=== PATIENT | female | born 1940 | race Caucasian/White ===

== ENCOUNTER 2018-12-27 09:45 | Emergency (ER) | payer OTHER, SELFPAY ==
[2018-12-27] VITALS (8 sets, daily range): BP systolic 119–167; BP diastolic 81–95; PULSE 82–98; RESP 14–25; TEMP 37.2; O2SAT 97–100
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
[2018-12-27 10:36] LABS: Abs Immature Grans 0.04 k/cumm (0.0-0.09); Absolute Basophil Count 0.03 k/cumm (0.0-0.2); Absolute Eosinophil Count 0.23 k/cumm (0.0-0.7); Absolute Lymphocyte Count 2.71 k/cumm (1.2-3.4); Absolute Monocyte Count 1.09 k/cumm (0.11-0.7); Absolute Neutrophil Count 4.69 k/cumm (1.2-6.7); Basophils % 0.3; Eosinophils % 2.6; HGB 12.1 g/dL (12.0-15.5); Immature Grans % 0.5; Lymphocytes % 30.8; Mean Corpuscular Hemoglobin 23.4 pg (27.0-33.0); Mean Corpuscular Volume 75.3 fL (80-95); Mean Platelet Volume 10.2 fL (8.0-11.0); Monocytes % 12.4; Neutrophils % 53.4; Platelet Count 313 x1000/uL (130-400); RBC 5.18 m/cumm (4.00-5.20); RBC Distribution Width 16.7 % (11.7-14.6); White Blood Cell Count 8.79 k/cumm (4.4-10.8)
[2018-12-27] MEDS: Ketorolac 15 MG/ML VIAL IVP (10:38)
[2018-12-27 10:58] LABS: ALT 32 U/L (12-78); AST 32 U/L (15-37); Albumin 4.1 g/dL (3.4-5.0); Alkaline Phosphatase 109 U/L (46-116); Anion Gap 12.8 mmol/L (3-11); BUN 16 mg/dL (7-18); Bilirubin, Total 0.3 mg/dL (0.2-1.0); CO2 26.2 mmol/L (21.0-32.0); CREATININE 1.25 mg/dL (0.55-1.02); Calcium 9.7 mg/dL (8.5-10.1); Chloride 101 mmol/L (98-107); Estimated GFR 41.67 (mL/min/1.73m2); Glucose 132 mg/dL (70-100); Potassium 3.5 mmol/L (3.5-5.1); Sodium 140 mmol/L (136-145); Total Protein 7.9 g/dL (6.4-8.2)
[2018-12-27 11:05] LABS: Lipase 181 U/L (73-393); Magnesium 2.2 mg/dL (1.8-2.4); Troponin I < 0.02 ng/mL (0.00-0.06)
[2018-12-27] MEDS: Omnipaque 350 MG/ML 100 ML BTL IJ (11:54)
--- NOTE | 2018-12-27 13:16 | NUR.NOTE ---
MD into re-examine patient, patient given gingerale and saltines. Nursing Note:
[2018-12-27] MEDS: Lidocaine 5% Patch 1 PATCH (13:30)
[2018-12-27] MEDS: HYDROcodone 5/Acetaminophen 325 TAB PO ×2 (13:33→13:34)
== END 2018-12-27 13:49 | disposition home or self-care (01) ==
PROVIDERS: Emergency Provider Physician Assistant; PCP Family Medicine
DX: S29.011A Strain of muscle and tendon of front wall of thorax, initial encounter (principal); V43.52XA Car driver injured in collision with other type car in traffic accident, initial encounter; D43.2 Neoplasm of uncertain behavior of brain, unspecified; I10 Essential (primary) hypertension
CPT/HCPCS: 36415; 74177; 80053; 83690; 93005; 96374; 96375; 99285; 71260; 83735; 84484; 85025; 93010; J1885; J3490

== ENCOUNTER 2019-03-15 10:04 | Outpatient (REF) | payer OTHER, SELFPAY ==
[2019-03-15 19:17] LABS: Anion Gap 10.4 mmol/L (3-11); BUN 9 mg/dL (7-18); CO2 27.6 mmol/L (21.0-32.0); CREATININE 1.08 mg/dL (0.55-1.02); Calcium 8.8 mg/dL (8.5-10.1); Chloride 105 mmol/L (98-107); Estimated GFR 49.19 (mL/min/1.73m2); Glucose 158 mg/dL (70-100); Potassium 3.9 mmol/L (3.5-5.1); Sodium 143 mmol/L (136-145)
== END 2019-03-15 10:24 ==
LOC: NCHCN 10:04
PROVIDERS: PCP Family Medicine; Visit Provider Family Medicine
DX: I10 Essential (primary) hypertension (principal)
CPT/HCPCS: 80048

== ENCOUNTER 2019-05-08 12:56 | Outpatient (REF) | payer OTHER, SELFPAY | END 2019-05-08 13:16 | LOC: NCHCO 12:56 | PROVIDERS: PCP Family Medicine; Visit Provider Nurse Practitioner Family | DX: R30.0 Dysuria (principal); L29.8 Other pruritus | CPT/HCPCS: 87086; 87480; 87510; 87660 ==

== ENCOUNTER 2019-10-16 16:47 | Emergency (ER) | payer OTHER, SELFPAY ==
[2019-10-16 16:50] VITALS: BP 176/88; PULSE 97; RESP 18; TEMP 36.4; O2SAT 97
--- NOTE | 2019-10-16 17:20 | ED.GENADUL_ITS ---
Discharge Plan Disposition Patient Disposition: HOME Condition: Stable Discharge Details Chief Complaint: Orthopedic Clinical Impression: Fracture, humerus Primary Care Provider: Eveline Linton V ED Provider: Delisa Stewart Home Meds and New Rx's Prescriptions: New oxycodone 5 mg tablet 5 mg PO Q8H PRN (Reason: pain) Qty: 7 RF: 0 No Action naproxen sodium [Aleve] 220 MG capsule 220 mg PO BID PRNRF: 0 lisinopril 40 MG tablet 40 mg PO DAILY RF: 0 potassium chloride 20 MEQ tablet,ER particles/crystals 20 meq PO DAILY RF: 0 hydrochlorothiazide 25 MG tablet 25 mg PO DAILY RF: 0 Zyrtec 10 MG capsule 10 mg PO PRN PRNRF: 0 Osteo Bi-Flex Triple Strength 1 EACH tablet 1 ea PO DAILY RF: 0 ibuprofen 800 MG tablet 800 mg PO TID PRN PRNQty: 30 RF: 0 meclizine 25 mg Tablet PO PRN PRNRF: 0 Discharge Instructions Instructions: Arm Fracture in Adults (ED) Additional Instructions: Rest. Activities as tolerated. Wear sling Ice to the area of discomfort for 15 min. 3-5 times daily. Use oxycodone only if needed for severe pain. This will cause drowsiness, do not drive, drink alcohol while taking this medication. This may also cause constipation. Motrin or Naprosyn with food or Tylenol every 6 hours for soreness if needed over the counter for comfort. Followup with orthopedic doctor as discussed for reevaluation. Expect 3 weeks of discomfort before improvement. Return for any worsening or concerns sooner if needed. Return for any numbness, discoloration of the fingers or alarming symptoms sooner if needed Referrals: Brad Epperson MD [ [facility] STAFF PHYSICIAN] - Medical Decision Making Is a 79-year-old patient who slipped on ice prior to arrival landing on her left side. Patient reports significant left arm pain which is difficult to tolerate. Patient denies head strike, headache, dizziness, nausea, vomiting. Patient is not on a blood thinner. Patient denies neck or back pain. Has no concern of rib fractures. No abdominal complaints. Patient has no lower extremity complaints. Patient ambulated without difficulty after fall. On exam patient has diffuse left arm pain. Of try to identify a focal area of pain however given her diffuse complaints she does feel most comfortable with x-ray of the entire arm. Patient is distal neurovascularly intact. X-rays reveal a shoulder fracture. This was discussed with Dr. Epperson of orthopedics who recommends sling only. Patient has no other identifiable fractures on her imaging studies today. Patient's pain is better controlled with Dilaudid. Patient did require nausea medication for symptomatic relief Discussed pain management with patient. Patient's preference is to have some oral pain medication for home for severe pain at night if needed. We did discuss the use of pain medicine including risks and benefits. Sling provided. Rice encouraged. The patient was stable and requested discharge. Prior to discharge, my usual and customary return precautions were reviewed with the patient - this included follow-up instructions and reasons to return to the Emergency Department if conditions worsens, does not improve as expected, or other new concerns arise. HPI General Date/Time Provider Initiated Documentation: 10/16/19 16:51 . HPI Narrative: Is a 79-year-old patient presenting to the emergency room for complaints of slip and fall on ice at home. Patient reports she was taking her recycling out slipped on ice when returning back to her home fell onto her left side. Patient reports severe left shoulder pain. Patient denies striking her head. Patient denies loss of consciousness. Patient denies headache, dizziness, nausea, vomiting. Patient denies any complaints of neck pain. Patient holding her left arm by her side, unable to move due to pain. Patient denies numbness, tingling or weakness. Patient denies any back complaints. Denies any chest pain with difficulty breathing shortness of breath or wheezing. Patient denies abdominal pain. Patient denies any lower extremity injuries. Patient denies numbness, tingling or weakness in lower extremities. No other concerns or complaints at this time. Patient reports pain is intolerable. Related Data Home Medications Medication Instructions Recorded Confirmed Osteo Bi-Flex Triple Strength 1 ea PO DAILY 01/28/15 10/16/19 Zyrtec 10 mg PO PRN PRN 01/28/15 10/16/19 hydrochlorothiazide 25 mg PO DAILY 01/28/15 10/16/19 ibuprofen 800 mg PO TID PRN PRN #30 tablet 01/28/15 10/16/19 lisinopril 40 mg PO DAILY 01/28/15 10/16/19 potassium chloride 20 meq PO DAILY 01/28/15 10/16/19 naproxen sodium [Aleve] 220 mg PO BID PRN 07/06/17 10/16/19 meclizine mg PO PRN PRN 10/16/19 oxycodone 5 mg PO Q8H PRN #7 tab 10/16/19 Previous Rx's Medication Instructions Recorded ibuprofen 800 mg PO TID PRN PRN #30 tablet 01/28/15 oxycodone 5 mg PO Q8H PRN #7 tab 10/16/19 Allergies Allergy/AdvReac Type Severity Reaction Status Date / Time aspirin AdvReac NAUSEA Unverified 10/16/19 16:55 morphine AdvReac NAUSEA Unverified 10/16/19 16:55 Sulfa (Sulfonamide AdvReac NAUSEA Unverified 10/16/19 16:55 Antibiotics) General Stated Complaint: Orthopedic ALBINO: 3 Review of Systems All systems reviewed & are unremarkable except as noted in HPI and below Constitutional Constitutional: Denies fatigue, Denies headache(s), Denies malaise and Denies weakness ENT Ears, Nose, Mouth, and Throat: Denies dizziness, Denies headache(s) and Denies neck pain Cardiovascular Cardiovascular: Denies chest pain and Denies dyspnea Respiratory Respiratory: Denies cough, Denies pain on inspiration and Denies dyspnea Gastrointestinal Gastrointestinal: Denies abdominal pain, Denies nausea and Denies vomiting Genitourinary Genitourinary: Denies flank pain Musculoskeletal Musculoskeletal: Denies back pain, Reports limited range of motion (Limited range of motion left arm), Denies neck pain, Denies numbness and Denies tingling Integumentary/Breasts Skin/Breast: Denies wounds Neurologic Neurologic: Denies dizziness, Denies headache(s), Denies numbness, Denies tingling and Denies weakness Endocrine Endocrine: Denies fatigue PFSH Medical History Brain tumor (Acute) HTN (hypertension) (Chronic) Social History Smoking/Tobacco Use Status: Never Alcohol Intake: never Drug use: Never Substance use type: does not use Do you feel safe at home: Yes Do you feel safe in your relationship?: Yes Exam Narrative Exam Narrative: CONST: Healthy appearing patient, in no acute distress. Well hydrated. Alert and oriented. HENMT: Head nomocephalic, normal to inspection. Atraumatic. Hearing grossly normal. EYES: General normal appearance. Alignment normal. Eyelids normal. Conjunctiva normal. NECK: Normal visual inspection. FROM. Trachea midline. No Midline tenderness. CHEST: Normal insepection of the chest. No rib tenderness with palpation RESP: Normal respiratory effort. Speaking full sentences. No cough. No audible wheezing. No retractions. CARDIO: No JVD. No murmur, regular rate and rhythm MUSCULOSKELETAL: Normal Gait. Left arm: Patient has left clavicle tenderness, diffuse shoulder tenderness, diffuse humeral tenderness, elbow pain with palpa tion with arm pain with palpation wrist pain with palpation as well as hand pain with palpation. Patient's cap refill is normal, sensation intact throughout the hand. Pulses intact at the wrist. Patient has no ability to lift the left arm due to pain. Patient is unable to flex elbow due to pain. Lower extremity exam normal. Straight leg raise intact bilaterally. No palpable tenderness of the lower extremities. SKIN: Normal. Dry. No rashes. NEURO: Alert and awake. Speech clear. PSYCH: Normal affect. Cooperative. Course Vital Signs Vital signs: Vital Signs Temperature 36.4 C L 10/16/19 16:50 Pulse 97 H 10/16/19 16:50 Respiratory Rate 18 10/16/19 16:50 Blood Pressure 176/88 H 10/16/19 16:50 Pulse Oximetry 97 10/16/19 16:50 Temperature 36.4 C L 10/16/19 16:50 Temperature Source Skin 10/16/19 16:50 Pulse 97 H 10/16/19 16:50 Respiratory Rate 18 10/16/19 16:50 Respiratory Effort 10/16/19 16:56 Blood Pressure 176/88 H 10/16/19 16:50 Blood Pressure Position Sitting 10/16/19 16:50 Pulse Oximetry 97 10/16/19 16:50 Oxygen Delivery Method Room Air 10/16/19 16:50 Oxygen Flow Rate 0 10/16/19 16:50 Pain Level 10 10/16/19 16:50 Comment 10/16/19 16:50
[2019-10-16] MEDS: Ondansetron 4 MG/2 ML VIAL IVP ×2 (17:35→19:53)
[2019-10-16] MEDS: HYDROmorphone 2 MG/ML VIAL 0.5 MG IVP ×2 (17:41→18:30)
--- NOTE | 2019-10-16 18:10 | DI.RAD_ITS ---
EXAM: XR CLAVICLE LT CLINICAL HISTORY: pain, fall TECHNIQUE: 2D digital imaging was performed. COMPARISON: No exams were available for comparison FINDINGS: There is a comminuted fracture of the humeral head as seen on shoulder films. No clavicle fracture or AC joint widening is seen. IMPRESSION: Comminuted mildly impacted fracture of the humeral head.
--- NOTE | 2019-10-16 18:10 | DI.RAD_ITS ---
EXAM: XR HUMERUS LT CLINICAL HISTORY: pain, fall TECHNIQUE: 2D digital imaging was performed. COMPARISON: No exams were available for comparison FINDINGS: There is a fracture of the surgical neck of the humerus which shows some impaction. The greater tub erosity is fractured as a separate fragment. There is no significant angulation or displacement. Deg enerative changes are seen at the elbow. There is no gross evidence of glenohumeral joint dislocatio n although the views are suboptimal. IMPRESSION: Comminuted fracture of the humeral head.
--- NOTE | 2019-10-16 18:25 | DI.RAD_ITS ---
EXAM: XR ELBOW LT COMPLETE CLINICAL HISTORY: pain. TECHNIQUE: 2D digital imaging was performed. COMPARISON: No exams were available for comparison FINDINGS: There is widening of the radial capitellar joint space. There are bony densities interposed. No def inite acute fracture is seen. The findings could be secondary to an old fracture. Positioning is pandye boptimal due to patient's immobility to move the shoulder. IMPRESSION: Probable old fracture deformity of the proximal radius. If there is further concern for acute fractur e CT could be considered. DATA REPOSITORY: RADIATION DOSE DELIVERED:
--- NOTE | 2019-10-16 18:25 | DI.RAD_ITS ---
EXAM: XR SHOULDER LT COMPLETE 2+V CLINICAL HISTORY: pain, fall TECHNIQUE: 2D digital imaging was performed. COMPARISON: No exams were available for comparison FINDINGS: There is a comminuted fracture of the humeral head. Fracture extends transversely through the surgic al neck. There is some comminution and fracture extends through the greater tuberosity region. Ther e is some widening of the glenohumeral joint space but no evidence of dislocation. The AC joint is n ot widened. No clavicle or rib fractures are seen. IMPRESSION: Comminuted fracture of the humeral head and neck.
--- NOTE | 2019-10-16 18:35 | DI.RAD_ITS ---
EXAM: XR HAND LT COMPLETE CLINICAL HISTORY: pain, fall. TECHNIQUE: 2D digital imaging was performed. COMPARISON: No exams were available for comparison FINDINGS: BONES: No acute fracture is present. No bony destructive lesion is seen. JOINTS: No dislocation present. There are degenerative changes greatest of the interphalangeal joint s. SOFT TISSUE: Normal. IMPRESSION: Degenerative changes. No acute abnormality.. DATA REPOSITORY: RADIATION DOSE DELIVERED:
--- NOTE | 2019-10-16 18:40 | DI.RAD_ITS ---
EXAM: XR WRIST LT COMPLETE CLINICAL HISTORY: pain, fall. TECHNIQUE: 2D digital imaging was performed. COMPARISON: No exams were available for comparison FINDINGS: There is mild soft tissue swelling. No fracture or dislocation is seen. There are degenerative mendoza ges at the scaphoid multangular and with multangular 1st metacarpal joint. IMPRESSION: Degenerative changes. No acute abnormality. DATA REPOSITORY: RADIATION DOSE DELIVERED:
--- NOTE | 2019-10-16 18:50 | DI.VRAD_ITS ---
PROCEDURE INFORMATION: Exam: XR Left Clavicle, Complete Exam date and time: 10/16/2019 18:06 Age: 79 years old Clinical indication: Shoulder; Left; Patient HX: Pain S/P fall TECHNIQUE: Imaging protocol: XR Left clavicle complete. Any number of views. COMPARISON: No relevant prior studies available. FINDINGS: Bones/joints: The left clavicle is intact. Acromioclavicular degenerative changes. Please see shoulder films regarding the left humeral fracture. Soft tissues: Normal. IMPRESSION: The left clavicle is intact. Dictated and Authenticated by: Amelia Lorenzo MD. Ordering:JASPREET Hercules MD
--- NOTE | 2019-10-16 18:50 | DI.VRAD_ITS ---
PROCEDURE INFORMATION: Exam: XR Left Shoulder Exam date and time: 10/16/2019 18:08 Age: 79 years old Clinical indication: Patient HX: Left shoulder pain S/P fall on ice TECHNIQUE: Imaging protocol: XR Left shoulder. Views: 2 or more views. COMPARISON: No relevant prior studies available. FINDINGS: Bones/joints: Acute comminuted fracture of the left humeral head and neck with minimal impaction. Glenohumeral alignment appears grossly preserved. Underlying acromioclavicular and glenohumeral degenerative changes appear [id number]. Soft tissues: Normal. IMPRESSION: 1. Acute comminuted fracture of the left humeral head and neck with minimal impaction. 2. Glenohumeral alignment appears grossly preserved. Dictated and Authenticated by: Amelia Lorenzo MD. Ordering:JASPREET Hercules MD
--- NOTE | 2019-10-16 18:51 | DI.VRAD_ITS ---
PROCEDURE INFORMATION: Exam: XR Left Wrist Exam date and time: 10/16/2019 18:26 Age: 79 years old Clinical indication: Pain; Wrist; Left TECHNIQUE: Imaging protocol: XR Left wrist. Views: 3 or more views. COMPARISON: No relevant prior studies available. FINDINGS: Bones/joints: The bones are demineralized. No acute fracture or subluxation. Mild degenerative changes radial aspect of the wrist. The scaphoid is intact. Soft tissues: Generalized soft tissue swelling. IMPRESSION: No acute bony pathology. Dictated and Authenticated by: Amelia Lorenzo MD. Ordering:JASPREET Hercules MD
--- NOTE | 2019-10-16 18:52 | DI.VRAD_ITS ---
PROCEDURE INFORMATION: Exam: XR Left Hand Exam date and time: 10/16/2019 18:27 Age: 79 years old Clinical indication: Pain; Hand; Left TECHNIQUE: Imaging protocol: XR Left hand. Views: 3 or more views. COMPARISON: No relevant prior studies available. FINDINGS: Bones/joints: The bones are demineralized. No acute fracture or subluxation. Degenerative changes in the wrist and hand most pronounced in the interphalangeal joints. Soft tissues: The Benign calcifications in the soft tissues. Digital soft tissue swelling. IMPRESSION: No acute bony pathology. Dictated and Authenticated by: Amelia Lorenzo MD. Ordering:JASPREET Hercules MD
--- NOTE | 2019-10-16 18:52 | DI.VRAD_ITS ---
PROCEDURE INFORMATION: Exam: XR Left Humerus Exam date and time: 10/16/2019 18:25 Age: 79 years old Clinical indication: Shoulder; Left; Patient HX: Pain S/P fall TECHNIQUE: Imaging protocol: XR Left humerus Views: 2 or more views. COMPARISON: No relevant prior studies available. FINDINGS: Bones/joints: Comminuted proximal left humeral fracture involving the head and neck as described on shoulder films. The remainder of the humerus appears grossly intact, somewhat limited lateral view. IMPRESSION: Comminuted proximal left humeral fracture involving the head and neck as described on shoulder films. The remainder of the humerus appears grossly intact, somewhat limited lateral view. Dictated and Authenticated by: Amelia Lorenzo MD. Ordering:JASPREET Hercules MD
--- NOTE | 2019-10-16 18:53 | DI.VRAD_ITS ---
PROCEDURE INFORMATION: Exam: XR Left Elbow Exam date and time: 10/16/2019 18:22 Age: 79 years old Clinical indication: Pain; Elbow; Left TECHNIQUE: Imaging protocol: XR Left elbow. Views: 3 or more views. COMPARISON: No relevant prior studies available. FINDINGS: Bones/joints: Atypical projections of the left elbow with no convincing fracture or subluxation. Consider follow-up imaging with true frontal and lateral projections if clinically indicated. Mild degenerative changes in the elbow. Soft tissues: Benign calcifications in the soft tissues. Soft tissue swelling about the elbow. IMPRESSION: Atypical projections of the left elbow with no convincing fracture or subluxation. Consider follow-up imaging with true frontal and lateral projections if clinically indicated. Dictated and Authenticated by: Amelia Lorenzo MD. Ordering:JASPREET Hercules MD
== END 2019-10-16 19:45 | disposition home or self-care (01) ==
PROVIDERS: Emergency Provider Physician Assistant; PCP Family Medicine
DX: S42.232A 3-part fracture of surgical neck of left humerus, initial encounter for closed fracture (principal); W00.0XXA Fall on same level due to ice and snow, initial encounter; M25.522 Pain in left elbow; M25.532 Pain in left wrist; M25.542 Pain in joints of left hand; I10 Essential (primary) hypertension
CPT/HCPCS: 23600; 96374; 96375; 96376; 99284; 73000; 73030; 73060; 73080; 73110; 73130; J2405; L3650

== ENCOUNTER 2019-10-18 09:53 | Emergency (ER) | payer OTHER, SELFPAY ==
[2019-10-18 09:59] VITALS: BP 169/86; PULSE 83; RESP 18; TEMP 36.6; O2SAT 96
--- NOTE | 2019-10-18 10:09 | ED.GENADUL_ITS ---
Discharge Plan Disposition Patient Disposition: HOME Condition: Stable Discharge Details Chief Complaint: HeadInjury Clinical Impression: Fall at home, Laceration of head, Contusion of left shoulder, History of humerus fracture, Contusion of left leg Primary Care Provider: Eveline Linton V ED Provider: Stephania Gray Home Meds and New Rx's Prescriptions: Continued naproxen sodium [Aleve] 220 MG capsule 220 mg PO BID PRNRF: 0 lisinopril 40 MG tablet 40 mg PO DAILY RF: 0 potassium chloride 20 MEQ tablet,ER particles/crystals 20 meq PO DAILY RF: 0 hydrochlorothiazide 25 MG tablet 25 mg PO DAILY RF: 0 Zyrtec 10 MG capsule 10 mg PO PRN PRNRF: 0 Osteo Bi-Flex Triple Strength 1 EACH tablet 1 ea PO DAILY RF: 0 ibuprofen 800 MG tablet 800 mg PO TID PRN PRNQty: 30 RF: 0 meclizine 25 mg Tablet PO PRN PRNRF: 0 oxycodone 5 mg tablet 5 mg PO Q8H PRN (Reason: pain) Qty: 7 RF: 0 Discharge Instructions Instructions: Laceration (ED), Head Injury (ED), Contusion in Adults (ED) Additional Instructions: Avoid excessive screen time over the next few days including phone, TV or computer as this may strain your eyes and cause worsening headache. Apply ice to your left shoulder and left leg several times daily for 20 minutes at a time. Take your oxycodone that you have at home as you have been for your left shoulder fracture. Return to the emergency department in 10 days for staple removal. Return to the emergency department at any time if you develop any worsening or new concerning symptom such as persistent headaches, vomiting or dizziness. Discharge Data Discharge Date/Time-TO BE ENTERED AT DEPARTURE: 10/18/19 12:58 Discharge Physician: Stephania Gray Medical Decision Making 79-year-old female with a history of vertigo and falls due to imbalance presents for head injury, left shoulder pain and left thigh pain after she lost her tatyana nce while putting on her shoes this morning. No LOC or vomiting. She sustained a left proximal humerus fracture 2 days ago after a fall. She has a left shoulder sling. There is no new or other extremity deformity noted. She has tenderness palpation of her left thigh but no evidence of trauma. She is neurovascular intact. She has a 1.5 cm laceration to the left frontotemporal region of head. She has no spinal tenderness, lungs clear and abdomen nontender. Tetanus up-to-date. She was referred for CT head and cervical spine which were negative for acute injury but noted a pituitary lesion which recommends further outpatient follow-up. Left shoulder x-ray negative for new or worsening fracture. Left femur x-ray negative. She had 4 jabari placed in the left head. Advised to return here for evaluation as needed and in 10 days for staple removal. Medical Records Medical records reviewed: Yes I reviewed the patient's medical records. Imaging Data Radiologic Study: Radiologist's impression: CT HEAD CERVICAL SPINE WO CLINICAL HISTORY: hit L head on pellet stove, r/o fx/brain injury. TECHNIQUE: Imaging Protocol: Axial computed tomography images with coronal and sagittal reformatted images were created and reviewed COMPARISON: No exams were available for comparison FINDINGS: CT Head: Ventricles and Extra axial spaces: Normal in size and morphology for the pat ient's age. Hemorrhage: None. Cerebral parenchyma: Normal. Midline shift: None. Brainstem/Cerebellum: Normal. Calvarium: Normal. Visualized Paranasal sinuses/Mastoids: Clear. Soft Tissues: Unremarkable. Pituitary: The sella is enlarged. There does appear to be a heterogeneous mass in the sella. There does appear to be displacement of the infundibulum to the left. CT Cervical Spine: Bones: No acute fracture or subluxation. Moderate degenerative changes are present throughout the cervical spine. Soft Tissues: Unremarkable. Lung Apices: Clear. IMPRESSION: 1. No acute intracranial process. 2. No acute fracture or subluxation in the cervical spine. 3. Findings suggestive of a pituitary mass. Non emergent MRI of the pituitary gland is recommended without and with contrast material. 4. The findings were discussed with the emergency department on the date of the examination. XR SHOULDER LT COMPLETE 2+V CLINICAL HISTORY: hit L shoulder again, r/o worsening fx. TECHNIQUE: 2D digital imaging was performed. COMPARISON: XR SHOULDER LT COMPLETE 2+V from 10/16/2019 FINDINGS: BONES: There is a stable proximal left humeral fracture. No new fracture or dislocation is present. No bony destructive lesion is seen. Osteopenia. JOINTS: No dislocation present. SOFT TISSUE: Normal. IMPRESSION: Stable proximal left humeral fracture. XR FEMUR LT CLINICAL HISTORY: hit L leg on ground, r/o fracture. TECHNIQUE: 2D digital imaging was performed. COMPARISON: No exams were available for comparison FINDINGS: BONES: No acute fracture is present. No bony destructive lesion is seen. Visualized portion of knee and hip joints are unremarkable. SOFT TISSUE: Normal. Vascular calcifications are present. IMPRESSION: Unremarkable radiographs of the left femur. HPI General Mode of arrival: ambulatory . Date/Time Provider Initiated Documentation: 10/18/19 09:54 . Limitations to Documentation: no limitations . Information obtained by: patient . HPI Narrative: Patient is a 79-year-old female who is 2 days status post left proximal humerus fracture after mechanical fall who presents with headache, head laceration, repeat left shoulder injury, and left thigh pain after losing her balance while putting on her shoes this morning at home hitting the left side of her head on the pellet stove and hitting her left arm and left thigh. Denies LOC, vomiting. She is unsure of her tetanus status. She has been taking oxycodone for her left shoulder pain but has not taken a dose this morning. She denies neck pain, chest pain, abdominal pain, back pain or other extremity injury. Related Data Home Medications Medication Instructions Recorded Confirmed Osteo Bi-Flex Triple Strength 1 ea PO DAILY 01/28/15 10/16/19 Zyrtec 10 mg PO PRN PRN 01/28/15 10/16/19 hydrochlorothiazide 25 mg PO DAILY 01/28/15 10/16/19 ibuprofen 800 mg PO TID PRN PRN #30 tablet 01/28/15 10/16/19 lisinopril 40 mg PO DAILY 01/28/15 10/16/19 potassium chloride 20 meq PO DAILY 01/28/15 10/16/19 naproxen sodium [Aleve] 220 mg PO BID PRN 07/06/17 10/16/19 meclizine mg PO PRN PRN 10/16/19 oxycodone 5 mg PO Q8H PRN #7 tab 10/16/19 Previous Rx's Medication Instructions Recorded ibuprofen 800 mg PO TID PRN PRN #30 tablet 01/28/15 oxycodone 5 mg PO Q8H PRN #7 tab 10/16/19 Allergies Allergy/AdvReac Type Severity Reaction Status Date / Time aspirin AdvReac NAUSEA Unverified 10/16/19 16:55 morphine AdvReac NAUSEA Unverified 10/16/19 16:55 Sulfa (Sulfonamide AdvReac NAUSEA Unverified 10/16/19 16:55 Antibiotics) General Stated Complaint: HeadInjury ALBINO: 3 Review of Systems All systems reviewed & are unremarkable except as noted in HPI and below Constitutional Constitutional: Reports as per HPI, Denies chills and Denies fever(s) Eyes Eyes: Denies blurry vision ENT Ears, Nose, Mouth, and Throat: Denies dizziness, Denies sore throat and Denies throat swelling Cardiovascular Cardiovascular: Denies chest pain and Denies dyspnea Respiratory Respiratory: Denies cough and Denies dyspnea Gastrointestinal Gastrointestinal: Denies abdominal pain, Denies diarrhea and Denies vomiting Genitourinary Genitourinary: Denies hematuria and Denies dysuria Musculoskeletal Musculoskeletal: Denies back pain, Denies numbness and Reports other (L shoulder pain, L leg pain) Integumentary/Breasts Skin/Breast: Denies lesions and Denies rash Neurologic Neurologic: Denies dizziness, Denies localized weakness and Denies numbness Allergic/Immunologic Allergic/Immunologic: Denies throat swelling [facility] Social History Smoking/Tobacco Use Status: Never Alcohol Intake: never Drug use: Never Substance use type: does not use Do you feel safe at home: Yes Do you feel safe in your relationship?: Yes Exam Const General: cooperative and healthy appearing Orientation: alert, awake and oriented x3 HENMT Head: normal to inspection Head images: 1. 1.5cm straight laceration on L frontotemporal side of head. Ears: hearing grossly normal bilaterally, external ears normal and TM's normal bilaterally General nose exam: external nose normal Face and sinus: normal facial exam Mouth: oral mucosae normal Teeth and gingiva: dentition normal Throat: posterior oropharynx normal Eyes General: appearance normal, both eyes and all related structures Eyelids: eyelids normal Pupils: PERRL EOM: EOM intact bilaterally Neck Neck: normal visual inspection Lymphatic: no lymphadenopathy noted Chest Chest: normal inspection of the chest Resp Effort & Inspection: normal respiratory effort and able to speak in complete sentences Auscultation: clear to auscultation bilaterally Cardio Rate: regular rate Rhythm: regular rhythm GI Inspection: normal to inspection Palpation: soft, not firm, no guarding, no hepatosplenomegaly, no masses and nontender Auscultation: normal bowel sounds Back/Spine/Pelvis Cervical Spine: No cervical spinal tenderness Thoracic/Lumbar Spine: thoracic and lumbar spine normal to inspection, No thoracic spinal tenderness and No lumbar spinal tenderness Skin General skin exam: no rashes or lesions noted Neuro General: patient alert and patient awake Cognition: normal cognition Speech: speech normal Gait: normal gait Motor: muscle tone normal throughout Sensory Exam: no sensory deficits noted Extrem Other: Left upper extremity in sling. Tenderness to palpation of left anterior shoulder. No open wounds noted. No obvious deformities noted. No tenderness to palpation of left elbow, left wrist or left hand. No tenderness to palpation or pain with range of motion in right upper and lower extremities. Some tenderness to palpation of left thigh but without ecchymosis, edema, erythema, open wounds or deformity noted. No tenderness to palpation of bilateral lower legs, ankles or feet. Psych Appearance: grossly normal Mental Status: mental status grossly normal Speech and Movement: speech and movement normal Affect: normal affect Thought Process: normal Course Vital Signs Vital signs: Vital Signs Temperature 97.9 F 10/18/19 09:59 Pulse 83 10/18/19 09:59 Respiratory Rate 18 10/18/19 09:59 Blood Pressure 169/86 H 10/18/19 09:59 Pulse Oximetry 96 10/18/19 09:59 Temperature 97.9 F 10/18/19 09:59 Temperature Source Skin 10/18/19 09:59 Pulse 83 10/18/19 09:59 Respiratory Rate 18 10/18/19 09:59 Respiratory Effort 10/18/19 10:03 Blood Pressure 169/86 H 10/18/19 09:59 Blood Pressure Position Sitting 10/18/19 09:59 Pulse Oximetry 96 10/18/19 09:59 Oxygen Delivery Method Room Air 10/18/19 09:59 Oxygen Flow Rate 0 10/18/19 09:59 Pain Level 10 10/18/19 09:59 Comment 10/18/19 09:59 Procedures Laceration Laceration 1: Site: scalp Side (If applicable): left (x 2) Size (cm): 1.5 Description: linear Depth: simple, single layer Local Anesthetic: Lidocaine 1% Amount of anesthesia used (mL): 10 Pre-repair: wound explored, irrigated extensively and deep structures intact Skin layer closed with: other (jabari) Number of sutures: 7 Technique: simple, interrupted (1 laceration with 3 jabari, 1 laceration with 4 jabari)
--- NOTE | 2019-10-18 10:15 | DI.RAD_ITS ---
EXAM: XR FEMUR LT CLINICAL HISTORY: hit L leg on ground, r/o fracture. TECHNIQUE: 2D digital imaging was performed. COMPARISON: No exams were available for comparison FINDINGS: BONES: No acute fracture is present. No bony destructive lesion is seen. Visualized portion of knee a nd hip joints are unremarkable. SOFT TISSUE: Normal. Vascular calcifications are present. IMPRESSION: Unremarkable radiographs of the left femur. DATA REPOSITORY: RADIATION DOSE DELIVERED:
--- NOTE | 2019-10-18 10:15 | DI.RAD_ITS ---
EXAM: XR SHOULDER LT COMPLETE 2+V CLINICAL HISTORY: hit L shoulder again, r/o worsening fx. TECHNIQUE: 2D digital imaging was performed. COMPARISON: XR SHOULDER LT COMPLETE 2+V from 10/16/2019 FINDINGS: BONES: There is a stable proximal left humeral fracture. No new fracture or dislocation is present. No bony destructive lesion is seen. Osteopenia. JOINTS: No dislocation present. SOFT TISSUE: Normal. IMPRESSION: Stable proximal left humeral fracture. DATA REPOSITORY: RADIATION DOSE DELIVERED:
[2019-10-18] MEDS: oxyCODONE 5 MG TAB PO ×2 (10:43→12:59)
--- NOTE | 2019-10-18 11:28 | DI.CT_ITS ---
EXAM: CT HEAD CERVICAL SPINE WO CLINICAL HISTORY: hit L head on pellet stove, r/o fx/brain injury. TECHNIQUE: Imaging Protocol: Axial computed tomography images with coronal and sagittal reformatted images were created and reviewed COMPARISON: No exams were available for comparison FINDINGS: CT Head: Ventricles and Extra axial spaces: Normal in size and morphology for the patient's age. Hemorrhage: None. Cerebral parenchyma: Normal. Midline shift: None. Brainstem/Cerebellum: Normal. Calvarium: Normal. Visualized Paranasal sinuses/Mastoids: Clear. Soft Tissues: Unremarkable. Pituitary: The sella is enlarged. There does appear to be a heterogeneous mass in the sella. There does appear to be displacement of the infundibulum to the left. CT Cervical Spine: Bones: No acute fracture or subluxation. Moderate degenerative changes are present throughout the cer vical spine. Soft Tissues: Unremarkable. Lung Apices: Clear. IMPRESSION: 1. No acute intracranial process. 2. No acute fracture or subluxation in the cervical spine. 3. Findings suggestive of a pituitary mass. Non emergent MRI of the pituitary gland is recommended w ithout and with contrast material. 4. The findings were discussed with the emergency department on the date of the examination. RADIATION DOSE DELIVERED: DATA REPOSITORY: All CT scans at this facility are submitted to the National Radiology Data Registry (NRDR) Dose Index Registry (DIR) with the [employer] (A[employer]). RADIATION OPTIMIZATION: All CT scans at this facility use at least one of these dose optimization te chniques: automated exposure control; mA and/or kV adjustment per patient size (includes targeted exa ms where dose is matched to clinical indication); or iterative reconstruction.
[2019-10-18 12:07] VITALS: BP 170/78; PULSE 78; RESP 16; TEMP 36.4; O2SAT 92
[2019-10-18 13:00] VITALS: BP 168/84; PULSE 87; RESP 16; TEMP 36.6; O2SAT 93
== END 2019-10-18 12:58 | disposition home or self-care (01) ==
PROVIDERS: Emergency Provider Physician Assistant; PCP Family Medicine
DX: S01.01XA Laceration without foreign body of scalp, initial encounter (principal); S40.012A Contusion of left shoulder, initial encounter; S70.12XA Contusion of left thigh, initial encounter; W01.198A Fall on same level from slipping, tripping and stumbling with subsequent striking against other object, initial encounter; R29.6 Repeated falls; R42 Dizziness and giddiness; M25.512 Pain in left shoulder; R90.89 Other abnormal findings on diagnostic imaging of central nervous system
CPT/HCPCS: 12001; 73552; 99284; 70450; 72125; 73030

== ENCOUNTER 2019-10-28 09:23 | Emergency (ER) | payer OTHER, SELFPAY ==
[2019-10-28 09:27] VITALS: BP 175/80; PULSE 75; O2SAT 98
--- NOTE | 2019-10-28 09:39 | ED.GENADUL_ITS ---
Discharge Plan Disposition Patient Disposition: HOME Condition: Stable Discharge Details Chief Complaint: SutureRem Clinical Impression: Encounter for staple removal Primary Care Provider: Eveline Linton V ED Provider: Emre Jordan Home Meds and New Rx's Prescriptions: No Action naproxen sodium [Aleve] 220 MG capsule 220 mg PO BID PRNRF: 0 lisinopril 40 MG tablet 40 mg PO DAILY RF: 0 potassium chloride 20 MEQ tablet,ER particles/crystals 20 meq PO DAILY RF: 0 hydrochlorothiazide 25 MG tablet 25 mg PO DAILY RF: 0 Zyrtec 10 MG capsule 10 mg PO PRN PRNRF: 0 Osteo Bi-Flex Triple Strength 1 EACH tablet 1 ea PO DAILY RF: 0 ibuprofen 800 MG tablet 800 mg PO TID PRN PRNQty: 30 RF: 0 meclizine 25 mg Tablet PO PRN PRNRF: 0 oxycodone 5 mg tablet 5 mg PO Q8H PRN (Reason: pain) Qty: 7 RF: 0 Discharge Instructions Instructions: Staple Care (ED) Additional Instructions: Mari removed without difficulty. Keep the area clean and dry. Do not clean or aggressively brush your hair or scalp over the laceration. Please watch for new or worsening symptoms and return to the ER for any concerns Medical Decision Making 79-year-old female presents for staple removal. Laceration appears well appr oximated, no active signs of infection. No erythema, warmth, or drainage. Patient with no additional questions or concerns regarding her visit today. Removed 7 mari without difficulty by me. Patient tolerated well. Comfortable discharge now. Medical Records Medical records reviewed: Yes I reviewed the patient's medical records. HPI General Mode of arrival: ambulatory . Date/Time Provider Initiated Documentation: 10/28/19 09:39 . Limitations to Documentation: no limitations . Information obtained by: patient . HPI Narrative: 79-year-old female presents to the ER for staple removal. She reports falling 10 days ago, being seen here in our ER, having 7 mari placed to the left side of her scalp. Reports that the area is healing nicely, denies fever, discharge, redness. Denies global headache. She is not anticoagulated. Patient has no additional questions or concerns. Related Data Home Medications Medication Instructions Recorded Confirmed Osteo Bi-Flex Triple Strength 1 ea PO DAILY 01/28/15 10/16/19 Zyrtec 10 mg PO PRN PRN 01/28/15 10/16/19 hydrochlorothiazide 25 mg PO DAILY 01/28/15 10/16/19 ibuprofen 800 mg PO TID PRN PRN #30 tablet 01/28/15 10/16/19 lisinopril 40 mg PO DAILY 01/28/15 10/16/19 potassium chloride 20 meq PO DAILY 01/28/15 10/16/19 naproxen sodium [Aleve] 220 mg PO BID PRN 07/06/17 10/16/19 meclizine mg PO PRN PRN 10/16/19 oxycodone 5 mg PO Q8H PRN #7 tab 10/16/19 Previous Rx's Medication Instructions Recorded ibuprofen 800 mg PO TID PRN PRN #30 tablet 01/28/15 oxycodone 5 mg PO Q8H PRN #7 tab 10/16/19 Allergies Allergy/AdvReac Type Severity Reaction Status Date / Time aspirin AdvReac NAUSEA Unverified 10/16/19 16:55 morphine AdvReac NAUSEA Unverified 10/16/19 16:55 Sulfa (Sulfonamide AdvReac NAUSEA Unverified 10/16/19 16:55 Antibiotics) General Stated Complaint: SutureRem ALBINO: 5 Review of Systems Constitutional Constitutional: Denies headache(s) and Denies weakness Eyes Eyes: Denies change in vision ENT Ears, Nose, Mouth, and Throat: Denies headache(s) Cardiovascular Cardiovascular: Denies chest pain Respiratory Respiratory: Denies cough Gastrointestinal Gastrointestinal: Denies nausea and Denies vomiting Musculoskeletal Musculoskeletal: Denies numbness, Denies tingling and Reports other (Left humerus fracture, pain) Integumentary/Breasts Skin/Breast: Denies rash Neurologic Neurologic: Denies headache(s), Denies numbness, Denies tingling and Denies weakness [facility] Medical History Brain tumor (Acute) HTN (hypertension) (Chronic) Surgical History History of hysterectomy (Chronic) History of resection of rib (Acute) Social History Smoking/Tobacco Use Status: Never Alcohol Intake: never Drug use: Never Substance use type: does not use Do you feel safe at home: Yes Do you feel safe in your relationship?: Yes Exam Const General: cooperative, healthy appearing, comfortable and no acute distress Orientation: alert, awake and oriented x3 HENMT Head: normal to inspection, normocephalic, atraumatic and other (Left temporal region, well approximated laceration, 7 mari intact) Mouth: moist mucous membranes Eyes Conjunctivae: conjunctivae normal Neck Neck: normal visual inspection, full ROM, trachea midline and supple Resp Effort & Inspection: normal respiratory effort and able to speak in complete sentences Cardio Rate: regular rate Rhythm: regular rhythm Skin General skin exam: no rashes or lesions noted Neuro General: patient alert, patient awake, moves all extremities and no focal motor deficits Sensory Exam: no sensory deficits noted Extrem General: other (Left arm in a sling) Psych Appearance: grossly normal Mental Status: mental status grossly normal Course Vital Signs Vital signs: Vital Signs Pulse 75 10/28/19 09:27 Blood Pressure 175/80 H 10/28/19 09:27 Pulse Oximetry 98 10/28/19 09:27 Temperature Source Temporal Artery Scan 10/28/19 09:27 Pulse 75 10/28/19 09:27 Respiratory Effort Non-Labored 10/28/19 09:29 Blood Pressure 175/80 H 10/28/19 09:27 Blood Pressure Position Sitting 10/28/19 09:27 Pulse Oximetry 98 10/28/19 09:27 Oxygen Delivery Method Room Air 10/28/19 09:27 Oxygen Flow Rate 0 10/28/19 09:27
== END 2019-10-28 09:45 | disposition home or self-care (01) ==
PROVIDERS: Emergency Provider Physician Assistant; PCP Family Medicine
DX: S01.01XD Laceration without foreign body of scalp, subsequent encounter (principal); W01.198D Fall on same level from slipping, tripping and stumbling with subsequent striking against other object, subsequent encounter; Z48.02 Encounter for removal of sutures

== ENCOUNTER 2019-11-05 10:38 | Outpatient (CLI) | payer OTHER, SELFPAY ==
--- NOTE | 2019-11-05 09:55 | DI.RAD_ITS ---
EXAM: XR SHOULDER LT COMPLETE 2+V CLINICAL HISTORY: Follow up. TECHNIQUE: 2D digital imaging was performed. COMPARISON: XR SHOULDER LT COMPLETE 2+V from 10/18/2019 FINDINGS: BONES: There has been no change in the alignment of the previously noted humeral head fracture. Ther e is mild inferior subluxation of the humeral head with respect to the glenoid, unchanged. DATA REPOSITORY: RADIATION DOSE DELIVERED:
== END 2019-11-05 10:58 ==
PROVIDERS: PCP Family Medicine; Visit Provider Student in an Organized Health Care Education/Training Program
DX: S42.232D 3-part fracture of surgical neck of left humerus, subsequent encounter for fracture with routine healing (principal)
CPT/HCPCS: 73030

== ENCOUNTER 2019-12-03 10:39 | Outpatient (CLI) | payer OTHER, SELFPAY ==
--- NOTE | 2019-12-03 10:15 | DI.RAD_ITS ---
EXAM: XR SHOULDER LT COMPLETE 2+V CLINICAL HISTORY: fu fracture TECHNIQUE: COMPARISON: XR SHOULDER LT COMPLETE 2+V from 11/05/2019 FINDINGS: Two views were obtained. Previously described proximal humeral fracture is again noted with no gross interval change in alignment in comparison with examination of November 04 allowing for differences i n projection. IMPRESSION:
== END 2019-12-03 10:59 ==
PROVIDERS: PCP Family Medicine; Visit Provider Student in an Organized Health Care Education/Training Program
DX: S42.232D 3-part fracture of surgical neck of left humerus, subsequent encounter for fracture with routine healing (principal)
CPT/HCPCS: 73030

== ENCOUNTER 2020-01-28 10:27 | Outpatient (CLI) | payer OTHER, SELFPAY ==
--- NOTE | 2020-01-28 09:30 | DI.RAD_ITS ---
EXAM: XR SHOULDER LT COMPLETE 2+V CLINICAL HISTORY: fu fracture TECHNIQUE: COMPARISON: CR XR SHOULDER LT COMPLETE 2+V from 12/03/2019 FINDINGS: Two views were obtained and show previously described proximal humeral fracture, no gross interval ch liv in alignment of the fracture fragments comparison previous examination of November 24. IMPRESSION:
== END 2020-01-28 10:47 ==
PROVIDERS: PCP Family Medicine; Referring Provider Family Medicine; Visit Provider Student in an Organized Health Care Education/Training Program
DX: S42.232D 3-part fracture of surgical neck of left humerus, subsequent encounter for fracture with routine healing (principal)
CPT/HCPCS: 73030

== ENCOUNTER 2020-04-21 09:39 | Outpatient (CLI) | payer OTHER, SELFPAY ==
--- NOTE | 2020-04-21 09:00 | DI.RAD_ITS ---
EXAM: XR SHOULDER LT COMPLETE 2+V CLINICAL HISTORY: f/u fracture TECHNIQUE: COMPARISON: CR XR SHOULDER LT COMPLETE 2+V from 01/28/2020 FINDINGS: Two views were obtained and show previous described proximal humeral fracture which appears to be hea ling with no gross interval change in alignment allowing for differences in projection in comparison with previous examination January 27. IMPRESSION: RADIATION DOSE DELIVERED: Total DLP
== END 2020-04-21 09:59 ==
PROVIDERS: PCP Family Medicine; Referring Provider Family Medicine; Visit Provider Student in an Organized Health Care Education/Training Program
DX: S42.292A Other displaced fracture of upper end of left humerus, initial encounter for closed fracture (principal)
CPT/HCPCS: 73030

== ENCOUNTER 2020-04-22 02:59 | Emergency (ER) | payer OTHER, SELFPAY ==
--- NOTE | 2020-04-22 03:00 | DI.CT_ITS ---
EXAM: CT RENAL COLIC WO CLINICAL HISTORY: left flank pain TECHNIQUE: COMPARISON: CT CT CHEST/ABD/PEL W from 12/27/2018 FINDINGS: Noncontrast CT examination of the abdomen pelvis was performed. Images obtained through the lung bas es are unremarkable. There is moderate-sized hiatal hernia. There are small well-circumscribed low- attenuation lesions of the left hepatic lobe consistent with cysts unchanged in appearance from December 06 019, maximal diameter of the adjacent cysts 3.4 cm. Spleen is unremarkable in appearance as visualized. Gallbladder and bile ducts are CT. Pancreas corey ears normal. Abdominal aorta is of normal diameter. No significant abdominal or pelvic adenopathy. No significant abdominal hernia seen. Appendix is not specifically visualized but there is no evidence of appendicitis or diverticulitis. Adrenals appear normal bilaterally. The kidneys are normal in size and shape, with no evidence of a renal mass, hydronephrosis, or nephro lithiasis. No evidence of ureteral calcification. Urinary bladder grossly unremarkable by noncontra st criteria. Uterus is atrophic or absent. IMPRESSION: No evidence of acute intra-abdominal process. No urinary tract calcification or obstruction. RADIATION DOSE DELIVERED: 774.7mGy.cm Total DLP
[2020-04-22 03:03] VITALS: BP 189/102; PULSE 78; RESP 18; TEMP 36.5; O2SAT 96
--- NOTE | 2020-04-22 03:07 | W.ED.GENAD ---
Discharge Plan Disposition Patient Disposition: HOME Condition: Stable Discharge Details Clinical Impression: Back pain, Acute UTI Primary Care Provider: Eveline Linton V ED Provider: Hemal Gomez Home Meds and New Rx's Prescriptions: New levofloxacin 750 mg tablet 750 mg PO DAILY Qty: 5 RF: 0 Continued acetaminophen [Tylenol] 325 mg capsule 325 mg PO ONCE PRNRF: 0 lisinopril 40 MG tablet 40 mg PO DAILY RF: 0 potassium chloride 20 MEQ tablet,ER particles/crystals 20 meq PO DAILY RF: 0 Zyrtec 10 MG capsule 10 mg PO PRN PRNRF: 0 Osteo Bi-Flex Triple Strength 1 EACH tablet 1 ea PO DAILY RF: 0 meclizine 25 mg Tablet 25 mg PO PRN PRNRF: 0 hydrochlorothiazide 25 mg tablet 25 mg PO DAILY RF: 0 Discharge Instructions Instructions: Back Pain (ED) Additional Instructions: your cat scan did not show anything concerning, you are being treated for a urinary tract infection if you have severe worsening pain, fevers or feel more ill return to the emergency department follow up with your primary care provider within a week especially if symptoms continue Medical Decision Making 80 yo female with hx of htn comes in with complaints left lower lateral flank pain that started suddenly at home. She denies fevers, vomit, falls, chest pain/pressure, dyspnea. States she has been urinating more frequently than normal the past day, no dysuria and no changes on bowels, no weakness. She localizes the pain to the left lower lumbar region and oblique. She has mild left cva tenderness, clear lungs, no murmurs, no saddle anesthesia, normal reflexes, normal gait, and no pain with deep breaths. She has no abdominal tenderness. Her pain could be from a kidney stone vs pyelo, will obtain ua and ct. She has no findings to suggest cauda equina or sea or osteo of the spine. Given no chest pain or pressure and pain in lower back doubt acs and no hypoxia, tachycardia or pleuritic pain or evidence of dvt on exam so doubt PE. Normal vascular exam so doubt dissection. Given lack of abdominal tenderness doubt surgical pathology such as appendicitis, sbo or cholecystitis. blood work and cat scan do not show any concerning findings. Does have leukocytes on Ua and is clear started to have urinary frequency yesterday, given this will tx as possible uti/kidney stone. She has no back pain now and no other complaints ambulating on her own and tolerating PO. Will start on levofloxacin and return precautions given Differential Diagnosis Differential Diagnosis: pyelo, kidney stone, muscle spasm Imaging Data Radiologic Study: Attestation: I personally reviewed and interpreted this imaging study as follows: Imaging: CT Scan Radiologist's impression: IMPRESSION: Moderate hiatal hernia is partially visualized. No acute findings Lab Data Lab results reviewed: Yes I reviewed the patient's lab results. HPI General Mode of arrival: ambulatory. Date/Time Provider Initiated Documentation: 04/22/20 03:00. Limitations to Documentation: no limitations. Information obtained by: patient. History of Present Illness 80 year old F presents to the emergency department with the chief complaint of left sided back pain, described as moderate, Patient started experiencing this hour(s) (5) and it has been constant. No relieving factors improve symptom(s), No exacerbating factors reported . Patient did receive the following treatments prior to arrival, none Related Data Home Medications Medication Instructions Recorded Confirmed Osteo Bi-Flex Triple Strength 1 ea PO DAILY 01/28/15 04/22/20 Zyrtec 10 mg PO PRN PRN 01/28/15 04/22/20 lisinopril 40 mg PO DAILY 01/28/15 04/22/20 potassium chloride 20 meq PO DAILY 01/28/15 04/22/20 meclizine 25 mg PO PRN PRN 10/16/19 04/22/20 acetaminophen 325 mg capsule 325 mg PO ONCE PRN 01/28/20 04/22/20 hydrochlorothiazide 25 mg PO DAILY 04/22/20 04/22/20 levofloxacin 750 mg PO DAILY #5 tab 04/22/20 Previous Rx's Medication Instructions Recorded levofloxacin 750 mg PO DAILY #5 tab 04/22/20 Allergies Allergy/AdvReac Type Severity Reaction Status Date / Time aspirin AdvReac NAUSEA Verified 04/22/20 03:10 morphine AdvReac NAUSEA Verified 04/22/20 03:10 Sulfa (Sulfonamide AdvReac NAUSEA Verified 04/22/20 03:10 Antibiotics) General ALBINO: 5 Review of Systems All systems reviewed & are unremarkable except as noted in HPI and below Constitutional Constitutional: Denies chills, Denies fever(s) and Denies weakness Cardiovascular Cardiovascular: Denies chest pain and Denies dyspnea Respiratory Respiratory: Denies cough and Denies dyspnea Gastrointestinal Gastrointestinal: Denies abdominal pain, Denies nausea and Denies vomiting Musculoskeletal Musculoskeletal: Denies joint swelling Integumentary/Breasts Skin/Breast: Denies rash Neurologic Neurologic: Denies weakness COUNT INCLUDES THE [facility] Medical History (Updated 04/22/20 @ 04:36 by Hemal Gomez MD) Brain tumor HTN (hypertension) Surgical History History of hysterectomy History of resection of rib Social History Smoking/Tobacco Use Status: Never Alcohol Intake: never Drug use: Never Substance use type: does not use Do you feel safe at home: Yes Do you feel safe in your relationship?: Yes Exam Const General: no acute distress Orientation: alert HENMT Head: normal to inspection Ears: external ears normal General nose exam: external nose normal Mouth: moist mucous membranes Eyes General: appearance normal, both eyes and all related structures Neck Neck: normal visual inspection Resp Effort & Inspection: normal respiratory effort and able to speak in complete sentences Cardio Rate: regular rate GI Palpation: soft and nontender Back/Spine/Pelvis Back: no CVA tenderness Skin General skin exam: no rashes or lesions noted Neuro General: patient alert and patient oriented x3 Extrem General: normal to inspection Psych Mental Status: mental status grossly normal
[2020-04-22] MEDS: Ketorolac 15 MG/ML VIAL IVP (03:18)
[2020-04-22 03:19] LABS: Abs Immature Grans 0.06 10^3/uL (0.0-0.06); Absolute Basophil Count 0.06 10^3/uL (0.0-0.2); Absolute Eosinophil Count 0.43 10^3/uL (0.0-0.7); Absolute Lymphocyte Count 3.36 10^3/uL (1.2-3.4); Absolute Monocyte Count 0.99 10^3/uL (0.1-0.8); Absolute Neutrophil Count 5.01 10^3/uL (1.2-6.7); Basophils % 0.6; Eosinophils % 4.3; HCT 39.4 % (36.0-46.0); HGB 12.2 g/dL (11.2-15.7); Immature Grans % 0.6; Lymphocytes % 33.9; MCH 25.1 pg (27.0-33.0); MCV 81.1 fL (80-95); MPV 10.4 fL (8.0-11.0); Neutrophils % 50.6; Nucleated RBC 0 %; Platelet Count 285 10^3/uL (130-400); RBC 4.86 10^6/uL (3.93-5.22); RDW 15.4 % (11.7-14.6); WBC 9.91 10^3/uL (4.4-10.8)
[2020-04-22] MEDS: Normal Saline 1,000 ML 1000 ML IV (03:19)
[2020-04-22 03:37] VITALS: BP 174/57; PULSE 66; O2SAT 97
[2020-04-22 03:38] VITALS: O2SAT 96
[2020-04-22 03:40] VITALS: O2SAT 96
[2020-04-22 03:42] LABS: Prothrombin Time 9.8 sec (9.3-11.0)
--- NOTE | 2020-04-22 03:44 | DI.VRAD_ITS ---
PROCEDURE INFORMATION: Exam: CT Abdomen And Pelvis Without Contrast Exam date and time: 04/22/2020 3:26 AM Age: 80 years old Clinical indication: Other: Left flank pain; Prior surgery; Surgery date: 6+ months; Surgery type: Hysterectomy TECHNIQUE: Imaging protocol: Computed tomography of the abdomen and pelvis without contrast. COMPARISON: CT CHEST/ABD/PEL W 12/27/2018 11:35 AM FINDINGS: Mediastinal space: Moderate hiatal hernia is partially visualized. Liver: Simple hepatic cysts in the left lobe measure up to 2.6 cm Gallbladder and bile ducts: Normal. No calcified stones. No ductal dilation. Pancreas: Normal. No ductal dilation. Spleen: Normal. No splenomegaly. Adrenals: Normal. No mass. Kidneys and ureters: Normal. No hydronephrosis. Stomach and bowel: Unremarkable. No obstruction. No mucosal thickening. Appendix: No evidence of appendicitis. Intraperitoneal space: Unremarkable. No free air. No significant fluid collection. Vasculature: Unremarkable. No abdominal aortic aneurysm. Lymph nodes: Unremarkable. No enlarged lymph nodes. Bladder: Unremarkable as visualized. Reproductive: The patient is status post hysterectomy. Bones/joints: Unremarkable. No acute fracture. Soft tissues: Unremarkable. IMPRESSION: Moderate hiatal hernia is partially visualized. No acute findings Dictated and Authenticated by: Adam Funk MD. Ordering:MICHELINE Recio MD
[2020-04-22 03:50] VITALS: O2SAT 96
[2020-04-22 04:10] LABS: ALT 34 U/L (14-59); AST 33 U/L (15-37); Alkaline Phosphatase 137 U/L (46-116); Anion Gap 8.8 mmol/L (3-11); BUN 19 mg/dL (7-18); Bilirubin, Total 0.5 mg/dL (0.2-1.0); CO2 28.2 mmol/L (21.0-32.0); CREATININE 1.24 mg/dL (0.55-1.02); Calcium 9.5 mg/dL (8.5-10.1); Chloride 99 mmol/L (98-107); Estimated GFR 41.83 (mL/min/1.73m2); Glucose 186 mg/dL (74-106); Lipase 132 U/L (73-393); Magnesium 2.2 mg/dL (1.8-2.4); Potassium 3.6 mmol/L (3.5-5.1); Sodium 136 mmol/L (136-145); Total Protein 7.4 g/dL (6.4-8.2)
[2020-04-22 04:11] LABS: Bilirubin Negative (Negative); Blood Negative (Negative); Clarity Clear (Clear); Glucose Negative (Negative); Ketones Negative (Negative); Leukocyte Esterase Trace (Negative); Nitrite Negative (Negative); Urobilinogen 0.2 EU/dL (Up TO 0.2); pH 7.5 (5-8)
[2020-04-22 04:22] LABS: Bacteria Negative HPF (Negative); C & S Indicated? C&S Done As Ordered; Casts Negative LPF (Negative); Crystals Negative HPF (Negative); Epithelial Cells Rare HPF (Negative); Mucus Negative (Negative); Other Cells Negative (Negative); RBC 0-2 HPF (0-2); WBC 0-2 HPF (0-5)
[2020-04-22] MEDS: levoFLOXacin 500 MG, levoFLOXacin 250 MG 750 MG PO (04:40)
[2020-04-22 04:43] VITALS: BP 184/92; PULSE 67; RESP 16; O2SAT 99
== END 2020-04-22 04:45 | disposition home or self-care (01) ==
PROVIDERS: Emergency Provider Emergency Medicine; PCP Family Medicine
DX: N39.0 Urinary tract infection, site not specified (principal); M54.5 Low back pain; R10.32 Left lower quadrant pain; I10 Essential (primary) hypertension
CPT/HCPCS: 36415; 80053; 83690; 96361; 96374; 99284; 74176; 81003; 81015; 83735; 85025; 85610; 85730; 87086; 99285; J1885

== ENCOUNTER 2020-05-11 13:25 | Outpatient (REF) | payer OTHER, SELFPAY ==
--- NOTE | 2020-05-11 11:30 | SKI_PTH ---
PATIENT: Nahomy Quispe LOC: [facility] U#:[id number] AGE/SX: 80/F ROOM: RE05/11/[address]: Daniel Davidson DO : 1940 BED: DIS: 05/11/2020 SPEC #: [id number] RECD: 05/12/20 09:21 STATUS: KALI REQ #: [id number] HONEY: 05/11/20 11:[address]: Daniel Davidson DEPT: Surgical Specimen RECD BY: Josefa Castro ENTERED: 05/12/20 09:22 SP TYPE: SKI OTHR DR: Eveline Linton V Tissues: 1 - SKIN BIOPSY(SHAVE/PUNCH) Procedures: SKIN LEVEL 4 Comments: [id number]
== END 2020-05-11 13:45 ==
LOC: LBN 13:25
PROVIDERS: PCP Family Medicine; Visit Provider Otolaryngology Otolaryngology/Facial Plastic Surgery
DX: D23.39 Other benign neoplasm of skin of other parts of face (principal); L57.0 Actinic keratosis
CPT/HCPCS: 88305

== ENCOUNTER 2020-09-30 16:40 | Inpatient (IN) | payer OTHER, SELFPAY ==
[2020-09-30] VITALS (31 sets, daily range): BP systolic 143–182; BP diastolic 75–104; PULSE 66–106; RESP 13–25; TEMP 36.4–37.1; O2SAT 95–99
--- NOTE | 2020-09-30 16:40 | W.ED.GENAD ---
Discharge Plan Disposition Patient Disposition: [facility] INPATIENT Condition: Fair Discharge Details Chief Complaint: CVA/TIA Clinical Impression: Acute CVA (cerebrovascular accident) Primary Care Provider: Eveline Linton V ED Provider: Mimi Kumari Home Meds and New Rx's Prescriptions: No Action acetaminophen [Tylenol] 325 mg capsule 325 mg PO ONCE PRNRF: 0 lisinopril 40 MG tablet 40 mg PO DAILY RF: 0 potassium chloride 20 MEQ tablet,ER particles/crystals 20 meq PO DAILY RF: 0 Zyrtec 10 MG capsule 10 mg PO PRN PRNRF: 0 Osteo Bi-Flex Triple Strength 1 EACH tablet 1 ea PO DAILY RF: 0 meclizine 25 mg Tablet 25 mg PO PRN PRNRF: 0 hydrochlorothiazide 25 mg tablet 25 mg PO DAILY RF: 0 Medical Decision Making Patient is a pleasant 80 year old female with PMH significant for brain tumor, HTN. Presenting today with c/c of slurred speech and facial droop that began at 1430. She did she first noticed this since being on the phone with her sister. States that her sister did note a change in his speech but that she was still able to understand her well. Later, she looked in the mirror noticed the left-sided facial droop. She denies any headache. No visual change. No difficulty walking, no imbalance. Patient reports that this week is very stressful for her. One of her other sisters suddenly from ruptured aneurysm. She denies any chest pain, shortness of breath, fever/chills. No GI upset. On exam, patient appears anxious but nontoxic. Neurologic exam is significant for a mild left-sided facial droop. Her speech sounds thick but easily intelligible. No other focal deficit is noted. NIH score is 2 based on these 2 fairly mild deficits. No evidence of posterior stroke, good balance. Patient is ambulating easily. Normal Romberg testing. Plan for CT head and labs. Primarily concern for CVA at this time. Also considered mimics. Aqtpz-mo-ykah glucose 230. FINDINGS: Lungs: The lungs are normally expanded and clear. Pleural spaces: No pleural effusion or pneumothorax. Heart/Mediastinum: Chronic hiatal hernia. Vasculature: Tortuous aorta. Normal caliber aorta. Bones/joints: Intact and normally aligned. IMPRESSION: No change or acute disease. FINDINGS: Limitations: None. Brain: No intracranial hemorrhage or brain edema. No transcortical defect. Normal cerebellum and brainstem. Chronic mild diffuse brain volume loss without focal encephalomalacia and prominent symmetric subcortical and periventricular white matter hypoattenuation. Chronic unchanged enlargement of the sella turcica and soft tissue density mass. Chronic unchanged mild leftward infundibular displacement. Cerebral ventricles: Normal. Bones/joints: Normal. Paranasal sinuses: Normal. Mastoid air cells: Normal. Vasculature: Carotid atherosclerosis. Soft tissues: Unremarkable. IMPRESSION: 1. No interval change. 2. 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 Spoke with Deonte, patient's who can be reached at [phone]. Discussed concerns of CVA at length. Had the same discussion with the patient. The 3 of us discussed TPA versus more conservative management. At this time, the patient deficit is fairly minimal and is not limiting her abilities to carry on her daily functions by any means. Communication remains clear. Actually, after patient drank some water, her speech did improve some. They would prefer to hold off on TPA at this point. They prefer more conservative management at baseline per their healthcare concerns. Labs reviewed. No leukocytosis. Stable H&H. Coags within normal limits. Potassium slightly low at 3.4. Creatinine is elevated at 1.4, this is up from the patient's baseline of 1.2. GFR 36. Glucose 213. [place] [facility] [place]. Patient with patient's NIH score and fairly minimal deficit at this time, she feels that treatment with aspirin and Plavix appropriate at this point. Did advise admission for continued evaluation of the source of the patient presume ischemic stroke. She did recommend vascular imaging of the head, neck as well as further evaluation for potential atrial fibrillation or other underlying source. She recommended holding off on the patient's blood pressure medications for the next 24 to 48 hours with a goal systolic less than 180s. Discussed inpatient admission with the patient as well as her . They are in agreement with this plan. Spoke with Dr. Guardado regarding the patient's creatinine. Her creatinine is slightly elevated, this is likely associated with her catastrophic week with the loss of her sister. She is not been hydrating when she typically does. We will give her 500 cc bolus and obtain a CTA of head and neck prior to admission. ANTERIOR CIRCULATION: Right internal carotid artery: Unremarkable. Intracranial segment is patent with no significant stenosis. No aneurysm. Right middle cerebral artery: Unremarkable. No occlusion or significant stenosis. No aneurysm. Right anterior cerebral artery: Unremarkable. No occlusion or significant stenosis. No aneurysm. Left internal carotid artery: Unremarkable. Intracranial segment is patent with no significant stenosis. No aneurysm. Left middle cerebral artery: Unremarkable. No occlusion or significant stenosis. No aneurysm POSTERIOR CIRCULATION: Right vertebral artery: Unremarkable. No occlusion or significant stenosis. No aneurysm. Left vertebral artery: Unremarkable. No occlusion or significant stenosis. No aneurysm. Basilar artery: Unremarkable. No occlusion or significant stenosis. No aneurysm. Right posterior cerebral artery: Unremarkable. No occlusion or significant stenosis. No aneurysm. Left posterior cerebral artery: Unremarkable. No occlusion or significant stenosis. No aneurysm. Brain: No definite mass, mass effect, or midline shift. Cerebral ventricles: No ventriculomegaly. Bones/joints: Unremarkable. No acute fracture. Soft tissues: Unremarkable. IMPRESSION: No large vessel stenosis or occlusion. FINDINGS: Right common carotid artery: Moderate proximal tortuosity. No stenosis. No dissection or occlusion. Right internal carotid artery: Mild calcific plaque in the right carotid bulb and mid cervical segment. Moderate tortuosity in the mid cervical segment with mild kinking producing mild stenosis of less than 50%. No dissection or occlusion. Right external carotid artery: Normal. No stenosis. No dissection or occlusion. Right vertebral artery: Small/hypoplastic right vertebral artery, normal variant. No stenosis. No dissection or occlusion. Left common carotid artery: Moderate proximal tortuosity. No stenosis. No dissection or occlusion. Left internal carotid artery: Moderate tortuosity in the mid cervical segment. No stenosis. No dissection or occlusion. Left external carotid artery: Normal. No stenosis. No dissection or occlusion. Left vertebral artery: Dominant left vertebral artery. No stenosis. No dissection or occlusion. Subclavian arteries: The right subclavian artery demonstrates mild tortuosity without stenosis. The left subclavian artery demonstrates proximal tortuosity without stenosis. Brachiocephalic artery: The brachiocephalic artery demonstrates mild tortuosity without stenosis. Aorta: The visualized aortic arch demonstrates mild ectasia and calcific plaque without evidence of dissection or gross aneurysm. Thyroid: The thyroid gland is unremarkable. Bones/joints: No acute osseous abnormalities are identified. Soft tissues: No significant soft tissue swelling or hematoma. Lungs: The visualized pulmonary apices are clear. IMPRESSION: 1. No evidence of high-grade stenosis, occlusion, dissection, or aneurysm/pseudoaneurysm. 2. There is mild stenosis of less than 50% in the right ICA mid cervical segment due to tortuosity and kinking. Discussed these findings with Dr. Guardado. He agrees to admission. Patient received aspirin and Plavix. She was endorsing a small headache and Tylenol was given. Patient remained hemodynamically stable with blood pressure within acceptable range. HPI General Mode of arrival: wheelchair. Date/Time Provider Initiated Documentation: 09/30/20 16:40. Limitations to Documentation: no limitations. Information obtained by: patient, family (, Deonte) and RN notes reviewed. History of Present Illness 80 year old F presents to the emergency department with the chief complaint of slurred speech, left facial droop, described as mild, and is localized to the face. Patient started experiencing this hour(s) (2.5) and it has been constant. No relieving factors improve symptom(s), No exacerbating factors reported . Patient notes no other symptoms.; denies confusion, chest pain, cough, fever/chills, headaches, nausea/vomiting, rash, shortness of breath and weakness. Patient did receive the following treatments prior to arrival, none Related Data Home Medications Medication Instructions Recorded Confirmed Osteo Bi-Flex Triple Strength 1 ea PO DAILY 01/28/15 09/30/20 Zyrtec 10 mg PO PRN PRN 01/28/15 09/30/20 lisinopril 40 mg PO DAILY 01/28/15 09/30/20 potassium chloride 20 meq PO DAILY 01/28/15 09/30/20 meclizine 25 mg PO PRN PRN 10/16/19 09/30/20 acetaminophen 325 mg capsule 325 mg PO ONCE PRN 01/28/20 09/30/20 hydrochlorothiazide 25 mg PO DAILY 04/22/20 09/30/20 Allergies Allergy/AdvReac Type Severity Reaction Status Date / Time aspirin AdvReac NAUSEA Verified 09/30/20 16:51 morphine AdvReac NAUSEA Verified 09/30/20 16:51 Sulfa (Sulfonamide AdvReac NAUSEA Verified 09/30/20 16:51 Antibiotics) General ALBINO: 5 Review of Systems Constitutional Constitutional: Reports as per HPI, Denies chills, Denies fatigue, Denies fever(s), Denies frequent falls, Denies headache(s), Denies snoring and Denies weakness Eyes Eyes: Reports as per HPI, Denies blurry vision, Denies change in vision and Reports photophobia ENT Ears, Nose, Mouth, and Throat: Reports as per HPI, Denies vertigo, Denies headache(s), Denies hoarseness and Denies neck pain Cardiovascular Cardiovascular: Reports as per HPI, Denies chest pain, Denies lightheadedness, Denies radiating jaw, neck or arm pain, Denies dyspnea and Denies dyspnea on exertion Respiratory Respiratory: Reports as per HPI, Denies chest congestion, Denies cough, Denies dyspnea, Denies dyspnea on exertion, Denies snoring, Denies stridor and Denies wheezing Gastrointestinal Gastrointestinal: Reports as per HPI, Denies abdominal pain, Denies change in bowel habits, Denies nausea and Denies vomiting Musculoskeletal Musculoskeletal: Reports as per HPI, Denies back pain, Denies myalgias, Denies muscle cramps, Denies neck pain and Denies numbness Integumentary/Breasts Skin/Breast: Reports as per HPI and Denies rash Neurologic Neurologic: Reports as per HPI, Denies abnormal movements, Reports abnormal speech, Denies behavioral changes, Denies confusion, Denies vertigo, Denies frequent falls, Denies headache(s), Reports localized weakness (left sided facial droop), Denies numbness, Denies sensory deficit and Denies weakness Psychiatric Psychiatric: Denies behavioral changes and Denies confusion Endocrine Endocrine: Denies fatigue Allergic/Immunologic Allergic/Immunologic: Denies wheezing [facility] Medical History (Updated 09/30/20 @ 21:23 by NADEEM Reich) Brain tumor HTN (hypertension) Surgical History History of hysterectomy History of resection of rib Social History Smoking/Tobacco Use Status: Never Smoking risk assessment performed?: Yes Alcohol Intake: never Drug use: Never Substance use type: does not use Do you feel safe at home: Yes Do you feel safe in your relationship?: Yes Exam Const General: cooperative, healthy appearing, comfortable, no acute distress, well developed and well groomed Nutritional Appearance: average body habitus and well nourished Orientation: alert, awake and oriented x3 [facility] Head: normal to inspection, no palpable skull fracture, normocephalic and atraumatic Ears: hearing grossly normal bilaterally, external ears normal and TM's normal bilaterally General nose exam: external nose normal Face and sinus: abnormal facial exam (mild left sided facial droop) Mouth: oral mucosae normal and moist mucous membranes Teeth and gingiva: dentition normal Throat: posterior oropharynx normal Eyes General: appearance normal, both eyes and all related structures Visual Stout: normal visual stout by confrontation Alignment and Position: alignment normal Periorbital: periorbital findings normal Eyelids: eyelids normal Sclera: sclerae normal Cornea: corneas normal Pupils: PERRL EOM: EOM intact bilaterally and No nystagmus Neck Neck: normal visual inspection, full ROM, no lymphadenopathy and no meningeal signs Resp Effort & Inspection: normal respiratory effort, able to speak in complete sentences and no respiratory distress Auscultation: clear to auscultation bilaterally, no rales, no rhonchi and no wheezes Cardio Rate: regular rate Rhythm: regular rhythm Heart Sounds: S1 normal and S2 normal Back/Spine/Pelvis Cervical Spine: normal cervical lordosis and cervical ROM normal Skin General skin exam: no rashes or lesions noted Neuro General: patient alert, patient awake, patient oriented x3, gait normal, tone normal, moves all extremities, normal light touch, pain and propioception and no meningeal signs Cranial Nerves: PERRL, accommodation normal, EOM intact bilaterally, no nystagmus, facial strength abnormal (left sided droop noted), tongue midline, gag reflex normal, hearing normal, able to rotate head bilaterally, able to elevate shoulders bilaterally (pain on the left associated with previous fx) and no nystagmus Cognition: normal cognition Speech: speech normal Gait: normal gait Motor: muscle tone normal throughout, strength 5/5 throughout, no pronator drift, no movement abnormalities noted and no fasciculations Sensory Exam: no sensory deficits noted Coordination: [id number] test normal, [id number] test normal, Romberg test normal, Does not sway with eyes open and rapid alternating movement UE normal Extrem General: normal to inspection, capillary refill normal, no pedal edema and no calf tenderness Psych Appearance: grossly normal and well kempt Mental Status: mental status grossly normal Speech and Movement: speech and movement normal
--- NOTE | 2020-09-30 16:45 | DI.CT_ITS ---
EXAM: CT HEAD - STROKE PROTOCOL CLINICAL HISTORY: slurred speech, left sided facial droop. TECHNIQUE: Imaging Protocol: Axial computed tomography images with coronal and sagittal reformatted images were created and reviewed COMPARISON: CT CT HEAD CERVICAL SPINE WO from 10/18/2019 FINDINGS: There are no skull fractures nor fluid in the visualized paranasal sinuses. There is no evidence of intracranial hemorrhage, nor shift of midline structures. There are no extra -axial fluid collections. The ventricles are not enlarged or shifted and there is no blood within th e ventricular system nor within the basal cisterns. Again noted is abundant bilateral periventricular hypodensity consistent with chronic small vessel di sease. 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 Exhibits minimal change from October 2019 IMPRESSION: No new acute intracranial findings on this noninfused CT scan of the brain. 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 Recommend follow-up contrast infused dedicated pituitary fossa MRI for added specificity wi th respect to the etiology of this large mass. There is abundant bilateral periventricular hypodensity consistent with chronic small vessel disease. This appears unchanged from the prior CT scan of October 2019. RADIATION DOSE DELIVERED: 690.1mGy.cm Total DLP DATA REPOSITORY: All CT scans at this facility are submitted to the National Radiology Data Registry (NRDR) Dose Index Registry (DIR) with the [employer] (ACR). RADIATION OPTIMIZATION: All CT scans at this facility use at least one of these dose optimization te chniques: automated exposure control; mA and/or kV adjustment per patient size (includes targeted exa ms where dose is matched to clinical indication); or iterative reconstruction.
--- NOTE | 2020-09-30 16:45 | RT.EKG_ITS ---
APPROVED REPORT Exam: Resting ECG Patient Location: E HR:83 bpm ECG Measurements Heart Rate [address] 193 P 48 QRSd 82 QRS -58 QT 394 T 34 QTc 464 Conclusion Sinus rhythm...normal P axis, V-rate 60- 99 Left anterior fascicular block...axis(240,-40), init forces inf I have reviewed and interpreted ECG and agree with software generated interpretation.
--- NOTE | 2020-09-30 17:14 | DI.RAD_ITS ---
EXAM: XR CHEST 2V PA LATERAL CLINICAL HISTORY: slurred speech. TECHNIQUE: 2D digital imaging was performed. COMPARISON: Chest x-ray 12/01/2015 FINDINGS: Heart size is unchanged, with mild cardiomegaly. Mediastinum again exhibits a moderate-sized hiatal hernia. There is no widening of the upper mediastinum. Lungs are clear. No infiltrates nor pleural effusions. IMPRESSION: No acute pulmonary findings. DATA REPOSITORY: RADIATION DOSE DELIVERED:
[2020-09-30] MEDS: Normal Saline Flush 10 ML SYR IVP ×2 (17:25→19:51)
[2020-09-30 17:41] LABS: Abs Immature Grans 0.04 10^3/uL (0.0-0.06); Absolute Basophil Count 0.06 10^3/uL (0.0-0.2); Absolute Eosinophil Count 0.26 10^3/uL (0.0-0.7); Absolute Lymphocyte Count 2.86 10^3/uL (1.2-3.4); Absolute Monocyte Count 0.84 10^3/uL (0.1-0.8); Absolute Neutrophil Count 3.83 10^3/uL (1.2-6.7); Basophils % 0.8; Eosinophils % 3.3; HCT 37.4 % (36.0-46.0); HGB 11.5 g/dL (11.2-15.7); Immature Grans % 0.5; Lymphocytes % 36.2; MCH 23.8 pg (27.0-33.0); MCHC 30.7 % (32.0-36.0); MCV 77.3 fL (80-95); Monocytes % 10.6; Neutrophils % 48.6; Nucleated RBC 0 %; Platelet Count 296 10^3/uL (130-400); RBC 4.84 10^6/uL (3.93-5.22); RDW 15.7 % (11.7-14.6); RDW-SD 43.5 fL; WBC 7.89 10^3/uL (4.4-10.8)
--- NOTE | 2020-09-30 17:44 | DI.VRAD_ITS ---
PROCEDURE INFORMATION: Exam: CT Head Without Contrast Exam date and time: 09/30/2020 4:57 PM Age: 80 years old Clinical indication: Other: Slurred speech, left sided facial droop TECHNIQUE: Imaging protocol: Computed tomography of the head without contrast. COMPARISON: CT HEAD CERVICAL SPINE WO 10/18/2019 11:28 AM FINDINGS: Limitations: None. Brain: No intracranial hemorrhage or brain edema. No transcortical defect. Normal cerebellum and brainstem. Chronic mild diffuse brain volume loss without focal encephalomalacia and prominent symmetric subcortical and periventricular white matter hypoattenuation. Chronic unchanged enlargement of the sella turcica and soft tissue density mass. Chronic unchanged mild leftward infundibular displacement. Cerebral ventricles: Normal. Bones/joints: Normal. Paranasal sinuses: Normal. Mastoid air cells: Normal. Vasculature: Carotid atherosclerosis. Soft tissues: Unremarkable. IMPRESSION: 1. No interval change. 2. 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 Dictated and Authenticated by: Antonio Finch MD. Ordering:DANIELA Le MD
--- NOTE | 2020-09-30 17:45 | DI.VRAD_ITS ---
PROCEDURE INFORMATION: Exam: XR Chest, 2 Views Exam date and time: 09/30/2020 5:14 PM Age: 80 years old Clinical indication: Other: Slurred speech TECHNIQUE: Imaging protocol: XR of the chest Views: 2 views. COMPARISON: CT CHEST/ABD/PEL W 12/27/2018 11:35 AM FINDINGS: Lungs: The lungs are normally expanded and clear. Pleural spaces: No pleural effusion or pneumothorax. Heart/Mediastinum: Chronic hiatal hernia. Vasculature: Tortuous aorta. Normal caliber aorta. Bones/joints: Intact and normally aligned. IMPRESSION: No change or acute disease. Dictated and Authenticated by: Antonio Finch MD. Ordering:DANIELA Le MD
[2020-09-30 17:51] LABS: Prothrombin Time 10.2 sec (9.3-11.0)
[2020-09-30 17:53] LABS: Bilirubin Negative (Negative); Blood Negative (Negative); Clarity Clear (Clear); Glucose Negative (Negative); Ketones Negative (Negative); Leukocyte Esterase Trace (Negative); Nitrite Negative (Negative); pH 6.5 (5-8)
[2020-09-30 17:58] LABS: ALT 34 U/L (14-59); AST 32 U/L (15-37); Albumin 3.7 g/dL (3.4-5.0); Alkaline Phosphatase 122 U/L (46-116); Anion Gap 10.2 mmol/L (3-11); BUN 25 mg/dL (7-18); Bilirubin, Total 0.4 mg/dL (0.2-1.0); CO2 25.8 mmol/L (21.0-32.0); CREATININE 1.4 mg/dL (0.55-1.02); Calcium 9.1 mg/dL (8.5-10.1); Chloride 102 mmol/L (98-107); Estimated GFR 36.37 (mL/min/1.73m2); Glucose 212 mg/dL (74-106); Magnesium 2.2 mg/dL (1.8-2.4); Potassium 3.4 mmol/L (3.5-5.1); Sodium 138 mmol/L (136-145); Total Protein 7.2 g/dL (6.4-8.2); Troponin I < 0.05 ng/mL (<0.06)
[2020-09-30 17:59] LABS: Bacteria Negative HPF (Negative); C & S Indicated? Yes; Casts Negative LPF (Negative); Crystals Negative HPF (Negative); Epithelial Cells Negative HPF (Negative); Mucus Negative (Negative); Other Cells Few Renal (Negative); RBC Negative HPF (0-2); WBC 0-2 HPF (0-5)
[2020-09-30] MEDS: Aspirin 81 MG CHEW 324 MG CH (18:43)
[2020-09-30] MEDS: Clopidogrel 75 MG TAB PO (18:44)
[2020-09-30] MEDS: Lactated Ringers 500 ML IV (18:50)
[2020-09-30 18:57] LABS: Source Nasal/Nares
[2020-09-30 19:41] LABS: Influenza A PCR Negative (Negative); Influenza B PCR Negative (Negative); RSV PCR Negative (Negative)
[2020-09-30 19:45] LABS: COVID-19 PCR Negative (Negative)
[2020-09-30] MEDS: Omnipaque 350 MG/ML 100 ML BTL IJ (19:52)
[2020-09-30] MEDS: Normal Saline - Diluent 50 ML VIAL IV (19:52)
--- NOTE | 2020-09-30 20:04 | DI.CT_ITS ---
EXAM: CT BRAIN NECK CTA CLINICAL HISTORY: left sided facial droop, speech change. TECHNIQUE: Imaging Protocol: Axial CT angiography was performed with multi-slice acquisition and mu lti-planar and/or 3D reconstructions. CONTRAST MATERIAL: Intravenous: Omnipaque 350 Contrast volume:structured data in ml COMPARISON: CT CT RENAL COLIC WO from 04/22/2020 FINDINGS: CTA Neck W: Aortic arch anatomy: Conventional. Anterior circulation: There is some tortuosity of the common carotid arteries bilaterally but without significant stenosis. Also no evidence of significant stenosis of the carotid bifurcations and proximal internal carotid arteries. Tortuosity and kinking is noted in the cervical internal carotid arteries but without sign ificant atherosclerotic stenosis and the internal carotid arteries are also demonstrated to be patent in the skull base-carotid canals. Posterior circulation: Both vertebral arteries originated conventional fashion off of the subclavian arteries. There is no significant stenosis in the subclavian arteries proximal to the vertebral artery takeoff points. No obvious stenosis at the origin of the vertebral arteries. The proximal left vertebral artery is tort uous but without significant stenosis. The left vertebral artery is dominant and ascends with a lissa nal diameter of 3.5 millimeters in the foramen transversarium and is the main contributor to the form ation of the basilar artery at the skull base. The right vertebral artery is a thinner vessel with a diameter 2.3 millimeters. At the skull base is contribution to the basilar arteries appears negligible. There is no evidence of intraluminal thrombus within the vertebral arteries nor dissection. CTA Brain W: Anterior circulation: Both internal carotid arteries are patent in the skull base-carotid canals as well as within the cave rnous sinuses and supraclinoid aspects. The left middle cerebral artery is patent. There is a focal narrowing in the peripheral right middle cerebral artery located 2.3 cm lateral to its origin.. Both A1 segments are patent. Anterior cereb ral arteries are patent. There is no evidence of aneurysm at the level of the anterior communicating artery nor elsewhere in the [id number]. Posterior circulation: The basilar artery is formed predominately by the dominant vertebral artery. The posterior inferior cerebellar arteries originate off of the vertebral arteries at the skull base. The basilar artery di maritoy terminates as right posterior cerebral artery which appears patent. The left posterior cerebr al artery is fed by a posterior communicating artery on the left side of the [id number] which e xhibits a luminal diameter of 2 millimeters. There is thin superior cerebellar arteries coming off o f the basilar artery below its termination. There is there is no evidence of aneurysm the tip of the basilar artery. CT BRAIN: Large pituitary mass is again noted as described on yesterday's study. IMPRESSION: 1. No significant stenosis in the carotid arteries in the neck. 2. The left vertebral artery is dominant. 3. There is focal narrowing in the lateral aspect of the right middle cerebral artery. No evidence of intraluminal thrombus. Large pituitary fossa mass noted, as described on yesterday's study. Please see yesterday's report RADIATION DOSE DELIVERED: 1,051mGy.cm Total DLP DATA REPOSITORY: All CT scans at this facility are submitted to the National Radiology Data Registry (NRDR) Dose Index Registry (DIR) with the [employer] (ACR). RADIATION OPTIMIZATION: All CT scans at this facility use at least one of these dose optimization te chniques: automated exposure control; mA and/or kV adjustment per patient size (includes targeted exa ms where dose is matched to clinical indication); or iterative reconstruction.
--- NOTE | 2020-09-30 20:34 | DI.VRAD_ITS ---
Addendum created by Daniel Vines MD on 09/30/2020 8:43:35 PM EST: Addendum: The initial report was inadvertently approved with the normal CT angiography head template. Although there is no evidence of large vessel occlusion or significant stenosis, there are additional minor findings as follows: Mild calcific plaque in the ICA cavernous segments without stenosis. Normal variant persistent origin of the left TICKETER with hypoplastic left P1 segment. Masslike expansion of the sella with asymmetric under enhancement of the right cavernous sinus suggesting cavernous sinus extension, and extension of soft tissue density into the sphenoid sinus distribution, grossly unchanged from 10/18/2019. This likely represents chronic changes of pituitary adenoma although not entirely specific. Initial report created on 09/30/2020 8:34:09 PM EST: PROCEDURE INFORMATION: Exam: CT Angiography Head With Contrast Exam date and time: 09/30/2020 7:43 PM Age: 80 years old Clinical indication: Slurred speech; Prior surgery; Surgery date: 6+ months; Surgery type: 2003 pituitary tumor removal; Patient HX: Left sided facial droop and speech disturbance xseveral hours, HX pituitary tumor in 2003, non contrast head CT done earlier today TECHNIQUE: Imaging protocol: Computed tomography angiography of the head with intravenous contrast. 3D rendering (Not supervised by radiologist): MIP and/or 3D reconstructed images were created by the technologist. Total images: 1630 Radiation optimization: All CT scans at this facility use at least one of these dose optimization techniques: automated exposure control; mA and/or kV adjustment per patient size (includes targeted exams where dose is matched to clinical indication); or iterative reconstruction. Contrast material: [id number]; Contrast volume: 85 ml; Contrast route: INTRAVENOUS (IV); COMPARISON: CT HEAD - STROKE PROTOCOL 09/30/2020 5:07 PM FINDINGS: ANTERIOR CIRCULATION: Right internal carotid artery: Unremarkable. Intracranial segment is patent with no significant stenosis. No aneurysm. Right middle cerebral artery: Unremarkable. No occlusion or significant stenosis. No aneurysm. Right anterior cerebral artery: Unremarkable. No occlusion or significant stenosis. No aneurysm. Left internal carotid artery: Unremarkable. Intracranial segment is patent with no significant stenosis. No aneurysm. Left middle cerebral artery: Unremarkable. No occlusion or significant stenosis. No aneurysm. Left anterior cerebral artery: Unremarkable. No occlusion or significant stenosis. No aneurysm. POSTERIOR CIRCULATION: Right vertebral artery: Unremarkable. No occlusion or significant stenosis. No aneurysm. Left vertebral artery: Unremarkable. No occlusion or significant stenosis. No aneurysm. Basilar artery: Unremarkable. No occlusion or significant stenosis. No aneurysm. Right posterior cerebral artery: Unremarkable. No occlusion or significant stenosis. No aneurysm. Left posterior cerebral artery: Unremarkable. No occlusion or significant stenosis. No aneurysm. Brain: No definite mass, mass effect, or midline shift. Cerebral ventricles: No ventriculomegaly. Bones/joints: Unremarkable. No acute fracture. Soft tissues: Unremarkable. IMPRESSION: No large vessel stenosis or occlusion. PROCEDURE INFORMATION: Exam: CT Angiography Neck With Contrast Exam date and time: 09/30/2020 7:43 PM Age: 80 years old Clinical indication: Slurred speech; Prior surgery; Surgery date: 6+ months; Surgery type: 2003 pituitary tumor removal; Patient HX: Left sided facial droop and speech disturbance xseveral hours, HX pituitary tumor in 2003, non contrast head CT done earlier today TECHNIQUE: Imaging protocol: Computed tomography angiography of the neck with intravenous contrast. 3D rendering (Not supervised by radiologist): MIP and/or 3D reconstructed images were created by the technologist. Radiation optimization: All CT scans at this facility use at least one of these dose optimization techniques: automated exposure control; mA and/or kV adjustment per patient size (includes targeted exams where dose is matched to clinical indication); or iterative reconstruction. Contrast material: [id number]; Contrast volume: 85 ml; Contrast route: INTRAVENOUS (IV); COMPARISON: CT HEAD - STROKE PROTOCOL 09/30/2020 5:07 PM FINDINGS: Right common carotid artery: Moderate proximal tortuosity. No stenosis. No dissection or occlusion. Right internal carotid artery: Mild calcific plaque in the right carotid bulb and mid cervical segment. Moderate tortuosity in the mid cervical segment with mild kinking producing mild stenosis of less than 50%. No dissection or occlusion. Right external carotid artery: Normal. No stenosis. No dissection or occlusion. Right vertebral artery: Small/hypoplastic right vertebral artery, normal variant. No stenosis. No dissection or occlusion. Left common carotid artery: Moderate proximal tortuosity. No stenosis. No dissection or occlusion. Left internal carotid artery: Moderate tortuosity in the mid cervical segment. No stenosis. No dissection or occlusion. Left external carotid artery: Normal. No stenosis. No dissection or occlusion. Left vertebral artery: Dominant left vertebral artery. No stenosis. No dissection or occlusion. Subclavian arteries: The right subclavian artery demonstrates mild tortuosity without stenosis. The left subclavian artery demonstrates proximal tortuosity without stenosis. Brachiocephalic artery: The brachiocephalic artery demonstrates mild tortuosity without stenosis. Aorta: The visualized aortic arch demonstrates mild ectasia and calcific plaque without evidence of dissection or gross aneurysm. Thyroid: The thyroid gland is unremarkable. Bones/joints: No acute osseous abnormalities are identified. Soft tissues: No significant soft tissue swelling or hematoma. Lungs: The visualized pulmonary apices are clear. IMPRESSION: 1. No evidence of high-grade stenosis, occlusion, dissection, or aneurysm/pseudoaneurysm. 2. There is mild stenosis of less than 50% in the right ICA mid cervical segment due to tortuosity and kinking. REFERENCES: NASCET CRITERIA. The degree of internal carotid artery stenosis is based on NASCET criteria. Normal is no stenosis. Mild is less than 50% stenosis. Moderate is 50-69% stenosis. Severe is 70% to 99% stenosis. Total occlusion is no detectable patent lumen. Dictated and Authenticated by: Daniel Vines MD. Ordering:DANIELA Le MD
[2020-09-30] MEDS: Acetaminophen 325 MG TAB 650 MG PO (20:50)
[2020-09-30 21:37] LABS: Troponin I < 0.05 ng/mL (<0.06)
[2020-09-30] MEDS: Potassium Chloride Liquid 20 MEQ PKT 40 MEQ PO (22:19)
[2020-09-30] MEDS: Famotidine 20 MG TAB PO (22:19)
[2020-09-30] MEDS: Atorvastatin 40 MG TAB 80 MG PO (22:19)
[2020-09-30] MEDS: Enoxaparin 30 MG/0.3 ML SYR SC (22:21)
[2020-09-30] MEDS: Insulin Aspart 300 UNITS/3 ML PEN SC (22:21)
[2020-09-30] MEDS: POTASSIUM CHLORIDE/0.45% NACL 1,000 ML 85 MEQ IV (22:44)
--- NOTE | 2020-09-30 22:57 | HPE_ITS ---
Date of service: 09/30/20 Time of Service: 22:57 Assessment and Plan Assessment and plan (1) Acute CVA (cerebrovascular accident): Status: Acute Assessment and plan: Patient presented with symptoms of CVA with limited involvement of the left face and speech. CTA of the head and neck showed no hemodynamically significant stenoses. MRI of the brain will be performed in the morning to determine the extent of her CVA. Patient will be kept on aspirin and Plavix and atorvastatin was added to her regimen. It appears by her elevated blood sugars that she probably has latent diabetes mellitus. Formal hemoglobin A1c will be obtained in the morning. Will monitor blood sugars before meals and at bedtime and cover with insulin sensitive sliding scale. Physical therapy and speech therapy and neurology consultations to be obtained the morning. Echocardiography is not available at present time but will be obtained as an outpatient. If she has no further neurologic deficits overnight she probably can be discharged tomorrow afternoon after the above work-up has been obtained. She should have a 30-day cardiac event recorder to look for signs of paroxysmal atrial fibrillation as she most likely sustained an embolic CVA. (2) HTN (hypertension): Status: Chronic Assessment and plan: Hydrochlorothiazide lisinopril be withheld at the present time to allow for passive hypertension for the next 48 hours. Qualifiers: Hypertension type: essential hypertension Qualified Code(s): I10 - Essential (primary) hypertension (3) Pituitary mass: Status: Suspected Assessment and plan: Patient reports that she had a transsphenoidal resection of a pituitary mass number of years ago. I believe she stated it was performed in 2003. However CT scan performed tonight and compared to a previous CT scan it was performed a year ago suggest that there is still a large mass in the pituitary fossa/sella turcica with erosion of the sphenoid sinus and cavernous sinus. MRI scan of the brain in the morning will help clarify this. (4) Prerenal azotemia: Status: Acute Assessment and plan: It appears that her baseline creatinine is around 1.2 and her baseline BUN is around 15-20. She is mildly azotemic with a BUN of 25 creatinine 1.4. Patient was given IV bolus of saline prior to her CT scan and she will continue to receive IV fluids overnight. Repeat BMP in the morning. History of Present Illness History of Present Illness Chief Complaint: Slurred speech Narrative: 80-year-old female non-smoker with a history of essential hypertension status post transsphenoidal resection of pituitary tumor in 2003, presents emergency department with new onset of slurred speech and left facial droop along with a feeling like her tongue was thick. Onset of symptoms around 1430 this afternoon. Patient was on the phone with her daughter who noticed a change in her speech and told her she needed to go to the hospital right away. brought her to the emergency department. Patient denies any other focal neurologic deficits such as acute visual scotomata, paraparesis or paresthesias or headaches. Patient's been under increased stress recently due to the loss of his sister from a brain aneurysm this past week. Patient denies any history of diabetes mellitus, TIA, stroke, [place]. In the emergency department [id number] glucose was elevated at 230. Her NIH score was 2. Stat noncontrast CT scan of the head was obtained and was compared with a prior CT scan of the head from October 18, 2019 and showed no new acute intracranial findings. A large mass was again noted in the pituitary fossa eroding into the sphenoid sinus and involving the cavernous sinuses extending upward into the suprasellar cistern. CTA of the head and neck showed no evidence of high-grade stenosis or occlusion or dissection nor any aneurysm. T here was some mild stenosis of less than 50% involving the right internal carotid artery at the mid cervical segment due to tortuosity and kinking. Patient was treated with aspirin 324 mg along with Plavix 75 mg. The physician learning and development assistant in the emergency department spoke with the neurologist ignition specialist from [facility] who advised against TPA at this point but recommend combination of Plavix and aspirin. Patient's blood pressure medication will be withheld for the next 48 hours with close monitoring of her blood pressure. Further vascular imaging of the head neck was also recommended as well as continued cardiac monitoring for potential atrial fibrillation. As mentioned above CTA of the head neck was performed after being given IV fluid bolus. Patient did have some prerenal azotemia on admission but her creatinine clearance was deemed to be adequate for contrast imaging of her head neck. Patient is now admitted overnight for further telemetry monitoring and to obtain further work-up and more including MRI of the brain as well as neurology consult as well as physical therapy and speech therapy consultations. Review of Systems Eyes Eyes: Denies loss of vision ENT Ears, Nose, Mouth, and Throat: Reports abnormal hearing (Chronic hearing loss, wears hearing aids), Denies vertigo and Denies dizziness Cardiovascular Cardiovascular: Denies chest pain, Denies irregular heart rhythm, Denies palpitations and Denies dyspnea Respiratory Respiratory: Reports system reviewed and no additional complaints, except as documented and Denies dyspnea Gastrointestinal Gastrointestinal: Reports system reviewed and no additional complaints, except as documented Genitourinary Genitourinary: Reports system reviewed and no additional complaints, except as documented Musculoskeletal Musculoskeletal: Denies abnormal gait Neurologic Neurologic: Reports abnormal hearing (Chronic hearing loss, wears hearing aids), Reports abnormal speech, Denies abnormal gait, Denies confusion, Denies vertigo, Denies dizziness, Denies lack of coordination, Denies loss of vision, Denies sensory deficit and Denies paresthesias Psychiatric Psychiatric: Denies confusion Endocrine Endocrine: Denies palpitations [facility] Medical History (Updated 10/01/20 @ 00:40 by Emre Parrish) Brain tumor HTN (hypertension) Proximal humerus fracture (10/16/19) Surgical History History of hysterectomy History of resection of rib Family History (Updated 10/01/20 @ 00:07 by Emre Parrish) Other Cerebral aneurysm Diabetes Hypertension Social History Smoking/Tobacco Use Status: Never Smoking risk assessment performed?: Yes Alcohol Intake: never Drug use: Never Substance use type: does not use Do you feel safe at home: Yes Do you feel safe in your relationship?: Yes Meds Home Medications and Allergies Home Medications Medication Instructions Recorded Confirmed Type Osteo Bi-Flex Triple Strength 1 ea PO DAILY 01/28/15 09/30/20 History Zyrtec 10 mg PO PRN PRN 01/28/15 09/30/20 History lisinopril 40 mg PO DAILY 01/28/15 09/30/20 History potassium chloride 20 meq PO DAILY 01/28/15 09/30/20 History meclizine 25 mg PO PRN PRN 10/16/19 09/30/20 History acetaminophen 325 mg capsule 325 mg PO ONCE PRN 01/28/20 09/30/20 History hydrochlorothiazide 25 mg PO DAILY 04/22/20 09/30/20 History Allergies Allergy/AdvReac Type Severity Reaction Status Date / Time aspirin AdvReac NAUSEA Verified 09/30/20 16:51 morphine AdvReac NAUSEA Verified 09/30/20 16:51 Sulfa (Sulfonamide AdvReac NAUSEA Verified 09/30/20 16:51 Antibiotics) Exam Narrative Exam Narrative: Elderly female lying in bed in no acute distress. She is alert and oriented person place time circumstance. Pupils equally round reactive to direct and consensual light full extraocular motions intact. Gross visual spann intact to confrontation. Noticeable left central cranial nerve VII paresis that is apparent with smiling. Normal movement of her tongue and palate. Gag reflex intact. Normal muscle movement of muscles of mastication. Neck supple no JVD normal carotid pulses no bruits Lungs are clear to auscultation Heart regular rate and rhythm without appreciable murmur rub or gallop. Abdomen soft nontender nondistended no organomegaly Extremities without peripheral cyanosis or edema. Neurologic exam as listed above with no gross visual field deficits full extraocular motion is intact. Left-sided facial paresis as noted above. Sensory exam over the face is grossly intact to light touch with a cotton swab as well as to noxious stimuli such as the broken end of the cotton swab tip. Sensory exam over both upper and lower extremities intact. Motor exam in both upper and lower extremities intact to fine muscle as well as large muscle groups in the proximal and distal arms and proximal distal legs. Babinski reflex was attempted but because the patient is very ticklish there was too much withdrawal to determine whether or not a Babinski reflex was present. Results Labs Result diagrams: 09/30/20 17:25 09/30/20 17:25 Labs: Laboratory Results - last 24 hr 09/30/20 09/30/20 09/30/20 17:25 17:25 17:25 WBC 7.89 RBC 4.84 Hgb 11.5 Hct 37.4 MCV 77.3 L MCH 23.8 L MCHC 30.7 L RDW 15.7 H Plt Count 296 MPV 10.0 Immature Gran % 0.5 Neutrophils % 48.6 Lymphocytes % 36.2 Monocytes % 10.6 Eosinophils % 3.3 Basophils % 0.8 Nucleated RBC % 0 Absolute Neutrophils 3.83 Absolute Lymphocytes 2.86 Absolute Monocytes 0.84 H Absolute Eosinophils 0.26 Absolute Basophils 0.06 PT 10.2 INR 1.0 Sodium 138 Potassium 3.4 L Chloride 102 Carbon Dioxide 25.8 Anion Gap 10.2 BUN 25 H Creatinine 1.4 H Estimated GFR/1.73 m2 36.37 Glucose 212 H Calcium 9.1 Magnesium 2.2 Total Bilirubin 0.4 AST 32 ALT 34 Alkaline Phosphatase 122 H Troponin I < 0.05 Total Protein 7.2 Albumin 3.7 Urine Color Urine Clarity Urine pH Ur Specific [place] Urine Protein Urine Ketones Urine Blood Urine Nitrite Urine Bilirubin Urine Urobilinogen Ur Leukocyte Esterase Urine RBC Urine WBC Ur Epithelial Cells Urine Crystals Urine Bacteria Urine Casts Urine Mucus Urine Other Ur Culture Indicated? Urine Glucose COVID-19 Source SARS-CoV-2 (PCR) Influenza Type A (PCR) Influenza Type B (PCR) RSV (PCR) 09/30/20 09/30/20 09/30/20 17:45 18:55 20:55 WBC RBC Hgb Hct MCV MCH MCHC RDW Plt Count MPV Immature Gran % Neutrophils % Lymphocytes % Monocytes % Eosinophils % Basophils % Nucleated RBC % Absolute Neutrophils Absolute Lymphocytes Absolute Monocytes Absolute Eosinophils Absolute Basophils PT INR Sodium Potassium Chloride Carbon Dioxide Anion Gap BUN Creatinine Estimated GFR/1.73 m2 Glucose Calcium Magnesium Total Bilirubin AST ALT Alkaline Phosphatase Troponin I < 0.05 Total Protein Albumin Urine Color Yellow Urine Clarity Clear Urine pH 6.5 Ur Specific [place] 1.020 Urine Protein Negative Urine Ketones Negative Urine Blood Negative Urine Nitrite Negative Urine Bilirubin Negative Urine Urobilinogen 1.0 H Ur Leukocyte Esterase Trace H Urine RBC Negative Urine WBC 0-2 Ur Epithelial Cells Negative Urine Crystals Negative Urine Bacteria Negative Urine Casts Negative Urine Mucus Negative Urine Other Few renal Ur Culture Indicated? Yes Urine Glucose Negative COVID-19 Source Nasal/nares SARS-CoV-2 (PCR) Negative Influenza Type A (PCR) Negative Influenza Type B (PCR) Negative RSV (PCR) Negative Last Vital Signs Temp 36.6 C 09/30/20 21:32 Pulse 69 09/30/20 21:35 Resp 18 09/30/20 21:32 BP 164/104 H 09/30/20 21:32 Pulse Ox 98 09/30/20 21:32 COVID-19 Screening Have you, or household traveled for leisure in last 14 days?: No Had IN PERSON contact w/suspected or confirmed C-19 person: No
[2020-09-30] MEDS: Acetaminophen 325 MG TAB PO (23:13)
[2020-10-01] VITALS (11 sets, daily range): BP systolic 138–182; BP diastolic 76–100; PULSE 62–86; RESP 16–18; TEMP 35–36.6; O2SAT 95–99
[2020-10-01] MEDS: Clopidogrel 75 MG TAB 225 MG PO (01:27)
[2020-10-01 07:01] LABS: Abs Immature Grans 0.02 10^3/uL (0.0-0.06); Absolute Basophil Count 0.05 10^3/uL (0.0-0.2); Absolute Eosinophil Count 0.27 10^3/uL (0.0-0.7); Absolute Lymphocyte Count 2.88 10^3/uL (1.2-3.4); Absolute Neutrophil Count 2.95 10^3/uL (1.2-6.7); Basophils % 0.7; Eosinophils % 3.9; HCT 35.9 % (36.0-46.0); HGB 11.1 g/dL (11.2-15.7); Immature Grans % 0.3; Lymphocytes % 41.9; MCH 23.4 pg (27.0-33.0); MCHC 30.9 % (32.0-36.0); MCV 75.7 fL (80-95); MPV 10.5 fL (8.0-11.0); Monocytes % 10.2; Nucleated RBC 0 %; Platelet Count 268 10^3/uL (130-400); RBC 4.74 10^6/uL (3.93-5.22); RDW 15.8 % (11.7-14.6); RDW-SD 42.9 fL; WBC 6.87 10^3/uL (4.4-10.8)
[2020-10-01 07:45] LABS: Anion Gap 12.4 mmol/L (3-11); BUN 18 mg/dL (7-18); CO2 25.6 mmol/L (21.0-32.0); CREATININE 1.2 mg/dL (0.55-1.02); Chloride 104 mmol/L (98-107); Cholesterol 147 mg/dL (<200); Estimated GFR 43.45 (mL/min/1.73m2); Ferritin 30 ng/mL (8-252); Glucose 148 mg/dL (74-106); HDL Cholesterol 25 mg/dL (40-60); Potassium 3.4 mmol/L (3.5-5.1); Sodium 142 mmol/L (136-145); TSH (W/Ref FT4) 0.54 uIU/mL (0.36-3.74); Triglyceride 446 mg/dL (<150)
[2020-10-01 07:47] LABS: Iron 25 ug/dL (50-170); Total Iron Binding Capacity 328 ug/dL (250-450); Transferrin Sat 8 % (15-50)
--- NOTE | 2020-10-01 07:49 | INITIAL_ITS ---
- If Service Date Differs Date of service: 10/01/20 Time of Service: 07:49 Care Management Initial Assess REASON FOR HOSPITALIZATION:: CVA/TIA PAST MEDICAL HISTORY/PAST SURGICAL HISTORY:: Brain tumor. HTN (hypertension). Proximal humerus fracture (10/16/19). History of hysterectomy. History of resection of rib PREVIOUS FUNCTIONAL STATUS/SOCIAL/FAMILY SUPPORTS:: Nahomy resides with her of 46 years Lorenzo in [place], [place]. The couple has two adult daughters, Jennifer resides in [place], and Fallon resides nearby in [place], [place]. Nahomy reports she also has a son, Don who is at her home now getting it ready for her return. Nahomy is independent at baseline in the community. CURRENT FUNCTIONAL STATUS:: Nahomy was lying in bed when CM met with her, she was very forthcoming with information; talking in length about her large family. She is one of seven children and lost one of her sisters on Monday. She reports that only leaves herself and one other sibling. She reports having 11 grandchildren and 10 great grandchildren and shows this real estate underwriter pictures of her grandbabies. She speaks highly of her , and shares he works registered phlebotomist part time in [place], and treats her very well. ADVANCE DIRECTIVES:: None on file at [facility]. Has patient been provided with info about the portal/API?: Yes Did the patient sign up for the portal?: No CODE STATUS:: Full Code INSURANCE COVERAGE / FINANCIAL ISSUES:: [employer] CURRENT HOME/COMMUNITY SERVICES/EQUIPMENT:: No current services or equipment. PRIMARY CARE PHYSICIAN:: Eveline Linton POTENTIAL DISCHARGE NEEDS:: PT eval, speech eval, neurology consult, work up for CVA/TIA, outpatient follow up appointments. PATIENT/FAMILY EDUCATION NEEDS:: Review discharge instructions, discuss Ask Me Three. ANTICIPATED BARRIERS TO DISCHARGE:: None identified. TRANSPORTATION:: Via private vehicle with family. PLAN:: Anticipate Nahomy will return home when ready per MD. She will follow up with her PCP and plan of care as prescribed. Anticipate she will have new orders for [facility] upon discharge; CM notified Onofre at [facility]. She will transport via private vehicle with family.
[2020-10-01 07:58] LABS: Hemoglobin A1C 8.2 % (<5.7)
[2020-10-01 08:01] LABS: LDL CHOLESTEROL 65 mg/dL (<100)
[2020-10-01] MEDS: Aspirin E.C. 81 MG TABEC PO (09:08)
[2020-10-01] MEDS: Clopidogrel 75 MG TAB PO (09:08)
[2020-10-01] MEDS: Potassium Chloride 20 MEQ TABCR 40 MEQ PO (09:08)
[2020-10-01] MEDS: Potassium Chloride 20 MEQ TABCR PO (09:08)
[2020-10-01] MEDS: Insulin Aspart 300 UNITS/3 ML PEN SC ×2 (09:09→11:46)
--- NOTE | 2020-10-01 09:15 | IN_ITS ---
Date of service: 10/01/20 Time of Service: 09:15 PT Notes Visit Reasons: Cerebrovascular accident Physical Therapy Inpatient Initial Evaluation Date: 10/01/2020 Referring Doctor: Emre Parrish MD PT Orders: PT CONSULT: Fall safety assessment. Evaluate and treat nonhemorrhagic CVA. Precautions: Fall. Standard. Activity as tolerated. Patient Profile/Admitting Diagnosis: Nahomy is a 80-year-old female who presented to the ED on 09/30/2020 with chief presentation of slurred speech and facial drooping. 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 PMHX: Medical History (Updated 10/01/20 @ 00:40 by Emre Parrish) Brain tumor HTN (hypertension) Proximal humerus fracture (10/16/19) Surgical History History of hysterectomy History of resection of rib Social History/Home Situation: Lives with in a private home with a ramp to enter. Independent with all aspects of ADLs prior to admission. No previous assistive device used. Still drives. Daughter plans on staying with patient and her as patient recovers for a few days. Equipment Owned/DME: Single-point cane, front wheeled walker Subjective: Agreeable to PT consult. States that the left side of her face feels funny although denies numbness. Indicates that she has had vertigo last episode was last year and takes Meclizine for it. Reports that for the past year she has fallen twice 1 of which resulted to her breaking her arm bone which she is seeing Dr. Epperson for. Denies headache, chest pain, and vertigo throughout session. Complains of pain in L shoulder due to fall last year and right hip due to arthritis. Objective: General Observation: Seated on chair. IV in the left UE. Left lower half of face paretic resulting to facial asymmetry and decreased speech clarity. Chair and bed alarms on. Mental Status: Alert and oriented x4 Pain: None reported ROM: Right Upper Extremity: Shoulder Flexion WFL. Shoulder abduction WFL. Elbow flexion WFL. Wrist flexion WFL. Opening and closing of hand WFL. Left Upper Extremity: Shoulder Flexion lacks the last 10 degrees of range. Shoulder abduction lacks the last 10 degrees of range. Elbow flexion WFL. Wrist flexion WFL. Opening and closing of hand WFL. Right Lower Extremity: Hip flexion WFL but end of range causes discomfort due to arthritis. Hip abduction WFL. Knee flexion WFL. Ankle dorsiflexion WFL. Ankle plantarflexion WFL. Left Lower Extremity: Hip flexion WFL. Hip abduction WFL. Knee flexion WFL. Ankle dorsiflexion WFL. Ankle plantarflexion WFL. Strength: Right Upper Extremity: Shoulder flexors 4/5. Shoulder abductors 4/5. Elbow flexors 4/5. Elbow extensors 4/5. [employer] strong. Left Upper Extremity: Shoulder flexors 4/5. Shoulder abductors 4/5. Elbow f lexors 4/5. Elbow extensors 4/5. [employer] weaker but remains functional. Right Lower Extremity: Hip flexors 4-/5. Hip abductors 4-/5. Knee flexors 4-/5. Knee extensors 4-/5. Ankle dorsiflexors 4-/5. Ankle plantarflexors 4-/5. Left Lower Extremity: Hip flexors 4-/5. Hip abductors 4-/5. Knee flexors 4-/5. Knee extensors 4-/5. Ankle dorsiflexors 4-/5. Ankle plantarflexors 4-/5. Sensation: Intact as to pain and pressure on bilateral upper and lower extremities. Bed Mobility/Transfers: Rolling supervision Supine to sit supervision Sit to supine supervision Sit to stand contact-guard assist Stand to sit contact-guard assist Bed to chair contact-guard assist Chair to bed contact-guard assist Gait: Guided patient through level surface ambulation of 230 feet using front wheeled walker with full weight bearing requiring only contact-guard assist with decreased step length, decreased step height, but without complaints of pain, dizziness nor headache. Balance: Static Sitting: Normal Dynamic Sitting: Normal Static Standing: Fair Dynamic Standing: Fair Special Tests: Mobility Limitations Standardized Measure [facility] AM-PAC 6 clicks Basic Mobility Inpatient Short Form: Raw Score: 22 CMS Score: 21% deficit 4-stage Balance test: Able to tolerate feet together for 10 seconds but is unable to do so with semi-tandem, full tandem and one-legged stance. Informed Consent/Education: Patient instructed in purpose of PT consult and plan of care. Assessment: B UE/LE normotonic. Nahomy demonstrates functional mobility decline requiring the use of an assistive device for all mobility ADL performance, impairment in balance, and increased risk for falls due to admitting diagnoses. Left lower half of face paretic resulting to facial asymmetry and decreased spe ech clarity. Will assess safety of upgrading to use of single point cane for mobility performance this afternoon. She will have good family support at home once she is cleared for medical discharge. Patient presents with clinical signs and symptoms consistent with current/admitting diagnoses that have resulted to mobility limitations, gait instability, generalized weakness, and impairment of motor control as demonstrated by the following impairment level findings: 1. Decreased strength to B UE/LE major muscle groups 2. Impaired standing balance 3. Impaired activity tolerance 4. Pain in L shoulder and R hip due to arthritis Impairments are contributing to the following functional limitations: 1. Dependent bed mobility skills 2. Increased dependence with transfers 3. Inability to safely ambulate without assistive device and physical assistance 4. Increase completion time for mobility ADL performance 5. Increased fall risk Patient is assessed as a 72454 moderate complexity based on the following: History: 80-year-old female with impairment level findings, functional limitations, and past medical history as indicated above Examination: Demonstrable impairment in strength, balance, and mobility level with underlying impairments and functional limitations as documented above Presentation: Evolving Decision Making: [] complexity Goals: Goals X1 week 1. Supine-Sit independent 2. Sit-Supine independent 3. Sit-Stand independent 4. Stand-Sit independent 5. Bed-Chair independent 6. Chair-Bed independent 7. Independent gait on level surface with use of single-point cane for at least 300 feet without report of pain nor dyspnea 8. Independent with home exercise program 9. Good static and dynamic standing balance/tolerance Plan of Care/Treatment Plan: 1-2x/day, 7 days/week x 1 week. Plan of care has been reviewed with the [employer] providing the service under Physical Therapy direction. Initiate Physical Therapy intervention for strengthening, bed mobility, transfers, gait, stairs, balance training, use of assistive device. DISCHARGE RECOMMENDATIONS: Patient will benefit from home health PT services in order to progress mobility level using least restrictive assistive ambulatory device, assess home safety, identify additional equipment needs, and establish a functional maintenance program that will increase ability of patient to remain at home. Has ambulatory equipment at home. PT INTERVENTION RECEIVED TODAY: Assessment for and fitting of appropriate assistive device. Guided patient through bed mobility, transfers, and mobility ADL performance on level surfaces to reduce fall risk. TREATMENT CODE/TIME: 9716 2 x 20 minutes, 9753 0 x 23 minutes beginning at 9:15 AM. Thank you for the opportunity to participate in the care of this patient. Pallavi Miller PT, DPT, CLT [facility] [place], [place]
--- NOTE | 2020-10-01 11:29 | CHAPLAIN ---
Nahomy was up in a chair, waiting to go for her MRI when I visited. She said they are trying to see if I had a stroke and if the left side of my face will stay like this. Nahomy said that she has been under a lot of stress lately, helping to care for other people, and she believes this is what's causing her facial droop. A sister earlier the is week, and Nahomy has been helping out other extended family members. Nahomy is the eldest sibling. She said her is very supportive of her, and encouraging her to take better care of herself. She also has a daughter, who is nurse, living in [place], and has been listening to her advice as well. Nahomy has had MRIs in the past and is not fearful. She is in touch with family members by phone.
[2020-10-01] MEDS: Normal Saline Flush 10 ML SYR IVP ×2 (11:45→12:09)
[2020-10-01] MEDS: Gadoterate meglumine 20 ML VIAL 12 ML IVP (12:10)
[2020-10-01] MEDS: diazePAM 10 MG/2 ML SYR 5 MG IM (13:07)
--- NOTE | 2020-10-01 13:20 | DI.MRI_ITS ---
EXAM: MR BRAIN WO CLINICAL HISTORY: CVA, pituitary mass TECHNIQUE: Multiplanar multisequence MRI of the brain was performed. COMPARISON: Recent CT scans were reviewed FINDINGS: Please note that this patient was apparently not able to tolerate further imaging and therefore the p ituitary fossa protocol (which requires IV injection) was not performed today. This can be performed at a different time when the patient is sedated. 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 This is masses noted to extend posteriorly to contact th e basilar artery and is extension into the cavernous sinuses, more so on the right side. With respect to the remainder of the brain, there is no significant focal abnormality in the cerebell ar hemispheres nor within the keron and midbrain and thalami. There is abundant bilateral periventric ular signal abnormality consistent with chronic small vessel disease. One of these foci exhibits hig h signal on diffusion imaging, this in the right paraventricular white matter and therefore consisten t with an acute nonhemorrhagic lacunar infarct at this level. This measures 5 x 5 millimeters. Ther e is no surrounding edema. FLOW VOIDS: The expected flow void are noted. No evidence of obvious aneurysm nor obvious vascular ma lformation. The internal carotid artery signal voids are patent in the cavernous sinuses PARANASAL SINUSES: Sphenoid sinus is filled with the abnormal signal which show M is related to the m ass in the pituitary fossa. ORBITS: No obvious abnormal findings. IMPRESSION: 1. In addition to abundant bilateral periventricular white matter disease, there is also a 5 x 5 mill imeter acute nonhemorrhagic right periventricular white matter lacunar infarct. This exhibits increa sed signal on diffusion imaging. 2. 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 This will be furthe r discussed when the dedicated pituitary fossa MRI is performed. DATA REPOSITORY:
[2020-10-01] MEDS: Acetaminophen 325 MG TAB PO (13:44)
--- NOTE | 2020-10-01 14:06 | W.PM.DS.N ---
Date of service: 10/01/20 Time of Service: 14:06 DS: Diagnosis Discharge Diagnosis (1) Acute CVA (cerebrovascular accident): Start date: 10/01/20 Start time: 14:06 Status: Suspected Asessment and Plan: Suspected CVA however her only symptoms are eye drooping and lip drooping no aphasia or ataxia, equal strength bilaterally. CT revealing IMPRESSION: 1. No significant stenosis in the carotid arteries in the neck. 2. The left vertebral artery is dominant. 3. There is focal narrowing in the lateral aspect of the right middle cerebral artery. No evidence of intraluminal thrombus. Large pituitary fossa mass noted, as described on yesterday's study. Please see yesterday's report Patient endorses mass that has been there for years and [place] [facility] [place] [facility] [place]. This mass is unchanged from October 2019 MRI was obtained She states she has been under a dramatic amount of stress lately given her history and results and symptoms this is more likely bells palsey then a CVA. The only symptoms are lip and eye droop. However we will refer her to neuro, cardiac event recorder for 30 days and continue plavix, asa, statin, I am however adding on a tick panel in the event this is bells palsey as tick borne illness can cause this per Up to date and is recommended to check for if in areas where there is a possibility of exposure in lyme-endemic areas. She is being discharged home. (2) HTN (hypertension): Start date: 10/01/20 Start time: 14:33 Status: Chronic Asessment and Plan: passive HTN at this time will resume medication at discharge. (3) Pituitary mass: Start date: 10/01/20 Start time: 14:34 Status: Suspected Asessment and Plan: Patient reports that she had a transsphenoidal resection of a pituitary mass number of years ago. I believe she stated it was performed in 2003. However CT scan performed and compared to a previous CT scan it was performed a year ago suggest that there is still a large mass in the pituitary fossa/sella turcica with erosion of the sphenoid sinus and cavernous sinus. Will refer to ENT for further management of this matter (4) Prerenal azotemia: Start date: 10/01/20 Start time: 14:34 Status: Resolved Asessment and Plan: She appears to be at baseline with fluid bolus above case discussed with Dr. Ogden who is in agreement. Discharge Plan Disposition Patient Disposition: HOME Condition: Improving Discharge Details Reason For Visit: CVA Admit Date/Time: 09/30/20 20:47 Admit Provider: Emre Parrish Attending Provider: Emre Parrish Primary Care Provider: Eveline Linton V Hospital Course Hospital Course: 80 y.o female with PMH HTN, DM diet controlled, (2012), Pituitary mass presented to [facility] ED for new onset slurred speech, left sided facial droop along with a feeling her tongue was thick. She has been under increased stress lately due to the loss of her sister from a brain aneurysm this past week. NIH 2. Labs in the ED remarkable for potassium 3.4, glucose 212, A1C 8.2, creatinine 1.[address] scan of the head was obtained and was compared with a prior CT scan of the head from October 18, 2019 and showed no new acute intracranial findings. A large mass was again noted in the pituitary fossa eroding into the sphenoid sinus and involving the cavernous sinuses extending upward into the suprasellar cistern. CTA of the head and neck showed no evidence of high-grade stenosis or occlusion or dissection nor any aneurysm. She was asked to be admitted for further management. Over night she did well. Only complaint was back pain. MRI was ordered for today, no evidence of infarct or hemorrhage. Teley with SR. RRR without ectopic beats. She continues to have eye droop and lip droop. She will be discharged home on metformin 500 mg bid, asa, plavix and statin. She will need follow up with neurology, ENT and PCP in 1 week. She denies CP, SOB, NVD. Equal strength throughtout all extremities. Home Meds and New Rx's Prescriptions: New aspirin 81 mg Tablet,Delayed Release (Dr/Ec) 81 mg PO DAILY Qty: 30 RF: 0 atorvastatin [Lipitor] 40 mg tablet 40 mg PO DAILY Qty: 30 RF: 0 clopidogrel [Plavix] 75 mg Tablet 75 mg PO DAILY Qty: 30 RF: 0 famotidine 20 mg Tablet 20 mg PO HS Qty: 30 RF: 0 omega 5-jwj-hyx-fish oil 1,000 mg (120 mg-180 mg) Capsule 4,000 mg PO DAILY Qty: 30 RF: 0 metformin 500 mg tablet 500 mg PO BID Qty: 60 RF: 0 Continued acetaminophen [Tylenol] 325 mg capsule 325 mg PO ONCE PRNRF: 0 lisinopril 40 MG tablet 40 mg PO DAILY RF: 0 potassium chloride 20 MEQ tablet,ER particles/crystals 20 meq PO DAILY RF: 0 Zyrtec 10 MG capsule 10 mg PO PRN PRNRF: 0 Osteo Bi-Flex Triple Strength 1 EACH tablet 1 ea PO DAILY RF: 0 meclizine 25 mg Tablet 25 mg PO PRN PRNRF: 0 hydrochlorothiazide 25 mg tablet 25 mg PO DAILY RF: 0 Discharge Instructions Instructions: Basic Carbohydrate Counting (DC), Meal Planning with Diabetes Exchanges (DC), Pituitary Adenoma (DC), Diabetic Hyperglycemia (DC), Hypertension and Diabetes (DC) Additional Instructions: CT revealed, A large mass in the pituitary eroding into the sphenoid sinus. She needs to see ENT sooner than later based on CT results Follow up with Neurology Follow up with PCP in 1-2 weeks You have been found to have Diabetes, you will be started on metformin take twice a day. You will also need to check your blood sugar twice a day and record it then follow up with your PCP the numbers recorded. Will defer to PCP for further treatment of diabetes. Follow the [place] Diabetic diet, low carb to help lower your glucose level and improve your diabetes. You have been started on plavix and asa, along with a statin will defer to neurology for further management. You have also been started on omega fatty acids for high triglycerides. Referrals: Eveline Linton MD [Primary Care Provider] - 10/07/20 2:15 pm (you will be seeing Adela Manjarrez) Starla Reyes MD [ [facility] STAFF PHYSICIAN] - (they will call you friday 10/06 with an appt ) Activity:: Activity as Tolerated Equipment/Supplies:: No Equipment Needed Diet:: Carb Counting Discharge Orders Discharge Orders: Discharge Order (Routine); Ordered 10/01/20 Ordered By: Scarlet Hyatt DS: Summary Time Spent with Patient providing and/or coordinating discharge services: Greater than 30 minutes (approx time for discharge 120 mins) Status at Discharge Functional status at discharge: independent ambulation Overall status at discharge: patient is not back to baseline Mental Status: mental status grossly normal Speech and Movement: speech and movement normal Mood: congruent mood Affect: normal affect Exam Narrative Exam Narrative: Elderly female lying in bed in no acute distress. She is alert and oriented person place time circumstance. Pupils equally round reactive to direct and consensual light full extraocular motions intact. Gross visual psann intact to confrontation. Noticeable left central cranial nerve VII paresis that is apparent with smiling. Left eye droop appearant. Normal movement of her tongue and palate. Gag reflex intact. Normal muscle movement of muscles of mastication. Neck supple no JVD normal carotid pulses no bruits Lungs are clear to auscultation Heart regular rate and rhythm without appreciable murmur rub or gallop. Abdomen soft nontender nondistended no organomegaly Extremities without peripheral cyanosis or edema. Neurologic exam as listed above with no gross visual field deficits full extraocular motion is intact. Left-sided facial paresis as noted above. Sensory exam over the face is grossly intact to light touch with a cotton swab as well as to noxious stimuli such as the broken end of the cotton swab tip. Sensory exam over both upper and lower extremities intact. Motor exam in both upper and lower extremities intact to fine muscle as well as large muscle groups in the proximal and distal arms and proximal distal legs. Babinski reflex was attempted but because the patient is very ticklish there was too much withdrawal to determine whether or not a Babinski reflex was present. Psych Mental Status: mental status grossly normal Speech and Movement: speech and movement normal Mood: congruent mood Affect: normal affect DS: Data Vitals/I&O Vitals and I&O: Vital Signs Temperature 36.6 C 10/01/20 13:30 Temperature Source Skin 10/01/20 13:30 Pulse 76 10/01/20 13:30 Pulse Rhythm Regular 10/01/20 07:25 Pulse 73 09/30/20 20:20 Respiratory Rate 16 10/01/20 13:30 Respiratory Effort Non-Labored 10/01/20 07:25 Respiratory Depth Normal 10/01/20 07:25 Respiratory Pattern Normal 10/01/20 07:25 Blood Pressure 182/82 H 10/01/20 13:30 Blood Pressure Mean 107 09/30/20 20:16 Blood Pressure Position Supine 09/30/20 16:45 Pulse Oximetry 99 10/01/20 13:30 Oxygen Delivery Method Room Air 10/01/20 13:30 Oxygen Flow Rate 0 10/01/20 13:30 Pain Level 9 10/01/20 13:44 Comment 10/01/20 13:30 Intake & Output 09/30/20 10/01/20 10/01/20 23:59 11:59 23:59 Intake Total 500 / 500 1730 / 1970 240 / 1970 Output Total 300 / 300 550 / 550 Balance 200 / 200 1180 / 1420 240 / 1420 Weight 62 kg 61.3 kg Intake: IV 500 / 500 1010 / 1010 Oral 720 / 960 240 / 960 Output: Urine 300 / 300 550 / 550 Other: Urine Color Yellow Yellow Yellow Urine Appearance Clear Clear Clear Urine Odor None Normal Normal Comment Void x1 in the toilet. Void x1 in the toilet. RN unable to determine urine amount; pt. missed the hat. Stool Size Moderate Stool Characteristics Soft Voiding Methods Bedside Commode Toilet Toilet Data Completed and Pending Completed studies during hospitalization [Text1]: Exam(s) a CT:CT head - stroke protocol EXAM: CT HEAD - STROKE PROTOCOL CLINICAL HISTORY: slurred speech, left sided facial droop. TECHNIQUE: Imaging Protocol: Axial computed tomography images with coronal and sagittal reformatted images were created and reviewed COMPARISON: CT CT HEAD CERVICAL SPINE WO from 10/18/2019 FINDINGS: There are no skull fractures nor fluid in the visualized paranasal sinuses. There is no evidence of intracranial hemorrhage, nor shift of midline structures. There are no extra-axial fluid collections. The ventricles are not enlarged or shifted and there is no blood within the ventricular system nor within the basal cisterns. Again noted is abundant bilateral periventricular hypodensity consistent with chronic small vessel disease. Also again noted is a large mass in the pituitary fossa-sella turcica which has eroded into the sphenoid sinus and right cavernous sinus and extends upward towards the optic chiasm in the suprasellar cistern. Exhibits minimal change from October 2019 IMPRESSION: No new acute intracranial findings on this noninfused CT scan of the brain. Large mass again noted in the pituitary fossa eroding into the sphenoid sinus and also involving the cavernous sinuses and extending upward into the suprasellar cistern and also associated with bone dehiscence. Recommend follow-up contrast infused dedicated pituitary fossa MRI for added specificity with respect to the etiology of this large mass. There is abundant bilateral periventricular hypodensity consistent with chronic small vessel disease. This appears unchanged from the prior CT scan of October 2019. RADIATION DOSE DELIVERED: 690.1mGy.cm Total DLP DATA REPOSITORY: All CT scans at this facility are submitted to the National Radiology Data Registry (NRDR) Dose Index Registry (DIR) with the [employer] (A[employer]). RADIATION OPTIMIZATION: All CT scans at this facility use at least one of these dose optimization techniques: automated exposure control; mA and/or kV adjustment per patient size (includes targeted exams where dose is matched to clinical indication); or iterative reconstruction. Exam(s) a RAD:XR chest 2V PA & lateral EXAM: XR CHEST 2V PA LATERAL CLINICAL HISTORY: slurred speech. TECHNIQUE: 2D digital imaging was performed. COMPARISON: Chest x-ray 12/01/2015 FINDINGS: Heart size is unchanged, with mild cardiomegaly. Mediastinum again exhibits a moderate-sized hiatal hernia. There is no widening of the upper mediastinum. Lungs are clear. No infiltrates nor pleural effusions. IMPRESSION: No acute pulmonary findings. DATA REPOSITORY: RADIATION DOSE DELIVERED: Exam(s) PROCEDURE INFORMATION: Exam: CT Head Without Contrast Exam date and time: 09/30/2020 4:57 PM Age: 80 years old Clinical indication: Other: Slurred speech, left sided facial droop TECHNIQUE: Imaging protocol: Computed tomography of the head without contrast. COMPARISON: CT HEAD CERVICAL SPINE WO 10/18/2019 11:28 AM FINDINGS: Limitations: None. Brain: No intracranial hemorrhage or brain edema. No transcortical defect. Normal cerebellum and brainstem. Chronic mild diffuse brain volume loss without focal encephalomalacia and prominent symmetric subcortical and periventricular white matter hypoattenuation. Chronic unchanged enlargement of the sella turcica and soft tissue density mass. Chronic unchanged mild leftward infundibular displacement. Cerebral ventricles: Normal. Bones/joints: Normal. Paranasal sinuses: Normal. Mastoid air cells: Normal. Vasculature: Carotid atherosclerosis. Soft tissues: Unremarkable. IMPRESSION: 1. No interval change. 2. 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 Exam(s) PROCEDURE INFORMATION: Exam: XR Chest, 2 Views Exam date and time: 09/30/2020 5:14 PM Age: 80 years old Clinical indication: Other: Slurred speech TECHNIQUE: Imaging protocol: XR of the chest Views: 2 views. COMPARISON: CT CHEST/ABD/PEL W 12/27/2018 11:35 AM FINDINGS: Lungs: The lungs are normally expanded and clear. Pleural spaces: No pleural effusion or pneumothorax. Heart/Mediastinum: Chronic hiatal hernia. Vasculature: Tortuous aorta. Normal caliber aorta. Bones/joints: Intact and normally aligned. IMPRESSION: No change or acute disease. Exam(s) Addendum created by Daniel Vines MD on 09/30/2020 8:43:35 PM EST: Addendum: The initial report was inadvertently approved with the normal CT angiography head template. Although there is no evidence of large vessel occlusion or significant stenosis, there are additional minor findings as follows: Mild calcific plaque in the ICA cavernous segments without stenosis. Normal variant persistent origin of the left [employer] with hypoplastic left P1 segment. Masslike expansion of the sella with asymmetric under enhancement of the right cavernous sinus suggesting cavernous sinus extension, and extension of soft tissue density into the sphenoid sinus distribution, grossly unchanged from 10/18/2019. This likely represents chronic changes of pituitary adenoma although not entirely specific. Initial report created on 09/30/2020 8:34:09 PM EST: PROCEDURE INFORMATION: Exam: CT Angiography Head With Contrast Exam date and time: 09/30/2020 7:43 PM Age: 80 years old Clinical indication: Slurred speech; Prior surgery; Surgery date: 6+ months; Surgery type: 2003 pituitary tumor removal; Patient HX: Left sided facial droop and speech disturbance xseveral hours, HX pituitary tumor in 2004, non contrast head CT done earlier today TECHNIQUE: Imaging protocol: Computed tomography angiography of the head with intravenous contrast. 3D rendering (Not supervised by radiologist): MIP and/or 3D reconstructed images were created by the technologist. Total images: 1630 Radiation optimization: All CT scans at this facility use at least one of these dose optimization techniques: automated exposure control; mA and/or kV adjustment per patient size (includes targeted exams where dose is matched to clinical indication); or iterative reconstruction. Contrast material: [id number]; Contrast volume: 85 ml; Contrast route: INTRAVENOUS (IV); Labs on day of discharge: Labs from last 24 hours 10/01/20 10/01/20 10/01/20 06:41 06:41 06:41 WBC 6.87 RBC 4.74 Hgb 11.1 L Hct 35.9 L MCV 75.7 L MCH 23.4 L MCHC 30.9 L RDW 15.8 H Plt Count 268 MPV 10.5 Immature Gran % 0.3 Neutrophils % 43.0 Lymphocytes % 41.9 Monocytes % 10.2 Eosinophils % 3.9 Basophils % 0.7 Nucleated RBC % 0 Absolute Neutrophils 2.95 Absolute Lymphocytes 2.88 Absolute Monocytes 0.70 Absolute Eosinophils 0.27 Absolute Basophils 0.05 PT INR Sodium Potassium Chloride Carbon Dioxide Anion Gap BUN Creatinine Estimated GFR/1.73 m2 Glucose Hemoglobin A1c 8.2 H Calcium Magnesium Iron 25 L TIBC 328 Transferrin % Sat 8 L Ferritin Total Bilirubin AST ALT Alkaline Phosphatase Troponin I Total Protein Albumin Triglycerides Total Cholesterol LDL Cholesterol Direct LDL Cholesterol, Calc HDL Cholesterol TSH Urine Color Urine Clarity Urine pH Ur Specific [place] Urine Protein Urine Ketones Urine Blood Urine Nitrite Urine Bilirubin Urine Urobilinogen Ur Leukocyte Esterase Urine RBC Urine WBC Ur Epithelial Cells Urine Crystals Urine Bacteria Urine Casts Urine Mucus Urine Other Ur Culture Indicated? Urine Glucose COVID-19 Source SARS-CoV-2 (PCR) Influenza Type A (PCR) Influenza Type B (PCR) RSV (PCR) 10/01/20 09/30/20 09/30/20 06:41 20:55 18:55 WBC RBC Hgb Hct MCV MCH MCHC RDW Plt Count MPV Immature Gran % Neutrophils % Lymphocytes % Monocytes % Eosinophils % Basophils % Nucleated RBC % Absolute Neutrophils Absolute Lymphocytes Absolute Monocytes Absolute Eosinophils Absolute Basophils PT INR Sodium 142 Potassium 3.4 L Chloride 104 Carbon Dioxide 25.6 Anion Gap 12.4 H BUN 18 D Creatinine 1.2 H Estimated GFR/1.73 m2 43.45 Glucose 148 H Hemoglobin A1c Calcium 9.0 Magnesium 2.0 Iron TIBC Transferrin % Sat Ferritin 30 Total Bilirubin AST ALT Alkaline Phosphatase Troponin I < 0.05 Total Protein Albumin Triglycerides 446 H Total Cholesterol 147 LDL Cholesterol Direct 65 LDL Cholesterol, Calc Tnp HDL Cholesterol 25 L TSH 0.54 Urine Color Urine Clarity Urine pH Ur Specific [place] Urine Protein Urine Ketones Urine Blood Urine Nitrite Urine Bilirubin Urine Urobilinogen Ur Leukocyte Esterase Urine RBC Urine WBC Ur Epithelial Cells Urine Crystals Urine Bacteria Urine Casts Urine Mucus Urine Other Ur Culture Indicated? Urine Glucose COVID-19 Source Nasal/nares SARS-CoV-2 (PCR) Negative Influenza Type A (PCR) Negative Influenza Type B (PCR) Negative RSV (PCR) Negative 09/30/20 09/30/20 09/30/20 17:45 17:25 17:25 WBC 7.89 RBC 4.84 Hgb 11.5 Hct 37.4 MCV 77.3 L MCH 23.8 L MCHC 30.7 L RDW 15.7 H Plt Count 296 MPV 10.0 Immature Gran % 0.5 Neutrophils % 48.6 Lymphocytes % 36.2 Monocytes % 10.6 Eosinophils % 3.3 Basophils % 0.8 Nucleated RBC % 0 Absolute Neutrophils 3.83 Absolute Lymphocytes 2.86 Absolute Monocytes 0.84 H Absolute Eosinophils 0.26 Absolute Basophils 0.06 PT 10.2 INR 1.0 Sodium Potassium Chloride Carbon Dioxide Anion Gap BUN Creatinine Estimated GFR/1.73 m2 Glucose Hemoglobin A1c Calcium Magnesium Iron TIBC Transferrin % Sat Ferritin Total Bilirubin AST ALT Alkaline Phosphatase Troponin I Total Protein Albumin Triglycerides Total Cholesterol LDL Cholesterol Direct LDL Cholesterol, Calc HDL Cholesterol TSH Urine Color Yellow Urine Clarity Clear Urine pH 6.5 Ur Specific [place] 1.020 Urine Protein Negative Urine Ketones Negative Urine Blood Negative Urine Nitrite Negative Urine Bilirubin Negative Urine Urobilinogen 1.0 H Ur Leukocyte Esterase Trace H Urine RBC Negative Urine WBC 0-2 Ur Epithelial Cells Negative Urine Crystals Negative Urine Bacteria Negative Urine Casts Negative Urine Mucus Negative Urine Other Few renal Ur Culture Indicated? Yes Urine Glucose Negative COVID-19 Source SARS-CoV-2 (PCR) Influenza Type A (PCR) Influenza Type B (PCR) RSV (PCR) 09/30/20 17:25 WBC RBC Hgb Hct MCV MCH MCHC RDW Plt Count MPV Immature Gran % Neutrophils % Lymphocytes % Monocytes % Eosinophils % Basophils % Nucleated RBC % Absolute Neutrophils Absolute Lymphocytes Absolute Monocytes Absolute Eosinophils Absolute Basophils PT INR Sodium 138 Potassium 3.4 L Chloride 102 Carbon Dioxide 25.8 Anion Gap 10.2 BUN 25 H Creatinine 1.4 H Estimated GFR/1.73 m2 36.37 Glucose 212 H Hemoglobin A1c Calcium 9.1 Magnesium 2.2 Iron TIBC Transferrin % Sat Ferritin Total Bilirubin 0.4 AST 32 ALT 34 Alkaline Phosphatase 122 H Troponin I < 0.05 Total Protein 7.2 Albumin 3.7 Triglycerides Total Cholesterol LDL Cholesterol Direct LDL Cholesterol, Calc HDL Cholesterol TSH Urine Color Urine Clarity Urine pH Ur Specific [place] Urine Protein Urine Ketones Urine Blood Urine Nitrite Urine Bilirubin Urine Urobilinogen Ur Leukocyte Esterase Urine RBC Urine WBC Ur Epithelial Cells Urine Crystals Urine Bacteria Urine Casts Urine Mucus Urine Other Ur Culture Indicated? Urine Glucose COVID-19 Source SARS-CoV-2 (PCR) Influenza Type A (PCR) Influenza Type B (PCR) RSV (PCR) Preliminary micro results at discharge 09/30/20 17:45 Urine Culture - Preliminary Urine - Reflex from Ua Gram Positive Evelin,Mixed PFSH Medical History Brain tumor HTN (hypertension) Proximal humerus fracture (10/16/19) Surgical History History of hysterectomy History of resection of rib Family History Other Cerebral aneurysm Diabetes Hypertension Social History Smoking/Tobacco Use Status: Never Smoking risk assessment performed?: Yes Alcohol Intake: never Drug use: Never Substance use type: does not use Do you feel safe at home: Yes Do you feel safe in your relationship?: Yes
[2020-10-01] MEDS: Omega-3 Fatty Acids 1000 MG CAP 4000 MG PO (15:03)
--- NOTE | 2020-10-01 15:33 | W.SPSTE ---
Date of service: 10/01/20 Time of Service: 15:33 Objective Objective Clinical (Bedside) Swallow Evaluation / Speech-Language Evaluation Speech Language Pathology Patient received awake with RN present, somewhat lethargic and reporting headache, however agreeable to evaluation, able to communicate wants/needs effectively; able to demonstrate comprehension of recommendations for effective dysarthria management upon discharge. Patient states she feels like her speech has improved significantly since initial ED visit, however does notice that ?everything is not quite clear still? and that she ?just wants to go to sleep in her own bed at home?. ASSESSMENT Referring Doctor: Emre Parrish MD CHIEF COMMERCIAL OFFICER Orders: Evaluate and treat nonhemorrhagic CVA Precautions: Fall. Standard. Activity as tolerated. Patient Profile/Admitting Diagnosis: Nahomy is a 80-year-old female who presented to the ED on 09/30/2020 with chief presentation of slurred speech and facial drooping. 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 PMHX: Medical History (Updated 10/01/20 @ 00:40 by Emre Parrish) Brain tumor HTN (hypertension) Proximal humerus fracture (10/16/19) Surgical History History of hysterectomy History of resection of rib Social History/Home Situation: Lives with in a private home with a ramp to enter. Independent with all aspects of ADLs prior to admission. No previous assistive device used. Still drives. Daughter plans on staying with patient and her as patient recovers for a few days. Equipment Owned/DME: Single-point cane, front wheeled walker Patient is currently on Diabetes Consistent/CHO Heart Healthy / Regular/Thins diet; denies difficulties with mastication and/or swallowing at bedside. OBJECTIVE: Predisposing dysphagia risk factors: acute CVA Clinical signs of possible chronic dysphagia: None Temp: 97.9 F Sp02: 99% RR: 16 / Room Air Cranial nerve exam / Oral Motor: CN V: facial sensation intact to light touch labial protrusion mild L sided weakness, able to demonstrate adequate labial seal labial coordination/ROM mildly impaired Jaw excursion/lateralization intact mastication intact lingual/labial sensation intact CN VII: lateral sulcus residue absent anterior spillage not observed salivation reduced - reports new onset xerostomia as of 09/30 CN IX/X: palatal elevation - unable to view Vocal Quality - WFL taste - WFL onset of swallow - suspect WFL pharyngeal residue - WFL per report nasopharyngeal regurgitation - denied by patient CN XII: bolus preparation/manipulation/control - WFL AP transit - likely WFL lingual protrusion - grossly symmetrical lingual coordination/ROM- mildly impaired lingual residue absent Dentition/Oral Structures/Hygiene: Dentition WFL; oral hygiene appears adequate-reports consistent and appropriate oral care regimen Language: verbal expression/fluency, naming, repetition, and auditory comprehension WFL Conversation limited once HAs removed (required charging mid way through evaluation) Hearing: Impaired; b/l HAs Mental Status: AAOx3, recall of current events intact Speech: dysarthric, ~80% intelligible at baseline today; improves to 90-100% with cues for reviewed speech strategies or request for repetition Laryngeal function exam: Secretions: WFL; reports new onset xerostomia as of 09/30 Vocal quality: WFL MPT: 14 secs reduced for sex/age (quite lethargic) S/Z ratio: DNT Pitch range: WFL Cough: (volitional) perceptually WFL PO intake IDDSI 0: 3mL thin liquid via cup, sequential swallows via cup sip and via straw - WFL IDDSI 7: Regular solids - WFL [place] Swallow Protocol: Pass Standardized: QAB / Quick Aphasia Battery: Negative for aphasia, does demonstrate residual dysarthria IMPRESSIONS: Patient demonstrates mild dysarthria as characterized by reduced labial/lingual coordination, mild L sided facial weakness, reduced articulatory precision at baseline today; intelligibility at approx 80%, however well managed with reviewed strategies (ie ?loud, exaggerate, slow, [id number]?) and request for repetition to enhance communicative effectiveness. Patient is at low risk for aspiration-related pulmonary complication, given negative overt s/sx dysphagia, adequate oral hygiene & presumed immunocompetence; improvements in physical mobility and overall pulmonary function likely to further reduce this risk. Further CHIEF COMMERCIAL OFFICER services not warranted at this time; patient/caregivers may request referral for or outpatient CHIEF COMMERCIAL OFFICER services as needed if dysarthria does persist (patient states she is not interested in further CHIEF COMMERCIAL OFFICER services at this time). Provided education to patient re: overt s/sx to monitor for re: potential aspiration of food/liquids, benefits of continued adequate oral care, dysarthria management strategies, and availability of CHIEF COMMERCIAL OFFICER services through either or in outpatient setting as desired. Instrumentation: N/A Diet Texture Modification(s): IDDSI Level(s) 7-Regular Solid, 0-Thin Liquids Medication Intake: Whole with 0-Thin Liquids as tolerated Alter medications only as advised by MD or Pharmacist RISK MANAGEMENT: Oral hygiene BID/2x per day using friction with toothbrush on all oral structures as tolerated HOB upright as tolerated; upright for all PO intake. Encourage physical mobility as tolerated. Level of Assistance/Supervision: Independent Strategies/Adaptations/Assistive Equipment: Slow rate of intake, Alternate intake of liquids and solids as needed given xerostomia Posture/Positioning Needs: Maintain upright position at least 30 minutes after meals, Avoid meals/snacks 2-3 hours prior to reclining/sleeping Specialist referrals: N/A Ancillary tests: N/A Therapy: N/A Goal: N/A PLAN: CHIEF COMMERCIAL OFFICER to follow while on unit as needed. Please re-consult PRN. Xochitl Haque MA CCC-CHIEF COMMERCIAL OFFICER [phone] CHIEF COMMERCIAL OFFICER CPT Codes: 21358 Clinical Swallowing Evaluation; 25537 Speech/Language Evaluation
--- NOTE | 2020-10-01 15:41 | DM INPTCON_ITS ---
Date of service: 10/01/20 Time of Service: 15:41 Diabetes Inpatient Consult DESCRIPTION/ASSESSMENT: 80 year old female admitted with CVA with random blood glucose in ER of 230 mg/dl. A1C: 8.2% indicating average blood sugar of 180-212 mg/dl in last 90 days. New dx of DM2, to be discharged today with metformin 500 mg bid. INTERVENTION: Provided education on DM including Hyper/hypoglycemia s/s with action plan for each scenario. Definition and types of CHO with examples, CHO counting, DASH diet materials, DM meal planning and label reading literature. Provided a blood sugar and food record chart and materials to reiterate CHO cou nting techniques. Reviewed desirable BG levels with patient with food choices and portions for optimal outcomes. Provided contact information for this RD and encouraged to call with any f/u questions r/t to DM self management. CDM from kitchen has been helping to count CHO's and achieve intake of ~65g/CHO per meal period. Provided contact information for follow up in outpatient setting. Educated Nahomy on how to use blood sugar monitor and encouraged her to start checking BS as fasting in AM, and post prandially daily. PLAN: Nahomy to monitor blood sugars a minimum of BID and to follow up with PCP within 1 week of discharge continue diabetic diet and start food log. Make appt with OP dietitian within 30 days of discharge. Time Spent in Nutritional Counseling and Treatment: 20
--- NOTE | 2020-10-01 16:11 | PDOC.HHF2F ---
Home Health Certification Home Health Certification: 1. Encounter Date and Reason I certify that JAYLA TAPIA was seen by Scarlet Hyatt on 10/01/20 and that I had a [id number] encounter with this patient that meets the physician face to face encounter requirements. 2. Clinical Findings Supporting Skilled Need and Homebound Status I certify that home health services are medically necessary, include either intermittent chcf and/or physical/speech therapy, and that this patient is homebound in that absences from the home require considerable and taxing effort and are infrequent or of short duration, or are attributable to the need to receive medical care. [X] (a) Attached documentation from encounter provides clinical findings supporting skilled need and homebound status (including what assistance patient requires to leave the home). The encounter with the patient was in whole, or in part, for the following medical condition, which is the primary reason for home health care: CVA Physical Therapy: Patient would benefit from PT for stability and gait balance. Homebound: Unable to leave home without assistance 3. Certification and Authentication I certify that I composed the above information based on my clinical judgement relating to this patient's medical condition and, if applicable, clinical findings communicated to me by the NPP or inpatient physician who performed the Home Health Referral. All further orders will be obtained through ____Shaila (Community Based Physician - PCP)
--- NOTE | 2020-10-01 16:34 | CMDISCH_ITS ---
LACE Index Scoring Tool - Questions: Length of Stay (in days): 1 Acuity (Admit via E.D.?): Yes Comorbidities: Any Tumor E.D. Visits: 5 - Answers: Total Score: 10 Risk of Readmission: High Risk Care Management Discharge Reason for Hospitalization: CVA/TIA Discharge Plan: Nahomy will return home when ready per MD. She will follow up with her PCP and plan of care as prescribed. She will have new orders for [facility] PT upon discharge; CM notified Onofre at [facility]. She will transport via private vehicle with family. Patient/Family Education Needs: Review discharge instructions, discuss Ask Me Three. Services Needed at Discharge: Home Health Care Services ([facility])
[2020-10-05 11:58] LABS: Anaplasma phagocytophilum Negative (Negative); B. miyamotoi PCR Negative (Negative); Babesia divergens/MO-1 Negative (Negative); Babesia duncani Negative (Negative); Babesia microti Negative (Negative); Ehrlichia chaffeensis Negative (Negative); Ehrlichia ewingii/canis Negative (Negative); Ehrlichia muris eauclairensis Negative (Negative)
== END 2020-10-01 16:18 | disposition home or self-care (01) | DRG 66 ==
LOC: ER 21:23 → MS 21:24
PROVIDERS: Admitting Provider Internal Medicine; Emergency Provider Physician Assistant; PCP Family Medicine; Visit Provider Internal Medicine
DX: I63.9 Cerebral infarction, unspecified (principal); I10 Essential (primary) hypertension; H02.402 Unspecified ptosis of left eyelid; E11.9 Type 2 diabetes mellitus without complications; R47.81 Slurred speech; D49.7 Neoplasm of unspecified behavior of endocrine glands and other parts of nervous system
CPT/HCPCS: 36415; 36416; 70496; 70498; 80048; 80053; 80061; 82962; 83721; 87798; 92610; 93005; 93270; 96360; 97162; 97530; 99223; 99239; 99285; 70450; 70551; 71046; 81003; 81015; 82728; 83036; 83540; 83550; 83735; 84443; 84484; 85025; 85610; 87086; 93010; J1650; J3360; J3490

== ENCOUNTER 2020-10-20 09:56 | Outpatient (CLI) | payer OTHER, SELFPAY ==
--- NOTE | 2020-10-20 09:15 | DI.RAD_ITS ---
EXAM: XR SHOULDER LT COMPLETE 2+V CLINICAL HISTORY: f/u TECHNIQUE: COMPARISON: CR XR SHOULDER LT COMPLETE 2+V from 04/21/2020 FINDINGS: Two views were obtained. There appears to be narrowing of the cartilaginous joint space of the gleno humeral joint seen on the axillary view. There are post-traumatic deformities of the humeral head, n o change in appearance comparison with examination of April 2020. The previously described humer al head fracture appears fully healed. Mild marginal osteophyte formation noted at the glenohumeral joint and AC joint. IMPRESSION: RADIATION DOSE DELIVERED: Total DLP
== END 2020-10-20 09:57 | disposition home or self-care (01) ==
LOC: DIORS 09:57
PROVIDERS: PCP Family Medicine; Referring Provider Family Medicine; Visit Provider Student in an Organized Health Care Education/Training Program
DX: M25.512 Pain in left shoulder (principal); Z87.81 Personal history of (healed) traumatic fracture
CPT/HCPCS: 73030

== ENCOUNTER 2020-10-29 00:54 | Outpatient (REF) | payer OTHER, SELFPAY ==
[2020-10-29 18:25] LABS: HCT 37.2 % (36.0-46.0); HGB 11.5 g/dL (11.2-15.7)
[2020-10-29 18:40] LABS: ALT 23 U/L (14-59); AST 23 U/L (15-37); Albumin 3.8 g/dL (3.4-5.0); Alkaline Phosphatase 95 U/L (46-116); BUN 17 mg/dL (7-18); Bilirubin, Total 0.5 mg/dL (0.2-1.0); CREATININE 1.1 mg/dL (0.55-1.02); Calcium 9.5 mg/dL (8.5-10.1); Chloride 103 mmol/L (98-107); Creatine Kinase 48 U/L (26-192); Estimated GFR 48.04 (mL/min/1.73m2); Glucose 95 mg/dL (74-106); Potassium 3.6 mmol/L (3.5-5.1); Sodium 142 mmol/L (136-145); Total Protein 6.9 g/dL (6.4-8.2)
[2020-10-29 18:52] LABS: C-Reactive Protein < 0.05 mg/dL (0.0-0.3)
[2020-10-30 11:46] LABS: ESR 15 mm/hr (<or=30)
== END 2020-10-29 00:55 | disposition home or self-care (01) ==
LOC: NCHCN 00:54
PROVIDERS: PCP Family Medicine; Visit Provider Family Medicine
DX: Z00.00 Encounter for general adult medical examination without abnormal findings (principal); E11.9 Type 2 diabetes mellitus without complications; R06.02 Shortness of breath; D35.2 Benign neoplasm of pituitary gland; R27.0 Ataxia, unspecified; M79.18 Myalgia, other site
CPT/HCPCS: 80053; 82550; 85652; 85014; 85018; 86140

== ENCOUNTER 2020-11-17 01:50 | Outpatient (CLI) | payer OTHER, SELFPAY ==
--- NOTE | 2020-11-12 12:10 | W.CARDEVENT ---
Date of service: 11/12/20 Time of Service: 12:10 Cardiac Event Recorder Referring Provider:: Rea Indications:: TIA Cardiac Event Note: This is a 30-day event monitor order for indication of TIA. Patient was in normal sinus rhythm for the majority of the recording with an average heart rate of 67 bpm. There were no significant arrhythmias. There were no episodes of atrial fibrillation, no pauses greater than 3 seconds and no evidence of high degree heart block. There were 2 patient triggered events both associated with sinus rhythm.
--- NOTE | 2020-11-17 07:00 | DI.US_ITS ---
APPROVED REPORT EXAM: Comprehensive 2D, Doppler, and color-flow Echocardiogram Patient Location: Out-Patient Journeyman Pipe Fitter: Janessa Rod RDCS (AE) Indications: Stroke, CVA Other Information Study Quality: Adequate Conclusion Normal left ventricular wall thickness and chamber size. Estimated ejection fraction is 60%. There are no segmental wall motion abnormalities Normal right ventricular size and systolic function Both atria are normal in size Trileaflet aortic valve without stenosis or regurgitation Structurally normal mitral valve with trace regurgitation Structurally normal tricuspid valve, trace regurgitation. Estimated right ventricular systolic press ure is normal Normal pulmonic valve Mildly dilated ascending aorta measuring 3.44 cm Wall motion Left Ventricle The left ventricle is normal size. The left ventricular systolic function is normal. The left ventric ular ejection fraction is within the normal range. There is normal left ventricular wall thickness. T here is normal LV segmental wall motion. There is no ventricular septal defect visualized. LVEF is 59 %. Right Ventricle The right ventricle is normal size. The right ventricular systolic function is normal. The RVSP is 23 .1mmHg. Atria The left atrium size is normal. The right atrium size is normal. The interatrial septum is intact wit h no evidence for an atrial septal defect. Aortic Valve The aortic valve is normal in structure. Aortic valve is trileaflet. There is no aortic valvular sten osis. No aortic regurgitation is present. Mitral Valve The mitral valve is normal in structure. No evidence of mitral valve stenosis. Trace mitral regurgita tion. Tricuspid Valve The tricuspid valve is normal in structure. There is no tricuspid valve stenosis. Trace tricuspid reg urgitation. Pulmonic Valve The pulmonary valve is normal in structure. There is no pulmonic valvular stenosis. There is no pulmo adelfo valvular regurgitation. Great Vessels The aortic root is normal in size. The ascending aorta is mildly dilated.3.44 cm Aortic arch is not w ell visualized. IVC is normal in size and collapses >50% with inspiration. Pericardium There is no pericardial effusion. 2D Dimensions IVSD d PLAX 0.99 cm F: 0.6-1.0 LV Vol A2C d MOD 68.7 mL LVPW d PLAX 1.00 cm F: 0.6 - 1.0 LV Vol A4C d MOD 73.9 mL LVID d PLAX 3.53 cm F: 3.8 - 5.2 LA vol/ BSA A2C s A-L 26.0 mL/m2 LVDs 2.45 cm F: 2.2 - 3.5 LA vol/ BSA A4C s A-L 19.7 mL/m2 Ao Root d 2.94 cm F: 2.7 - 3.3 LA Vol/ BSA Biplane s A-L 22.9 mL/m2 RA Area A4C 13.28 cm2 LA Area A4C s MOD 12.06 cm2 RA Vol/ BSA A4C s A-L 23.4 mL/m2 LA Area A2C s MOD 13.69 cm2 Ao Asc Diam d 3.44 cm F: 2.3 - 3.1 LV EF A4C MOD 59.1 % LV EF Teichholz 58.4 % LV EF A2C MOD 58.9 % LVEF (Cruz's) 58.88 % F: 54 - 74 LV EF Biplane MOD 58.9 % LV Volume 59.41 mL F: 46 - 106 SV 41.95 mL LV Volume Index 39.87 mL/m2 F: 29 - 61 SV Index 28.01 mL/m2 LV Vol Biplane MOD 71.2 mL FS 30.05 % M-Mode TAPSE 2.11 cm (M/F) >1.7 LV Diastology MV E' medial 0.049 (>0.07 m/s) E/A Ratio 0.9 LV E/e MED 16.50 (<14) MV E Vmax 0.81 (0.4-1.3 m/s) MV E' lateral 0.070 (>0.1 m/s) MV A Vmax 0.90 (0.4-1.3 m/s) LV E/e LAT 11.45 (<14) MV E/A Ratio 0.88 MV E/E' medial 16.50 MV E/E' lateral 11.46 Aortic Valve LVOT Area 3.23 cm2 AoV Area Vmax 2.09 cm2 LVOT Vmax 0.87 m/s AoV Area/ BSA (Vmax) 1.39 cm2/m2 LVOT Mean Joseph. 0.52 m/s LEONOR Mean Joseph. 1.83 cm2 LVOT Peak Grad 3.0 mmHg LEONOR Mean Joseph. Index 1.22 cm2/m2 LVOT Mean Grad 1.3 mmHg LVOT VTI 0.193 m LVOT Diam s 2.00 cm AoV Vmax 1.35 m/s Velocity Ratio 0.64 AoV Mean Joseph. 0.93 m/s AoV Peak Grad 7.2 mmHg LVOT SV 62.48 mL AoV Mean Grad 3.9 mmHg AoV VTI 0.276 m AoV Area VTI 2.26 cm2 AoV Area/ BSA (VTI) 1.51 cm/m2 Mitral Valve MV DT 323 (160-240 msec) MV PHT 94 msec MV Area PHT 2.35 cm2 MV VTI 0.343 m MV VTI Annulus 0.344 m MV Area VTI 1.83 (4.0-6.0 cm2) Pulmonary Valve PV Vmax 0.87 (0.5-1.5 m/s) RVOT Peak Gr. 1.12 mmHg PV Peak Grad 3.0 mmHg RVOT Mean Gr. 0.65 mmHg PV Mean Grad 1.6 mmHg RVOT VTI 0.131 m PV VTI 0.186 m RVOT Vmax 0.53 m/s Tricuspid Valve TR Peak Grad 20.0 mmHg TR Vmax 2.24 m/s RA Pressure 3.00 mmHg RVSP (TR) 23.1 mmHg
== END 2020-11-17 02:10 ==
PROVIDERS: PCP Family Medicine; Visit Provider Psychiatry & Neurology Neurology
DX: Z86.73 Personal history of transient ischemic attack (TIA), and cerebral infarction without residual deficits (principal); I77.810 Thoracic aortic ectasia
CPT/HCPCS: 93306

== ENCOUNTER 2021-05-07 11:59 | Outpatient (REF) | payer OTHER, SELFPAY ==
[2021-05-07 20:25] LABS: HGB 14.4 g/dL (11.2-15.7)
[2021-05-07 20:44] LABS: ALT 28 U/L (14-59); AST 25 U/L (15-37); Albumin 3.8 g/dL (3.4-5.0); Alkaline Phosphatase 84 U/L (46-116); BUN 14 mg/dL (7-18); Bilirubin, Total 0.4 mg/dL (0.2-1.0); CREATININE 1.1 mg/dL (0.55-1.02); Calcium 9.3 mg/dL (8.5-10.1); Calculated LDL 5 mg/dL (<100); Chloride 105 mmol/L (98-107); Cholesterol 101 mg/dL (<200); Estimated GFR 47.91 (mL/min/1.73m2); Glucose 152 mg/dL (74-106); HDL Cholesterol 37 mg/dL (40-60); Potassium 3.3 mmol/L (3.5-5.1); Sodium 143 mmol/L (136-145); Total Protein 6.7 g/dL (6.4-8.2); Triglyceride 299 mg/dL (<150)
[2021-05-07 21:05] LABS: Hemoglobin A1C 6.3 % (<5.7)
== END 2021-05-07 12:00 | disposition home or self-care (01) ==
LOC: NCHCN 11:59
PROVIDERS: PCP Family Medicine; Visit Provider Family Medicine
DX: E11.9 Type 2 diabetes mellitus without complications (principal); I10 Essential (primary) hypertension; M79.10 Myalgia, unspecified site; D64.9 Anemia, unspecified
CPT/HCPCS: 80053; 80061; 83036; 85014; 85018

== ENCOUNTER 2022-05-13 15:59 | Outpatient (REF) | payer OTHER, SELFPAY ==
[2022-05-13 17:07] LABS: ALT 56 U/L (14-59); AST 50 U/L (15-37); Creatine Kinase 44 U/L (26-192); HDL Cholesterol 36 mg/dL (40-60); LDL CHOLESTEROL 36 mg/dL (<100)
== END 2022-05-13 16:00 | disposition home or self-care (01) ==
LOC: NCHCN 15:59
PROVIDERS: PCP Family Medicine; Visit Provider Family Medicine
DX: I10 Essential (primary) hypertension (principal); I63.9 Cerebral infarction, unspecified
CPT/HCPCS: 82550; 83721; 83718; 84450; 84460

== ENCOUNTER 2022-07-06 15:45 | Outpatient (REF) | payer OTHER, SELFPAY ==
[2022-07-06 15:18] LABS: Anion Gap 9.5 mmol/L (3-11); BUN 14 mg/dL (7-18); CO2 27.5 mmol/L (21.0-32.0); Calcium 9.1 mg/dL (8.5-10.1); Chloride 101 mmol/L (98-107); Estimated GFR 56.95 (mL/min/1.73m2); Glucose 140 mg/dL (74-106); Potassium 3.1 mmol/L (3.5-5.1); Sodium 138 mmol/L (136-145)
== END 2022-07-06 15:46 | disposition home or self-care (01) ==
LOC: NCHCN 15:45
PROVIDERS: PCP Family Medicine; Visit Provider Nurse Practitioner Family
DX: I10 Essential (primary) hypertension (principal); U07.1 COVID-19
CPT/HCPCS: 80048

== ENCOUNTER 2022-07-07 13:55 | Emergency (ER) | payer OTHER, SELFPAY ==
[2022-07-07 14:04] VITALS: BP 162/90; PULSE 83; RESP 18; TEMP 36.9; O2SAT 95
--- NOTE | 2022-07-07 14:22 | ED.GENADUL_ITS ---
Discharge Plan Disposition Patient Disposition: Home Condition: Stable Discharge Details Clinical Impression: COVID-19, Nausea & vomiting Primary Care Provider: Eveline Linton V ED Provider: Cony Sheikh Home Meds and New Rx's Prescriptions: Continued acetaminophen [Tylenol] 325 mg capsule 325 mg PO ONCE PRN diazepam [Valium] 5 mg tablet 5 mg PO ONCE PRN (Reason: claustrophobia) Qty: 2 0RF Rx Instructions: Take 1 tab ~30min prior to MRI. Ok to take 2nd if still claustrophobic. potassium chloride 20 MEQ tablet,ER particles/crystals 20 meq PO DAILY Zyrtec 10 MG capsule 10 mg PO PRN PRN Osteo Bi-Flex Triple Strength 1 EACH tablet 1 ea PO DAILY meclizine 25 mg Tablet 25 mg PO PRN PRN Rx Instructions: unsure of dose hydrochlorothiazide 25 mg tablet 25 mg PO DAILY Label Comments: TK 1 T PO D aspirin 81 mg Tablet,Delayed Release (Dr/Ec) 81 mg PO DAILY Qty: 30 0RF atorvastatin [Lipitor] 40 mg tablet 40 mg PO DAILY Qty: 30 0RF clopidogrel [Plavix] 75 mg Tablet 75 mg PO DAILY Qty: 30 0RF famotidine 20 mg Tablet 20 mg PO HS Qty: 30 0RF omega 4-pfa-xqy-fish oil 1,000 mg (120 mg-180 mg) Capsule 4,000 mg PO DAILY Qty: 30 0RF ondansetron HCl 4 mg tablet 1 tab PO DAILY PRN Label Comments: Take 1 tablet by mouth every eight hours as needed for nausea rosuvastatin 5 mg tablet 1 tab PO DAILY Label Comments: TAKE ONE TABLET BY MOUTH AT BEDTIME ferrous gluconate 324 mg (37.5 mg iron) tablet 1 tab PO BID Label Comments: TAKE ONE TABLET BY MOUTH EVERY DAY Paxlovid (EUA) 150-100 mg tablets,dose pack PO Label Comments: 2 tablet by mouth twice a day Discharge Instructions Instructions: Acute Nausea and Vomiting (ED), COVID-19 (Coronavirus Disease 2019) (ED) Additional Instructions: Please continue taking the Paxil. If able. If you continue to have nausea and vomiting you may try to stop taking the Paxlovid as this may be causing the nausea and vomiting. Take Zofran up to 3 times daily as needed 20 minutes before eating or drinking anything. Follow up with primary care provider in 3-5 days. Return to ED sooner if any worsening or concerns. Increase oral fluids. Take [id number]-uah-[id number] multivitamin. With zinc and vitamin D. Return to the ER for any worsening shortness of breath Referrals: Eveline Linton MD [Primary Care Provider] - 5 days Discharge Data Discharge Date/Time-TO BE ENTERED AT DEPARTURE: 07/07/22 17:56 Medical Decision Making <Sage Cuellar NP - Last Filed: 07/08/22 09:45> Patient presenting to the emergency department at recommendation of her primary care provider for consideration of fluid resuscitation. Patient was diagnosed with COVID 2 days ago and has had nausea vomiting which is now only dry heaving, low oral intake, headaches, and body aches. Patient also states dry cough that is nonproductive. Physical exam shows an acutely ill appearing 82-year-old female with normal vital signs, no hypoxia, clear lung sounds, no tachycardia, unremarkable HEENT exam. Given that patient states she has not been eating over the past 3 days will check patient's labs for any electrolyte abnormalities and will give IV fluids pending results. Labs reviewed and show nondiagnostic CBC, low potassium at 3.3, glucose 147, slight elevation of AST at 68 and ALT at 70 otherwise normal alk phos normal bilirubin normal lipase. Replacement potassium and reassess. Patient refused oral potassium 25 and further dry heaving. Will give Compazine and further fluids. <Cony Sheikh NP - Last Filed: 07/07/22 21:45> Medical Records Medical records narrative: 1615: Care assumed from provider (Aleksey Cuellar NP) Please see their initial HPI, PE, and documentation. Discussed patient details and case and pending workup and disposition. Patient is hemodynamically stable, and alert and oriented. In short patient is a 82-year-old female who is positive for COVID 3 days ago who presents with nausea and vomiting. Patient has received 4 mg Zofran approximately an hour ago has been ordered for potassium 40 mEq p.o. and Compazine. Her potassium slightly low 3.0 she was given Paxlovid. If no Positive response to the antiemetics will consider discussing monoclonal antibodies with patient.. 1740: Patient reevaluation, she was able to tolerate p.o. potassium without any vomiting. She reports feeling better. I did discuss her home care and continue taking Paxil bid. Discussed increasing fluids we will send patient home with [place]. She verbalized understanding. Patient hemodynamically stable sat 94% prior to discharge. Sign Out Yes HPI <Sage Cuellar NP - Last Filed: 07/08/22 09:45> General Mode of arrival: ambulatory . Date/Time Provider Initiated Documentation: 07/07/22 13:59 . Limitations to Documentation: no limitations . Information obtained by: patient and RN notes reviewed . History of Present Illness 82 year old F presents to the emergency department with the chief comp laint of Cough, headache, cold symptoms, described as moderate, with intensity rated at 8. Quality is described as aching, and is localized to the head. Patient started experiencing this day(s) (2) and it has been constant. No relieving factors improve symptom(s), No exacerbating factors reported . Patient notes cough, fever/chills, headaches, loss of appetite, malaise and nausea/vomiting; denies shortness of breath. Related Data Home Medications Medication Instructions Recorded Confirmed cetirizine 10 mg capsule (Zyrtec) 10 mg PO PRN PRN 01/28/15 07/07/22 glucosamine 750 [id number] 1 ea PO DAILY 01/28/15 10/06/20 no1 644 mg-C 30 mg-cody 1 mg tablet (Osteo Bi-Flex Triple Strength) potassium chloride 20 mEq 20 meq PO DAILY 01/28/15 07/07/22 tablet,extended release(part/cryst) meclizine 25 mg tablet 25 mg PO PRN PRN 10/16/19 07/07/22 acetaminophen 325 mg capsule 325 mg PO ONCE PRN 01/28/20 10/06/20 (Tylenol) hydrochlorothiazide 25 mg tablet 25 mg PO DAILY 04/22/20 07/07/22 aspirin 81 mg tablet,delayed 81 mg PO DAILY #30 tabs 10/01/20 07/07/22 release atorvastatin 40 mg tablet (Lipitor) 40 mg PO DAILY #30 tabs 10/01/20 10/06/20 clopidogrel 75 mg tablet (Plavix) 75 mg PO DAILY #30 tabs 10/01/20 07/07/22 famotidine 20 mg tablet 20 mg PO HS #30 tabs 02/25/21 12/01/22 omega 9-ghw-qny-fish oil 1,000 mg 4,000 mg PO DAILY #30 caps 10/01/20 07/07/22 (120 mg-180 mg) capsule diazepam 5 mg tablet (Valium) 5 mg PO ONCE PRN claustrophobia #2 10/06/20 tabs ferrous gluconate 324 mg (37.5 mg 1 tab PO BID 07/07/22 07/07/22 iron) tablet nirmatrelvir 150 mg-ritonavir 100 dose pk PO 07/07/22 mg tablets in a dose pack (EUA) (Paxlovid) ondansetron HCl 4 mg tablet 1 tab PO DAILY PRN 07/07/22 07/07/22 rosuvastatin 5 mg tablet 1 tab PO DAILY 07/07/22 07/07/22 Previous Rx's Medication Instructions Recorded aspirin 81 mg tablet,delayed 81 mg PO DAILY #30 tabs 10/01/20 release atorvastatin 40 mg tablet (Lipitor) 40 mg PO DAILY #30 tabs 10/01/20 clopidogrel 75 mg tablet (Plavix) 75 mg PO DAILY #30 tabs 10/01/20 famotidine 20 mg tablet 20 mg PO HS #30 tabs 10/01/20 omega 3-tjk-nuk-fish oil 1,000 mg 4,000 mg PO DAILY #30 caps 10/01/20 (120 mg-180 mg) capsule diazepam 5 mg tablet (Valium) 5 mg PO ONCE PRN claustrophobia #2 10/06/20 tabs Allergies Allergy/AdvReac Type Severity Reaction Status Date / Time aspirin AdvReac NAUSEA Verified 07/07/22 14:21 codeine AdvReac vomiting Verified 07/07/22 14:21 morphine AdvReac NAUSEA Verified 07/07/22 14:21 Sulfa (Sulfonamide AdvReac NAUSEA Verified 07/07/22 14:21 Antibiotics) General Stated Complaint: Nausea/Vomit/Diar ALBINO: 3 Review of Systems <Sage Cuellar NP - Last Filed: 07/08/22 09:45> Constitutional Constitutional: Reports fever(s), Reports headache(s), Reports lethargy, Reports malaise, Reports poor appetite and Reports weakness (Generalized nonfocal) Eyes Eyes: Reports system reviewed and no additional complaints, except as documented ENT Ears, Nose, Mouth, and Throat: Reports headache(s), Denies nasal congestion, Denies nasal discharge, Denies neck pain, Denies sinus pressure and Denies sore throat Cardiovascular Cardiovascular: Denies chest pain, Denies syncope, Denies lightheadedness and Denies dyspnea Respiratory Respiratory: Reports cough and Denies dyspnea Gastrointestinal Gastrointestinal: Denies abdominal pain, Denies diarrhea, Reports nausea and Reports vomiting Genitourinary Genitourinary: Denies difficulty voiding Musculoskeletal Musculoskeletal: Denies joint swelling and Denies neck pain Integumentary/Breasts Skin/Breast: Denies rash Neurologic Neurologic: Denies syncope, Reports headache(s) and Reports weakness (Generalized nonfocal) PFSH <Sage Cuellar NP - Last Filed: 07/08/22 09:45> All Active Problems (Updated 07/07/22 @ 17:41 by Cony Sheikh NP) COVID-19 (Acute) Nausea & vomiting (Acute) Pituitary macroadenoma (Acute) Frequent falls (Acute) HTN (hypertension) (Chronic) Neoplasm of unspecified behavior of bone, soft tissue, and skin (Acute) Medical History Diabetes Proximal humerus fracture (10/16/19) Surgical History History of hysterectomy History of resection of rib S/P selective transsphenoidal pituitary adenomectomy Family History Sister Cerebral aneurysm Dementia Mother Diabetes Hypertension Heart disease Social History Smoking/Tobacco Use Status: Never Smoking risk assessment performed?: Yes Alcohol Intake: never Drug use: Never Substance use type: does not use Household members: spouse Number of Children: 3 current occupation: Retired Current gender identity: female What is your relationship status?: Panel score (0-1 are the most socially isolated patients): 1 Do you feel safe at home: Yes Do you feel safe in your relationship?: Yes Exam <aSge Cuellar NP - Last Filed: 07/08/22 09:45> Const General: cooperative and ill appearing acutely Nutritional Appearance: average body habitus Orientation: alert, awake and oriented x3 [facility] Head: normal to inspection, normocephalic and atraumatic Ears: hearing grossly normal bilaterally and TM's normal bilaterally General nose exam: external nose normal Face and sinus: normal facial exam and no erythema Mouth: oral mucosae normal, no drooling, no muffled voice and no trismus Teeth and gingiva: edentulous Throat: posterior oropharynx normal Eyes General: appearance normal, both eyes and all related structures Neck Neck: normal visual inspection, full ROM, no lymphadenopathy, no meningeal signs, trachea midline and supple Resp Effort & Inspection: normal respiratory effort, able to speak in complete sentences and cough Quality of cough: dry Auscultation: clear to auscultation bilaterally Cardio Rate: regular rate Rhythm: regular rhythm Heart Sounds: S1 normal, S2 normal, normal S1 and S2, no click, no gallops, no murmurs and no rubs GI Inspection: normal to inspection Palpation: soft, not firm, no guarding, not rigid and nontender Skin General skin exam: no rashes or lesions noted and dry skin (warm) Neuro General: patient alert, patient awake, patient oriented x3, gait normal and moves all extremities Cognition: normal cognition Speech: speech normal Course <Sage Cuellar NP - Last Filed: 07/08/22 09:45> Vital Signs Vital signs: Vital Signs Temperature 36.9 C 07/07/22 14:04 Pulse 83 07/07/22 14:04 Respiratory Rate 18 07/07/22 14:04 Blood Pressure 162/90 H 07/07/22 14:04 Pulse Oximetry 95 07/07/22 14:04 Temperature 36.9 C 07/07/22 14:04 Temperature Source Temporal Artery Scan 07/07/22 14:04 Pulse 83 07/07/22 14:04 Respiratory Rate 18 07/07/22 14:04 Respiratory Effort Non-Labored 07/07/22 14:07 Blood Pressure 162/90 H 07/07/22 14:04 Blood Pressure Position Sitting 07/07/22 14:04 Pulse Oximetry 95 07/07/22 14:04 Oxygen Delivery Method Room Air 07/07/22 14:04 Oxygen Flow Rate 0 07/07/22 14:04 Sign Out <Sage Cuellar NP - Last Filed: 07/08/22 09:45> Sign Out Data: Sign Out Comment: Patient pending further medication due to dry heaving secondary to COVID positive illness. Patient also completing fluids and will need reassessment for further fluids and p.o. tolerance challenge. Last updated by Sage Cuellar NP at 07/07/22 16:00
[2022-07-07] MEDS: Normal Saline 1,000 ML 1000 ML IV (15:05)
[2022-07-07 15:11] LABS: Abs Immature Grans 0.02 10^3/uL (0.0-0.06); Absolute Basophil Count 0.02 10^3/uL (0.0-0.2); Absolute Lymphocyte Count 0.99 10^3/uL (1.2-3.4); Absolute Monocyte Count 0.79 10^3/uL (0.1-0.8); Absolute Neutrophil Count 6.17 10^3/uL (1.2-6.7); Basophils % 0.3; Immature Grans % 0.3; Lymphocytes % 12.4; MCH 29.7 pg (27.0-33.0); MCHC 34.8 % (32.0-36.0); MCV 86 fL (80-95); MPV 9.6 fL (8.0-11.0); Monocytes % 9.9; Neutrophils % 77.1; Platelet Count 170 10^3/uL (130-400); RBC 5.38 10^6/uL (3.93-5.22); RDW 12.5 % (11.7-14.6); RDW-SD 39.1 fL; WBC 7.99 10^3/uL (4.4-10.8)
[2022-07-07] MEDS: ACETAMINOPHEN 1,000 MG/100 ML BTL 400 MG IVPB (15:16)
[2022-07-07] MEDS: Ondansetron 4 MG/2 ML VIAL IVP (15:16)
[2022-07-07 15:26] LABS: ALT 70 U/L (14-59); AST 68 U/L (15-37); Albumin 3.8 g/dL (3.4-5.0); Alkaline Phosphatase 73 U/L (46-116); Anion Gap 10.5 mmol/L (3-11); BUN 17 mg/dL (7-18); Bilirubin, Total 0.7 mg/dL (0.2-1.0); CO2 27.5 mmol/L (21.0-32.0); CREATININE 0.9 mg/dL (0.55-1.02); Calcium 8.9 mg/dL (8.5-10.1); Chloride 98 mmol/L (98-107); Estimated GFR 64.63 (mL/min/1.73m2); Glucose 147 mg/dL (74-106); Lipase 115 U/L (73-393); Sodium 136 mmol/L (136-145); Total Protein 7.5 g/dL (6.4-8.2)
[2022-07-07] MEDS: Prochlorperazine 10 MG/2 ML VIAL IVP (16:40)
[2022-07-07] MEDS: Potassium Chloride 20 MEQ TABCR 40 MEQ PO (17:19)
[2022-07-07 17:48] VITALS: BP 153/69; PULSE 77; RESP 19; TEMP 36.8; O2SAT 94
[2022-07-07] MEDS: Ondansetron O.D.T. 4 MG TABEF, 3 TABS/BTL PO (17:54)
== END 2022-07-07 17:56 | disposition home or self-care (01) ==
PROVIDERS: Nurse Practitioner Family; Emergency Provider Registered Nurse Emergency; PCP Family Medicine
DX: U07.1 COVID-19 (principal); R11.2 Nausea with vomiting, unspecified; E87.6 Hypokalemia; R74.01 Elevation of levels of liver transaminase levels; E11.9 Type 2 diabetes mellitus without complications; Z79.82 Long term (current) use of aspirin
CPT/HCPCS: 36415; 80053; 83690; 96361; 96365; 96375; 99284; 83735; 85025; J0131; J0780; J2405

== ENCOUNTER 2022-08-26 00:36 | Outpatient (CLI) | payer OTHER, SELFPAY ==
--- NOTE | 2022-08-26 | DI.RAD_ITS ---
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 TECHNIQUE: 2D digital imaging was performed of the lumbar spine. Five images were obtained. AP, la teral, right oblique, left oblique and L5-S1 spot views were obtained. COMPARISON: No exams were available for comparison FINDINGS: BONES: No fracture or destructive lesion. Endplate osteophytes are seen at multiple levels of the lum bar spine particularly at L1-L2 and L2-L3. There are degenerative changes of the facets seen in the l ower lumbar spine. DISKS: There is disc space narrowing at L2-L3. ALIGNMENT: There is a left convex curvature of the spine. No spondylolysis or spondylolisthesis. SOFT TISSUE: Atherosclerosis is present. IMPRESSION: Degenerative changes of the lumbar spine. DATA REPOSITORY: RADIATION DOSE DELIVERED:
== END 2022-08-26 00:56 ==
LOC: DI 00:36
PROVIDERS: PCP Family Medicine; Visit Provider Family Medicine
DX: M47.816 Spondylosis without myelopathy or radiculopathy, lumbar region (principal); M54.16 Radiculopathy, lumbar region; R63.4 Abnormal weight loss
CPT/HCPCS: 72110

== ENCOUNTER 2022-08-26 01:49 | Outpatient (CLI) | payer OTHER, SELFPAY ==
[2022-08-26 13:41] LABS: HCT 42.8 % (36.0-46.0); HGB 14.7 g/dL (11.2-15.7); MCH 29.9 pg (27.0-33.0); MCHC 34.3 % (32.0-36.0); MCV 87 fL (80-95); MPV 10.5 fL (8.0-11.0); Platelet Count 237 10^3/uL (130-400); RBC 4.92 10^6/uL (3.93-5.22); RDW 13.4 % (11.7-14.6); RDW-SD 42.2 fL; WBC 8.92 10^3/uL (4.4-10.8)
[2022-08-26 13:43] LABS: ESR 3 mm/hr (0-30)
[2022-08-26 14:45] LABS: ALT 39 U/L (14-59); AST 29 U/L (15-37); Albumin 3.6 g/dL (3.4-5.0); Alkaline Phosphatase 97 U/L (46-116); Anion Gap 7.2 mmol/L (3-11); BUN 10 mg/dL (7-18); Bilirubin, Total 0.5 mg/dL (0.2-1.0); CO2 29.8 mmol/L (21.0-32.0); CREATININE 0.9 mg/dL (0.55-1.02); Calcium 9.4 mg/dL (8.5-10.1); Chloride 105 mmol/L (98-107); Estimated GFR 64.63 (mL/min/1.73m2); Glucose 105 mg/dL (74-106); Sodium 142 mmol/L (136-145); Total Protein 6.7 g/dL (6.4-8.2)
[2022-08-26 14:48] LABS: Hemoglobin A1C 6.2 % (<5.7)
[2022-08-26 15:11] LABS: C-Reactive Protein < 0.05 mg/dL (0.0-0.3)
== END 2022-08-26 01:50 | disposition home or self-care (01) ==
LOC: LBO 01:49
PROVIDERS: PCP Family Medicine; Visit Provider Family Medicine
DX: M54.16 Radiculopathy, lumbar region (principal); R63.4 Abnormal weight loss; R79.89 Other specified abnormal findings of blood chemistry; E87.6 Hypokalemia; E11.9 Type 2 diabetes mellitus without complications
CPT/HCPCS: 36415; 80053; 85027; 85652; 83036; 86140

== ENCOUNTER 2022-09-09 13:32 | Outpatient (REF) | payer OTHER, SELFPAY ==
[2022-09-09 15:30] LABS: Anion Gap 7.6 mmol/L (3-11); BUN 12 mg/dL (7-18); CO2 28.4 mmol/L (21.0-32.0); Calcium 9.2 mg/dL (8.5-10.1); Chloride 106 mmol/L (98-107); Estimated GFR 56.95 (mL/min/1.73m2); Glucose 161 mg/dL (74-106); Potassium 4.3 mmol/L (3.5-5.1); Sodium 142 mmol/L (136-145)
== END 2022-09-09 13:33 | disposition home or self-care (01) ==
LOC: NCHCN 13:32
PROVIDERS: PCP Family Medicine; Visit Provider Family Medicine
DX: E87.6 Hypokalemia (principal); R10.32 Left lower quadrant pain; M25.552 Pain in left hip
CPT/HCPCS: 80048

== ENCOUNTER 2022-10-07 00:30 | Outpatient (CLI) | payer OTHER, SELFPAY ==
--- NOTE | 2022-10-07 10:03 | DI.RAD_ITS ---
Exam(s) XR HIP LT COMPLETE AP PELVIS EXAM: XR HIP LT COMPLETE AP PELVIS CLINICAL HISTORY: LT HIP PAIN, M25.559; LLQ ABD PAIN, R10.32. TECHNIQUE: 2D digital imaging was performed. COMPARISON: No exams were available for comparison FINDINGS: 3 views No evidence of pelvic nor hip fracture. No significant hip joint space narrowing. SI joints unremar kable. No osseous lesions. IMPRESSION: No significant osseous findings. DATA REPOSITORY: RADIATION DOSE DELIVERED:
== END 2022-10-07 00:50 ==
LOC: DI 00:30
PROVIDERS: PCP Family Medicine; Visit Provider Family Medicine
DX: M25.552 Pain in left hip (principal); R10.32 Left lower quadrant pain
CPT/HCPCS: 73502

== ENCOUNTER 2022-11-04 01:10 | Outpatient (CLI) | payer OTHER, SELFPAY ==
--- NOTE | 2022-11-04 13:30 | DI.RAD_ITS ---
Exam(s) XR SHOULDER LT COMPLETE 2+V EXAM: XR SHOULDER LT COMPLETE 2+V CLINICAL HISTORY: LT SHOULDER PAIN, M25.512. TECHNIQUE: 2D digital imaging was performed. Five views. COMPARISON: CR XR SHOULDER LT COMPLETE 2+V from 10/20/2020 FINDINGS: BONES: Old proximal humeral fracture deformity. Inferior spurring at humeral head. No acute fractur e is present. No bony destructive lesion is seen. JOINTS: No dislocation present. Glenohumeral joint space is maintained. Minimal spurring. See join t unremarkable. SOFT TISSUE: Normal. IMPRESSION: Old proximal humeral fracture. Mild degenerative changes. DATA REPOSITORY: RADIATION DOSE DELIVERED:
== END 2022-11-04 01:30 ==
LOC: DI 01:11
PROVIDERS: PCP Family Medicine; Visit Provider Family Medicine
DX: M25.512 Pain in left shoulder (principal); M25.812 Other specified joint disorders, left shoulder
CPT/HCPCS: 73030

== ENCOUNTER 2022-11-18 00:23 | Outpatient (CLI) | payer OTHER, SELFPAY ==
--- NOTE | 2022-11-18 | DI.MRI_ITS ---
Exam(s) MR BRAIN PITUITARY WO/W EXAM: MR BRAIN PITUITARY WO/W IV Contrast: 11 mL of Dotarem contrast administered. 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 CONTRAST MATERIAL: IV Contrast: mL of Magnevist contrast administered. COMPARISON: MR MR BRAIN WO from 10/01/2020. This exam was limited by motion and lack of contrast enh anced sequences. Findings: VENTRICLES AND EXTRA AXIAL SPACES: Normal in size and morphology for the patient's age. HEMORRHAGE: No acute hemorrhage. Scattered foci of susceptibility artifact consistent with old petech ial microhemorrhages. CEREBRAL PARENCHYMA: No focus of restricted diffusion to suggest acute infarct. No space-occupying le agustin identified. Atrophy and white matter changes of small vessel disease again noted.. MIDLINE SHIFT: None. BRAINSTEM/CEREBELLUM: Normal. CALVARIUM: Normal. ENHANCEMENT: No suspicious enhancement identified. VISUALIZED PARANASAL SINUSES/MASTOIDS: Complete opacification of the sphenoid sinuses with expansion, similar to prior.. PITUITARY: Stable size and appearance of previously noted pituitary mask, mostly solid with a few cys tic areas. It measures 2.3 cm transverse by 1.5 cm AP x 2.3 cm cephalo caudad. There is impression up on the optic chiasm. There is lateral extension into the cavernous sinuses eccentric toward the right . The internal carotid arteries remain intact. Impression: Stable size and appearance of large pituitary fossa mass. Stable appearance of opacification of the s phenoid sinuses with ex with bony expansion. No new findings. DATA REPOSITORY:
[2022-11-18] MEDS: Normal Saline Flush 10 ML SYR IVP (10:52)
[2022-11-18] MEDS: Gadoterate meglumine 20 ML SYRINGE 11 ML IVP (10:52)
== END 2022-11-18 00:43 ==
LOC: DI 00:23
PROVIDERS: PCP Family Medicine; Visit Provider Family Medicine
DX: D35.2 Benign neoplasm of pituitary gland (principal); H53.40 Unspecified visual field defects
CPT/HCPCS: 70553

== ENCOUNTER 2023-02-03 13:48 | Outpatient (REF) | payer OTHER, SELFPAY ==
[2023-02-03 15:48] LABS: HCT 46.2 % (36.0-46.0); HGB 15.6 g/dL (11.2-15.7); MCHC 33.8 % (32.0-36.0); MCV 89 fL (80-95); MPV 10.8 fL (8.0-11.0); Platelet Count 195 10^3/uL (130-400); RDW 12.7 % (11.7-14.6); RDW-SD 41.3 fL; WBC 7.16 10^3/uL (4.4-10.8)
[2023-02-03 16:06] LABS: ALT 31 U/L (14-59); AST 42 U/L (15-37); Albumin 3.9 g/dL (3.4-5.0); Alkaline Phosphatase 82 U/L (46-116); Anion Gap 8.8 mmol/L (3-11); BUN 14 mg/dL (7-18); Bilirubin, Total 0.5 mg/dL (0.2-1.0); CO2 28.2 mmol/L (21.0-32.0); Calcium 9.6 mg/dL (8.5-10.1); Chloride 104 mmol/L (98-107); Estimated GFR 56.95 (mL/min/1.73m2); Glucose 99 mg/dL (74-106); Potassium 3.7 mmol/L (3.5-5.1); Sodium 141 mmol/L (136-145)
[2023-02-03 16:12] LABS: Hemoglobin A1C 6.4 % (<5.7)
== END 2023-02-03 13:49 | disposition home or self-care (01) ==
LOC: NCHCN 13:48
PROVIDERS: PCP Family Medicine; Visit Provider Family Medicine
DX: Z01.818 Encounter for other preprocedural examination (principal); H53.40 Unspecified visual field defects; I10 Essential (primary) hypertension; D35.2 Benign neoplasm of pituitary gland; E11.9 Type 2 diabetes mellitus without complications
CPT/HCPCS: 80053; 85027; 83036

== ENCOUNTER 2023-03-10 15:30 | Outpatient (REF) | payer OTHER, SELFPAY ==
[2023-03-10 16:56] LABS: Potassium 3.2 mmol/L (3.5-5.1)
== END 2023-03-10 15:31 | disposition home or self-care (01) ==
LOC: NCHCN 15:30
PROVIDERS: PCP Family Medicine; Visit Provider Family Medicine
DX: E87.6 Hypokalemia (principal)
CPT/HCPCS: 84132

== ENCOUNTER 2023-03-24 02:45 | Outpatient (CLI) | payer OTHER, SELFPAY ==
[2023-03-24 10:12] LABS: Albumin 3.5 g/dL (3.4-5.0); Anion Gap 11.2 mmol/L (3-11); BUN 14 mg/dL (7-18); CO2 26.8 mmol/L (21.0-32.0); Calcium 9.7 mg/dL (8.5-10.1); Chloride 108 mmol/L (98-107); FREE T4 0.76 ng/dL (0.76-1.46); Glucose 126 mg/dL (74-106); Potassium 3.5 mmol/L (3.5-5.1); Sodium 146 mmol/L (136-145); TSH 2.12 uIU/mL (0.36-3.74)
[2023-03-24 10:20] LABS: Vitamin D 25 Total 50.5 ng/mL (30-100)
[2023-03-24 19:08] LABS: FSH 2.7 mIU/mL (See Note)
[2023-03-24 19:13] LABS: LH 0.4 mIU/mL (See Note)
[2023-03-27 08:45] LABS: DHEA Sulfate 14 ug/dL (See Note)
[2023-03-27 13:09] LABS: Adrenocorticotropic Hormone, P 16 pg/mL
[2023-03-28 13:59] LABS: Renin Activity, Plasma 1.3 ng/mL/h
== END 2023-03-24 02:46 | disposition home or self-care (01) ==
LOC: LBO 02:45
PROVIDERS: PCP Family Medicine
DX: I10 Essential (primary) hypertension (principal); M81.0 Age-related osteoporosis without current pathological fracture; D35.2 Benign neoplasm of pituitary gland
CPT/HCPCS: 36415; 80048; 82088; 82306; 82533; 82627; 82024; 82040; 83001; 83002; 84244; 84439; 84443

== ENCOUNTER 2023-04-07 11:18 | Outpatient (REF) | payer OTHER, SELFPAY ==
[2023-04-07 14:13] LABS: Anion Gap 8.7 mmol/L (3-11); BUN 16 mg/dL (7-18); CO2 27.3 mmol/L (21.0-32.0); CREATININE 1.1 mg/dL (0.55-1.02); Calcium 9.6 mg/dL (8.5-10.1); Chloride 105 mmol/L (98-107); Estimated GFR 50.48 (mL/min/1.73m2); Glucose 142 mg/dL (74-106); Potassium 3.5 mmol/L (3.5-5.1); Sodium 141 mmol/L (136-145)
== END 2023-04-07 11:19 | disposition home or self-care (01) ==
LOC: NCHCN 11:18
PROVIDERS: PCP Family Medicine; Visit Provider Family Medicine
DX: E87.6 Hypokalemia (principal)
CPT/HCPCS: 80048

== ENCOUNTER 2023-04-11 20:05 | Emergency (ER) | payer OTHER, SELFPAY ==
[2023-04-11] VITALS (30 sets, daily range): BP systolic 117–210; BP diastolic 67–111; PULSE 70–139; RESP 8–26; TEMP 37.1; O2SAT 94–100
--- NOTE | 2023-04-11 20:43 | ED.GENADUL_ITS ---
Discharge Plan Disposition Patient Disposition: Home Condition: Improving Discharge Details Clinical Impression: HTN (hypertension), Acute anterior epistaxis Primary Care Provider: Eveline Linton V ED Provider: Gordy Marx Meds and New Rx's Prescriptions: New amoxicillin-pot clavulanate [Augmentin] 500-125 mg tablet 1 tab PO BID Qty: 14 0RF Continued acetaminophen [Tylenol] 325 mg capsule 325 mg PO ONCE PRN meclizine 25 mg tablet 12.5 mg PO DAILY Rx Instructions: unsure of dose methocarbamol 750 mg tablet 750 mg PO TID losartan 50 mg tablet 50 mg PO DAILY alendronate 70 mg tablet 70 mg PO QWEEK potassium chloride 20 MEQ tablet,ER particles/crystals 20 meq PO DAILY Zyrtec 10 MG capsule 10 mg PO PRN PRN hydrochlorothiazide 25 mg tablet 25 mg PO DAILY Patient Comments: TK 1 T PO D aspirin 81 mg Tablet,Delayed Release (Dr/Ec) 81 mg PO DAILY Qty: 30 0RF clopidogrel [Plavix] 75 mg Tablet 75 mg PO DAILY Qty: 30 0RF omega 8-jwd-szk-fish oil 1,000 mg (120 mg-180 mg) Capsule 4,000 mg PO DAILY Qty: 30 0RF rosuvastatin 5 mg tablet 1 tab PO DAILY Patient Comments: TAKE ONE TABLET BY MOUTH AT BEDTIME ferrous gluconate 324 mg (37.5 mg iron) tablet 1 tab PO BID Patient Comments: TAKE ONE TABLET BY MOUTH EVERY DAY Discharge Instructions Instructions: Nosebleed (ED), Hypertension (ED) Referrals: Eveline Linton MD [Primary Care Provider] - 2 days (for removal of nose tampon or return to the ER) Discharge Data Discharge Physician: Gordy Marx Medical Decision Making MDM: Summary: Patient presented to the emergency department with epistaxis on her left nostril that was significant. She was noted to be very hypertensive and was given labetalol 10 mg IV with decrease in her blood pressure. Epistaxis management was ensured by making blow the clots applying Vikram-Synephrine and eventually TXA was applied paralyzed with significant reduction of the bleeding but still a Rhino Rocket was placed with the balloon achieving adequate hemostasis. Patient's labs are unremarkable with normal coagulation studies. She was given Augmentin for the procedure manipulation and will be discharged on Augmentin with a Rhino Rocket and she was to [facility] or with her primary care physician for removal. I also advised her to continue take her blood pressure medications as scheduled. Data Review Analysis All the data on this patient was reviewed by me including laboratory and imaging studies as well as bedside studies performed by me Independent review of Studies Imaging Lab: Labs are unremarkable Risk Stratification: Patient who came with epistaxis that has been resolved after epistaxis managed with measures as above. And will be safely discharged home with close follow-up Differential Diagnosis: 1. Acute epistaxis 2. Epistaxis due to thrombocytopenia 3. Epistaxis due to trauma 4. 5. Consultants: Shared disposition: Patient has been understands disposition and will follow accordingly Impression: Medical Records Medical records reviewed: Yes I reviewed the patient's medical records. Lab Data Lab results reviewed: Yes I reviewed the patient's lab results. HPI General Date/Time Provider Initiated Documentation: 04/11/23 20:43 . HPI Narrative: Patient presents to the emergency department complaining of a significant nosebleed that started about 1 hour ago. Reports that she was asleep. Called patient and her nose was bleeding feels that she is swallowing blood. Denies any headache denies any trauma. Related Data Home Medications Medication Instructions Recorded Confirmed cetirizine 10 mg capsule (Zyrtec) 10 mg PO PRN PRN 01/28/15 04/11/23 potassium chloride 20 mEq 20 meq PO DAILY 01/28/15 04/11/23 tablet,extended release(part/cryst) acetaminophen 325 mg capsule 325 mg PO ONCE PRN 01/28/20 04/11/23 (Tylenol) hydrochlorothiazide 25 mg tablet 25 mg PO DAILY 04/22/20 04/11/23 aspirin 81 mg tablet,delayed 81 mg PO DAILY #30 tabs 10/01/20 04/11/23 release clopidogrel 75 mg tablet (Plavix) 75 mg PO DAILY #30 tabs 10/01/20 04/11/23 omega 9-vdb-ycq-fish oil 1,000 mg 4,000 mg PO DAILY #30 caps 10/01/20 11/16/22 (120 mg-180 mg) capsule ferrous gluconate 324 mg (37.5 mg 1 tab PO BID 07/07/22 11/16/22 iron) tablet rosuvastatin 5 mg tablet 1 tab PO DAILY 07/07/22 04/11/23 alendronate 70 mg tablet 70 mg PO QWEEK 11/01/22 11/16/22 losartan 50 mg tablet 50 mg PO DAILY 11/01/22 04/11/23 meclizine 25 mg tablet 12.5 mg PO DAILY 11/01/22 11/16/22 methocarbamol 750 mg tablet 750 mg PO TID 11/01/22 04/11/23 amoxicillin 500 mg-potassium 1 tab PO BID #14 tabs 04/11/23 clavulanate 125 mg tablet (Augmentin) Previous Rx's Medication Instructions Recorded aspirin 81 mg tablet,delayed 81 mg PO DAILY #30 tabs 10/01/20 release clopidogrel 75 mg tablet (Plavix) 75 mg PO DAILY #30 tabs 10/01/20 omega 3-gyz-tau-fish oil 1,000 mg 4,000 mg PO DAILY #30 caps 10/01/20 (120 mg-180 mg) capsule amoxicillin 500 mg-potassium 1 tab PO BID #14 tabs 04/11/23 clavulanate 125 mg tablet (Augmentin) Allergies Allergy/AdvReac Type Severity Reaction Status Date / Time aspirin AdvReac NAUSEA Verified 04/11/23 20:25 codeine AdvReac vomiting Verified 04/11/23 20:25 morphine AdvReac NAUSEA Verified 04/11/23 20:25 Sulfa (Sulfonamide AdvReac NAUSEA Verified 04/11/23 20:25 Antibiotics) General Stated Complaint: GenMedical ALBINO: 2 Review of Systems Narrative: Review of Systems: Constitutional: No fevers, chills, sweats Eye: No recent visual problems ENT: No ear pain, nasal congestion, sore throat Respiratory: No shortness of breath, cough Cardiovascular: No Chest pain, palpitations, syncope Gastrointestinal: No nausea, vomiting, diarrhea Genitourinary: No hematuria Barron/Lymph: Negative for bruising tendency, swollen lymph glands Endocrine: Negative for excessive thirst, excessive hunger Musculoskeletal: No back pain, neck pain, joint pain, muscle pain, decreased range of motion Integumentary: No rash, pruritus, abrasions Neurologic: Alert & oriented X 4 Psychiatric: No anxiety, depression PFSH All Active Problems (Updated 04/11/23 @ 22:37 by Gordy Marx MD) Acute anterior epistaxis (Acute) 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) Hiatal hernia (Chronic) Acute chest wall pain (Acute) Systolic murmur (Acute) Ataxia (Acute) Cervical cancer (Acute) COVID-19 (Acute) Pituitary macroadenoma (Acute) Frequent falls (Acute) HTN (hypertension) (Chronic) Neoplasm of unspecified behavior of bone, soft tissue, and skin (Acute) Medical History Diabetes Lumbar radiculopathy Proximal humerus fracture (10/16/19) Surgical History History of hysterectomy History of resection of rib S/P selective transsphenoidal pituitary adenomectomy Family History Sister Cerebral aneurysm Dementia Mother Diabetes Hypertension Heart disease Social History Smoking/Tobacco Use Status: Never Smoking risk assessment performed?: Yes Alcohol Intake: never Drug use: Never Substance use type: does not use Household members: spouse Number of Children: 3 current occupation: Retired Current gender identity: female What is your relationship status?: Panel score (0-1 are the most socially isolated patients): 1 Do you feel safe at home: Yes Do you feel safe in your relationship?: Yes Exam Narrative Exam Narrative: Exam; vitals signs as reported above hypertensive Constitutional; In no acute distress, afebrile General: cooperative, healthy appearing, comfortable and no acute distress HEENT: Head: normal to inspection, no palpable skull fracture and normocephalic atraumatic Eyes: : appearance normal, both eyes and all related structures EOM intact bilaterally Pupils: PERRL : conjunctiva normal Direct ophthalmoscopy: normal light reflex, normal conjunctiva, normal visual acuity Ears: Normal TM, normal external canal Nose: normal no rhinorreha Neck no JVD, supple non tender Neck: normal visual inspection, full ROM and no lymphadenopathy Chest: normal inspection of the chest Respiratory : normal respiratory effort and able to speak in complete sentences no wheezing no rales Cardio Rate: regular rate, rhythm: regular rhythm normal heart sounds S1 and S2 no murmurs, gallops, or rubs GI : normal to inspection, normal bowel sounds, soft, non tender, non distended, no organomegaly Back/Spine/ no CVA tenderness Thoracic/Lumbar Spine: no tenderness or deformities Skin no rashes or lesions Neuro: patient alert oriented x 4 and no meningeal signs, Cranial Nerves: CN's II-XI intact bilaterally, Cognition: normal cognition, Speech: speech normal, Gait: normal gait, Depp tendon reflexes normal 2+ muscle strength 5/5 bilaterally Extremities, no edema, full range of motion, normal strength : normal Rectal: defered Course Vital Signs Vital signs: Vital Signs Temperature 37.1 C 04/11/23 20:15 Pulse 107 H 04/11/23 20:15 Respiratory Rate 20 04/11/23 20:15 Blood Pressure 210/111 H 04/11/23 20:15 Pulse Oximetry 96 04/11/23 20:15 Temperature 37.1 C 04/11/23 20:15 Pulse 107 H 04/11/23 20:15 Respiratory Rate 20 04/11/23 20:15 Respiratory Effort Normal 04/11/23 20:20 Respiratory Depth Normal 04/11/23 20:20 Blood Pressure 210/111 H 04/11/23 20:15 Pulse Oximetry 96 04/11/23 20:15 Oxygen Delivery Method Room Air 04/11/23 20:15 Oxygen Flow Rate 0 04/11/23 20:15 Pain Level 0 04/11/23 20:15 Procedures Epistaxis Control Time Out Performed: Yes Nostril: left Nose Prepped With: lidocaine and phenylephrine Direct Inspection: yes and anterior source identified Clots Removed by: blowing nose and manually Cautery Used: none (TXA was applied with atomizer) Device Inserted: hemostatic balloon Device Size: 5 Patient Tolerated Procedure: well Vital Signs & Lab Results Vital Signs Most Recent Vital Signs: Most Recent Vital Signs Temp Pulse Resp BP Pulse Ox 37.1 C 86 25 H 144/87 H 97 04/11/23 20:15 04/11/23 22:01 04/11/23 22:01 04/11/23 22:01 04/11/23 22:01 Vital Signs Comment Vital Signs Comment:: Patient initially hypertensive now blood pressure is about 130/87 after labetalol Point of Care Results Nursing Point of Care Results: No Data to Display Lab Results 04/11/23 20:24 04/11/23 20:24 Blood Type / Crossmatch: No Data to Display Complete Blood Count: White Blood Count 9.41 10^3/uL (4.4-10.8) 04/11/23 20:24 Red Blood Count 5.01 10^6/uL (3.93-5.22) 04/11/23 20:24 Hemoglobin 15.3 g/dL (11.2-15.7) 04/11/23 20:24 Hematocrit 44.9 % (36.0-46.0) 04/11/23 20:24 Platelet Count 240 10^3/uL (130-400) 04/11/23 20:24 Complete Metabolic Panel: Sodium 143 mmol/L (136-145) 04/11/23 20:24 Potassium 3.6 mmol/L (3.5-5.1) 04/11/23 20:24 Chloride 109 mmol/L (98-107) H 04/11/23 20:24 Carbon Dioxide 26.1 mmol/L (21.0-32.0) 04/11/23 20:24 BUN 16 mg/dL (7-18) 04/11/23 20:24 Creatinine 1.1 mg/dL (0.55-1.02) H 04/11/23 20:24 Est GFR (CKD-EPI 2020) 50.48 (mL/min/1.73m2) 04/11/23 20:24 Calcium 9.4 mg/dL (8.5-10.1) 04/11/23 20:24 Albumin 4.0 g/dL (3.4-5.0) 04/11/23 20:24 Glucose 224 mg/dL (74-106) H 04/11/23 20:24 Liver Function Panel: Alanine Aminotransferase (ALT/SGPT) 34 U/L (14-59) 04/11/23 20: 24 Aspartate Amino Transf (AST/SGOT) 17 U/L (15-37) 04/11/23 20:24 Coagulation Panel: INR International Normalized Ratio 0.9 (0.9-1.1) 04/11/23 20:2 4 Prothrombin Time 9.4 sec (9.3-11.0) 04/11/23 20:24 Activated Partial Thromboplast Time 24.3 sec (21.5-31.9) 20:24 Cardiac Panel: No Data to Display Arterial Blood Gas: No Data to Display Venous Blood Gas: No Data to Display Pancreas Panel: No Data to Display Thyroid Panel: Thyroid Stimulating Hormone (TSH) 2.12 uIU/mL (0.36-3.74) 03/24 09:00 Infectious Disease: No Data to Display Blood Cultures: No Data to Display Toxicology Panel: No Data to Display
[2023-04-11] MEDS: Phenylephrine SPRAY 1% 15 ML BTL (20:57)
[2023-04-11] MEDS: Labetalol 100 MG/20 ML VIAL 20 MG IVP (21:00)
[2023-04-11] MEDS: Tranexamic Acid 1,000 MG/10 ML VIAL 1000 MG IVP (21:09)
--- NOTE | 2023-04-11 21:09 | NUR.NOTE ---
Nursing Note:MD in room helping to control the bleed of the nose. MD gave order for labatalol 20mg for patients high BP. RN slowly administered the first 10mg and reassessed BP. Pts bp came down appropriately and the other 10mg was held. at the bedsid assisting the patinet in clearing clots from her nose as well as controlling the bleeding. MD gave orders for meds and labs.
[2023-04-11 21:13] LABS: HCT 44.9 % (36.0-46.0); HGB 15.3 g/dL (11.2-15.7); MCH 30.5 pg (27.0-33.0); MCHC 34.1 % (32.0-36.0); MCV 90 fL (80-95); MPV 10.2 fL (8.0-11.0); Platelet Count 240 10^3/uL (130-400); RBC 5.01 10^6/uL (3.93-5.22); RDW 13.2 % (11.7-14.6); RDW-SD 43.2 fL; WBC 9.41 10^3/uL (4.4-10.8)
[2023-04-11 21:22] LABS: INR 0.9 (0.9-1.1); PTT Activated 24.3 sec (21.5-31.9); Prothrombin Time 9.4 sec (9.3-11.0)
[2023-04-11 21:27] LABS: ALT 34 U/L (14-59); Alkaline Phosphatase 144 U/L (46-116); Anion Gap 7.9 mmol/L (3-11); BUN 16 mg/dL (7-18); Bilirubin, Total 0.4 mg/dL (0.2-1.0); CO2 26.1 mmol/L (21.0-32.0); CREATININE 1.1 mg/dL (0.55-1.02); Calcium 9.4 mg/dL (8.5-10.1); Chloride 109 mmol/L (98-107); Estimated GFR 50.48 (mL/min/1.73m2); Glucose 224 mg/dL (74-106); Potassium 3.6 mmol/L (3.5-5.1); Sodium 143 mmol/L (136-145); Total Protein 7.5 g/dL (6.4-8.2)
--- NOTE | 2023-04-11 21:54 | NUR.NOTE ---
Nursing Note: placed Rhinorocked 4.5 in pts right nare, glyco gel was applied before insertion of rocket
[2023-04-11] MEDS: Lidocaine 2% Jelly 11 ML SYR (21:55)
[2023-04-11 22:00] LABS: AST 17 U/L (15-37)
[2023-04-11] MEDS: Amoxicillin 875/Clav. 125 TAB PO (22:35)
== END 2023-04-11 22:50 | disposition home or self-care (01) ==
PROVIDERS: Emergency Provider Emergency Medicine Emergency Medical Services; PCP Family Medicine
DX: R04.0 Epistaxis (principal); I10 Essential (primary) hypertension
CPT/HCPCS: 80053; 85027; 96374; 96375; 99284; 85610; 85730

== ENCOUNTER 2023-04-13 12:29 | Emergency (ER) | payer OTHER, SELFPAY ==
[2023-04-13] VITALS (22 sets, daily range): BP systolic 94–122; BP diastolic 50–84; PULSE 81–105; RESP 16–26; TEMP 36.1; O2SAT 92–99
--- NOTE | 2023-04-13 12:45 | RT.EKG_ITS ---
APPROVED REPORT Exam: Resting ECG Reason for Exam: fatigue Patient Location: E HR:95 bpm ECG Measurements Heart Rate 95 AXIS CA 179 P -5 QRSd 83 QRS 236 QT 376 T 1 QTc 474 Conclusion Sinus rhythm...normal P axis, V-rate 60- 99 Markedly posterior QRS axis...late V-lead transition Low voltage, extremity leads...all extremity leads <0.5mV
[2023-04-13 13:38] LABS: Abs Immature Grans 0.05 10^3/uL (0.0-0.06); Absolute Basophil Count 0.07 10^3/uL (0.0-0.2); Absolute Eosinophil Count 0.03 10^3/uL (0.0-0.7); Absolute Lymphocyte Count 2.04 10^3/uL (1.2-3.4); Absolute Monocyte Count 1.37 10^3/uL (0.1-0.8); Basophils % 0.5; Eosinophils % 0.2; HCT 39.2 % (36.0-46.0); HGB 13.2 g/dL (11.2-15.7); Immature Grans % 0.4; Lymphocytes % 15.5; MCH 30.1 pg (27.0-33.0); MCHC 33.7 % (32.0-36.0); MCV 89 fL (80-95); MPV 9.9 fL (8.0-11.0); Monocytes % 10.4; Platelet Count 231 10^3/uL (130-400); RBC 4.39 10^6/uL (3.93-5.22); RDW 13.2 % (11.7-14.6); RDW-SD 43.4 fL; WBC 13.15 10^3/uL (4.4-10.8)
[2023-04-13 13:52] LABS: ALT 22 U/L (14-59); AST 19 U/L (15-37); Albumin 3.6 g/dL (3.4-5.0); Alkaline Phosphatase 83 U/L (46-116); Anion Gap 11.3 mmol/L (3-11); BUN 19 mg/dL (7-18); Bilirubin, Total 0.9 mg/dL (0.2-1.0); CO2 27.7 mmol/L (21.0-32.0); CREATININE 1.2 mg/dL (0.55-1.02); Calcium 9.5 mg/dL (8.5-10.1); Chloride 102 mmol/L (98-107); Estimated GFR 45.48 (mL/min/1.73m2); Glucose 166 mg/dL (74-106); Magnesium 2.2 mg/dL (1.8-2.4); Potassium 3.8 mmol/L (3.5-5.1); Sodium 141 mmol/L (136-145); Total Protein 6.9 g/dL (6.4-8.2); Troponin I < 50 ng/L (<or=60)
[2023-04-13 15:33] LABS: TSH (W/Ref FT4) 1.79 uIU/mL (0.36-3.74)
--- NOTE | 2023-04-13 16:20 | ED.GENADUL_ITS ---
Discharge Plan Discharge Details Chief Complaint: Nausea/Vomit/Diar Clinical Impression: Encounter for removal of nasal packing, Fatigue Primary Care Provider: Eveline Linton V ED Provider: Grant Thayer Home Meds and New Rx's Prescriptions: No Action acetaminophen [Tylenol] 325 mg capsule 325 mg PO ONCE PRN meclizine 25 mg tablet 12.5 mg PO DAILY Rx Instructions: unsure of dose methocarbamol 750 mg tablet 750 mg PO TID losartan 50 mg tablet 50 mg PO DAILY alendronate 70 mg tablet 70 mg PO QWEEK potassium chloride 20 MEQ tablet,ER particles/crystals 40 meq PO DAILY Zyrtec 10 MG capsule 10 mg PO PRN PRN hydrochlorothiazide 25 mg tablet 25 mg PO DAILY Patient Comments: TK 1 T PO D aspirin 81 mg Tablet,Delayed Release (Dr/Ec) 81 mg PO DAILY Qty: 30 0RF clopidogrel [Plavix] 75 mg Tablet 75 mg PO DAILY Qty: 30 0RF omega 0-xsj-sit-fish oil 1,000 mg (120 mg-180 mg) Capsule 4,000 mg PO DAILY Qty: 30 0RF amoxicillin-pot clavulanate [Augmentin] 500-125 mg tablet 1 tab PO BID Qty: 14 0RF rosuvastatin 5 mg tablet 5 mg PO HS Patient Comments: TAKE ONE TABLET BY MOUTH AT BEDTIME ferrous gluconate 324 mg (37.5 mg iron) tablet 1 tab PO DAILY Patient Comments: TAKE ONE TABLET BY MOUTH EVERY DAY famotidine 20 mg tablet 20 mg PO DIRECTED Patient Comments: twice a week ondansetron HCl 4 mg tablet 4 mg PO Q8H PRN Patient Comments: TAKE 1 TABLET BY MOUTH EVERY 8 HOURS NEEDED FOR NAUSEA benzonatate 100 mg capsule 100 mg PO TID PRN Patient Comments: TAKE ONE CAPSULE BY MOUTH THREE TIMES A DAY NEEDED FOR COUGH Discharge Instructions Instructions: Nosebleed (ED) Additional Instructions: Please contact your primary care physician to arrange follow-up. Call tomorrrow. Please follow-up with endocrinology at [facility]. Please follow-up with neurosurgery. Return to the ER immediately for any worsening or new concerning symptoms. Referrals: Eveline Linton MD [Primary Care Provider] - Medical Decision Making 83-year-old female presents 2 days status post nasal packing for epistaxis, here for packing removal. Patient does note she has had significant fatigue that is been ongoing also has had some nausea and dry heaving since packing was placed. Packing was removed without complication. Patient did have low normal blood pressure. She is afebrile and not tachycardic. Considered acute blood loss from epistaxis. Labs were checked and normal hemoglobin. White blood cell count is slightly elevated at 13. Plan to check urinalysis. I called and spoke with neurosurgical team at [facility], discussed ED presentation course, they do not recommend any further work-up for bleeding. There was concern for potential CSF leak postoperatively and they recommended providing sterile cup the patient should she have any nasal discharge. Of note, patient has no nasal discharge at this time. HPI General Mode of arrival: ambulatory . Date/Time Provider Initiated Documentation: 04/13/23 12:44 . Limitations to Documentation: no limitations . Information obtained by: patient . HPI Narrative: 83-year-old female presents 2 days status post nasal packing for epistaxis here requesting packing removal. Patient did have transsphenoidal pituitary tumor resection in February. She started to have bleeding from her left nare 2 days ago. She does not typically get nosebleeds. She came to the emergency department and had anterior nasal packing placed. Bleeding stopped. Patient denies associated fever. Related Data Home Medications Medication Instructions Recorded Confirmed cetirizine 10 mg capsule (Zyrtec) 10 mg PO PRN PRN 01/28/15 04/13/23 potassium chloride 20 mEq 40 meq PO DAILY 01/28/15 04/13/23 tablet,extended release(part/cryst) acetaminophen 325 mg capsule 325 mg PO PRN PRN 01/28/20 04/13/23 (Tylenol) hydrochlorothiazide 25 mg tablet 25 mg PO DAILY 04/22/20 04/13/23 aspirin 81 mg tablet,delayed 81 mg PO DAILY #30 tabs 10/01/20 04/13/23 release clopidogrel 75 mg tablet (Plavix) 75 mg PO DAILY #30 tabs 10/01/20 04/13/23 omega 8-nyh-dzj-fish oil 1,000 mg 4,000 mg PO DAILY #30 caps 10/01/20 04/13/23 (120 mg-180 mg) capsule ferrous gluconate 324 mg (37.5 mg 1 tab PO DAILY 07/07/22 04/13/23 iron) tablet rosuvastatin 5 mg tablet 5 mg PO HS 07/07/22 04/13/23 alendronate 70 mg tablet 70 mg PO QWEEK 11/01/22 04/13/23 losartan 50 mg tablet 50 mg PO DAILY 11/01/22 04/13/23 meclizine 25 mg tablet 12.5 mg PO DAILY 11/01/22 04/13/23 methocarbamol 750 mg tablet 750 mg PO TID 11/01/22 04/13/23 amoxicillin 500 mg-potassium 1 tab PO BID #14 tabs 04/11/23 04/13/23 clavulanate 125 mg tablet (Augmentin) benzonatate 100 mg capsule 100 mg PO TID PRN 04/13/23 04/13/23 famotidine 20 mg tablet 20 mg PO DIRECTED 04/13/23 04/13/23 ondansetron HCl 4 mg tablet 4 mg PO Q8H PRN 04/13/23 04/13/23 Previous Rx's Medication Instructions Recorded aspirin 81 mg tablet,delayed 81 mg PO DAILY #30 tabs 10/01/20 release clopidogrel 75 mg tablet (Plavix) 75 mg PO DAILY #30 tabs 10/01/20 omega 1-xdx-yhd-fish oil 1,000 mg 4,000 mg PO DAILY #30 caps 10/01/20 (120 mg-180 mg) capsule amoxicillin 500 mg-potassium 1 tab PO BID #14 tabs 04/11/23 clavulanate 125 mg tablet (Augmentin) Allergies Allergy/AdvReac Type Severity Reaction Status Date / Time lisinopril AdvReac Intermediate Unverified 04/13/23 16:14 metoprolol [From Toprol XL] AdvReac Unknown Unverified 04/13/23 16:13 aspirin AdvReac NAUSEA Verified 04/11/23 20:25 codeine AdvReac vomiting Verified 04/11/23 20:25 morphine AdvReac NAUSEA Verified 04/11/23 20:25 Sulfa (Sulfonamide AdvReac NAUSEA Verified 04/11/23 20:25 Antibiotics) General Stated Complaint: Nausea/Vomit/Diar ALBINO: 3 Review of Systems All systems reviewed & are unremarkable except as noted in HPI and below Constitutional Constitutional: Reports fatigue and Denies fever(s) Neurologic Comments: Chronic headaches Endocrine Endocrine: Reports fatigue PFSH All Active Problems Acute anterior epistaxis (Acute) Encounter for removal of nasal packing (Acute) Fatigue (Acute) 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) Hiatal hernia (Chronic) Acute chest wall pain (Acute) Systolic murmur (Acute) Ataxia (Acute) Cervical cancer (Acute) COVID-19 (Acute) Pituitary macroadenoma (Acute) Frequent falls (Acute) HTN (hypertension) (Chronic) Neoplasm of unspecified behavior of bone, soft tissue, and skin (Acute) Medical History Diabetes Lumbar radiculopathy Proximal humerus fracture (10/16/19) Surgical History History of hysterectomy History of resection of rib S/P selective transsphenoidal pituitary adenomectomy Family History Sister Cerebral aneurysm Dementia Mother Diabetes Hypertension Heart disease Social History Smoking/Tobacco Use Status: Never Smoking risk assessment performed?: Yes Alcohol Intake: former Drug use: Never Substance use type: does not use Household members: spouse Number of Children: 3 current occupation: Retired Current gender identity: female What is your relationship status?: Panel score (0-1 are the most socially isolated patients): 1 Do you feel safe at home: Yes Do you feel safe in your relationship?: Yes Exam Const General: cooperative and no acute distress HENMT Head: normocephalic and atraumatic Mouth: moist mucous membranes Eyes Conjunctivae: normal conjunctivae Sclera: normal sclerae Resp Auscultation: clear to auscultation bilaterally Cardio Rate: regular rate and not tachycardic Rhythm: regular rhythm GI Palpation: soft, no guarding, not rigid and nontender Skin General skin exam: no rashes or lesions noted Neuro General: patient alert, patient awake and tone normal Cognition: normal cognition Extrem General: no edema Psych Appearance: grossly normal Course Vital Signs Vital signs: Vital Signs Temperature 36.1 C L 04/13/23 12:38 Pulse 105 H 04/13/23 12:38 Respiratory Rate 20 04/13/23 12:38 Blood Pressure 108/76 04/13/23 12:38 Pulse Oximetry 99 04/13/23 12:38 Temperature 36.1 C L 04/13/23 12:38 Temperature Source Temporal Artery Scan 04/13/23 12:38 Pulse 94 H 04/13/23 13:17 Pulse 92 H 04/13/23 15:10 Respiratory Rate 18 04/13/23 15:10 Respiratory Effort Normal 04/13/23 13:24 Blood Pressure 120/84 04/13/23 13:17 Pulse Oximetry 99 04/13/23 15:10 Oxygen Delivery Method Room Air 04/13/23 13:17 Oxygen Flow Rate 0 04/13/23 13:17 Pain Level 0 04/13/23 12:38 Lab/Test Results Lab/Test Results: Laboratory Tests Range/Units 04/13/23 04/13/23 04/13/23 13:20 13:20 13:20 WBC (4.4-10.8) 10^3/uL 13.15 H RBC (3.93-5.22) 10^6/uL 4.39 Hgb (11.2-15.7) g/dL 13.2 D Hct (36.0-46.0) % 39.2 MCV (80-95) fL 89 MCH (27.0-33.0) pg 30.1 MCHC (32.0-36.0) % 33.7 RDW (11.7-14.6) % 13.2 Plt Count (130-400) 10^3/uL 231 MPV (8.0-11.0) fL 9.9 Immature Gran % 0.4 Neutrophils % 73.0 Lymphocytes % 15.5 Monocytes % 10.4 Eosinophils % 0.2 Basophils % 0.5 Nucleated RBC % (0.0-0.3) % 0.0 Absolute Neutrophils (1.2-6.7) 10^3/uL 9.60 H Absolute Lymphocytes (1.2-3.4) 10^3/uL 2.04 Absolute Monocytes (0.1-0.8) 10^3/uL 1.37 H Absolute Eosinophils (0.0-0.7) 10^3/uL 0.03 Absolute Basophils (0.0-0.2) 10^3/uL 0.07 Sodium (136-145) mmol/L 141 Potassium (3.5-5.1) mmol/L 3.8 Chloride (98-107) mmol/L 102 Carbon Dioxide (21.0-32.0) mmol/L 27.7 Anion Gap (3-11) mmol/L 11.3 H BUN (7-18) mg/dL 19 H Creatinine (0.55-1.02) mg/dL 1.2 H Est GFR (CKD-EPI 2020) (mL/min/1.73m2) 45.48 Glucose (74-106) mg/dL 166 H Calcium (8.5-10.1) mg/dL 9.5 Magnesium (1.8-2.4) mg/dL 2.2 Total Bilirubin (0.2-1.0) mg/dL 0.9 AST (15-37) U/L 19 ALT (14-59) U/L 22 Alkaline Phosphatase (46-116) U/L 83 Troponin I (<or=60) ng/L < 50 Total Protein (6.4-8.2) g/dL 6.9 Albumin (3.4-5.0) g/dL 3.6 TSH (0.36-3.74) uIU/mL 1.79 Cancelled Range/Units 04/13/23 15:55 WBC (4.4-10.8) 10^3/uL RBC (3.93-5.22) 10^6/uL Hgb (11.2-15.7) g/dL Hct (36.0-46.0) % MCV (80-95) fL MCH (27.0-33.0) pg MCHC (32.0-36.0) % RDW (11.7-14.6) % Plt Count (130-400) 10^3/uL MPV (8.0-11.0) fL Immature Gran % Neutrophils % Lymphocytes % Monocytes % Eosinophils % Basophils % Nucleated RBC % (0.0-0.3) % Absolute Neutrophils (1.2-6.7) 10^3/uL Absolute Lymphocytes (1.2-3.4) 10^3/uL Absolute Monocytes (0.1-0.8) 10^3/uL Absolute Eosinophils (0.0-0.7) 10^3/uL Absolute Basophils (0.0-0.2) 10^3/uL Sodium (136-145) mmol/L Potassium (3.5-5.1) mmol/L Chloride (98-107) mmol/L Carbon Dioxide (21.0-32.0) mmol/L Anion Gap (3-11) mmol/L BUN (7-18) mg/dL Creatinine (0.55-1.02) mg/dL Est GFR (CKD-EPI 2020) (mL/min/1.73m2) Glucose (74-106) mg/dL Calcium (8.5-10.1) mg/dL Magnesium (1.8-2.4) mg/dL Total Bilirubin (0.2-1.0) mg/dL AST (15-37) U/L ALT (14-59) U/L Alkaline Phosphatase (46-116) U/L Troponin I (<or=60) ng/L Cancelled Total Protein (6.4-8.2) g/dL Albumin (3.4-5.0) g/dL TSH (0.36-3.74) uIU/mL
--- NOTE | 2023-04-13 16:45 | DI.RAD_ITS ---
Exam(s) XR CHEST 2V PA LATERAL EXAM: XR CHEST 2V PA LATERAL CLINICAL HISTORY: weakness. TECHNIQUE: 2D digital imaging was performed. COMPARISON: CR,XR XR CHEST 2V PA LATERAL from 09/30/2020 FINDINGS: 2 views: Heart size is upper normal. The upper mediastinum is not widened. Hiatal hernia noted. There is platelike atelectasis in the lung bases. No large areas of infiltrate nor pleural effusions . No pulmonary edema. Degenerative changes in the shoulders again noted. IMPRESSION: Platelike atelectasis in the lung bases. DATA REPOSITORY: RADIATION DOSE DELIVERED:
[2023-04-13 16:51] LABS: Lactate 1.9 mmol/L (0.6-1.4)
[2023-04-13 16:59] LABS: Bilirubin Small (Negative); Blood Trace-intact (Negative); Clarity Clear (Clear); Glucose Negative (Negative); Ketones Trace mg/dL (Negative); Leukocyte Esterase Small (Negative); Nitrite Negative (Negative); Specific Gravity 1.015 (1.005-1.025); Urobilinogen 0.2 mg/dL (Up to 0.2)
[2023-04-13] MEDS: Lactated Ringers 500 ML IV ×2 (17:00→18:30)
[2023-04-13 17:08] LABS: Bacteria Rare HPF (Negative); C & S Indicated? Yes; Casts 3-5 Hyaline LPF (Negative); Crystals Negative HPF (Negative); Epithelial Cells Rare HPF (Negative); Mucus Moderate (Negative); RBC 0-2 HPF (0-2)
[2023-04-13 17:42] LABS: Procalcitonin < 0.1 ng/mL
[2023-04-13] MEDS: Cellulose,Oxidized 2X3 PKT 1 EACH MC (17:50)
--- NOTE | 2023-04-13 18:59 | NUR.NOTE ---
Report received from nataly HARMON, restroom needs addressed, no other needs verbalized
== END 2023-04-13 19:38 | disposition home or self-care (01) ==
PROVIDERS: Student in an Organized Health Care Education/Training Program; Emergency Provider Physician Assistant; PCP Family Medicine
DX: R11.2 Nausea with vomiting, unspecified (principal); R53.83 Other fatigue; R53.1 Weakness; R04.0 Epistaxis; Z98.890 Other specified postprocedural states
CPT/HCPCS: 30901; 36415; 80053; 84145; 86850; 86900; 86901; 93005; 96360; 96361; 99285; 71046; 81003; 81015; 83605; 83735; 84443; 84484; 85025; 86870; 86902; 87086; 93010; 99283

== ENCOUNTER 2023-04-18 16:54 | Emergency (ER) | payer OTHER, SELFPAY ==
[2023-04-18 16:57] VITALS: BP 165/81; PULSE 78; RESP 15; TEMP 36.5; O2SAT 100
--- NOTE | 2023-04-18 17:06 | ED.GENADUL_ITS ---
Discharge Plan Disposition Patient Disposition: Home Condition: Improving Discharge Details Clinical Impression: Acute anterior epistaxis Primary Care Provider: Eveline Linton V ED Provider: Sarah Boone Home Meds and New Rx's Prescriptions: No Action acetaminophen [Tylenol] 325 mg capsule 325 mg PO PRN PRN meclizine 25 mg tablet 12.5 mg PO DAILY Rx Instructions: unsure of dose methocarbamol 750 mg tablet 750 mg PO TID losartan 50 mg tablet 50 mg PO DAILY alendronate 70 mg tablet 70 mg PO QWEEK potassium chloride 20 MEQ tablet,ER particles/crystals 40 meq PO DAILY Zyrtec 10 MG capsule 10 mg PO PRN PRN hydrochlorothiazide 25 mg tablet 25 mg PO DAILY Patient Comments: TK 1 T PO D aspirin 81 mg Tablet,Delayed Release (Dr/Ec) 81 mg PO DAILY Qty: 30 0RF clopidogrel [Plavix] 75 mg Tablet 75 mg PO DAILY Qty: 30 0RF omega 5-hch-cyl-fish oil 1,000 mg (120 mg-180 mg) Capsule 4,000 mg PO DAILY Qty: 30 0RF amoxicillin-pot clavulanate [Augmentin] 500-125 mg tablet 1 tab PO BID Qty: 14 0RF rosuvastatin 5 mg tablet 5 mg PO HS Patient Comments: TAKE ONE TABLET BY MOUTH AT BEDTIME ferrous gluconate 324 mg (37.5 mg iron) tablet 1 tab PO DAILY Patient Comments: TAKE ONE TABLET BY MOUTH EVERY DAY famotidine 20 mg tablet 20 mg PO DIRECTED Patient Comments: twice a week ondansetron HCl 4 mg tablet 4 mg PO Q8H PRN Patient Comments: TAKE 1 TABLET BY MOUTH EVERY 8 HOURS NEEDED FOR NAUSEA benzonatate 100 mg capsule 100 mg PO TID PRN Patient Comments: TAKE ONE CAPSULE BY MOUTH THREE TIMES A DAY NEEDED FOR COUGH amoxicillin-pot clavulanate 875-125 mg tablet 1 tab PO BID Qty: 14 0RF Discharge Instructions Instructions: Nosebleed (ED) Additional Instructions: 1. Use the Afrin spray 2 sprays in the left nostril every 4 hours while awake for a maximum of 48 hours. 2. You should be contacted by the ear nose and throat doctor for follow-up appointment and recheck. 3. Stop the Plavix for 2 days and then restarted. 4. Return to the emergency department if you have increased bleeding or you develop any symptoms such as dizziness, chest pain, shortness of breath, confusion or any concerns. Discharge Data Discharge Physician: Sarah Boone Medical Decision Making This is a 83-year-old female on Plavix because of a history of CVA who presents for removal of nasal tampon after 5 days. She has not had any further bleeding. My plan is to order Vikram-Synephrine to use for 2 days. If she has significant bleeding we will repack her nose. She is hemodynamically stable. Differential Diagnosis Differential Diagnosis: Anterior epistaxis. The patient is on Plavix. Medical Records Medical records reviewed: Yes I reviewed the patient's medical records. HPI General Date/Time Provider Initiated Documentation: 04/18/23 17:06 . Information obtained by: patient, family, RN notes reviewed and old records reviewed . HPI Narrative: Time seen was 1706 in bed 1. The patient is a 83-year-old female on Plavix for a CVA who was seen in the emergency department for epistaxis and had a nasal tampon placed in the left nose. She comes in today for removal of the nasal tampon and reevaluation. She states she occasionally feels some blood dripping down the back of her throat but has not had a significant amount of bleeding around or through the nasal tampon. She denies any facial pain, dizziness, fever, chills, chest pain or shortness of breath. She denies any aggravating or alleviating factors. She denies any other significant bleeding. Related Data Home Medications Medication Instructions Recorded Confirmed cetirizine 10 mg capsule (Zyrtec) 10 mg PO PRN PRN 01/28/15 04/18/23 potassium chloride 20 mEq 40 meq PO DAILY 01/28/15 04/18/23 tablet,extended release(part/cryst) acetaminophen 325 mg capsule 325 mg PO PRN PRN 01/28/20 04/18/23 (Tylenol) hydrochlorothiazide 25 mg tablet 25 mg PO DAILY 04/22/20 04/18/23 aspirin 81 mg tablet,delayed 81 mg PO DAILY #30 tabs 10/01/20 04/18/23 release clopidogrel 75 mg tablet (Plavix) 75 mg PO DAILY #30 tabs 10/01/20 04/18/23 omega 2-ggq-qaf-fish oil 1,000 mg 4,000 mg PO DAILY #30 caps 10/01/20 04/18/23 (120 mg-180 mg) capsule ferrous gluconate 324 mg (37.5 mg 1 tab PO DAILY 07/07/22 04/18/23 iron) tablet rosuvastatin 5 mg tablet 5 mg PO HS 07/07/22 04/18/23 alendronate 70 mg tablet 70 mg PO QWEEK 11/01/22 04/18/23 losartan 50 mg tablet 50 mg PO DAILY 11/01/22 04/18/23 meclizine 25 mg tablet 12.5 mg PO DAILY 11/01/22 04/18/23 methocarbamol 750 mg tablet 750 mg PO TID 11/01/22 04/18/23 amoxicillin 500 mg-potassium 1 tab PO BID #14 tabs 04/11/23 04/18/23 clavulanate 125 mg tablet (Augmentin) amoxicillin 875 mg-potassium 1 tab PO BID #14 tabs 04/13/23 04/18/23 clavulanate 125 mg tablet benzonatate 100 mg capsule 100 mg PO TID PRN 04/13/23 04/18/23 famotidine 20 mg tablet 20 mg PO DIRECTED 04/13/23 04/18/23 ondansetron HCl 4 mg tablet 4 mg PO Q8H PRN 04/13/23 04/18/23 Previous Rx's Medication Instructions Recorded aspirin 81 mg tablet,delayed 81 mg PO DAILY #30 tabs 10/01/20 release clopidogrel 75 mg tablet (Plavix) 75 mg PO DAILY #30 tabs 10/01/20 omega 4-jda-cbg-fish oil 1,000 mg 4,000 mg PO DAILY #30 caps 10/01/20 (120 mg-180 mg) capsule amoxicillin 500 mg-potassium 1 tab PO BID #14 tabs 04/11/23 clavulanate 125 mg tablet (Augmentin) amoxicillin 875 mg-potassium 1 tab PO BID #14 tabs 04/13/23 clavulanate 125 mg tablet Allergies Allergy/AdvReac Type Severity Reaction Status Date / Time lisinopril AdvReac Intermediate Unverified 04/18/23 16:59 metoprolol [From Toprol XL] AdvReac Unknown Unverified 04/18/23 16:59 aspirin AdvReac NAUSEA Verified 04/18/23 16:59 codeine AdvReac vomiting Verified 04/18/23 16:59 morphine AdvReac NAUSEA Verified 04/18/23 16:59 Sulfa (Sulfonamide AdvReac NAUSEA Verified 04/18/23 16:59 Antibiotics) General Stated Complaint: Recheck ALBINO: 4 Review of Systems Cardiovascular Cardiovascular: Reports as per HPI, Denies chest pain and Denies dyspnea Respiratory Respiratory: Denies dyspnea PFSH All Active Problems (Updated 04/18/23 @ 18:41 by Sarah Boone MD) Acute anterior epistaxis (Acute) Acute anterior epistaxis (Acute) Orthostatic hypotension (Acute) Dehydration (Acute) 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) Hiatal hernia (Chronic) Acute chest wall pain (Acute) Systolic murmur (Acute) Ataxia (Acute) Cervical cancer (Acute) COVID-19 (Acute) Pituitary macroadenoma (Acute) Frequent falls (Acute) HTN (hypertension) (Chronic) Neoplasm of unspecified behavior of bone, soft tissue, and skin (Acute) Medical History Diabetes Lumbar radiculopathy Proximal humerus fracture (10/16/19) Surgical History History of hysterectomy History of resection of rib S/P selective transsphenoidal pituitary adenomectomy Family History Sister Cerebral aneurysm Dementia Mother Diabetes Hypertension Heart disease Social History Smoking/Tobacco Use Status: Never Smoking risk assessment performed?: Yes Alcohol Intake: former Drug use: Never Substance use type: does not use Household members: spouse Number of Children: 3 current occupation: Retired Current gender identity: female What is your relationship status?: Panel score (0-1 are the most socially isolated patients): 1 Do you feel safe at home: Yes Do you feel safe in your relationship?: Yes Exam Narrative Exam Narrative: Patient is a well-developed well-nourished female sitting on the stretcher with a nasal tampon in her left nares. There does not appear to be any fresh blood around it. She is mildly hypertensive. She is not tachycardic tachypneic or febrile. Const General: cooperative, healthy appearing, comfortable, no acute distress, well developed, well groomed and well hydrated Nutritional Appearance: average body habitus and well nourished Orientation: alert, awake and oriented x3 HENMT Head: normal to inspection, normocephalic and atraumatic Ears: hearing grossly normal bilaterally and external ears normal General nose exam: external nose normal, no nasal discharge, foreign body in naris (Packed with a nasal tampon in the left naris) on the left and other Face and sinus: normal facial exam, sinuses nontender and face symmetric Mouth: oral mucosae normal, lip normal, tongue normal, oropharynx normal, moist mucous membranes and other (Normal phonation. The patient is handling secretions.) Teeth and gingiva: other (No blood in the posterior pharynx. Normal phonation) Throat: posterior oropharynx normal and uvula midline Eyes General: appearance normal, both eyes and all related structures Eyelids: eyelids normal Conjunctivae: conjunctivae normal Sclera: sclerae normal Cornea: corneas normal Pupils: PERRL EOM: EOM intact bilaterally and No nystagmus Other: Conjunctiva are not pale Neck Neck: normal visual inspection, full ROM, no lymphadenopathy, no meningeal signs, trachea midline and supple Lymphatic: no lymphadenopathy noted Chest Chest: normal inspection of the chest Resp Effort & Inspection: normal respiratory effort, able to speak in complete sentences, no audible wheezes, no nasal flaring, no respiratory distress, no retractions, no stridor, not tachypneic, no tracheal deviation, no use of access ory muscles, No prolonged expiratory phase and other (Normal inspiratory to expiratory ratio.) Auscultation: clear to auscultation bilaterally, no rales, no rhonchi, no wheezes and no rubs Tactile Fremitus: tactile fremitus absent Cardio Jugular venous pressure: no JVD Palpation: normal PMI Rate: regular rate Rhythm: regular rhythm Heart Sounds: S1 normal, S2 normal, no gallops, no murmurs and no rubs GI Palpation: soft, no guarding and nontender Auscultation: normal bowel sounds Back/Spine/Pelvis Back: back tenderness Cervical Spine: cervical muscular tenderness Thoracic/Lumbar Spine: No thoracic spinal tenderness and No lumbar spinal tenderness Skin General skin exam: no rashes or lesions noted, turgor normal, no petechiae, no purpura and other (Skin is normal for ethnicity.) Lesions: no lesions Rashes: no rashes Trauma: no lacerations or abrasions Neuro General: patient alert, patient awake, patient oriented x3, moves all extremities, no meningeal signs, no focal motor deficits and CN's II-XI intact bilaterally Cranial Nerves: CN's II-XI intact bilaterally, PERRL, accommodation normal, EOM intact bilaterally, no nystagmus, facial strength normal, tongue midline, hearing normal and no nystagmus Cognition: normal cognition Speech: speech normal Gait: normal gait Motor: muscle tone normal throughout and strength 5/5 throughout Sensory Exam: no sensory deficits noted Extrem General: normal to inspection, full ROM, capillary refill normal and no clubbi ng, cyanosis or edema Psych Appearance: grossly normal Affect: normal affect Attitude: cooperative Thought Process: normal Thought Content: normal Insight: insight good Judgment: judgment good Other: The patient appears to have capacity make medical decisions. Course Vital Signs Vital signs: Vital Signs Temperature 36.5 C 04/18/23 16:57 Pulse 78 04/18/23 16:57 Respiratory Rate 15 04/18/23 16:57 Blood Pressure 165/81 H 04/18/23 16:57 Pulse Oximetry 100 04/18/23 16:57 Temperature 36.5 C 04/18/23 16:57 Pulse 78 04/18/23 16:57 Respiratory Rate 15 04/18/23 16:57 Respiratory Effort Normal 04/18/23 16:58 Blood Pressure 165/81 H 04/18/23 16:57 Blood Pressure Position Sitting 04/18/23 16:57 Pulse Oximetry 100 04/18/23 16:57 Oxygen Delivery Method Room Air 04/18/23 16:57 Oxygen Flow Rate 0 04/18/23 16:57 Pain Level 0 04/18/23 16:57 Procedures Other Description: The nasal tampon was removed from the left naris. Afterwards there is a small amount of oozing from the left lateral wall. Her airway remained patent. The nursing staff sprayed 2 sprays of Afrin in the naris and there is only a slight amount of pink-tinged nasal discharge. We discussed the risk and benefit of repeat nasal packing and the patient elected to using the Afrin spray for maximum of 2 days. She will hold her Plavix for 2 days and then restart the small risk of recurrent CVA. She tells me she has stopped in the past without any untoward complications. I have advised her to use it for only 2 days because of the risk of rebound congestion. The patient and her voiced understanding and agreement with the discharge plan. They will follow-up with ENT and return here for any new or worrisome symptoms
[2023-04-18] MEDS: Phenylephrine SPRAY 1% 15 ML BTL NS (18:03)
--- NOTE | 2023-04-18 18:42 | NUR.NOTE ---
Referral faxed to [facility] for nosebleed on Plavix, within 1 week.Nursing Note:
== END 2023-04-18 19:05 | disposition home or self-care (01) ==
PROVIDERS: Emergency Provider Emergency Medicine Emergency Medical Services; PCP Family Medicine
DX: R04.0 Epistaxis (principal); Z86.73 Personal history of transient ischemic attack (TIA), and cerebral infarction without residual deficits; Z79.02 Long term (current) use of antithrombotics/antiplatelets
CPT/HCPCS: 99282

== ENCOUNTER 2023-04-21 03:52 | Outpatient (CLI) | payer OTHER, SELFPAY ==
[2023-04-21 10:15] LABS: FREE T4 0.83 ng/dL (0.76-1.46); TSH 1.69 uIU/mL (0.36-3.74)
[2023-04-28 18:14] LABS: IGF-1, LC/MS, S 40 ng/mL (34-177); Z-score -1.65 SD
== END 2023-04-21 03:53 | disposition home or self-care (01) ==
PROVIDERS: PCP Family Medicine; Visit Provider Student in an Organized Health Care Education/Training Program
DX: D35.2 Benign neoplasm of pituitary gland (principal)
CPT/HCPCS: 36415; 84305; 84439; 84443

== ENCOUNTER 2023-05-02 04:00 | Emergency (ER) | payer OTHER, SELFPAY ==
[2023-05-02 04:04] VITALS: BP 223/100; PULSE 66; RESP 16; TEMP 36.3; O2SAT 198
[2023-05-02] MEDS: Lidocaine/Epinephri/Tetracaine Topical Gel 3 ML (04:27)
--- NOTE | 2023-05-02 04:29 | ED.GENADUL_ITS ---
Discharge Plan Disposition Patient Disposition: Home Condition: Good Discharge Details Clinical Impression: Left-sided epistaxis Primary Care Provider: Eveline Linton V ED Provider: Chris Moore Home Meds and New Rx's Prescriptions: No Action acetaminophen [Tylenol] 325 mg capsule 325 mg PO PRN PRN meclizine 25 mg tablet 12.5 mg PO DAILY Rx Instructions: unsure of dose methocarbamol 750 mg tablet 750 mg PO TID losartan 50 mg tablet 50 mg PO DAILY alendronate 70 mg tablet 70 mg PO QWEEK potassium chloride 20 MEQ tablet,ER particles/crystals 40 meq PO DAILY Zyrtec 10 MG capsule 10 mg PO PRN PRN hydrochlorothiazide 25 mg tablet 25 mg PO DAILY Patient Comments: TK 1 T PO D aspirin 81 mg Tablet,Delayed Release (Dr/Ec) 81 mg PO DAILY Qty: 30 0RF clopidogrel [Plavix] 75 mg Tablet 75 mg PO DAILY Qty: 30 0RF omega 9-ghc-lnw-fish oil 1,000 mg (120 mg-180 mg) Capsule 4,000 mg PO DAILY Qty: 30 0RF amoxicillin-pot clavulanate [Augmentin] 500-125 mg tablet 1 tab PO BID Qty: 14 0RF rosuvastatin 5 mg tablet 5 mg PO HS Patient Comments: TAKE ONE TABLET BY MOUTH AT BEDTIME ferrous gluconate 324 mg (37.5 mg iron) tablet 1 tab PO DAILY Patient Comments: TAKE ONE TABLET BY MOUTH EVERY DAY famotidine 20 mg tablet 20 mg PO DIRECTED Patient Comments: twice a week ondansetron HCl 4 mg tablet 4 mg PO Q8H PRN Patient Comments: TAKE 1 TABLET BY MOUTH EVERY 8 HOURS NEEDED FOR NAUSEA benzonatate 100 mg capsule 100 mg PO TID PRN Patient Comments: TAKE ONE CAPSULE BY MOUTH THREE TIMES A DAY NEEDED FOR COUGH amoxicillin-pot clavulanate 875-125 mg tablet 1 tab PO BID Qty: 14 0RF Discharge Instructions Instructions: Nosebleed (ED) Additional Instructions: At this time the bleeding in your nose to stop. Please follow-up with your primary care provider in 4 to 5 days to have the nasal tampon removed. If you notice any worsening of your symptoms, or any new symptoms such as vomiting, diarrhea, fever, chills, shortness of breath, chest pain, numbness, weakness, or fainting , please return immediately to the emergency department for reevaluation. Please follow up with your primary care provider as soon as possible for reassessment and reevaluation. As always, it was a pleasure participating in your medical care today. Referrals: Eveline Linton MD [Primary Care Provider] - Discharge Data Discharge Date/Time-TO BE ENTERED AT DEPARTURE: 05/02/23 04:36 Medical Decision Making 83-year-old female with a past medical history of brain tumor requiring intranasal surgery, as well as regular aspirin and Plavix use presents today for epistaxis. Bleeding began at around 2 AM and has been present for the last 2 hours. She tried to squeeze nose but this did not make it stop. It has slowed down. It began when she tried to blow her nose this morning. She denies any fever or chills. No trauma. No other complaints. No syncope. Patient has required Rhino Rocket and tampon on previous visits. And demonstrates mild oozing from the left lateral anterior nare. Discussed risks and benefits of nasal tampon. Family agreed to progress with this as compression did not resolve the issue. A small expanding nasal tampon was applied. Patient tolerated this well. Bleeding stopped completely. No complications. Patient will be discharged home. Discussed red flags for which to return. I have extensively reviewed the treatment plan and discharge instructions with the patient and their family. I have addressed all patient concerns at this time. The patient and family was made aware of what symptoms to monitor for that would warrant a return to the emergency department. Discussed the plan with the patient and family, they demonstrate verbal understanding and agreement with our assessment and plan at this time. The documentation in this chart was dictated using [employer] dictation software. Please excuse any dictation errors. HPI General Date/Time Provider Initiated Documentation: 05/02/23 04:04 . HPI Narrative: 83-year-old female with a past medical history of brain tumor requiring intranasal surgery, as well as regular aspirin and Plavix use presents today for epistaxis. Bleeding began at around 2 AM and has been present for the last 2 hours. She tried to squeeze nose but this did not make it stop. It has slowed down. It began when she tried to blow her nose this morning. She denies any fever or chills. No trauma. No other complaints. No syncope. Patient has required Rhino Rocket and tampon on previous visits. Related Data Home Medications Medication Instructions Recorded Confirmed cetirizine 10 mg capsule (Zyrtec) 10 mg PO PRN PRN 01/28/15 05/02/23 potassium chloride 20 mEq 40 meq PO DAILY 01/28/15 05/02/23 tablet,extended release(part/cryst) acetaminophen 325 mg capsule 325 mg PO PRN PRN 01/28/20 05/02/23 (Tylenol) hydrochlorothiazide 25 mg tablet 25 mg PO DAILY 04/22/20 05/02/23 aspirin 81 mg tablet,delayed 81 mg PO DAILY #30 tabs 10/01/20 05/02/23 release clopidogrel 75 mg tablet (Plavix) 75 mg PO DAILY #30 tabs 10/01/20 05/02/23 omega 5-ufp-ifl-fish oil 1,000 mg 4,000 mg PO DAILY #30 caps 10/01/20 05/02/23 (120 mg-180 mg) capsule ferrous gluconate 324 mg (37.5 mg 1 tab PO DAILY 07/07/22 05/02/23 iron) tablet rosuvastatin 5 mg tablet 5 mg PO HS 07/07/22 05/02/23 alendronate 70 mg tablet 70 mg PO QWEEK 11/01/22 05/02/23 losartan 50 mg tablet 50 mg PO DAILY 11/01/22 05/02/23 meclizine 25 mg tablet 12.5 mg PO DAILY 11/01/22 05/02/23 methocarbamol 750 mg tablet 750 mg PO TID 11/01/22 05/02/23 amoxicillin 500 mg-potassium 1 tab PO BID #14 tabs 04/11/23 05/02/23 clavulanate 125 mg tablet (Augmentin) amoxicillin 875 mg-potassium 1 tab PO BID #14 tabs 04/13/23 05/02/23 clavulanate 125 mg tablet benzonatate 100 mg capsule 100 mg PO TID PRN 04/13/23 05/02/23 famotidine 20 mg tablet 20 mg PO DIRECTED 04/13/23 05/02/23 ondansetron HCl 4 mg tablet 4 mg PO Q8H PRN 04/13/23 05/02/23 Previous Rx's Medication Instructions Recorded aspirin 81 mg tablet,delayed 81 mg PO DAILY #30 tabs 10/01/20 release clopidogrel 75 mg tablet (Plavix) 75 mg PO DAILY #30 tabs 10/01/20 omega 8-qms-sok-fish oil 1,000 mg 4,000 mg PO DAILY #30 caps 10/01/20 (120 mg-180 mg) capsule amoxicillin 500 mg-potassium 1 tab PO BID #14 tabs 04/11/23 clavulanate 125 mg tablet (Augmentin) amoxicillin 875 mg-potassium 1 tab PO BID #14 tabs 04/13/23 clavulanate 125 mg tablet Allergies Allergy/AdvReac Type Severity Reaction Status Date / Time lisinopril AdvReac Intermediate Unverified 05/02/23 04:13 metoprolol [From Toprol XL] AdvReac Unknown Unverified 05/02/23 04:13 aspirin AdvReac NAUSEA Verified 05/02/23 04:13 codeine AdvReac vomiting Verified 05/02/23 04:13 morphine AdvReac NAUSEA Verified 05/02/23 04:13 Sulfa (Sulfonamide AdvReac NAUSEA Verified 05/02/23 04:13 Antibiotics) General Stated Complaint: Epistaxis ALBINO: 3 Review of Systems All systems reviewed & are unremarkable except as noted in HPI and below PFSH All Active Problems Acute anterior epistaxis (Acute) Acute anterior epistaxis (Acute) Orthostatic hypotension (Acute) Dehydration (Acute) Left-sided epistaxis (Acute) 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) Hiatal hernia (Chronic) Acute chest wall pain (Acute) Systolic murmur (Acute) Ataxia (Acute) Cervical cancer (Acute) COVID-19 (Acute) Pituitary macroadenoma (Acute) Frequent falls (Acute) HTN (hypertension) (Chronic) Neoplasm of unspecified behavior of bone, soft tissue, and skin (Acute) Medical History Diabetes Lumbar radiculopathy Proximal humerus fracture (10/16/19) Surgical History History of hysterectomy History of resection of rib S/P selective transsphenoidal pituitary adenomectomy Family History Sister Cerebral aneurysm Dementia Mother Diabetes Hypertension Heart disease Social History Smoking/Tobacco Use Status: Never Smoking risk assessment performed?: Yes Alcohol Intake: former Drug use: Never Substance use type: does not use Household members: spouse Number of Children: 3 current occupation: Retired Current gender identity: female What is your relationship status?: Panel score (0-1 are the most socially isolated patients): 1 Do you feel safe at home: Yes Do you feel safe in your relationship?: Yes Exam Narrative Exam Narrative: 1.Const: Well-nourished, Well-developed, appearing stated age 2.Eyes: PERRL, no conjunctival injection, and symmetrical lids. 3.ENT: Atraumatic external nose and ears. Moist MM. Neck: Symmetric, trachea mid line, No thyromegaly. Mild bleeding coming from the left anterior lateral nare. No active hemorrhage. No posterior oropharyngeal bleeding. 4.CVS: +S1/S2, No murmurs or gallops. Peripheral pulses 2+ and equal in all extremities. Brisk capillary refill in all extremities. 5.RESP: Unlabored respiratory effort. Clear to auscultation bilaterally. No wheezes rales or rhonchi 6.GI: Soft, Nontender/Nondistended, No hepatosplenomegaly. No guarding or rebound. 7.MSK: Normocephalic/Atraumatic, Extremities w/o deformity or ttp No cyanosis or clubbing, Normal movement of all extremities 8.Skin: Warm, Dry. No rashes or lesions. 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 Sensation grossly intact, no focal neurologic deficits. 10.Psych: (AAO) x3. Appropriate mood and affect Course Vital Signs Vital signs: Vital Signs Temperature 36.3 C L 05/02/23 04:04 Pulse 66 05/02/23 04:04 Respiratory Rate 16 05/02/23 04:04 Blood Pressure 223/100 H 05/02/23 04:04 Pulse Oximetry 198 H 05/02/23 04:04 Temperature 36.3 C L 05/02/23 04:04 Temperature Source Temporal Artery Scan 05/02/23 04:04 Pulse 66 05/02/23 04:04 Respiratory Rate 16 05/02/23 04:04 Respiratory Effort Normal, Non-Labored 05/02/23 04:08 Blood Pressure 223/100 H 05/02/23 04:04 Blood Pressure Position Sitting 05/02/23 04:04 Pulse Oximetry 198 H 05/02/23 04:04 Oxygen Delivery Method Room Air 05/02/23 04:04 Oxygen Flow Rate 0 05/02/23 04:04 Pain Level 0 05/02/23 04:04
== END 2023-05-02 04:36 | disposition home or self-care (01) ==
PROVIDERS: Emergency Provider Student in an Organized Health Care Education/Training Program; PCP Family Medicine
DX: R04.0 Epistaxis (principal); I10 Essential (primary) hypertension; Z79.82 Long term (current) use of aspirin; Z79.01 Long term (current) use of anticoagulants
CPT/HCPCS: 30903; 99282

== ENCOUNTER 2023-05-03 06:01 | Emergency (ER) | payer OTHER, SELFPAY ==
[2023-05-03 06:04] VITALS: BP 225/112; PULSE 66; RESP 16; O2SAT 98
--- NOTE | 2023-05-03 06:09 | W.ED.GENAD ---
Discharge Plan Disposition Patient Disposition: Home Discharge Details Clinical Impression: Encounter for wound re-check Primary Care Provider: Eveline Linton V ED Provider: Chris Moore Home Meds and New Rx's Prescriptions: No Action acetaminophen [Tylenol] 325 mg capsule 325 mg PO PRN PRN meclizine 25 mg tablet 12.5 mg PO DAILY Rx Instructions: unsure of dose methocarbamol 750 mg tablet 750 mg PO TID losartan 50 mg tablet 50 mg PO DAILY alendronate 70 mg tablet 70 mg PO QWEEK potassium chloride 20 MEQ tablet,ER particles/crystals 40 meq PO DAILY Zyrtec 10 MG capsule 10 mg PO PRN PRN hydrochlorothiazide 25 mg tablet 25 mg PO DAILY Patient Comments: TK 1 T PO D aspirin 81 mg Tablet,Delayed Release (Dr/Ec) 81 mg PO DAILY Qty: 30 0RF clopidogrel [Plavix] 75 mg Tablet 75 mg PO DAILY Qty: 30 0RF omega 1-vxv-egz-fish oil 1,000 mg (120 mg-180 mg) Capsule 4,000 mg PO DAILY Qty: 30 0RF amoxicillin-pot clavulanate [Augmentin] 500-125 mg tablet 1 tab PO BID Qty: 14 0RF rosuvastatin 5 mg tablet 5 mg PO HS Patient Comments: TAKE ONE TABLET BY MOUTH AT BEDTIME ferrous gluconate 324 mg (37.5 mg iron) tablet 1 tab PO DAILY Patient Comments: TAKE ONE TABLET BY MOUTH EVERY DAY famotidine 20 mg tablet 20 mg PO DIRECTED Patient Comments: twice a week ondansetron HCl 4 mg tablet 4 mg PO Q8H PRN Patient Comments: TAKE 1 TABLET BY MOUTH EVERY 8 HOURS NEEDED FOR NAUSEA benzonatate 100 mg capsule 100 mg PO TID PRN Patient Comments: TAKE ONE CAPSULE BY MOUTH THREE TIMES A DAY NEEDED FOR COUGH amoxicillin-pot clavulanate 875-125 mg tablet 1 tab PO BID Qty: 14 0RF Discharge Instructions Additional Instructions: Thankfully there is no evidence of a return of your bleeding. The nasal tampon is slightly wet secondary to rhinorrhea/runny nose. Please continue to monitor your symptoms closely. Return if you have worsening of your symptoms. If you notice any worsening of your symptoms, or any new symptoms such as vomiting, diarrhea, fever, chills, shortness of breath, chest pain, numbness, weakness, or fainting , please return immediately to the emergency department for reevaluation. Please follow up with your primary care provider as soon as possible for reassessment and reevaluation. As always, it was a pleasure participating in your medical care today. Referrals: Eveline Linton MD [Primary Care Provider] - Medical Decision Making This is a very pleasant 83-year-old female who is on aspirin and Plavix who presented yesterday for evaluation of left-sided epistaxis who presents again today for recheck. Patient had a nasal absorbent tampon placed last night, she tolerated this well. All bleeding stopped. He was anterior and lateral in the left nare. This morning when she woke up she felt that the tampon felt wet, and as she was alone at home, her had gone to work, she was very worried that this could mean a rebleed and so she came in for reassessment. She denies any falls or trauma. No other complaints at this time. No other modifying factors. Exam demonstrates an intact and in place nasal tampon, which is somewhat sloppy from rhinorrhea. There is no evidence of active bleeding in the posterior oropharynx or from the nare. Patient is quite nervous, and I completely understand this. We will observe the patient for the next hour to make sure that there is no bleeding. Will monitor closely and reassess. 7:15 AM Patient continues to show no evidence of bleeding. She is much more reassured at this time. Recommend continued plan of close outpatient follow-up in 4 days back here to have it removed. Patient stable for discharge. No hypotension or tachycardia. I have extensively reviewed the treatment plan and discharge instructions with the patient. I have addressed all patient concerns at this time. The patient was made aware of what symptoms to monitor for that would warrant a return to the emergency department. Discussed the plan with the patient, they demonstrate verbal understanding and agreement with our assessment and plan at this time. The documentation in this chart was dictated using [employer] dictation software. Please excuse any dictation errors. HPI General Date/Time Provider Initiated Documentation: 05/03/23 06:02. HPI Narrative: This is a very pleasant 83-year-old female who is on aspirin and Plavix who presented yesterday for evaluation of left-sided epistaxis who presents again today for recheck. Patient had a nasal absorbent tampon placed last night, she tolerated this well. All bleeding stopped. He was anterior and lateral in the left nare. This morning when she woke up she felt that the tampon felt wet, and as she was alone at home, her had gone to work, she was very worried that this could mean a rebleed and so she came in for reassessment. She denies any falls or trauma. No other complaints at this time. No other modifying factors. Related Data Home Medications Medication Instructions Recorded Confirmed cetirizine 10 mg capsule (Zyrtec) 10 mg PO PRN PRN 01/28/15 05/03/23 potassium chloride 20 mEq 40 meq PO DAILY 01/28/15 05/03/23 tablet,extended release(part/cryst) acetaminophen 325 mg capsule 325 mg PO PRN PRN 01/28/20 05/02/23 (Tylenol) hydrochlorothiazide 25 mg tablet 25 mg PO DAILY 04/22/20 05/03/23 aspirin 81 mg tablet,delayed 81 mg PO DAILY #30 tabs 10/01/20 05/03/23 release clopidogrel 75 mg tablet (Plavix) 75 mg PO DAILY #30 tabs 10/01/20 05/03/23 omega 0-ymo-ohc-fish oil 1,000 mg 4,000 mg PO DAILY #30 caps 10/01/20 05/03/23 (120 mg-180 mg) capsule ferrous gluconate 324 mg (37.5 mg 1 tab PO DAILY 07/07/22 05/03/23 iron) tablet rosuvastatin 5 mg tablet 5 mg PO HS 07/07/22 05/03/23 alendronate 70 mg tablet 70 mg PO QWEEK 11/01/22 05/03/23 losartan 50 mg tablet 50 mg PO DAILY 11/01/22 05/03/23 meclizine 25 mg tablet 12.5 mg PO DAILY 11/01/22 05/02/23 methocarbamol 750 mg tablet 750 mg PO TID 11/01/22 05/02/23 amoxicillin 500 mg-potassium 1 tab PO BID #14 tabs 04/11/23 05/02/23 clavulanate 125 mg tablet (Augmentin) amoxicillin 875 mg-potassium 1 tab PO BID #14 tabs 04/13/23 05/02/23 clavulanate 125 mg tablet benzonatate 100 mg capsule 100 mg PO TID PRN 04/13/23 05/02/23 famotidine 20 mg tablet 20 mg PO DIRECTED 04/13/23 05/03/23 ondansetron HCl 4 mg tablet 4 mg PO Q8H PRN 04/13/23 05/02/23 Previous Rx's Medication Instructions Recorded aspirin 81 mg tablet,delayed 81 mg PO DAILY #30 tabs 10/01/20 release clopidogrel 75 mg tablet (Plavix) 75 mg PO DAILY #30 tabs 10/01/20 omega 7-ces-vvt-fish oil 1,000 mg 4,000 mg PO DAILY #30 caps 10/01/20 (120 mg-180 mg) capsule amoxicillin 500 mg-potassium 1 tab PO BID #14 tabs 04/11/23 clavulanate 125 mg tablet (Augmentin) amoxicillin 875 mg-potassium 1 tab PO BID #14 tabs 04/13/23 clavulanate 125 mg tablet Allergies Allergy/AdvReac Type Severity Reaction Status Date / Time lisinopril AdvReac Intermediate Unverified 05/03/23 06:12 metoprolol [From Toprol XL] AdvReac Unknown Unverified 05/03/23 06:12 aspirin AdvReac NAUSEA Verified 05/03/23 06:12 codeine AdvReac vomiting Verified 05/03/23 06:12 morphine AdvReac NAUSEA Verified 05/03/23 06:12 Sulfa (Sulfonamide AdvReac NAUSEA Verified 05/03/23 06:12 Antibiotics) General ALBINO: 3 Review of Systems All systems reviewed & are unremarkable except as noted in HPI and below PFSH All Active Problems (Updated 05/03/23 @ 06:13 by Chris Moore DO) Acute anterior epistaxis (Acute) Acute anterior epistaxis (Acute) Orthostatic hypotension (Acute) Dehydration (Acute) Left-sided epistaxis (Acute) Encounter for wound re-check (Acute) 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) Hiatal hernia (Chronic) Acute chest wall pain (Acute) Systolic murmur (Acute) Ataxia (Acute) Cervical cancer (Acute) COVID-19 (Acute) Pituitary macroadenoma (Acute) Frequent falls (Acute) HTN (hypertension) (Chronic) Neoplasm of unspecified behavior of bone, soft tissue, and skin (Acute) Medical History Diabetes Lumbar radiculopathy Proximal humerus fracture (10/16/19) Surgical History History of hysterectomy History of resection of rib S/P selective transsphenoidal pituitary adenomectomy Family History Sister Cerebral aneurysm Dementia Mother Diabetes Hypertension Heart disease Social History Smoking/Tobacco Use Status: Never Smoking risk assessment performed?: Yes Alcohol Intake: former Drug use: Never Substance use type: does not use Household members: spouse Housing: other Number of Children: 3 current occupation: Retired Current gender identity: female What is your relationship status?: Panel score (0-1 are the most socially isolated patients): 1 Do you feel safe at home: Yes Do you feel safe in your relationship?: Yes Exam Narrative Exam Narrative: 1.Const: Well-nourished, Well-developed, appearing stated age 2.Eyes: PERRL, no conjunctival injection, and symmetrical lids. 3.ENT: Atraumatic external nose and ears. Moist MM. Neck: Symmetric, trachea midline, No thyromegaly. Nasal tampon is present in the left nose. Nasal tampon is somewhat sloppy from rhinorrhea, but there is no evidence of bleeding. No evidence of bleeding in the posterior oropharynx or from the left nare. 4.CVS: +S1/S2, No murmurs or gallops. Peripheral pulses 2+ and equal in all extremities. Brisk capillary refill in all extremities. 5.RESP: Unlabored respiratory effort. Clear to auscultation bilaterally. No wheezes rales or rhonchi 6.GI: Soft, Nontender/Nondistended, No hepatosplenomegaly. No guarding or rebound. 7.MSK: Normocephalic/Atraumatic, Extremities w/o deformity or ttp No cyanosis or clubbing, Normal movement of all extremities 8.Skin: Warm, Dry. No rashes or lesions. 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 Sensation grossly intact, no focal neurologic deficits. 10.Psych: (AAO) x3. Appropriate mood and affect
== END 2023-05-03 07:18 | disposition home or self-care (01) ==
PROVIDERS: Emergency Provider Student in an Organized Health Care Education/Training Program; PCP Family Medicine
DX: R04.0 Epistaxis (principal); I10 Essential (primary) hypertension; Z79.02 Long term (current) use of antithrombotics/antiplatelets; Z79.82 Long term (current) use of aspirin
CPT/HCPCS: 99282

== ENCOUNTER 2023-05-07 08:10 | Emergency (ER) | payer OTHER, SELFPAY ==
[2023-05-07 08:14] VITALS: BP 141/73; PULSE 70; RESP 18; TEMP 36.8; O2SAT 96
--- NOTE | 2023-05-07 08:23 | ED.GENADUL_ITS ---
Discharge Plan Disposition Patient Disposition: Home Discharge Details Clinical Impression: Encounter for removal of nasal packing, Acute anterior epistaxis Primary Care Provider: Eveline Linton V ED Provider: Daniel Peck Home Meds and New Rx's Prescriptions: Continued acetaminophen [Tylenol] 325 mg capsule 325 mg PO PRN PRN meclizine 25 mg tablet 12.5 mg PO DAILY Patient Comments: not taking Rx Instructions: unsure of dose methocarbamol 750 mg tablet 750 mg PO TID Patient Comments: not taking losartan 50 mg tablet 50 mg PO DAILY alendronate 70 mg tablet 70 mg PO QWEEK potassium chloride 20 MEQ tablet,ER particles/crystals 20 meq PO DAILY Zyrtec 10 MG capsule 10 mg PO PRN PRN hydrochlorothiazide 25 mg tablet 25 mg PO DAILY Patient Comments: TK 1 T PO D aspirin 81 mg Tablet,Delayed Release (Dr/Ec) 81 mg PO DAILY Qty: 30 0RF clopidogrel [Plavix] 75 mg Tablet 75 mg PO DAILY Qty: 30 0RF omega 1-sjb-ylx-fish oil 1,000 mg (120 mg-180 mg) Capsule 4,000 mg PO DAILY Qty: 30 0RF amoxicillin-pot clavulanate [Augmentin] 500-125 mg tablet 1 tab PO BID Qty: 14 0RF Patient Comments: not taking rosuvastatin 5 mg tablet 5 mg PO HS Patient Comments: TAKE ONE TABLET BY MOUTH AT BEDTIME ferrous gluconate 324 mg (37.5 mg iron) tablet 1 tab PO DAILY Patient Comments: TAKE ONE TABLET BY MOUTH EVERY DAY famotidine 20 mg tablet 20 mg PO DIRECTED Patient Comments: twice a week ondansetron HCl 4 mg tablet 4 mg PO Q8H PRN Patient Comments: not taking benzonatate 100 mg capsule 100 mg PO TID PRN Patient Comments: not taking amoxicillin-pot clavulanate 875-125 mg tablet 1 tab PO BID Qty: 14 0RF Patient Comments: not taking Discharge Instructions Instructions: Nosebleed (ED) Additional Instructions: You were seen in the emergency department for your nasal packing which was removed. You had subsequent bleeding. Please follow-up with ENT. Please return to the emergency department if you begin having any bleeding again. Please continue taking all of your home medications as previously directed. Please return to the emergency department if you have any recurrent bleeding from your nose or develop any fevers. Referrals: Franklin Louis MD [ [facility]] - [facility] General Date/Time Provider Initiated Documentation: 05/07/23 08:23 . HPI Narrative: HPI 83-year-old female holding outpatient clopidogrel and aspirin in the emergency department of her left nasal tampon removed. She reports that it was placed 5 days ago. She has had no recurrent bleeding. She denies syncope chest pain shortness of breath. No fevers chills nausea vomiting. Exam General: Well-appearing in no acute distress speaking in complete sentences. Head: Normocephalic, atraumatic. Eye: Extraocular eye movements intact. No conjunctival injection. No scleral icterus. Ear, nose, mouth, throat: Grossly normal inspection. Normal voice, handling secretions normally.What appears to be a left naris Rhino Rocket in place with no active bleeding. Neck: Trachea midline. Cardiovascular: Well-perfused distal extremities. Respiratory: Nonlabored respiration. Gastrointestinal: Nondistended abdomen. Musculoskeletal: No edema. Moving all 4 extremities spontaneously. Skin: Normal for age and race, grossly normal temperature and turgor. No acute rash. Neurologic: Alert and appropriate, no apparent acute deficits. Psychiatric: Mood and manner are appropriate. Grooming and personal hygiene are appropriate. MDM This is an 83-year-old normothermic and tachycardic female with left anterior epistaxis treatment 5 days ago now status post packing removal. Patient had no recurrent bleeding in the ED. She had no fevers and suspicion was low for toxic shock syndrome. No pain out of proportion to suggest necrotizing soft tissue infection. No bleeding in posterior oropharynx. 8:42 AM Patient had been discharged and was going out in the waiting room. She noticed some minor bleeding. She returned. On repeat inspection she did have mild bleeding at the exit of her left nares. No posterior oropharynx bleeding. Patient received nasal clamp will observe for 10 minutes. 9:26 AM Left anterior epistaxis treated with occipitalis own after expressing clots by blowing nose. Left anterior nasal packing placed. Will defer antibiotics given anterior packing. Discussed return indications including recurrent bleeding and any fevers. 9:35 AM No recurrent bleeding following packing. I have asked health business unit leader Ayse to have the patient seen in the next 5 days by ENT for packing removal. Chronic conditions affecting the care of the patient: Hypertension CVA History obtained from an outside historian: N/A External record review: [facility] EMR showing hypertension pituitary microadenoma Medications: N/A Social determinants of health affecting disposition: N/A Management discussed with: N/A Treatment/interventions considered: N/A Response to therapies provided: No recurrent bleeding status post epistaxis removal Related Data Home Medications Medication Instructions Recorded Confirmed cetirizine 10 mg capsule (Zyrtec) 10 mg PO PRN PRN 01/28/15 05/07/23 potassium chloride 20 mEq 20 meq PO DAILY 01/28/15 05/07/23 tablet,extended release(part/cryst) acetaminophen 325 mg capsule 325 mg PO PRN PRN 01/28/20 05/07/23 (Tylenol) hydrochlorothiazide 25 mg tablet 25 mg PO DAILY 04/22/20 05/07/23 aspirin 81 mg tablet,delayed 81 mg PO DAILY #30 tabs 10/01/20 05/07/23 release clopidogrel 75 mg tablet (Plavix) 75 mg PO DAILY #30 tabs 10/01/20 05/07/23 omega 3-olt-bid-fish oil 1,000 mg 4,000 mg PO DAILY #30 caps 10/01/20 05/07/23 (120 mg-180 mg) capsule ferrous gluconate 324 mg (37.5 mg 1 tab PO DAILY 07/07/22 05/07/23 iron) tablet rosuvastatin 5 mg tablet 5 mg PO HS 07/07/22 05/07/23 alendronate 70 mg tablet 70 mg PO QWEEK 11/01/22 05/07/23 losartan 50 mg tablet 50 mg PO DAILY 11/01/22 05/07/23 meclizine 25 mg tablet 12.5 mg PO DAILY 11/01/22 05/02/23 methocarbamol 750 mg tablet 750 mg PO TID 11/01/22 05/02/23 amoxicillin 500 mg-potassium 1 tab PO BID #14 tabs 04/11/23 05/07/23 clavulanate 125 mg tablet (Augmentin) amoxicillin 875 mg-potassium 1 tab PO BID #14 tabs 04/13/23 05/02/23 clavulanate 125 mg tablet benzonatate 100 mg capsule 100 mg PO TID PRN 04/13/23 05/02/23 famotidine 20 mg tablet 20 mg PO DIRECTED 04/13/23 05/07/23 ondansetron HCl 4 mg tablet 4 mg PO Q8H PRN 04/13/23 05/02/23 Previous Rx's Medication Instructions Recorded aspirin 81 mg tablet,delayed 81 mg PO DAILY #30 tabs 10/01/20 release clopidogrel 75 mg tablet (Plavix) 75 mg PO DAILY #30 tabs 10/01/20 omega 1-fxn-evk-fish oil 1,000 mg 4,000 mg PO DAILY #30 caps 10/01/20 (120 mg-180 mg) capsule amoxicillin 500 mg-potassium 1 tab PO BID #14 tabs 04/11/23 clavulanate 125 mg tablet (Augmentin) amoxicillin 875 mg-potassium 1 tab PO BID #14 tabs 04/13/23 clavulanate 125 mg tablet Allergies Allergy/AdvReac Type Severity Reaction Status Date / Time lisinopril AdvReac Intermediate Unverified 05/07/23 09:10 metoprolol [From Toprol XL] AdvReac Unknown Unverified 05/07/23 09:10 aspirin AdvReac NAUSEA Verified 05/07/23 09:10 codeine AdvReac vomiting Verified 05/07/23 09:10 morphine AdvReac NAUSEA Verified 05/07/23 09:10 Sulfa (Sulfonamide AdvReac NAUSEA Verified 05/07/23 09:10 Antibiotics) General Stated Complaint: Epistaxis ALBINO: 4 PFSH All Active Problems (Updated 05/07/23 @ 09:26 by Daniel Peck MD) Acute anterior epistaxis (Acute) Acute anterior epistaxis (Acute) Orthostatic hypotension (Acute) Dehydration (Acute) Left-sided epistaxis (Acute) Encounter for wound re-check (Acute) Encounter for removal of nasal packing (Acute) Acute anterior epistaxis (Acute) 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) Hiatal hernia (Chronic) Acute chest wall pain (Acute) Systolic murmur (Acute) Ataxia (Acute) Cervical cancer (Acute) COVID-19 (Acute) Pituitary macroadenoma (Acute) Frequent falls (Acute) HTN (hypertension) (Chronic) Neoplasm of unspecified behavior of bone, soft tissue, and skin (Acute) Medical History Diabetes Lumbar radiculopathy Proximal humerus fracture (10/16/19) Surgical History History of hysterectomy History of resection of rib S/P selective transsphenoidal pituitary adenomectomy Family History Sister Cerebral aneurysm Dementia Mother Diabetes Hypertension Heart disease Social History Smoking/Tobacco Use Status: Never Smoking risk assessment performed?: Yes Alcohol Intake: former Drug use: Never Substance use type: does not use Household members: spouse Housing: other Number of Children: 3 current occupation: Retired Current gender identity: female What is your relationship status?: Panel score (0-1 are the most socially isolated patients): 1 Do you feel safe at home: Yes Do you feel safe in your relationship?: Yes Course Vital Signs Vital signs: Vital Signs Temperature 36.8 C 05/07/23 08:14 Pulse 70 05/07/23 08:14 Respiratory Rate 18 05/07/23 08:14 Blood Pressure 141/73 H 05/07/23 08:14 Pulse Oximetry 96 05/07/23 08:14 Temperature 36.8 C 05/07/23 08:14 Temperature Source Temporal Artery Scan 05/07/23 08:14 Pulse 70 05/07/23 08:14 Respiratory Rate 18 05/07/23 08:14 Respiratory Effort Normal, Non-Labored 05/07/23 08:17 Blood Pressure 141/73 H 05/07/23 08:14 Blood Pressure Position Sitting 05/07/23 08:14 Pulse Oximetry 96 05/07/23 08:14 Oxygen Delivery Method Room Air 05/07/23 08:14 Oxygen Flow Rate 0 05/07/23 08:14 Procedures Epistaxis Control Time Out Performed: Yes Nostril: left Nose Prepped With: oxymetazoline Direct Inspection: yes and anterior source identified Clots Removed by: blowing nose Cautery Used: none Device Inserted: nasal tampon (Slam Rhino Rocket without a balloon) Patient Tolerated Procedure: no complications
[2023-05-07] MEDS: Oxymetazolone 0.05% SPRAY 15 ML BTL NS (09:15)
[2023-05-07] MEDS: Gelatin SPONGE 12-7 MM PKT TP (09:15)
--- NOTE | 2023-05-07 09:46 | NUR.NOTE ---
Referral scanned to [email or web address] email for [facility] ENT for packing removal in 5 days. Nursing Note:
== END 2023-05-07 09:48 | disposition home or self-care (01) ==
PROVIDERS: Emergency Provider Emergency Medicine; PCP Family Medicine
DX: Z48.00 Encounter for change or removal of nonsurgical wound dressing (principal); R04.0 Epistaxis
CPT/HCPCS: 30901; 99281

== ENCOUNTER 2023-05-07 18:21 | Emergency (ER) | payer OTHER, SELFPAY ==
[2023-05-07 18:25] VITALS: BP 234/86; PULSE 99; RESP 20; TEMP 36.3; O2SAT 98
[2023-05-07 18:57] VITALS: O2SAT 98
--- NOTE | 2023-05-07 18:59 | ED.GENADUL_ITS ---
Discharge Plan Disposition Patient Disposition: Home Discharge Details Clinical Impression: Acute anterior epistaxis Primary Care Provider: Eveline Linton V ED Provider: Chris Moore Home Meds and New Rx's Prescriptions: No Action acetaminophen [Tylenol] 325 mg capsule 325 mg PO PRN PRN meclizine 25 mg tablet 12.5 mg PO DAILY Patient Comments: not taking Rx Instructions: unsure of dose methocarbamol 750 mg tablet 750 mg PO TID Patient Comments: not taking losartan 50 mg tablet 50 mg PO DAILY alendronate 70 mg tablet 70 mg PO QWEEK Patient Comments: Pt states not taking 05/07/23 potassium chloride 20 MEQ tablet,ER particles/crystals 20 meq PO DAILY Zyrtec 10 MG capsule 10 mg PO PRN PRN Patient Comments: Pt states not taking 05/07/23 hydrochlorothiazide 25 mg tablet 25 mg PO DAILY Patient Comments: TK 1 T PO D aspirin 81 mg Tablet,Delayed Release (Dr/Ec) 81 mg PO DAILY Qty: 30 0RF Patient Comments: pt states not taking while dealing with ongoing nose bleeds. clopidogrel [Plavix] 75 mg Tablet 75 mg PO DAILY Qty: 30 0RF Patient Comments: pt states not taking while dealing with ongoing nose bleeds. omega 6-zjh-tbf-fish oil 1,000 mg (120 mg-180 mg) Capsule 4,000 mg PO DAILY Qty: 30 0RF amoxicillin-pot clavulanate [Augmentin] 500-125 mg tablet 1 tab PO BID Qty: 14 0RF Patient Comments: Pt states not taking 05/07/23 rosuvastatin 5 mg tablet 5 mg PO HS Patient Comments: TAKE ONE TABLET BY MOUTH AT BEDTIME ferrous gluconate 324 mg (37.5 mg iron) tablet 1 tab PO DAILY Patient Comments: TAKE ONE TABLET BY MOUTH EVERY DAY famotidine 20 mg tablet 20 mg PO DIRECTED Patient Comments: twice a week ondansetron HCl 4 mg tablet 4 mg PO Q8H PRN Patient Comments: not taking benzonatate 100 mg capsule 100 mg PO TID PRN Patient Comments: not taking amoxicillin-pot clavulanate 875-125 mg tablet 1 tab PO BID Qty: 14 0RF Patient Comments: Pt states not taking 05/07/23 Discharge Instructions Instructions: Nosebleed (ED) Additional Instructions: At this time the evaluation of your nose thankfully shows no evidence of new bleeding. You do have a bit of rhinorrhea, which means runny nose. This causes the nasal tampon to feel wet, but this is not from new active bleeding. We have placed a referral with Dr. Louis. Please follow-up closely with him. You can call his office in the morning. Please abide by the discharge instructions provided by Dr. Peck on your previous visit today. If you notice any worsening of your symptoms, or any new symptoms such as vomiting, diarrhea, fever, chills, shortness of breath, chest pain, numbness, weakness, or fainting , please return immediately to the emergency department for reevaluation. Please follow up with your primary care provider as soon as possible for reassessment and reevaluation. As always, it was a pleasure participating in your medical care today. Referrals: Eveline Linton MD [Primary Care Provider] - Franklin Louis MD [ [facility] STAFF PHYSICIAN] - Medical Decision Making 83-year-old female with a past medical history of brain tumor requiring intranasal surgery, as well as regular aspirin and Plavix use presents today for evaluation of potential nosebleeding. I initially saw the patient on 05/02, she was packed with nasal tampon, she presented for recheck the next day but it appeared that it was actually just rhinorrhea causing some wetness from the tampon. She came here earlier today which was 5 days later on 05/07 for removal of the nasal packing. It was removed by Dr. Peck successfully but unfortunately she rebled. She then had a new nasal tampon placed by Dr. Peck. She presents again tonight for some wetness at the end of the tampon concern for rebleed. She denies any blood in her posterior oropharynx. She denies a lightheadedness or headache. She denies any other complaints at this time. No other modifying factors. Patient demonstrates a well-appearing female, no active bleeding from the nose with a tampon. No blood in the posterior oropharynx. Patient does have evidence of some slight moistness in the tampon, which to me seems to be secondary to mild rhinorrhea. No active bleeding. We will observe the patient for the next 30 minutes to an hour, and monitor closely for any rebleeding. Patient has been observed for 45 minutes. No bleeding has occurred. Nasal tampon remains intact. Patient is otherwise notably stable. Will recommend close outpatient follow-up with ENT Dr. Louis, however no need for intervention at this time as there is no bleeding. I did have a long discussion with the patient about the feeling of rhinorrhea and the outcome that this causes for the spongy nasal tampon. Discussed red flags for which to return. I have extensively reviewed the treatment plan and discharge instructions with the patient. I have addressed all patient concerns at this time. The patient was made aware of what symptoms to monitor for that would warrant a return to the emergency department. Discussed the plan with the patient, they demonstrate verbal understanding and agreement with our assessment and plan at this time. The documentation in this chart was dictated using [employer] dictation software. P yulisaase excuse any dictation errors. HPI General Date/Time Provider Initiated Documentation: 05/07/23 18:39 . HPI Narrative: 83-year-old female with a past medical history of brain tumor requiring intranasal surgery, as well as regular aspirin and Plavix use presents today for evaluation of potential nosebleeding. I initially saw the patient on 05/02, she was packed with nasal tampon, she presented for recheck the next day but it appeared that it was actually just rhinorrhea causing some wetness from the tampon. She came here earlier today which was 5 days later on 05/07 for removal of the nasal packing. It was removed by Dr. Peck successfully but unfortunately she rebled. She then had a new nasal tampon placed by Dr. Peck. She presents again tonight for some wetness at the end of the tampon concern for rebleed. She denies any blood in her posterior oropharynx. She denies a lightheadedness or headache. She denies any other complaints at this time. No other modifying factors. Related Data Home Medications Medication Instructions Recorded Confirmed cetirizine 10 mg capsule (Zyrtec) 10 mg PO PRN PRN 01/28/15 05/07/23 potassium chloride 20 mEq 20 meq PO DAILY 01/28/15 05/07/23 tablet,extended release(part/cryst) acetaminophen 325 mg capsule 325 mg PO PRN PRN 01/28/20 05/07/23 (Tylenol) hydrochlorothiazide 25 mg tablet 25 mg PO DAILY 04/22/20 05/07/23 aspirin 81 mg tablet,delayed 81 mg PO DAILY #30 tabs 10/01/20 05/07/23 release clopidogrel 75 mg tablet (Plavix) 75 mg PO DAILY #30 tabs 10/01/20 05/07/23 omega 2-bxg-qvy-fish oil 1,000 mg 4,000 mg PO DAILY #30 caps 10/01/20 05/07/23 (120 mg-180 mg) capsule ferrous gluconate 324 mg (37.5 mg 1 tab PO DAILY 07/07/22 05/07/23 iron) tablet rosuvastatin 5 mg tablet 5 mg PO HS 07/07/22 05/07/23 alendronate 70 mg tablet 70 mg PO QWEEK 11/01/22 05/07/23 losartan 50 mg tablet 50 mg PO DAILY 11/01/22 05/07/23 meclizine 25 mg tablet 12.5 mg PO DAILY 11/01/22 05/07/23 methocarbamol 750 mg tablet 750 mg PO TID 11/01/22 05/07/23 amoxicillin 500 mg-potassium 1 tab PO BID #14 tabs 04/11/23 05/07/23 clavulanate 125 mg tablet (Augmentin) amoxicillin 875 mg-potassium 1 tab PO BID #14 tabs 04/13/23 05/02/23 clavulanate 125 mg tablet benzonatate 100 mg capsule 100 mg PO TID PRN 04/13/23 05/07/23 famotidine 20 mg tablet 20 mg PO DIRECTED 04/13/23 05/07/23 ondansetron HCl 4 mg tablet 4 mg PO Q8H PRN 04/13/23 05/07/23 Previous Rx's Medication Instructions Recorded aspirin 81 mg tablet,delayed 81 mg PO DAILY #30 tabs 10/01/20 release clopidogrel 75 mg tablet (Plavix) 75 mg PO DAILY #30 tabs 10/01/20 omega 5-mox-wfh-fish oil 1,000 mg 4,000 mg PO DAILY #30 caps 10/01/20 (120 mg-180 mg) capsule amoxicillin 500 mg-potassium 1 tab PO BID #14 tabs 04/11/23 clavulanate 125 mg tablet (Augmentin) amoxicillin 875 mg-potassium 1 tab PO BID #14 tabs 04/13/23 clavulanate 125 mg tablet Allergies Allergy/AdvReac Type Severity Reaction Status Date / Time lisinopril AdvReac Intermediate Unverified 05/07/23 09:10 metoprolol [From Toprol XL] AdvReac Unknown Unverified 05/07/23 09:10 aspirin AdvReac NAUSEA Verified 05/07/23 09:10 codeine AdvReac vomiting Verified 05/07/23 09:10 morphine AdvReac NAUSEA Verified 05/07/23 09:10 Sulfa (Sulfonamide AdvReac NAUSEA Verified 05/07/23 09:10 Antibiotics) General Stated Complaint: Epistaxis ALBINO: 3 Review of Systems All systems reviewed & are unremarkable except as noted in HPI and below PFSH All Active Problems Acute anterior epistaxis (Acute) Acute anterior epistaxis (Acute) Orthostatic hypotension (Acute) Dehydration (Acute) Left-sided epistaxis (Acute) Encounter for wound re-check (Acute) Encounter for removal of nasal packing (Acute) Acute anterior epistaxis (Acute) Acute anterior epistaxis (Acute) 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) Hiatal hernia (Chronic) Acute chest wall pain (Acute) Systolic murmur (Acute) Ataxia (Acute) Cervical cancer (Acute) COVID-19 (Acute) Pituitary macroadenoma (Acute) Frequent falls (Acute) HTN (hypertension) (Chronic) Neoplasm of unspecified behavior of bone, soft tissue, and skin (Acute) Medical History Diabetes Lumbar radiculopathy Proximal humerus fracture (10/16/19) Surgical History History of hysterectomy History of resection of rib S/P selective transsphenoidal pituitary adenomectomy Family History Sister Cerebral aneurysm Dementia Mother Diabetes Hypertension Heart disease Social History Smoking/Tobacco Use Status: Never Smoking risk assessment performed?: Yes Alcohol Intake: former Drug use: Never Substance use type: does not use Household members: spouse Housing: other Number of Children: 3 current occupation: Retired Current gender identity: female What is your relationship status?: Panel score (0-1 are the most socially isolated patients): 1 Do you feel safe at home: Yes Do you feel safe in your relationship?: Yes Exam Narrative Exam Narrative: 1.Const: Well-nourished, Well-developed, appearing stated age 2.Eyes: PERRL, no conjunctival injection, and symmetrical lids. 3.ENT: Atraumatic external nose and ears. Moist MM. Neck: Symmetric, trachea midline, No thyromegaly. Nasal tampon in place in the left nare. No active bleeding. No hemorrhage. No blood in the posterior oropharynx. 4.CVS: +S1/S2, No murmurs or gallops. Peripheral pulses 2+ and equal in all extremities. Brisk capillary refill in all extremities. 5.RESP: Unlabored respiratory effort. Clear to auscultation bilaterally. No wheezes rales or rhonchi 6.GI: Soft, Nontender/Nondistended, No hepatosplenomegaly. No guarding or rebound. 7.MSK: Normocephalic/Atraumatic, Extremities w/o deformity or ttp No cyanosis or clubbing, Normal movement of all extremities 8.Skin: Warm, Dry. No rashes or lesions. 9.Neuro: parts identifier II-XII grossly intact. Sensation grossly intact, no focal neurologic deficits. 10.Psych: (AAO) x3. Appropriate mood and affect Course Vital Signs Vital signs: Vital Signs Temperature 36.3 C L 05/07/23 18:25 Pulse 99 H 05/07/23 18:25 Respiratory Rate 20 05/07/23 18:25 Blood Pressure 234/86 H 05/07/23 18:25 Pulse Oximetry 98 05/07/23 18:25 Temperature 36.3 C L 05/07/23 18:25 Temperature Source Temporal Artery Scan 05/07/23 18:25 Pulse 99 H 05/07/23 18:25 Respiratory Rate 20 05/07/23 18:25 Respiratory Effort Normal 05/07/23 18:32 Blood Pressure 234/86 H 05/07/23 18:25 Blood Pressure Position Sitting 05/07/23 18:25 Pulse Oximetry 98 05/07/23 18:25 Oxygen Delivery Method Room Air 05/07/23 18:25 Oxygen Flow Rate 0 05/07/23 18:25 Pain Level 0 05/07/23 18:25
[2023-05-07 19:01] VITALS: BP 144/87; PULSE 77
== END 2023-05-07 19:05 | disposition home or self-care (01) ==
PROVIDERS: Emergency Provider Student in an Organized Health Care Education/Training Program; PCP Family Medicine
DX: R04.0 Epistaxis (principal)

== ENCOUNTER 2023-06-30 13:47 | Outpatient (REF) | payer OTHER, SELFPAY ==
[2023-06-30 19:07] LABS: NT-proBNP 267 pg/mL (<300)
== END 2023-06-30 13:48 | disposition home or self-care (01) ==
LOC: NCHCN 13:47
PROVIDERS: PCP Family Medicine; Visit Provider Nurse Practitioner Family
DX: M79.89 Other specified soft tissue disorders (principal)
CPT/HCPCS: 83880

== ENCOUNTER 2023-08-28 17:46 | Outpatient (REF) | payer OTHER, SELFPAY ==
[2023-08-28 21:04] LABS: Abs Immature Grans 0.02 10^3/uL (0.0-0.06); Absolute Basophil Count 0.08 10^3/uL (0.0-0.2); Absolute Lymphocyte Count 2.56 10^3/uL (1.2-3.4); Absolute Monocyte Count 0.82 10^3/uL (0.1-0.8); Absolute Neutrophil Count 4.13 10^3/uL (1.2-6.7); Eosinophils % 3.8; HCT 49.8 % (36.0-46.0); HGB 16.4 g/dL (11.2-15.7); Immature Grans % 0.3; Lymphocytes % 32.4; MCH 27.5 pg (27.0-33.0); MCHC 32.9 % (32.0-36.0); MCV 84 fL (80-95); MPV 10.6 fL (8.0-11.0); Monocytes % 10.4; Neutrophils % 52.1; Platelet Count 235 10^3/uL (130-400); RBC 5.96 10^6/uL (3.93-5.22); RDW 13.5 % (11.7-14.6); WBC 7.91 10^3/uL (4.4-10.8)
[2023-08-28 21:38] LABS: D-Dimer 1268 ng/mlFEU (<500)
[2023-08-28 21:50] LABS: ALT 31 U/L (14-59); AST 47 U/L (15-37); Alkaline Phosphatase 105 U/L (46-116); Anion Gap 13.5 mmol/L (3-11); BUN 11 mg/dL (7-18); Bilirubin, Total 0.7 mg/dL (0.2-1.0); CO2 23.5 mmol/L (21.0-32.0); CREATININE 0.6 mg/dL (0.55-1.02); Calcium 10.1 mg/dL (8.5-10.1); Chloride 105 mmol/L (98-107); Estimated GFR 90.12 (mL/min/1.73m2); Glucose 106 mg/dL (74-106); Sodium 142 mmol/L (136-145); Total Protein 7.3 g/dL (6.4-8.2)
== END 2023-08-28 17:47 | disposition home or self-care (01) ==
LOC: NCHCN 17:46
PROVIDERS: PCP Family Medicine; Visit Provider Nurse Practitioner Family
DX: R06.09 Other forms of dyspnea (principal); Z79.899 Other long term (current) drug therapy
CPT/HCPCS: 80053; 85025; 85379

== ENCOUNTER → 2023-08-28 19:24 | Outpatient (CLI) | payer OTHER, SELFPAY ==
--- NOTE | 2023-08-28 | DI.RAD_ITS ---
Exam(s) XR CHEST 2V PA LATERAL EXAM: XR CHEST 2V PA LATERAL CLINICAL HISTORY: COUGH, R05.9 TECHNIQUE: 2D digital imaging was performed of the chest. Two images were obtained. PA and lateral views were obtained. COMPARISON: CR XR CHEST 2V PA LATERAL from 04/13/2023 FINDINGS: MEDIASTINUM: There is a small hiatal hernia. HEART: Normal. PULMONARY VASCULATURE: Normal. There is tortuosity of the thoracic aorta. LUNGS: There is a 1 cm nodule projected over the lower spine on the lateral view. The lungs are othe rwise clear. PLEURAL SPACE: No pleural effusion or pneumothorax. BONE:Within normal limits for the patient's age. OTHER FINDINGS:Normal. IMPRESSION: 1. No acute pulmonary findings. 2. 1 cm nodule projected over the lower spine on the lateral view. A CT scan of the chest may be obt ained for further evaluation, if clinically appropriate. Unexpected findings DATA REPOSITORY: RADIATION DOSE DELIVERED:
--- NOTE | 2023-08-28 18:11 | DI.VRAD_ITS ---
PROCEDURE INFORMATION: Exam: XR Chest Exam date and time: 08/28/2023 5:00 PM Age: 83 years old Clinical indication: Cough TECHNIQUE: Imaging protocol: Radiologic exam of the chest. Views: 2 views. Total images: 2 COMPARISON: CR XR CHEST 2V PA LATERAL 04/13/2023 5:22 PM FINDINGS: Lungs: Lungs appear clear. No visible consolidation. No pulmonary masses. Pulmonary vascularity is normal. Pleural spaces: No pleural effusion or pneumothorax. Heart/Mediastinum: Heart size is normal. Moderate hiatal hernia. Vasculature: Mild aortic mural calcification. Bones/joints: Joint space narrowing, spurring, subchondral cysts and subchondral sclerosis of the right glenohumeral joint with joint space narrowing and spurring of the acromioclavicular joint suggesting osteoarthritis. No acute osseous abnormalities. Multilevel degenerative change of the spine. IMPRESSION: 1. No acute cardiopulmonary disease. 2. Osteoarthritis of the right shoulder. 3. Moderate hiatal hernia. Dictated and Authenticated by: Kacey Cardoso MD. Ordering:KHANG FARNSWORTH MD
== END ==
PROVIDERS: PCP Family Medicine; Visit Provider Nurse Practitioner Family
DX: R05.9 Cough, unspecified (principal); R91.1 Solitary pulmonary nodule
CPT/HCPCS: 71046

== ENCOUNTER 2023-08-29 10:45 | Emergency (ER) | payer OTHER, SELFPAY ==
[2023-08-29] VITALS (47 sets, daily range): BP systolic 142–213; BP diastolic 70–163; PULSE 59–85; RESP 10–25; TEMP 36.8; O2SAT 93–99
--- NOTE | 2023-08-29 10:45 | RT.EKG_ITS ---
APPROVED REPORT Exam: Resting ECG Reason for Exam: Chest Pain Patient Location: E HR:80 bpm ECG Measurements Heart Rate 80 AXIS DC 206 P -24 QRSd 78 QRS -77 QT 400 T 26 QTc 462 Conclusion Sinus rhythm...normal P axis, V-rate 60- 99 Left anterior fascicular block...axis(240,-40), init forces inf Low voltage, extremity leads...all extremity leads <0.5mV sinus rhythm, left axis, normal intervals, non ischemic
--- NOTE | 2023-08-29 11:06 | W.ED.GENAD ---
HPI General Date/Time Provider Initiated Documentation: 08/29/23 11:05. HPI Narrative: 83 year-old female presents to ED today by POV/ambulating with her with a chief complaint of shortness of breath on exertion, intermittent sharp chest pains with onset two weeks ago. Patient has been seen at [facility] and they urged ED eval for possible PE vs ACS work-up. Patient denies any known cardiac history. Quality described as intermittent brief sharp chest pains, shortness of breath with any exertion, feels lousy lately, losing her voice, no radiation to hemoptysis, fever, productive cough, abdominal pain, slurred speech, visual changes, syncope. Severity is described as severe. Palliating factors include nothing specific attempted. Provoking factors include nothing specific. Events leading up to the incident/Associated Symptoms: Patient endorses history of CVA. Patient not anticoagulated. Related Data Home Medications Medication Instructions Recorded Confirmed cetirizine 10 mg capsule (Zyrtec) 10 mg PO PRN PRN 01/28/15 08/29/23 potassium chloride 20 mEq 20 meq PO DAILY 01/28/15 08/29/23 tablet,extended release(part/cryst) acetaminophen 325 mg capsule 325 mg PO PRN PRN 01/28/20 08/29/23 (Tylenol) hydrochlorothiazide 25 mg tablet 25 mg PO DAILY 04/22/20 08/29/23 aspirin 81 mg tablet,delayed 81 mg PO DAILY #30 tabs 10/01/20 08/29/23 release omega 7-cyh-cow-fish oil 1,000 mg 4,000 mg PO DAILY #30 caps 10/01/20 08/29/23 (120 mg-180 mg) capsule ferrous gluconate 324 mg (37.5 mg 1 tab PO DAILY 07/07/22 08/29/23 iron) tablet losartan 50 mg tablet 50 mg PO DAILY 11/01/22 08/29/23 famotidine 20 mg tablet 20 mg PO DIRECTED 04/13/23 08/29/23 levothyroxine 50 mcg tablet 50 mcg PO DAILY 08/29/23 08/29/23 rosuvastatin 5 mg tablet 5 mg PO DAILY 08/29/23 08/29/23 Previous Rx's Medication Instructions Recorded aspirin 81 mg tablet,delayed 81 mg PO DAILY #30 tabs 10/01/20 release omega 6-sqh-gtd-fish oil 1,000 mg 4,000 mg PO DAILY #30 caps 10/01/20 (120 mg-180 mg) capsule Allergies Allergy/AdvReac Type Severity Reaction Status Date / Time lisinopril AdvReac Intermediate Unverified 08/29/23 10:56 metoprolol [From Toprol XL] AdvReac Unknown Unverified 08/29/23 10:56 aspirin AdvReac NAUSEA Verified 08/29/23 10:56 codeine AdvReac vomiting Verified 08/29/23 10:56 morphine AdvReac NAUSEA Verified 08/29/23 10:56 Sulfa (Sulfonamide AdvReac NAUSEA Verified 08/29/23 10:56 Antibiotics) General Stated Complaint: SOB ALBINO: 3 Review of Systems All systems reviewed & are unremarkable except as noted in HPI and below Exam Narrative Exam Narrative: GENERAL APPEARANCE: Well-nourished, non-toxic, awake and alert, atraumatic, no acute distress. SKIN: Warm, pink, dry, intact, without rashes/lesions/ulcerations. HEAD: Normocephalic, atraumatic, normal hair distribution for gender/age. EYES: Pupils PERRLA, EOMs intact without nystagmus, normal conjunctiva, no exudates on lids/lashes. ENT: Nares patent, no circumoral cyanosis, no facial swelling NECK: Supple, trachea midline, painless cervical ROM. LUNGS/CHEST: Lungs CTA bilaterally- no rhonchi/rales/wheezes diffusely, non-labored respirations, normal A/P diameter, symmetrical expansion, no chest wall deformity HEART (CV/PV): Regular rate and rhythm without murmur, no peripheral edema, no JVD. ABDOMEN: Soft, non-distended, no guarding, no tenderness. MSK: Normal ROM, no swelling/deformity to bilateral UEs or LEs, moving all extremities without weakness, no cyanosis, spine midline without tenderness, normal curvature. NEURO: Mental Status AAOx4 - alert to person, place, time, events No facial droop, no forehead involvement. Motor: No focal weakness - strength 5/5 in bilateral UEs and LEs, proximal and distal, symmetric. Sensory: sensation intact to light touch globally. Gait normal: patient ambulated without ataxia into ED room. PSYCH: euthymic, cooperative, pleasant, appropriate speech Course Vital Signs Vital signs: Vital Signs Temperature 36.8 C 08/29/23 10:52 Pulse 85 08/29/23 10:52 Respiratory Rate 20 08/29/23 10:52 Blood Pressure 205/94 H 08/29/23 10:52 Pulse Oximetry 99 08/29/23 10:52 Temperature 36.8 C 08/29/23 10:52 Pulse 85 08/29/23 10:52 Respiratory Rate 20 08/29/23 10:52 Respiratory Effort Short of Breath 08/29/23 11:03 Blood Pressure 205/94 H 08/29/23 10:52 Pulse Oximetry 99 08/29/23 10:52 Oxygen Delivery Method Room Air 08/29/23 10:52 Oxygen Flow Rate 0 08/29/23 10:52 Medical Decision Making This dictation utilizes [id number] dictation software and may contain unedited grammatical errors. 83 y/o F presents to ED today with a chief complaint of increasing shortness of breath on exertion with brief sharp chest pains- ongoing for a least two weeks- patient also loses her voice. Patient denies hemoptysis, fever, productive cough, nausea/vomiting, body aches. Patients' medical history: T2DM, Hx of CVA. Family and social history: noncontributory, lives at home with . Pertinent exam findings / vital signs include no heart murmur to auscultation, no focally diminished or absent lung sounds, benign abdomen, neuro intact. 205 systolic. Differential / pathologies of concern include PE, ACS, PNA, Sepsis, HTNsive Emergency, . Diagnostic studies of: -CBC, CMP, TSH, CRP, BNP, lactate, magnesium, D-dimer, VBG, EKG, lipase, ESR, cardiac troponin, CT chest PE study, 3-hour troponin value, rapid antigen COVID flu. -CBC no leukocytosis, HgB 16 question hemoconcentration / mild dehydration -CMP - mild low K+ 3.3 (PO repletion) -CRP mild elev -D-dimer 1241 -BNP mild elev 400 -initial lactate 2.1, will give IVF and repeat, repeat value shows [ ]. -initial trop negative, 3hr negative -Lipase WNL -EKG shows sinus rhythm at 80 bpm with P waves followed by narrow complex QRS, prolonged DE interval, left axis deviation, good R wave progression, no ST changes of ischemia or reciprocal changes, normal QT QTc -CT Chest PE Study shows no PE, no focal PNA, does show possible inflammatory/infectious esophagitis vs neoplasm. Interventions of: -500mL bolus of IVF, repeat lactate, Consult Surgery for EGD- can get her on the list, non-emergent as the patient is tolerating PO. Consult Cardiology for possible ECHO and stress test- has only had rhythm monitor in past, has mild elev BNP, and SOB on exertion- baseline studies would be helpful, especially to get EGD. -Will have REGISTERED NURSE FIRST ASSISTANT Contact each service for follow-up. ED Course/Assessment/Plan: 83-year-old female patient presents with chest pain occasionally intermittent, severe shortness of breath with any exertion as well as losing her voice. Cardiac workup and workup for PE are negative, she has a mild elevation of BNP and her labs showed some hemoconcentration likely in setting of mild dehydration with a lactate of 2.1 and BNP elevated to 400. Chest CT study to rule out PE did find that there is a question of possible inflammatory esophagitis versus esophageal neoplasm that needs EGD and I did arrange follow-up with a general surgery practice for the patient, did refer the patient to cardiology office for clearance for this study as well in addition to workup for her elevated BNP and shortness of breath on exertion. Patient was comfortable with this disposition and was discharged home with close follow-up, they engaged in shared decision-making. Findings not consistent with ACS, sepsis, PE, patient's initial blood pressure improved significantly by the time of discharge and the experience no acute chest pain. Disposition of Shortness of Breath on Exertion, Esophagitis. Patient verbalized understanding of the plan and return to ED criteria and engaged in shared decision making. Medical Records Medical records reviewed: Yes I reviewed the patient's medical records. Imaging Data Radiologic Study: Attestation: I personally reviewed and interpreted this imaging study as follows: Imaging: CT Scan Radiologist's impression: EXAM: CT CHEST PE CTA CLINICAL HISTORY: elevated d-dimer, SOB. TECHNIQUE: Imaging Protocol: Axial CT angiography was performed with multi-slice acquisition and multi-planar and/or 3D reconstructions. CONTRAST MATERIAL: Intravenous: Omnipaque 350 contrast volume:57 mL COMPARISON: CT UPPER ABD WITH CONTRAST (P) from 12/16/[address] CHEST/ABD/PEL W from 12/27/[address] ABDOMEN WO/W from 04/28/2023 CR,XR XR CHEST 2V PA LATERAL from 08/28/2023 FINDINGS: Tracheobronchial tree: Patent where visualized. Pulmonary parenchyma: There is a stable 1.0 cm nodule in the medial aspect of the left lower lobe (series 9, image 244). No focal consolidating infiltrates are seen. Atelectatic changes are seen in the lung bases. Pulmonary Arteries: No evidence of filling defect to suggest pulmonary emboli. Mediastinum and Halina: No dominant adenopathy or fluid collection. There is diffuse thickening of the wall of the distal esophagus. There is a moderate size hiatal hernia. Visualized thyroid gland: Unremarkable. Pleura: No effusion or pneumothorax. Heart: The heart is not dilated. Coronary artery calcifications are present. No pericardial effusion. Aorta: Thoracic aorta non-dilated. No evidence of dissection. Atherosclerosis. Upper abdomen: Unremarkable. Tubes, Catheters, and Lines: None. Soft tissues: Unremarkable. Bones: Within normal limits for the patient's age. IMPRESSION: 1. No evidence of pulmonary embolism, thoracic aortic dissection or aneurysm. 2. Stable 1 cm nodule in the left lower lobe. No new pulmonary nodules. 3. Atelectasis in the lung bases. 4. Diffuse thickening of the wall of the distal esophagus. Differential considerations include inflammatory/infectious esophagitis or neoplasm. Upper GI or endoscopy is recommended for further evaluation. 5. Moderate size hiatal hernia. Lab Data Lab results reviewed: Yes I reviewed the patient's lab results. Labs: Laboratory Tests Range/Units 08/29/23 08/29/23 08/29/23 11:02 14:30 15:32 WBC (4.4-10.8) 10^3/uL 6.79 RBC (3.93-5.22) 10^6/uL 5.82 H Hgb (11.2-15.7) g/dL 16.2 H Hct (36.0-46.0) % 48.4 H MCV (80-95) fL 83 MCH (27.0-33.0) pg 27.8 MCHC (32.0-36.0) % 33.5 RDW (11.7-14.6) % 13.8 Plt Count (130-400) 10^3/uL 232 MPV (8.0-11.0) fL 9.9 Immature Gran % 0.1 Neutrophils % 54.8 Lymphocytes % 29.6 Monocytes % 10.3 Eosinophils % 4.6 Basophils % 0.6 Nucleated RBC % (0.0-0.3) % 0.0 Absolute Neutrophils (1.2-6.7) 10^3/uL 3.72 Absolute Lymphocytes (1.2-3.4) 10^3/uL 2.01 Absolute Monocytes (0.1-0.8) 10^3/uL 0.70 Absolute Eosinophils (0.0-0.7) 10^3/uL 0.31 Absolute Basophils (0.0-0.2) 10^3/uL 0.04 ESR (0-30) mm/hr 5 D-Dimer (<500) ng/mlFEU 1231 H VBG pH (7.31-7.41) 7.38 VBG pCO2 (41-51) mmHg 49 VBG pO2 mmHg 27 VBG HCO3 (23-28) mmol/L 29 H VBG Total CO2 (24-29) mmol/L 26 VBG O2 Saturation % 52 VBG Base Excess (-2-3) mmol/L 4 H VBG Lactate (0.6-1.4) mmol/L 2.1 H 1.6 H Sodium (136-145) mmol/L 143 Potassium (3.5-5.1) mmol/L 3.3 L Chloride (98-107) mmol/L 104 Carbon Dioxide (21.0-32.0) mmol/L 29.5 Anion Gap (3-11) mmol/L 9.5 BUN (7-18) mg/dL 12 Creatinine (0.55-1.02) mg/dL 1.0 Est GFR (CKD-EPI 2020) (mL/min/1.73m2) 56.60 Glucose (74-106) mg/dL 158 H Calcium (8.5-10.1) mg/dL 10.1 Magnesium (1.8-2.4) mg/dL 2.1 Total Bilirubin (0.2-1.0) mg/dL 0.9 AST (15-37) U/L 33 ALT (14-59) U/L 26 Alkaline Phosphatase (46-116) U/L 99 Troponin I (< or =60) ng/L < 50 < 50 C-Reactive Protein (0.0-0.3) mg/dL 0.49 H NT-Pro-B Natriuret Pep (<300) pg/mL 404 H Total Protein (6.4-8.2) g/dL 7.3 Albumin (3.4-5.0) g/dL 3.8 Lipase (16-77) U/L 29 Quality:[facility] Health Related Social Needs: No Data to Display PFSH All Active Problems (Updated 08/29/23 @ 14:53 by NADEEM Velásquez) Esophagitis (Acute) Shortness of breath on exertion (Acute) Elevated blood pressure reading (Acute) 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) Hiatal hernia (Chronic) Acute chest wall pain (Acute) Systolic murmur (Acute) Ataxia (Acute) Cervical cancer (Acute) COVID-19 (Acute) Pituitary macroadenoma (Acute) Frequent falls (Acute) HTN (hypertension) (Chronic) Neoplasm of unspecified behavior of bone, soft tissue, and skin (Acute) Medical History Diabetes Lumbar radiculopathy Proximal humerus fracture (10/16/19) Surgical History History of hysterectomy History of resection of rib S/P selective transsphenoidal pituitary adenomectomy Family History Sister Cerebral aneurysm Dementia Mother Diabetes Hypertension Heart disease Social History Smoking/Tobacco Use Status: Never Smoking risk assessment performed?: Yes Alcohol Intake: former Drug use: Never Substance use type: does not use Household members: spouse Housing: other Number of Children: 3 current occupation: Retired Current gender identity: female What is your relationship status?: Panel score (0-1 are the most socially isolated patients): 1 Do you feel safe at home: Yes Do you feel safe in your relationship?: Yes Discharge Plan Disposition Patient Disposition: Home Condition: Stable Discharge Details Clinical Impression: Shortness of breath on exertion, Esophagitis Primary Care Provider: Eveline Linton V ED Provider: Chris Gallagher Home Meds and New Rx's Prescriptions: Continued acetaminophen [Tylenol] 325 mg capsule 325 mg PO PRN PRN losartan 50 mg tablet 50 mg PO DAILY potassium chloride 20 MEQ tablet,ER particles/crystals 20 meq PO DAILY Zyrtec 10 MG capsule 10 mg PO PRN PRN Patient Comments: Pt states not taking 05/07/23 hydrochlorothiazide 25 mg tablet 25 mg PO DAILY Patient Comments: TK 1 T PO D aspirin 81 mg Tablet,Delayed Release (Dr/Ec) 81 mg PO DAILY Qty: 30 0RF omega 9-vyk-bvx-fish oil 1,000 mg (120 mg-180 mg) Capsule 4,000 mg PO DAILY Qty: 30 0RF ferrous gluconate 324 mg (37.5 mg iron) tablet 1 tab PO DAILY Patient Comments: TAKE ONE TABLET BY MOUTH EVERY DAY famotidine 20 mg tablet 20 mg PO DIRECTED Patient Comments: twice a week levothyroxine 50 mcg tablet 50 mcg PO DAILY Patient Comments: TAKE ONE TABLET BY MOUTH EVERY DAY rosuvastatin 5 mg tablet 5 mg PO DAILY Patient Comments: TAKE ONE TABLET BY MOUTH AT BEDTIME Discharge Instructions Instructions: Esophagitis (ED), Shortness of Breath (ED) Additional Instructions: You were seen in the emergency department for your shortness of breath on exertion as well as some subjective loss of voice. On your CT PE study there was no blood clot in your lungs, we checked your heart by multiple laboratory studies 3 hours apart that indicate this is not an acute cardiac event, there was no pneumonia seen on your chest imaging, your labs showed signs of mild dehydration. I have forwarded your chart to general surgery to perform an endoscopy to examine this possible esophagitis etiology seen on the CT scan. I have also forwarded your chart to cardiology as a likely need to perform an echocardiogram based on elevated BNP today as well as for cardiac clearance to have your EGD performed by surgery service. Please return to the emergency department for any further episodes of chest pain especially with shortness of breath, difficulty breathing, sweating with chest pain, near fainting. Referrals: [facility] [Provider Group] (Needs ECHO for elevated BNP, has BLACKWOOD, and will need clearance for EGD by General Surgery) [facility] [Provider Group] (EGD for possible esophageal neoplasm) Eveline Linton MD [Primary Care Provider] -
[2023-08-29 11:36] LABS: Abs Immature Grans 0.01 10^3/uL (0.0-0.06); Absolute Basophil Count 0.04 10^3/uL (0.0-0.2); Absolute Eosinophil Count 0.31 10^3/uL (0.0-0.7); Absolute Lymphocyte Count 2.01 10^3/uL (1.2-3.4); Absolute Neutrophil Count 3.72 10^3/uL (1.2-6.7); Basophils % 0.6; Eosinophils % 4.6; HCT 48.4 % (36.0-46.0); HGB 16.2 g/dL (11.2-15.7); Immature Grans % 0.1; Lymphocytes % 29.6; MCH 27.8 pg (27.0-33.0); MCHC 33.5 % (32.0-36.0); MCV 83 fL (80-95); MPV 9.9 fL (8.0-11.0); Monocytes % 10.3; Neutrophils % 54.8; Platelet Count 232 10^3/uL (130-400); RBC 5.82 10^6/uL (3.93-5.22); RDW 13.8 % (11.7-14.6); RDW-SD 41.5 fL; WBC 6.79 10^3/uL (4.4-10.8)
[2023-08-29 11:38] LABS: ESR 5 mm/hr (0-30)
[2023-08-29 11:42] LABS: BE (Venous) 4 mmol/L (-2-3); HCO3 (Venous) 29 mmol/L (23-28); O2 Sat (Venous) 52 %; TCO2 (Venous) 26 mmol/L (24-29); pCO2 (Venous) 49 mmHg (41-51); pH (Venous) 7.38 (7.31-7.41); pO2 (Venous) 27 mmHg
[2023-08-29 11:48] LABS: Lactate 2.1 mmol/L (0.6-1.4)
[2023-08-29 12:05] LABS: D-Dimer 1231 ng/mlFEU (<500)
[2023-08-29 12:17] LABS: ALT 26 U/L (14-59); AST 33 U/L (15-37); Albumin 3.8 g/dL (3.4-5.0); Alkaline Phosphatase 99 U/L (46-116); Anion Gap 9.5 mmol/L (3-11); BUN 12 mg/dL (7-18); Bilirubin, Total 0.9 mg/dL (0.2-1.0); C-Reactive Protein 0.49 mg/dL (0.0-0.3); CO2 29.5 mmol/L (21.0-32.0); Calcium 10.1 mg/dL (8.5-10.1); Chloride 104 mmol/L (98-107); Glucose 158 mg/dL (74-106); Lipase 29 U/L (16-77); Magnesium 2.1 mg/dL (1.8-2.4); NT-proBNP 404 pg/mL (<300); Potassium 3.3 mmol/L (3.5-5.1); Sodium 143 mmol/L (136-145); Total Protein 7.3 g/dL (6.4-8.2); Troponin I < 50 ng/L (< or =60)
[2023-08-29] MEDS: Omnipaque 350 MG/ML 100 ML BTL 57 ML IJ (13:31)
[2023-08-29] MEDS: Normal Saline - Diluent 50 ML VIAL IJ (13:34)
--- NOTE | 2023-08-29 13:50 | DI.CT_ITS ---
Exam(s) CT CHEST PE CTA EXAM: CT CHEST PE CTA CLINICAL HISTORY: elevated d-dimer, SOB. TECHNIQUE: Imaging Protocol: Axial CT angiography was performed with multi-slice acquisition and mu lti-planar and/or 3D reconstructions. CONTRAST MATERIAL: Intravenous: Omnipaque 350 contrast volume:57 mL COMPARISON: CT UPPER ABD WITH CONTRAST (P) from 12/16/[address] CHEST/ABD/PEL W from 12/27/[address] ABDOMEN WO/W from 04/28/2023 CR,XR XR CHEST 2V PA LATERAL from 08/28/2023 FINDINGS: Tracheobronchial tree: Patent where visualized. Pulmonary parenchyma: There is a stable 1.0 cm nodule in the medial aspect of the left lower lobe (se mey 9, image 244). No focal consolidating infiltrates are seen. Atelectatic changes are seen in th e lung bases. Pulmonary Arteries: No evidence of filling defect to suggest pulmonary emboli. Mediastinum and Halina: No dominant adenopathy or fluid collection. There is diffuse thickening of the wall of the distal esophagus. There is a moderate size hiatal hernia. Visualized thyroid gland: Unremarkable. Pleura: No effusion or pneumothorax. Heart: The heart is not dilated. Coronary artery calcifications are present. No pericardial effusion . Aorta: Thoracic aorta non-dilated. No evidence of dissection. Atherosclerosis. Upper abdomen: Unremarkable. Tubes, Catheters, and Lines: None. Soft tissues: Unremarkable. Bones: Within normal limits for the patient's age. IMPRESSION: 1. No evidence of pulmonary embolism, thoracic aortic dissection or aneurysm. 2. Stable 1 cm nodule in the left lower lobe. No new pulmonary nodules. 3. Atelectasis in the lung bases. 4. Diffuse thickening of the wall of the distal esophagus. Differential considerations include infla mmatory/infectious esophagitis or neoplasm. Upper GI or endoscopy is recommended for further evaluat ion. 5. Moderate size hiatal hernia. RADIATION DOSE DELIVERED: 229.73mGy.cm Total DLP DATA REPOSITORY: All CT scans at this facility are submitted to the National Radiology Data Registry (NRDR) Dose Index Registry (DIR) with the [employer] (A[employer]). RADIATION OPTIMIZATION: All CT scans at this facility use at least one of these dose optimization te chniques: automated exposure control; mA and/or kV adjustment per patient size (includes targeted exa ms where dose is matched to clinical indication); or iterative reconstruction.
[2023-08-29] MEDS: Normal Saline 500 ML IV (14:25)
--- NOTE | 2023-08-29 14:56 | NUR.NOTE ---
Referrals faxed for Cardiac Clearance for an EGD as well as for the EGD. [facility] and [facility] will need to talk to each other to set up the appointments.
[2023-08-29 15:12] LABS: Troponin I < 50 ng/L (< or =60)
[2023-08-29 15:44] LABS: Lactate 1.6 mmol/L (0.6-1.4)
== END 2023-08-29 16:15 | disposition home or self-care (01) ==
PROVIDERS: Emergency Provider Physician Assistant; PCP Family Medicine
DX: R06.02 Shortness of breath (principal); R07.9 Chest pain, unspecified; R91.1 Solitary pulmonary nodule; I44.4 Left anterior fascicular block; I10 Essential (primary) hypertension; K20.90 Esophagitis, unspecified without bleeding; E86.0 Dehydration; Z79.82 Long term (current) use of aspirin; Z86.73 Personal history of transient ischemic attack (TIA), and cerebral infarction without residual deficits
CPT/HCPCS: 36410; 36415; 71275; 80053; 82805; 83690; 85652; 93005; 96360; 99285; 83605; 83735; 83880; 84484; 85025; 85379; 86140; 93010; 99284; J3490

== ENCOUNTER 2023-09-08 11:01 | Outpatient (CLI) | payer OTHER, SELFPAY ==
--- NOTE | 2023-09-08 11:00 | RT.EKG_ITS ---
APPROVED REPORT Exam: Resting ECG Reason for Exam: baseline Patient Location: O HR:67 bpm ECG Measurements Heart Rate 67 AXIS MT 228 P 2 QRSd 88 QRS -73 QT 391 T 27 QTc 413 Conclusion Sinus rhythm...normal P axis, V-rate 50- 99 Prolonged MT interval...MT >220, V-rate 50- 90 Left anterior fascicular block...axis(240,-40), init forces inf Low voltage, extremity leads...all extremity leads <0.5mV Abnormal R-wave progression, late transition...QRS area<0 in V5/V6 I have reviewed and interpreted ECG and agree with software generated interpretation.
== END 2023-09-08 11:02 | disposition home or self-care (01) ==
LOC: DI.CARD 11:02
PROVIDERS: PCP Family Medicine; Visit Provider Internal Medicine Interventional Cardiology
DX: I63.9 Cerebral infarction, unspecified (principal)
CPT/HCPCS: 93010

== ENCOUNTER → 2023-09-19 00:27 | Outpatient (CLI) | payer OTHER, SELFPAY ==
--- NOTE | 2023-09-19 06:30 | DI.NM_ITS ---
APPROVED REPORT Exam: Pharmacologic Patient Location: Out-Patient Room/Bed: Stress Nurse: Marian Olsen RN Ordering Provider:YANNI KESSLER, Contact Number: BMI: 25.33 Baseline Rhythm: Sinus Rhythm Indications: BLACKWOOD, angina Medical History Medical History: Uterine CA, diabetes, HLD, HTN, systolic murmur, SOB, esophagitis, ataxia, CVA's (), frequent falls Cardiac Medications: Amlodipine, aspirin, zyrtec, ferrous gluconate, famotidine, hydrochlorathiazide, isosorbide mononitrate, levothyroxine, losartan, nitro, potassium, rosuvastatin Allergies: Lisinopril, metoprolol XL, aspirin, codeine, morphine, sulfa Cardiac Risk Factors: Family hx, HTN, HLD, diabetes Previous Cardiac Procedures: None Pretest Chest Pain Characteristics: None Exercise History: Sedentary Physical Disabilities: Frequent falls, hx ataxia Lung Sounds: Clear to auscultation Heart Sounds: Regular Stress Test Details Test: Pharmacologic stress testing performed using 0.4 mg of regadenoson per 5 mL given IV over 10 s econds. Reason for pharmacologic stress test: Hx. ataxia and frequent falls. Nuclear Acquisition: Rest Tc-99m/Stress Tc-99m 1 day Rest Isotope: Tc-99m Sestamibi. Dose: 10.9 Date: 09/19/2023 Injection Time: 0905 Stress Isotope: Tc-99m Sestamibi. Dose: 32.5 Date: 09/19/2023 Injection Time: 1040 HR Resting HR Supine: 82 bpm Max Heart Rate (APMHR): 139.898724 bpm Target HR (85% APMHR): 118.245554 bpm Max HR Achieved: 100 bpm % of APMHR: 71.94 Recovery HR: 91 bpm BP Resting BP Supine: 142/88 mmHg Max BP: 142/88 mmHg Recovery BP: 120/80 mmHg ECG Resting ECG: Sinus Rhythm Ectopy: None Stress ECG: Sinus Tachycardia ST Change: Nondiagnostic low heart rate Arrhythmia: None Recovery ECG: Sinus Rhythm Recovery ST Change: Nondiagnostic low heart rate Recovery Arrhythmia: None Clinical Angina Score: None Rate Pressure Product: [id number] Stress ECG Conclusion 1. Resting electrocardiogram showed low voltage, left axis, old anterior infarct 2. Patient underwent testing using pharmacologic stress with regadenason 3. Peak heart rate achieved was 72% of maximal predicted for age 4. Electrocardiographic portion of the test was nondiagnostic 5. See MPI report Stress Test Summary STAGE HR BP SpO2 Symptoms NOTES Supine 82 142/88 1 min post Lexiscan injection 86 140/82 3 min post Lexiscan injection 95 134/76 6 min post Lexiscan injection 91 120/80 MPI Conclusion Myocardial perfusion is normal. There is no ischemia or evidence of prior infarction Left ventricular function is hyperdynamic without wall motion abnormalities Radiologist Interpretation Radiologist Interpretation by: Lorenzo Vasquez MD Interpretation Date/Time: 09/19/2023 16:45:45
[2023-09-19] MEDS: Regadenoson 0.4 MG/5 ML SYR IVP (10:56)
== END ==
PROVIDERS: PCP Family Medicine; Visit Provider Internal Medicine Interventional Cardiology
DX: I20.89 Other forms of angina pectoris (principal)
CPT/HCPCS: 78452; 93017; J2785

== ENCOUNTER → 2023-09-29 00:34 | Outpatient (CLI) | payer OTHER, SELFPAY ==
--- NOTE | 2023-09-29 08:30 | DI.US_ITS ---
APPROVED REPORT EXAM: Comprehensive 2D, Doppler, and color-flow Echocardiogram Patient Location: [facility] Equipment Operator: Mukund Petit RDCS (AE) Indications: [place], CHF Conclusion Normal left ventricular wall thickness and chamber size. Ejection fraction is 60 to 65%. Wall motio n is normal. Diastolic function is normal for age Normal right ventricular size and function Both atria are normal in size There is no structural or hemodynamic significant valvular disease Borderline dilated ascending aorta RVSP is 23 mmHg Wall motion Left Ventricle The left ventricle is normal size. The left ventricular systolic function is normal. The left ventric ular ejection fraction is within the normal range. There is normal left ventricular wall thickness. T here is normal LV segmental wall motion. There is no ventricular septal defect visualized. LVEF is 60 -65%. Right Ventricle The right ventricle is normal size. The right ventricular systolic function is normal. Atria The left atrium size is normal. The right atrium size is normal. The interatrial septum is intact wit h no evidence for an atrial septal defect. Aortic Valve The aortic valve is normal in structure. Aortic valve is trileaflet. There is no aortic valvular sten osis. No aortic regurgitation is present. Mitral Valve The mitral valve is normal in structure. No evidence of mitral valve stenosis. Trace mitral regurgita tion. Tricuspid Valve The tricuspid valve is normal in structure. There is no tricuspid valve stenosis. Trace tricuspid reg urgitation. The RVSP is 23.3 mmHg. Pulmonic Valve The pulmonary valve is normal in structure. There is no pulmonic valvular stenosis. There is no pulmo adelfo valvular regurgitation. Great Vessels The aortic root is normal in size. The ascending aorta is mildly dilated. Aortic arch is normal in ca liber. IVC is normal in size and collapses >50% with inspiration. Pericardium There is no pericardial effusion. 2D Dimensions IVSD d PLAX 0.54 cm F: 0.6-1.0 Ao Root d 3.09 cm F: 2.7 - 3.3 LVPW d PLAX 0.54 cm F: 0.6 - 1.0 Ao Asc Diam d 3.35 cm F: 2.3 - 3.1 LVID d PLAX 3.77 cm F: 3.8 - 5.2 LVDs 2.45 cm F: 2.2 - 3.5 LV EF Teichholz 65.1 % FS 35.03 % LV EDV (Teich) 60.8 mL LV ESV (Teich) 21.2 mL Stroke Vol Index (Teich) 28.71 Auto EF LV EDV A4C 52.6 mL LV EDV A2C 57.2 mL LV EDV BP 54.5 mL LV ESV A4C 21.2 mL LV ESV A2C 23.0 mL LV ESV BP 22.6 mL LVEF(%) A4C 59.6 % LVEF(%) A2C 59.7 % LVEF(%) BP 58.5 % LV SV A4C 31.3 ml LV SV A2C 34.2 ml LV SV BP 31.9 ml LV CO A4C 2.0 L/min LV CO A2C 2.2 L/min LV CO BP 2.1 L/min HR A4C 64.15 BPM HR A2C 65.22 BPM LV EDV Index (BP) LA Volume LA Length A4C 3.5 cm LA Length A2C 3.8 cm LA Area A4C s 7.35 cm2 LA Area A2C s 5.51 cm2 LA Vol A4C A-L 13.02 mL LA Vol A2C A-L 6.84 mL LA Vol Biplane A-L 9.8 mL LA Vol/BSA A4C A-L LA Vol/BSA A2C A-L LA Vol/BSA BP A-L 7.1 mL/m2 LA Vol A4C MOD 12.5 mL LA Vol A2C MOD 6.4 mL LA Vol BP MOD 9.0 mL LV Diastology MV E' medial 0.056 (>0.07 m/s) MV E Vmax 0.80 (0.4-1.3 m/s) MV E/E' MED 14.20 (<14) MV A Vmax 1.15 (0.4-1.3 m/s) MV E' lateral 0.068 (>0.1 m/s) E/A Ratio 0.7 MV E/E' LAT 11.82 (<14) MV E' Average 0.062 m/s MV E/E'(average) 12.90 Aortic Valve AoV Vmax 0.95 m/s LVOT Vmax 0.82 m/s AoV Peak Grad 3.6 mmHg LVOT Peak Grad 2.7 mmHg AoV Area (Vmax) 2.94 cm2 LVOT VTI 0.181 m AoV VTI 0.188 m LVOT Mean Grad 1.7 mmHg AoV Mean Joseph. 0.69 m/s LVOT SV 61.62 mL AoV Mean Grad 2.1 mmHg LVOT Diam s 2.05 cm AoV Area (VTI) 3.27 cm2 Velocity Ratio 0.86 Mitral Valve MV DT 321 (160-240 msec) Pulmonary Valve PV Vmax 0.55 (0.5-1.5 m/s) RVOT Vmax 0.50 m/s PV Peak Grad 1.2 mmHg RVOT Peak Gr. 1.0 mmHg PV Mean Joseph 0.31 m/s RVOT VTI 0.103 m PV Mean Grad 0.5 mmHg RVOT Mean Gr. 0.6 mmHg Tricuspid Valve RA Pressure 3.00 mmHg TR Vmax 2.25 m/s TR Peak Grad 20.3 mmHg RVSP (TR) 23.3 mmHg
== END ==
PROVIDERS: PCP Family Medicine; Visit Provider Internal Medicine Interventional Cardiology
DX: I50.9 Heart failure, unspecified (principal)
CPT/HCPCS: 93306

== ENCOUNTER 2024-01-26 12:45 | Outpatient (REF) | payer OTHER, SELFPAY ==
[2024-01-26 14:31] LABS: HCT 46.2 % (36.0-46.0); HGB 15.7 g/dL (11.2-15.7); MCH 29.7 pg (27.0-33.0); MCV 87 fL (80-95); MPV 10.3 fL (8.0-11.0); Platelet Count 194 10^3/uL (130-400); RBC 5.29 10^6/uL (3.93-5.22); RDW 12.7 % (11.7-14.6); RDW-SD 41.1 fL; WBC 6.18 10^3/uL (4.4-10.8)
[2024-01-26 14:53] LABS: ALT 39 U/L (14-59); AST 36 U/L (15-37); Albumin 3.9 g/dL (3.4-5.0); Alkaline Phosphatase 99 U/L (46-116); BUN 11 mg/dL (7-18); Bilirubin, Total 0.73 mg/dL (0.2-1.0); CREATININE 0.9 mg/dL (0.55-1.02); Calcium 9.4 mg/dL (8.5-10.1); Chloride 106 mmol/L (98-107); Estimated GFR 64.23 (mL/min/1.73m2); Glucose 114 mg/dL (74-106); Potassium 4.2 mmol/L (3.5-5.1); Sodium 145 mmol/L (136-145); TSH (W/Ref FT4) 0.32 uIU/mL (0.36-3.74); Total Protein 6.8 g/dL (6.4-8.2)
[2024-01-26 15:15] LABS: FREE T4 1.04 ng/dL (0.76-1.46)
== END 2024-01-26 12:46 | disposition home or self-care (01) ==
LOC: NCHCN 12:45
PROVIDERS: PCP Family Medicine; Visit Provider Family Medicine
DX: E11.9 Type 2 diabetes mellitus without complications (principal); I10 Essential (primary) hypertension; E03.9 Hypothyroidism, unspecified
CPT/HCPCS: 80053; 85027; 83036; 84439; 84443

== ENCOUNTER → 2024-03-14 01:08 | Outpatient (CLI) | payer OTHER, SELFPAY ==
--- NOTE | 2024-03-14 09:38 | DI.RAD_ITS ---
Exam(s) XR FOOT LT COMPLETE XR FOOT RT COMPLETE EXAM: XR FOOT LT COMPLETE CLINICAL HISTORY: Left foot pain, M79.672. TECHNIQUE: 2D digital imaging was performed. Three views of both feet. COMPARISON: CR XR FOOT RT COMPLETE from 03/14/2024 FINDINGS: BONES: No acute fracture is present. No bony destructive lesion is seen. Heel spurs. JOINTS: No dislocation present. Mild degenerative changes at the interphalangeal joints of the toes as well as hammertoe deformities. Mild degenerative changes of 1st MTP joint. SOFT TISSUE: Mild swelling adjacent to 1st metatarsal head. IMPRESSION: Heel spurs. Hammertoe deformities. Mild degenerative changes of the 1st MTP joints. DATA REPOSITORY: RADIATION DOSE DELIVERED:
== END ==
PROVIDERS: PCP Family Medicine; Visit Provider Podiatrist
DX: M79.671 Pain in right foot (principal); M77.31 Calcaneal spur, right foot; M20.41 Other hammer toe(s) (acquired), right foot; M19.071 Primary osteoarthritis, right ankle and foot; M77.32 Calcaneal spur, left foot; M20.42 Other hammer toe(s) (acquired), left foot; M19.072 Primary osteoarthritis, left ankle and foot
CPT/HCPCS: 73630

== ENCOUNTER 2024-04-03 11:31 | Emergency (ER) | payer OTHER, SELFPAY ==
[2024-04-03 11:33] VITALS: BP 195/131; PULSE 90; RESP 16; TEMP 36.6; O2SAT 98
--- NOTE | 2024-04-03 11:45 | DI.CT_ITS ---
Exam(s) CT CHEST WO EXAM: CT CHEST WO CLINICAL HISTORY: pain s/p fall. TECHNIQUE: Multi planar reconstructions were performed. CONTRAST MATERIAL: None COMPARISON: CT UPPER ABD WITH CONTRAST (P) from 12/16/[address] CHEST PE CTA from 08/29/2023 FINDINGS: CHEST: LUNGS: There is a pleural based noncalcified soft tissue nodule in the posterior basal segment of the left lower lobe again noted which measures 10 by 9 mm, unchanged in size from August 2023. This is also unchanged from CT scan of December 2015. No other left lung nodules nor pleural effusions. There a re no significant new focal findings in the opposite-right lung. Mild platelike atelectasis in the r ight middle lobe is unchanged. No pneumothorax. No significant focal findings in the trachea and ma instem bronchi. MEDIASTINUM: No evidence of sternal fracture nor mediastinal hematoma. Visualized thyroid unremarkab le.No obvious hilar nor mediastinal adenopathy. Large retrocardiac hiatal hernia is again noted CARDIAC: Heart size is normal. There is no pericardial effusion.Caliber of the thoracic aorta is upp er normal limits. VISUALIZED UPPER ABDOMEN:Large hiatal hernia. No adrenal masses. Normal spleen size. There is a E well-defined hypodensity in the left hepatic lobe which measures 3 by 2.5 cm, similar to 2016 and mos t probably a benign cyst. OSSEOUS: There are no fractures. No vertebral fractures. No rib fractures. No sternal fractures. No clavicle fractures.. IMPRESSION: 1. No significant acute trauma sequelae in the chest evident on this noninfused study. 2. There is a stable 1 cm noncalcified nodule in the left lower lobe which is most probably benign as it is unchanged from at least December 2015. No other pulmonary nodules nor pleural effusions and no dian dence of lung contusion, pneumothorax, nor rib fractures. 3. Stable liver cyst measuring 3 x 2.5 cm, also previously evident in 2016. Called by myself to ER physician 04/03/2024 at 1:58 p.m. RADIATION DOSE DELIVERED: 248.73mGy.cm Total DLP DATA REPOSITORY: All CT scans at this facility are submitted to the National Radiology Data Registry (NRDR) Dose Index Registry (DIR) with the [employer] (ACR). RADIATION OPTIMIZATION: All CT scans at this facility use at least one of these dose optimization te chniques: automated exposure control; mA and/or kV adjustment per patient size (includes targeted exa ms where dose is matched to clinical indication); or iterative reconstruction.
--- NOTE | 2024-04-03 11:45 | DI.CT_ITS ---
Exam(s) CT HEAD CERV SPINE FACIAL WO EXAM: CT HEAD CERV SPINE FACIAL WO CLINICAL HISTORY: pain s/p fall. TECHNIQUE: Imaging Protocol: Axial computed tomography images with coronal and sagittal reformatted images were created and reviewed COMPARISON: CT CT BRAIN NECK CTA from 09/30/2020 FINDINGS: CT BRAIN: There are no skull fractures nor fluid in the visualized paranasal sinuses. There is no evidence of intracranial hemorrhage, mass effect, or shift of midline structures. There are no extra-axial fluid collections. The ventricles are not enlarged or shifted and there is no blo od within the ventricular system nor within the basal cisterns. There is a moderate amount of bilateral periventricular hypodensity consistent with chronic small-ves kole white matter ischemic changes. There is no distinct infarct evident. CT MAXILLOFACIAL BONES: There is no evidence of facial fractures nor fluid in the visualized paranasal sinuses. Some mucosal thickening is noted in both maxillary sinuses. There is no evidence of orbital blowout fracture. CT CERVICAL SPINE: There is no evidence of acute fracture nor significant listhesis. No significant prevertebral soft t issue swelling. There is mild anterolisthesis of C5 upon C6 related to facet arthropathy. There is no facet malalignment. There is multilevel facet degenerative changes. Corticated osteophytic densi ty off the posterior aspect of C 7 spinous process noted within the supraspinous ligament. This is n ot an acute fracture. Disc spaces are maintained throughout the cervical spine. IMPRESSION: No acute intracranial findings on this noninfused CT scan of the brain. No evidence of acute facial nor orbital blowout fractures. No evidence of acute cervical spine fracture, malalignment, nor acute compromise of the cervical spin al canal. Multilevel facet arthropathy noted. Called by myself to ER physician 04/03/2024 at 1:48 p.m. RADIATION DOSE DELIVERED: 1,365.42mGy.cm Total DLP DATA REPOSITORY: All CT scans at this facility are submitted to the National Radiology Data Registry (NRDR) Dose Index Registry (DIR) with the [employer] (ACR). RADIATION OPTIMIZATION: All CT scans at this facility use at least one of these dose optimization te chniques: automated exposure control; mA and/or kV adjustment per patient size (includes targeted exa ms where dose is matched to clinical indication); or iterative reconstruction.
--- NOTE | 2024-04-03 11:48 | ED.GENADUL_ITS ---
Discharge Plan Disposition Patient Disposition: Home Condition: Stable Discharge Details Clinical Impression: Blunt head trauma, Blunt chest trauma, Contusion of right knee, Contusion of left knee, Right wrist sprain Primary Care Provider: Eveline Linton V ED Provider: Hemal Gomez Home Meds and New Rx's Prescriptions: Continued sucralfate [Carafate] 100 mg/mL suspension 1 g PO QHS Qty: 1000 12RF pantoprazole 40 mg tablet,delayed release (DR/EC) 40 mg PO BID Qty: 60 12RF nitroglycerin [Nitrostat] 0.4 mg tablet, sublingual 0.4 mg sublingual Q5M PRN (Reason: chest pain) Qty: 30 3RF Rx Instructions: do not exceed 3 doses per episode (DME) miscellaneous medical supply Misc See Rx Instructions .Route Rx Instructions: As directed famotidine 20 mg tablet 20 mg PO QHS diazepam 2 mg tablet 2 mg PO DAILY PRN Rx Instructions: TAKE ONE TABLET BY MOUTH 1 HOUR PRIOR TO MRI. REPEAT BEFORE MRI IF NEEDED. losartan 50 mg tablet 50 mg PO DAILY potassium chloride 20 mEq tablet,ER particles/crystals 40 meq PO DAILY betamethasone dipropionate 0.05 % cream 1 applic topical DAILY PRN omega 5-fbq-uvm-fish oil [Fish Oil] 300-1,000 mg capsule 1 cap PO DAILY meclizine 12.5 mg tablet 12.5 mg PO TID PRN Zyrtec 10 MG capsule 10 mg PO PRN PRN Patient Comments: Pt states not taking 05/07/23 hydrochlorothiazide 25 mg tablet 25 mg PO DAILY Patient Comments: TK 1 T PO D aspirin 81 mg Tablet,Delayed Release (Dr/Ec) 81 mg PO DAILY Qty: 30 0RF omega 0-fku-wxt-fish oil 1,000 mg (120 mg-180 mg) Capsule 4,000 mg PO DAILY Qty: 30 0RF ferrous gluconate 324 mg (37.5 mg iron) tablet 1 tab PO DAILY Patient Comments: TAKE ONE TABLET BY MOUTH EVERY DAY levothyroxine 50 mcg tablet 50 mcg PO DAILY Patient Comments: TAKE ONE TABLET BY MOUTH EVERY DAY rosuvastatin 5 mg tablet 5 mg PO DAILY Patient Comments: TAKE ONE TABLET BY MOUTH AT BEDTIME Discharge Instructions Additional Instructions: Your imaging did not show any concerning findings for traumatic injuries If your stomach pain in a week follow-up with your primary care provider You can take 650 mg of acetaminophen every 6 hours and also 400 mg of ibuprofen every 4 hours If you feel more ill or have new symptoms such as severe abdominal pain return to the emergency department for reevaluation HPI General Date/Time Provider Initiated Documentation: 04/03/24 11:34 . Limitations to Documentation: no limitations . Information obtained by: patient . History of Present Illness 84 year old F presents to the emergency department with the chief complaint of tripped and fell, described as moderate, Quality is described as aching, Patient reports no radiation. Patient started experiencing this hour(s) (1) and it has been constant. No relieving factors improve symptom(s), No exacerbating factors reported . Patient notes denies fever/chills. Patient did receive the following treatments prior to arrival, none Related Data Home Medications ?Medication ?Instructions ?Recorded ?Confirmed cetirizine 10 mg capsule (Zyrtec) 10 mg PO PRN PRN 01/28/04/03/24 hydrochlorothiazide 25 mg tablet 25 mg PO DAILY 04/22/20 03/14/24 aspirin 81 mg tablet,delayed 81 mg PO DAILY #30 tabs 10/01/20 04/03/24 release omega 1-ikw-dnp-fish oil 1,000 mg 4,000 mg PO DAILY #30 caps 10/01/20 04/03/24 (120 mg-180 mg) capsule ferrous gluconate 324 mg (37.5 mg 1 tab PO DAILY 07/07/22 04/03/24 iron) tablet losartan 50 mg tablet 50 mg PO DAILY 11/01/22 04/03/24 levothyroxine 50 mcg tablet 50 mcg PO DAILY 08/29/23 04/03/24 rosuvastatin 5 mg tablet 5 mg PO DAILY 08/29/23 04/03/24 potassium chloride 20 mEq 40 meq PO DAILY 09/06/23 04/03/24 tablet,extended release(part/cryst) nitroglycerin 0.4 mg sublingual 0.4 mg sublingual Q5M PRN chest 09/08/23 04/03/24 tablet (Nitrostat) pain #30 tabs betamethasone dipropionate 0.05 % 1 applic topical DAILY PRN 11/16/23 04/03/24 topical cream meclizine 12.5 mg tablet 12.5 mg PO TID PRN 11/16/23 04/03/24 omega 0-hht-pjr-fish oil 300 1 cap PO DAILY 11/16/23 04/03/24 mg-1,000 mg capsule (Fish Oil) sucralfate 100 mg/mL oral 1 g (10 mL) PO QHS #1,000 mL 11/20/23 04/03/24 suspension (Carafate) pantoprazole 40 mg tablet,delayed 40 mg PO BID #60 tabs 01/04/24 04/03/24 release diazepam 2 mg tablet 2 mg PO DAILY PRN 03/12/24 04/03/24 famotidine 20 mg tablet 20 mg PO QHS 03/12/24 04/03/24 miscellaneous medical supply 03/12/24 03/14/24 Previous Rx's ?Medication ?Instructions ?Recorded aspirin 81 mg tablet,delayed 81 mg PO DAILY #30 tabs 10/01/20 release omega 0-rgt-mir-fish oil 1,000 mg 4,000 mg PO DAILY #30 caps 10/01/20 (120 mg-180 mg) capsule nitroglycerin 0.4 mg sublingual 0.4 mg sublingual Q5M PRN chest 09/08/23 tablet (Nitrostat) pain #30 tabs sucralfate 100 mg/mL oral 1 g (10 mL) PO QHS #1,000 mL 11/20/23 suspension (Carafate) pantoprazole 40 mg tablet,delayed 40 mg PO BID #60 tabs 01/04/24 release Allergies Allergy/AdvReac Type Severity Reaction Status Date / Time lisinopril AdvReac Intermediate cough Verified 04/03/24 11:37 metoprolol (From Toprol XL) AdvReac Unknown Other (See Verified 04/03/24 11:37 Comment) aspirin AdvReac NAUSEA Verified 04/03/24 11:37 codeine AdvReac vomiting Verified 04/03/24 11:37 morphine AdvReac NAUSEA Verified 04/03/24 11:37 Sulfa (Sulfonamide AdvReac NAUSEA Verified 04/03/24 11:37 Antibiotics) General Stated Complaint: Fall/Non TraumaCriteria ALBINO: 3 Review of Systems All systems reviewed & are unremarkable except as noted in HPI and below Constitutional Constitutional: Denies chills, Denies fever(s) and Denies weakness Cardiovascular Cardiovascular: Reports chest pain (after her fall) and Denies dyspnea Respiratory Respiratory: Denies cough and Denies dyspnea Gastrointestinal Gastrointestinal: Denies abdominal pain, Denies nausea and Denies vomiting Musculoskeletal Musculoskeletal: Denies joint swelling Neurologic Neurologic: Denies weakness Exam Const General: no acute distress Orientation: alert HENMN Head: normal to inspection Ears: external ears normal General nose exam: external nose normal Mouth: moist mucous membranes Eyes General: appearance normal, both eyes and all related structures Neck Neck: normal visual inspection Resp Effort & Inspection: normal respiratory effort and able to speak in complete sentences Auscultation: clear to auscultation bilaterally Cardio Rate: regular rate GI Palpation: soft and nontender Back/Spine/Pelvis Back: no CVA tenderness Skin General skin exam: no rashes or lesions noted Neuro General: patient alert and patient oriented x3 Extrem General: normal to inspection Psych Mental Status: mental status grossly normal Course Vital Signs Vital signs: Vital Signs Temperature 36.6 C 04/03/24 11:33 Pulse 90 04/03/24 11:33 Respiratory Rate 16 04/03/24 11:33 Blood Pressure 195/131 H 04/03/24 11:33 Pulse Oximetry 98 04/03/24 11:33 Temperature 36.6 C 04/03/24 11:33 Temperature Source Temporal Artery Scan 04/03/24 11:33 Pulse 90 04/03/24 11:33 Respiratory Rate 16 04/03/24 11:33 Respiratory Effort Normal 04/03/24 11:39 Blood Pressure 195/131 H 04/03/24 11:33 Blood Pressure Position Sitting 04/03/24 11:33 Pulse Oximetry 98 04/03/24 11:33 Pain Level 10 04/03/24 11:33 Medical Decision Making 84-year-old female with a history of hypertension, rheumatoid arthritis, CVA who comes in with complaint of pain after falling. She says she was going to practice on a sidewalk that was uneven and tripped landing forward and hitting her face and anterior chest on the ground. Denies loss of consciousness and denies any preceding symptoms to the fall like this of breath, lightheadedness, dizziness or chest pain states she mechanically tripped. She has abrasions to the nose and has anterior head pain. No midline C-spine tenderness but does have some tenderness of the right lateral mid neck. No midline T-spine or L- spine tenderness, no abdominal tenderness. She is tender over the 3rd through 6th ribs on the right axillary line. She also notes bilateral anterior knee pain and is able to bear weight, has full range of motion but tenderness over the patellas bilaterally. She also notes some pain on the right posterior wrist with limited range of motion due to pain. Normal sensation and cap refill in the hand. Given her age and the fall will obtain CT head, face, C-spine and CT chest to evaluate for fractures and hemorrhage. Will obtain bilateral knee x- rays and right wrist x-ray and reassess. Patient's imaging shows no acute findings and she is stable with no new pain elsewhere. She does feel better after Tylenol. She is stable for discharge advised to follow-up with her PCP if she still in pain in a week and return precautions given Differential Diagnosis Differential Diagnosis: Contusion, sprain Medical Records Medical records reviewed: Yes I reviewed the patient's medical records. Imaging Data Radiologic Study: Attestation: I personally reviewed and interpreted this imaging study as follows: Imaging: X-Ray Radiologist's impression: No acute findings on head, facial, cervical or chest CT Radiologic Study #2: Attestation: I personally reviewed and interpreted this imaging study as follows: Imaging: X-Ray Radiologist's impression: No acute findings on bilateral knee x-rays or wrist x-ray Lab Data Lab results reviewed: Yes I reviewed the patient's lab results. Quality:SDOH Health Related Social Needs: No Data to Display PFSH All Active Problems (Updated 04/03/24 @ 14:31 by Hemal Gomez MD) Right wrist sprain (Acute) Contusion of left knee (Acute) Contusion of right knee (Acute) Blunt chest trauma (Acute) Blunt head trauma (Acute) Peroneal tendinitis, right leg (Acute) Anterior tibialis tendinitis of left leg (Acute) Hepatomegaly (Acute) Rheumatoid arthritis (Chronic) Anemia (Chronic) Senile osteoporosis (Acute) Hyperlipidemia (Acute) Essential hypertension (Acute) Angina of effort (Acute) Elevated blood pressure reading (Acute) 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) Hiatal hernia (Chronic) Acute chest wall pain (Acute) Systolic murmur (Acute) Ataxia (Acute) Cervical cancer (Acute) COVID-19 (Acute) Pituitary macroadenoma (Acute) Frequent falls (Acute) HTN (hypertension) (Chronic) Neoplasm of unspecified behavior of bone, soft tissue, and skin (Acute) Medical History Uterine cancer Lumbar radiculopathy Diabetes Proximal humerus fracture (10/16/19) Surgical History S/P selective transsphenoidal pituitary adenomectomy History of resection of rib History of hysterectomy Family History Sister Cerebral aneurysm Dementia Mother Diabetes Hypertension Heart disease Social History Smoking/Tobacco Use Status: Never Smoking risk assessment performed?: Yes Alcohol Intake: former Drug use: Never Substance use type: does not use Household members: spouse Housing: other Number of Children: 3 current occupation: Retired Current gender identity: female What is your relationship status?: Panel score (0-1 are the most socially isolated patients): 1 Do you feel safe at home: Yes Do you feel safe in your relationship?: Yes
[2024-04-03 12:18] LABS: Abs Immature Grans 0.03 10^3/uL (0.0-0.06); Absolute Basophil Count 0.04 10^3/uL (0.0-0.2); Absolute Eosinophil Count 0.23 10^3/uL (0.0-0.7); Absolute Lymphocyte Count 2.14 10^3/uL (1.2-3.4); Absolute Monocyte Count 0.59 10^3/uL (0.1-0.8); Absolute Neutrophil Count 3.92 10^3/uL (1.2-6.7); Basophils % 0.6 %; Eosinophils % 3.3 %; HCT 43.9 % (36.0-46.0); HGB 15.2 g/dL (11.2-15.7); Immature Grans % 0.4 %; Lymphocytes % 30.8 %; MCH 30.2 pg (27.0-33.0); MCHC 34.6 % (32.0-36.0); MCV 87 fL (80-95); Monocytes % 8.5 %; Neutrophils % 56.4 %; Platelet Count 194 10^3/uL (130-400); RBC 5.03 10^6/uL (3.93-5.22); RDW 12.8 % (11.7-14.6); RDW-SD 40.7 fL; WBC 6.95 10^3/uL (4.4-10.8)
[2024-04-03 12:38] LABS: ALT 29 U/L (14-59); AST 35 U/L (15-37); Albumin 3.8 g/dL (3.4-5.0); Alkaline Phosphatase 88 U/L (46-116); Anion Gap 11.6 mmol/L (3-11); BUN 10 mg/dL (7-18); Bilirubin, Total 0.64 mg/dL (0.2-1.0); CO2 26.4 mmol/L (21.0-32.0); Calcium 9.7 mg/dL (8.5-10.1); Chloride 103 mmol/L (98-107); Estimated GFR 56.25 (mL/min/1.73m2); Glucose 264 mg/dL (74-106); Magnesium 1.9 mg/dL (1.8-2.4); Potassium 3.2 mmol/L (3.5-5.1); Sodium 141 mmol/L (136-145); Total Protein 7.1 g/dL (6.4-8.2)
[2024-04-03 12:45] LABS: INR 1.1 (0.9-1.1); PTT Activated 24.4 sec (23.6-32.8); Prothrombin Time 10.6 sec (9.1-11.1)
--- NOTE | 2024-04-03 13:55 | DI.RAD_ITS ---
Exam(s) XR WRIST RT COMPLETE EXAM: XR WRIST RT COMPLETE CLINICAL HISTORY: pain s/p fall. TECHNIQUE: 2D digital imaging was performed. Three views. COMPARISON: CR,XR XR WRIST LT COMPLETE from 10/16/2019 FINDINGS: BONES: No acute fracture is identified. There is some overlap of the distal radius with the carpal b ones on several views. No bony destructive lesion is seen. JOINTS: The carpal bones are normally aligned. Degenerative changes present SOFT TISSUE: Swelling around wrist. IMPRESSION: No definite fracture. Soft tissue swelling. DATA REPOSITORY: RADIATION DOSE DELIVERED:
--- NOTE | 2024-04-03 14:00 | DI.RAD_ITS ---
Exam(s) XR KNEE RT 3V AP,LAT,CECY XR KNEE LT 3V AP,LAT,CECY EXAM: XR KNEE RT 3V AP,LAT,CECY CLINICAL HISTORY: pain s/p fall. TECHNIQUE: 2D digital imaging was performed. Three views of both knees. COMPARISON: CR KNEES BILAT AP STANDING LATS from 07/06/2017 CR XR KNEE LT 3V AP,LAT,CECY from 04/03/2024 FINDINGS: BONES: No acute fracture is present. No bony destructive lesion is seen. JOINTS: The knee is normally aligned. No joint effusion is seen. Joint spaces are maintained. Mini mal periarticular spurring. SOFT TISSUE: Vascular calcifications. IMPRESSION: No acute abnormality in either knee. DATA REPOSITORY: RADIATION DOSE DELIVERED:
[2024-04-03] MEDS: ACETAMINOPHEN 1,000 MG/100 ML BTL 400 MG IVPB (14:04)
[2024-04-03] MEDS: Lidocaine 5% Patch 1 PATCH TP (14:04)
== END 2024-04-03 15:23 | disposition home or self-care (01) ==
PROVIDERS: Emergency Provider Emergency Medicine; PCP Family Medicine
DX: S80.02XA Contusion of left knee, initial encounter (principal); S80.01XA Contusion of right knee, initial encounter; S63.501A Unspecified sprain of right wrist, initial encounter; S29.8XXA Other specified injuries of thorax, initial encounter; S09.8XXA Other specified injuries of head, initial encounter; W10.1XXA Fall (on)(from) sidewalk curb, initial encounter
CPT/HCPCS: 71250; 73562; 80053; 96374; 99284; 70450; 70486; 72125; 73110; 83735; 85025; 85610; 85730; 99283; J0131

== ENCOUNTER 2024-06-05 09:04 | Emergency (ER) | payer OTHER, SELFPAY ==
[2024-06-05] VITALS (8 sets, daily range): BP systolic 152–233; BP diastolic 80–130; PULSE 68–85; RESP 20; TEMP 37; O2SAT 93–97
--- NOTE | 2024-06-05 09:27 | ED.GENADUL_ITS ---
Discharge Plan Disposition Patient Disposition: Home Condition: Stable Discharge Details Clinical Impression: Acute anterior epistaxis, Elevated blood pressure reading Primary Care Provider: Eveline Linton V ED Provider: Grant Thayer Home Meds and New Rx's Prescriptions: Continued pantoprazole 40 mg tablet,delayed release (DR/EC) 40 mg PO BID Qty: 60 12RF nitroglycerin [Nitrostat] 0.4 mg tablet, sublingual 0.4 mg sublingual Q5M PRN (Reason: chest pain) Qty: 30 3RF Rx Instructions: do not exceed 3 doses per episode (DME) miscellaneous medical supply Misc See Rx Instructions .Route Rx Instructions: As directed diazepam 2 mg tablet 2 mg PO DAILY PRN Rx Instructions: TAKE ONE TABLET BY MOUTH 1 HOUR PRIOR TO MRI. REPEAT BEFORE MRI IF NEEDED. losartan 50 mg tablet 50 mg PO DAILY potassium chloride 20 mEq tablet,ER particles/crystals 40 meq PO DAILY betamethasone dipropionate 0.05 % cream 1 applic topical DAILY PRN omega 0-zdo-czy-fish oil [Fish Oil] 300-1,000 mg capsule 1 cap PO DAILY meclizine 12.5 mg tablet 12.5 mg PO TID PRN Zyrtec 10 MG capsule 10 mg PO PRN PRN Patient Comments: Pt states not taking 05/07/23 hydrochlorothiazide 25 mg tablet 25 mg PO DAILY Patient Comments: TK 1 T PO D aspirin 81 mg Tablet,Delayed Release (Dr/Ec) 81 mg PO DAILY Qty: 30 0RF omega 7-qxd-eyp-fish oil 1,000 mg (120 mg-180 mg) Capsule 4,000 mg PO DAILY Qty: 30 0RF ferrous gluconate 324 mg (37.5 mg iron) tablet 1 tab PO DAILY Patient Comments: TAKE ONE TABLET BY MOUTH EVERY DAY levothyroxine 50 mcg tablet 50 mcg PO DAILY Patient Comments: TAKE ONE TABLET BY MOUTH EVERY DAY rosuvastatin 5 mg tablet 5 mg PO DAILY Patient Comments: TAKE ONE TABLET BY MOUTH AT BEDTIME Discontinued sucralfate [Carafate] 100 mg/mL suspension 1 g PO QHS Qty: 1000 12RF famotidine 20 mg tablet 20 mg PO QHS Discharge Instructions Instructions: Nosebleeds ED Additional Instructions: Do not blow your nose over the next few days. Your blood pressure was elevated today. You were given your prescribed medications today in the emergency department including hydrochlorothiazide and losartan. Your blood pressure did improve. Please continue take your antihypertensive medication as prescribed. Please be sure to discuss your elevated blood pressure with your doctor. Additional outpatient diagnostic testing and treatment modification may be necessary. Please contact your primary care physician to arrange follow-up. Return to the ER immediately for any worsening or new concerning symptoms. Referrals: Eveline Linton MD [Primary Care Provider] - Discharge Data Discharge Date/Time-TO BE ENTERED AT DEPARTURE: 06/05/24 13:27 HPI General Mode of arrival: ambulatory . Date/Time Provider Initiated Documentation: 06/05/24 09:24 . Limitations to Documentation: no limitations . Information obtained by: patient . HPI Narrative: 84-year-old female with multiple medical problems including brain tumor and hypertension, presents with epistaxis. Patient notes nosebleed started from her right nare around 8 AM this morning and has persisted. She is not yet taken her antihypertensive medications today. Patient notes she has had prior surgeryof brain mass (about a year ago) and repeat surgery is recommended but that she does not wish to pursue additional aggressive measures. Related Data Home Medications ?Medication ?Instructions ?Recorded ?Confirmed cetirizine 10 mg capsule (Zyrtec) 10 mg PO PRN PRN 01/28/15 06/05/24 hydrochlorothiazide 25 mg tablet 25 mg PO DAILY 04/22/20 06/05/24 aspirin 81 mg tablet,delayed 81 mg PO DAILY #30 tabs 10/01/20 06/05/24 release omega 4-usj-tnq-fish oil 1,000 mg 4,000 mg PO DAILY #30 caps 10/01/20 06/05/24 (120 mg-180 mg) capsule ferrous gluconate 324 mg (37.5 mg 1 tab PO DAILY 07/07/22 06/05/24 iron) tablet losartan 50 mg tablet 50 mg PO DAILY 11/01/22 06/05/24 levothyroxine 50 mcg tablet 50 mcg PO DAILY 08/29/23 06/05/24 rosuvastatin 5 mg tablet 5 mg PO DAILY 08/29/23 06/05/24 potassium chloride 20 mEq 40 meq PO DAILY 09/06/23 06/05/24 tablet,extended release(part/cryst) nitroglycerin 0.4 mg sublingual 0.4 mg sublingual Q5M PRN chest 09/08/23 06/05/24 tablet (Nitrostat) pain #30 tabs betamethasone dipropionate 0.05 % 1 applic topical DAILY PRN 11/16/23 06/05/24 topical cream meclizine 12.5 mg tablet 12.5 mg PO TID PRN 11/16/23 06/05/24 omega 9-zrk-lib-fish oil 300 1 cap PO DAILY 11/16/23 06/05/24 mg-1,000 mg capsule (Fish Oil) pantoprazole 40 mg tablet,delayed 40 mg PO BID #60 tabs 01/04/24 06/05/24 release diazepam 2 mg tablet 2 mg PO DAILY PRN 03/12/24 06/05/24 miscellaneous medical supply 03/12/24 06/05/24 Previous Rx's ?Medication ?Instructions ?Recorded aspirin 81 mg tablet,delayed 81 mg PO DAILY #30 tabs 10/01/20 release omega 7-sft-qcn-fish oil 1,000 mg 4,000 mg PO DAILY #30 caps 10/01/20 (120 mg-180 mg) capsule nitroglycerin 0.4 mg sublingual 0.4 mg sublingual Q5M PRN chest 09/08/23 tablet (Nitrostat) pain #30 tabs pantoprazole 40 mg tablet,delayed 40 mg PO BID #60 tabs 01/04/24 release Allergies Allergy/AdvReac Type Severity Reaction Status Date / Time lisinopril AdvReac Intermediate cough Verified 06/05/24 09:08 metoprolol (From Toprol XL) AdvReac Unknown Other (See Verified 06/05/24 09:08 Comment) aspirin AdvReac NAUSEA Verified 06/05/24 09:08 codeine AdvReac vomiting Verified 06/05/24 09:08 morphine AdvReac NAUSEA Verified 06/05/24 09:08 Sulfa (Sulfonamide AdvReac NAUSEA Verified 06/05/24 09:08 Antibiotics) General Stated Complaint: Epistaxis ALBINO: 3 Review of Systems Constitutional Constitutional: Denies fever(s) ENT Ears, Nose, Mouth, and Throat: Reports as per HPI Exam Const General: cooperative and no acute distress [facility] General nose exam: other (Nose clamp in place, no active bleeding.) Mouth: moist mucous membranes Eyes EOM: EOM intact bilaterally Neck Neck: trachea midline and supple Resp Auscultation: clear to auscultation bilaterally, no rales, no rhonchi and no wheezes Cardio Jugular venous pressure: no JVD Rate: regular rate and not tachycardic Rhythm: regular rhythm Neuro General: patient alert, patient awake and patient oriented x3 Course Vital Signs Vital signs: Vital Signs Temperature 37.0 C 06/05/24 08:59 Pulse 85 06/05/24 08:59 Respiratory Rate 20 06/05/24 08:59 Blood Pressure 233/96 H 06/05/24 08:59 Pulse Oximetry 96 06/05/24 08:59 Temperature 37.0 C 06/05/24 08:59 Temperature Source Temporal Artery Scan 06/05/24 08:59 Pulse 85 06/05/24 08:59 Respiratory Rate 20 06/05/24 08:59 Respiratory Effort Normal, Non-Labored 06/05/24 09:09 Blood Pressure 233/96 H 06/05/24 08:59 Blood Pressure Position Sitting 06/05/24 08:59 Pulse Oximetry 96 06/05/24 08:59 Oxygen Delivery Method Room Air 06/05/24 08:59 Oxygen Flow Rate 0 06/05/24 08:59 Pain Level 0 06/05/24 08:59 Procedures Epistaxis Control Time Out Performed: Yes Nostril: right Nose Prepped With: phenylephrine Direct Inspection: yes Cautery Used: silver nitrate Patient Tolerated Procedure: well and no complications Medical Decision Making 945 -- 84-year-old female with multiple medical problems including hypertension, brain tumor, here with epistaxis right nare since this morning. Patient is hypertensive. She has not had her antihypertensive medication today. Plan to treat with prescribed hydrochlorothiazide and losartan. Plan to treat with Afrin and maintain nose clamp and reassess. If bleeding persist will need to proceed to packing. Patient has had previous epistaxis that required packing of the left nare in the past. -- Patient reassessed and bleeding is stopped. I was able to identify source of anterior bleeding, medial right nare. Chemical cauterization was performed to prevent bleeding. Patient was observed for prolonged period of time in the emerged part and had no recurrent bleeding. Tolerating p.o. intake. Plan for discharge with outpatient follow-up. Usual and customary discharge instructions were reviewed. Lab Data Lab results reviewed: Yes I reviewed the patient's lab results. Labs: Laboratory Tests Range/Units 06/05/24 09:40 WBC (4.4-10.8) 10^3/uL 6.20 RBC (3.93-5.22) 10^6/uL 5.44 H Hgb (11.2-15.7) g/dL 16.4 H Hct (36.0-46.0) % 47.3 H MCV (80-95) fL 87 MCH (27.0-33.0) pg 30.1 MCHC (32.0-36.0) % 34.7 RDW (11.7-14.6) % 12.6 Plt Count (130-400) 10^3/uL 177 MPV (8.0-11.0) fL 10.0 Immature Gran % % 0.3 Neutrophils % % 46.9 Lymphocytes % % 36.5 Monocytes % % 10.2 Eosinophils % % 5.3 Basophils % % 0.8 Nucleated RBC % (0.0-0.3) % 0.0 Absolute Neutrophils (1.2-6.7) 10^3/uL 2.91 Absolute Lymphocytes (1.2-3.4) 10^3/uL 2.26 Absolute Monocytes (0.1-0.8) 10^3/uL 0.63 Absolute Eosinophils (0.0-0.7) 10^3/uL 0.33 Absolute Basophils (0.0-0.2) 10^3/uL 0.05 Sodium (136-145) mmol/L 145 Potassium (3.5-5.1) mmol/L 3.9 Chloride (98-107) mmol/L 106 Carbon Dioxide (21.0-32.0) mmol/L 30.9 Anion Gap (3-11) mmol/L 8.1 BUN (7-18) mg/dL 12 Creatinine (0.55-1.02) mg/dL 0.9 Est GFR (CKD-EPI 2020) (mL/min/1.73m2) 63.83 Glucose (74-106) mg/dL 141 H Calcium (8.5-10.1) mg/dL 9.9 Total Bilirubin (0.2-1.0) mg/dL 0.67 AST (15-37) U/L 35 ALT (14-59) U/L 29 Alkaline Phosphatase (46-116) U/L 110 Total Protein (6.4-8.2) g/dL 7.3 Albumin (3.4-5.0) g/dL 3.7 ABO/Rh O Negative Antibody Screen POSITIVE Quality:SDOH Health Related Social Needs: No Data to Display PFSH All Active Problems (Updated 06/05/24 @ 13:13 by Grant Thayer MD) Elevated blood pressure reading (Acute) Acute anterior epistaxis (Acute) Peroneal tendinitis, right leg (Acute) Anterior tibialis tendinitis of left leg (Acute) Hepatomegaly (Acute) Rheumatoid arthritis (Chronic) Anemia (Chronic) Senile osteoporosis (Acute) Hyperlipidemia (Acute) Essential hypertension (Acute) Angina of effort (Acute) Elevated blood pressure reading (Acute) 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) Hiatal hernia (Chronic) Acute chest wall pain (Acute) Systolic murmur (Acute) Ataxia (Acute) Cervical cancer (Acute) COVID-19 (Acute) Pituitary macroadenoma (Acute) Frequent falls (Acute) HTN (hypertension) (Chronic) Neoplasm of unspecified behavior of bone, soft tissue, and skin (Acute) Medical History Uterine cancer Lumbar radiculopathy Diabetes Proximal humerus fracture (10/16/19) Surgical History S/P selective transsphenoidal pituitary adenomectomy History of resection of rib History of hysterectomy Family History Sister Cerebral aneurysm Dementia Mother Diabetes Hypertension Heart disease Social History Smoking/Tobacco Use Status: Never Smoking risk assessment performed?: Yes Alcohol Intake: former Drug use: Never Substance use type: does not use Household members: spouse Housing: other Number of Children: 3 current occupation: Retired Current gender identity: female What is your relationship status?: Panel score (0-1 are the most socially isolated patients): 1 Do you feel safe at home: Yes Do you feel safe in your relationship?: Yes
[2024-06-05] MEDS: hydroCHLOROthiazide 25 MG TAB PO (09:41)
[2024-06-05] MEDS: LORazepam 1 MG TAB PO (09:41)
[2024-06-05] MEDS: Losartan 50 MG TAB PO (09:43)
[2024-06-05] MEDS: Oxymetazolone 0.05% SPRAY 15 ML BTL NS (09:43)
[2024-06-05 09:47] LABS: Abs Immature Grans 0.02 10^3/uL (0.0-0.06); Absolute Basophil Count 0.05 10^3/uL (0.0-0.2); Absolute Eosinophil Count 0.33 10^3/uL (0.0-0.7); Absolute Lymphocyte Count 2.26 10^3/uL (1.2-3.4); Absolute Monocyte Count 0.63 10^3/uL (0.1-0.8); Absolute Neutrophil Count 2.91 10^3/uL (1.2-6.7); Basophils % 0.8 %; Eosinophils % 5.3 %; HCT 47.3 % (36.0-46.0); HGB 16.4 g/dL (11.2-15.7); Immature Grans % 0.3 %; Lymphocytes % 36.5 %; MCH 30.1 pg (27.0-33.0); MCHC 34.7 % (32.0-36.0); MCV 87 fL (80-95); Monocytes % 10.2 %; Neutrophils % 46.9 %; Platelet Count 177 10^3/uL (130-400); RBC 5.44 10^6/uL (3.93-5.22); RDW 12.6 % (11.7-14.6); RDW-SD 39.5 fL
[2024-06-05 10:06] LABS: ALT 29 U/L (14-59); AST 35 U/L (15-37); Albumin 3.7 g/dL (3.4-5.0); Alkaline Phosphatase 110 U/L (46-116); Anion Gap 8.1 mmol/L (3-11); BUN 12 mg/dL (7-18); Bilirubin, Total 0.67 mg/dL (0.2-1.0); CO2 30.9 mmol/L (21.0-32.0); CREATININE 0.9 mg/dL (0.55-1.02); Calcium 9.9 mg/dL (8.5-10.1); Chloride 106 mmol/L (98-107); Estimated GFR 63.83 (mL/min/1.73m2); Glucose 141 mg/dL (74-106); Potassium 3.9 mmol/L (3.5-5.1); Sodium 145 mmol/L (136-145); Total Protein 7.3 g/dL (6.4-8.2)
[2024-06-05] MEDS: Silver Nitrate Stick 1 EACH (11:30)
== END 2024-06-05 13:27 | disposition home or self-care (01) ==
PROVIDERS: Emergency Provider Student in an Organized Health Care Education/Training Program; PCP Family Medicine
DX: R04.0 Epistaxis (principal); I10 Essential (primary) hypertension; E11.9 Type 2 diabetes mellitus without complications; D49.6 Neoplasm of unspecified behavior of brain; Z79.82 Long term (current) use of aspirin
CPT/HCPCS: 30901; 36415; 80053; 86850; 86900; 86901; 99283; 85025; 86870

== ENCOUNTER 2024-09-24 17:36 | Emergency (ER) | payer OTHER, SELFPAY ==
[2024-09-24 17:44] VITALS: BP 151/87; PULSE 76; RESP 14; TEMP 36.4; O2SAT 93
--- NOTE | 2024-09-24 17:45 | DI.RAD_ITS ---
Exam(s) XR CHEST 2V PA LATERAL EXAM: XR CHEST 2V PA LATERAL CLINICAL HISTORY: sob. TECHNIQUE: 2D digital imaging was performed. COMPARISON: CR,XR XR CHEST 2V PA LATERAL from 08/28/[address] CHEST WO from 04/03/2024 FINDINGS: 2 views: Heart size upper normal. Moderate size hiatal hernia again noted. The right lung is clear. There is platelike atelectasis or scarring in the lateral left lung base, u nchanged from 1 year ago. No new infiltrates nor pleural effusions. No pulmonary edema. Degenerative changes again noted in the right shoulder glenohumeral joint and evidence of previous he aled fracture at the left humeral head-neck junction. IMPRESSION: No acute pulmonary findings. Other findings as above. DATA REPOSITORY: RADIATION DOSE DELIVERED:
--- NOTE | 2024-09-24 17:45 | DI.RAD_ITS ---
Exam(s) XR HAND LT COMPLETE EXAM: XR HAND LT COMPLETE CLINICAL HISTORY: left hand pain. TECHNIQUE: 2D digital imaging was performed. COMPARISON: CR,XR XR HAND LT COMPLETE from 10/16/2019 FINDINGS: 3 views No evidence of acute fracture nor dislocation. However, there are significant degenerative changes i n the proximal interphalangeal joints of all the fingers, slightly progressed from 2019. There also degenerative changes in the distal interphalangeal joints again noted. There is relative sparing of the metacarpophalangeal joints. The 1st carpometacarpal joint appears unremarkable. There are signi ficant degenerative changes at these triscaphe joint of the wrist IMPRESSION: No fractures. 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 Mild progression when compared to October 2019. DATA REPOSITORY: RADIATION DOSE DELIVERED:
--- NOTE | 2024-09-24 17:45 | DI.RAD_ITS ---
Exam(s) XR WRIST LT COMPLETE EXAM: XR WRIST LT COMPLETE CLINICAL HISTORY: Left wrist pain. TECHNIQUE: 2D digital imaging was performed. COMPARISON: No exams were available for comparison FINDINGS: 3 views No evidence of acute fracture or dislocation nor significant ulnar variance. Scaphoid and scapholuna te distance are normal but there is significant degenerative change at the triscaphe joint. There ar e no significant degenerative changes at the 1st carpometacarpal joint. Bone density appears age-appropriate and there are no significant osseous lesions. IMPRESSION: No acute fractures. Degenerative changes noted in the lateral aspect of the wrist at the triscaphe j oint DATA REPOSITORY: RADIATION DOSE DELIVERED:
[2024-09-24 17:57] VITALS: RESP 16
--- NOTE | 2024-09-24 17:58 | ED.GENADUL_ITS ---
Discharge Plan Disposition Patient Disposition: Home Discharge Details Clinical Impression: Left wrist sprain Primary Care Provider: Eveline Linton V ED Provider: Daniel Peck Home Meds and New Rx's Prescriptions: Continued pantoprazole 40 mg tablet,delayed release (DR/EC) 40 mg PO BID Qty: 60 12RF nitroglycerin [Nitrostat] 0.4 mg tablet, sublingual 0.4 mg sublingual Q5M PRN (Reason: chest pain) Qty: 30 3RF Rx Instructions: do not exceed 3 doses per episode (DME) miscellaneous medical supply Misc See Rx Instructions .Route Rx Instructions: As directed diazepam 2 mg tablet 2 mg PO DAILY PRN Rx Instructions: TAKE ONE TABLET BY MOUTH 1 HOUR PRIOR TO MRI. REPEAT BEFORE MRI IF NEEDED. losartan 50 mg tablet 50 mg PO DAILY potassium chloride 20 mEq tablet,ER particles/crystals 40 meq PO DAILY betamethasone dipropionate 0.05 % cream 1 applic topical DAILY PRN meclizine 12.5 mg tablet 12.5 mg PO TID PRN Zyrtec 10 MG capsule 10 mg PO PRN PRN Patient Comments: Pt states not taking 05/07/23 hydrochlorothiazide 25 mg tablet 25 mg PO DAILY Patient Comments: TK 1 T PO D aspirin 81 mg Tablet,Delayed Release (Dr/Ec) 81 mg PO DAILY Qty: 30 0RF omega 1-ohj-fke-fish oil 1,000 mg (120 mg-180 mg) Capsule 4,000 mg PO DAILY Qty: 30 0RF ferrous gluconate 324 mg (37.5 mg iron) tablet 1 tab PO DAILY Patient Comments: TAKE ONE TABLET BY MOUTH EVERY DAY levothyroxine 50 mcg tablet 50 mcg PO DAILY Patient Comments: TAKE ONE TABLET BY MOUTH EVERY DAY rosuvastatin 5 mg tablet 5 mg PO DAILY Patient Comments: TAKE ONE TABLET BY MOUTH AT BEDTIME Discharge Instructions Additional Instructions: You were seen in the emergency department for your wrist pain. Your x-ray showed no sign of any fractures. You do not have the flu. You may wear this brace as needed for the next several days. If you have persistent pain please return to the emergency department. If you develop any blue color changes in your left hand please return to the emergency department. For your pain please take medications as follows: 1. Take acetaminophen (Tylenol), 500 mg tabs every 6 hours HPI General Date/Time Provider Initiated Documentation: 09/24/24 17:38 . HPI Narrative: MDM This is an overall well-appearing afebrile and not tachycardic right-hand- dominant female with left hand and wrist tenderness but x-rays negative for any acute osseous abnormalities and presentation most consistent with acute left wrist sprain for which patient will receive removable brace and empiric trial of discharge with expectant outpatient management. Patient has a warm well- perfused left hand and no recent history of PICC lines nor IV drug use and my suspicion for upper extremity DVT is low. Patient is intact sensation and motor function in her left hand so not suspicious for CVA so do not feel the patient requires CT angiogram of her head nor would be a candidate for thrombolytics. Her left hand is warm and well-perfused so not concern for critical limb ischemia so do not feel that the patient requires CT angiogram of her upper extremity. She is not having chest pain to suggest ACS. She did not syncopized to suggest benefit from ECG nor cardiac monitoring. She has had no black or bloody stool to suggest acute GI bleed. She did not hit her head so I did not feel that she required a CT scan of her head. Her vitals on arrival were notable for an oxygen saturation of 93% on room air. She was not tachypneic but given her fall and her nausea I obtained a [id number] COVID swab which was negative for COVID and influenza. Chest x-ray without infiltrate and no signs of pneumothorax. Given that she was ambulatory my suspicion was low for hip fracture so I did not feel she required hip x-ray. She has a soft nontender abdomen, denies abdominal pain so my suspicion was low for appendicitis and diverticulitis I did not feel that she required a CT scan of her abdomen. Furthermore she was quite hydrated and had not been vomiting so I did not feel that she required assessment of her electrolytes nor IV fluid repletion. She was encouraged to continue tolerating p.o. and to follow-up with her primary care provider later this week. We also discussed that if she fell again or could not get up that she should return to the emergency department. HPI This is a [id number] 84-year-old female right emergency department via private vehicle with her in the setting of left wrist and hand pain. Patient reports history of chronic balance issues. She complained that she fell last night. She hit her left hand and wrist. She did not lose consciousness. She did not strike her head. She has been ambulatory since her fall. She does not feel short of breath. She had resolved nausea diarrhea. She has been tolerating p.o. She denies abdominal pain chest pain dysuria and frequency. She has not been vomiting. Exam General: Elderly-appearing in no acute distress speaking in complete sentences. Head: Normocephalic, atraumatic. Eye:[Pupils equal, round reactive to light.] Extraocular eye movements intact. No conjunctival injection. No scleral icterus. Ear, nose, mouth, throat: Grossly normal inspection. Normal voice, handling secretions normally. Neck: Trachea midline. Cardiovascular: Well-perfused distal extremities. Respiratory: Nonlabored respiration. Gastrointestinal: Nondistended abdomen. Musculoskeletal: No edema. Moving all 4 extremities spontaneously. Left upper extremity with mild swelling primarily palmar aspect of the left proximal and ulnar hand. Sensation and motor function intact in the left hand across the radial, median, and ulnar nerve distributions. Left hand warm well-perfused with 2+ left radial pulse. Cap refill less than 2 seconds left fingertips. Patient is able to fully supinate and pronate her left forearm. She has full ability to flex and extend and ulnarly and radially deviate her left wrist. She has a nontender elbow with full range of motion. Nontender left humerus. She can touch her left hand to her contralateral right shoulder. Skin: Normal for age and race, grossly normal temperature and turgor. No acute rash. Neurologic: Alert and appropriate, no apparent acute deficits. GCS 15. Related Data Home Medications ?Medication ?Instructions ?Recorded ?Confirmed cetirizine 10 mg capsule (Zyrtec) 10 mg PO PRN PRN 01/28/15 09/24/24 hydrochlorothiazide 25 mg tablet 25 mg PO DAILY 04/22/20 09/24/24 aspirin 81 mg tablet,delayed 81 mg PO DAILY #30 tabs 10/01/20 09/24/24 release omega 6-yye-nor-fish oil 1,000 mg 4,000 mg PO DAILY #30 caps 10/01/20 09/24/24 (120 mg-180 mg) capsule ferrous gluconate 324 mg (37.5 mg 1 tab PO DAILY 07/07/22 09/24/24 iron) tablet losartan 50 mg tablet 50 mg PO DAILY 11/01/22 09/24/24 levothyroxine 50 mcg tablet 50 mcg PO DAILY 08/29/23 09/24/24 rosuvastatin 5 mg tablet 5 mg PO DAILY 08/29/23 09/24/24 potassium chloride 20 mEq 40 meq PO DAILY 09/06/23 09/24/24 tablet,extended release(part/cryst) nitroglycerin 0.4 mg sublingual 0.4 mg sublingual Q5M PRN chest 09/08/23 09/24/24 tablet (Nitrostat) pain #30 tabs betamethasone dipropionate 0.05 % 1 applic topical DAILY PRN 11/16/23 09/24/24 topical cream meclizine 12.5 mg tablet 12.5 mg PO TID PRN 11/16/23 09/24/24 pantoprazole 40 mg tablet,delayed 40 mg PO BID #60 tabs 01/04/24 09/24/24 release diazepam 2 mg tablet 2 mg PO DAILY PRN 03/12/24 06/05/24 miscellaneous medical supply 03/12/24 06/05/24 Previous Rx's ?Medication ?Instructions ?Recorded aspirin 81 mg tablet,delayed 81 mg PO DAILY #30 tabs 10/01/20 release omega 4-xbq-avm-fish oil 1,000 mg 4,000 mg PO DAILY #30 caps 10/01/20 (120 mg-180 mg) capsule nitroglycerin 0.4 mg sublingual 0.4 mg sublingual Q5M PRN chest 09/08/23 tablet (Nitrostat) pain #30 tabs pantoprazole 40 mg tablet,delayed 40 mg PO BID #60 tabs 01/04/24 release Allergies Allergy/AdvReac Type Severity Reaction Status Date / Time lisinopril AdvReac Intermediate cough Verified 09/24/24 17:48 metoprolol (From Toprol XL) AdvReac Unknown Other (See Verified 09/24/24 17:48 Comment) aspirin AdvReac NAUSEA Verified 09/24/24 17:48 codeine AdvReac vomiting Verified 09/24/24 17:48 morphine AdvReac NAUSEA Verified 09/24/24 17:48 Sulfa (Sulfonamide AdvReac NAUSEA Verified 09/24/24 17:48 Antibiotics) General Stated Complaint: GenMedical ALBINO: 3 Course Vital Signs Vital signs: Vital Signs Temperature 36.4 C L 09/24/24 17:44 Pulse 76 09/24/24 17:44 Respiratory Rate 14 09/24/24 17:44 Blood Pressure 151/87 H 09/24/24 17:44 Pulse Oximetry 93 09/24/24 17:44 Temperature 36.4 C L 09/24/24 17:44 Temperature Source Oral 09/24/24 17:44 Pulse 76 09/24/24 17:44 Respiratory Rate 14 09/24/24 17:44 Blood Pressure 151/87 H 09/24/24 17:44 Blood Pressure Position Sitting 09/24/24 17:44 Pulse Oximetry 93 09/24/24 17:44 Oxygen Delivery Method Room Air 09/24/24 17:44 Oxygen Flow Rate 0 09/24/24 17:44 Pain Level 8 09/24/24 17:44 Medical Decision Making Quality:SDOH Health Related Social Needs: Health related social needs material hardship(utilitie s) (Z59.12), education (Z55.6) PFSH All Active Problems (Updated 09/24/24 @ 19:10 by Daniel Peck MD) Left wrist sprain (Acute) Peroneal tendinitis, right leg (Acute) Anterior tibialis tendinitis of left leg (Acute) Hepatomegaly (Acute) Rheumatoid arthritis (Chronic) Anemia (Chronic) Senile osteoporosis (Acute) Hyperlipidemia (Acute) Essential hypertension (Acute) Angina of effort (Acute) Elevated blood pressure reading (Acute) 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) Hiatal hernia (Chronic) Acute chest wall pain (Acute) Systolic murmur (Acute) Ataxia (Acute) Cervical cancer (Acute) COVID-19 (Acute) Pituitary macroadenoma (Acute) Frequent falls (Acute) HTN (hypertension) (Chronic) Neoplasm of unspecified behavior of bone, soft tissue, and skin (Acute) Medical History Uterine cancer Lumbar radiculopathy Diabetes Proximal humerus fracture (10/16/19) Surgical History S/P selective transsphenoidal pituitary adenomectomy History of resection of rib History of hysterectomy Family History Sister Cerebral aneurysm Dementia Mother Diabetes Hypertension Heart disease Social History Smoking/Tobacco Use Status: Never Smoking risk assessment performed?: Yes Alcohol Intake: never Drug use: Never Substance use type: does not use Household members: spouse Housing: house Number of Children: 3 current occupation: Retired Current gender identity: female What is your relationship status?: Panel score (0-1 are the most socially isolated patients): 1 Do you feel safe at home: Yes Do you feel safe in your relationship?: Yes
[2024-09-24 18:05] VITALS: BP 151/87; PULSE 76; RESP 16; TEMP 36.4; O2SAT 93
[2024-09-24 19:27] VITALS: BP 151/77; PULSE 77; RESP 16; O2SAT 96
[2024-09-24] MEDS: Acetaminophen 500 MG TAB PO (19:27)
--- NOTE | 2024-09-24 19:36 | NUR.NOTE ---
Patient was removed from the tracker and I was attempting to document the L wrist brace that I put on however the nurse already documented it for me.
== END 2024-09-24 19:28 | disposition home or self-care (01) ==
PROVIDERS: Emergency Provider Emergency Medicine; PCP Family Medicine
DX: S63.502A Unspecified sprain of left wrist, initial encounter (principal); E11.9 Type 2 diabetes mellitus without complications; I10 Essential (primary) hypertension; E78.5 Hyperlipidemia, unspecified; W18.39XA Other fall on same level, initial encounter; Y93.89 Activity, other specified; Y92.018 Other place in single-family (private) house as the place of occurrence of the external cause; Z79.82 Long term (current) use of aspirin
CPT/HCPCS: 87426; 99284; 71046; 73110; 73130; 99283

== ENCOUNTER 2024-11-01 22:38 | Emergency (ER) | payer OTHER, SELFPAY ==
[2024-11-01 22:45] VITALS: BP 196/91; PULSE 82; RESP 18; TEMP 36.6; O2SAT 98
[2024-11-01 22:53] VITALS: PULSE 80; RESP 20; O2SAT 98
[2024-11-01 23:00] VITALS: PULSE 75; RESP 18; O2SAT 98
[2024-11-01 23:01] VITALS: BP 167/84; PULSE 73; PULSE 76; RESP 19; O2SAT 97
[2024-11-01] MEDS: Acetaminophen 500 MG TAB 1000 MG PO (23:04)
[2024-11-01] MEDS: Ketorolac 15 MG/ML VIAL IM (23:04)
--- NOTE | 2024-11-01 23:39 | W.ED.GENAD ---
Discharge Plan Disposition Patient Disposition: Home Condition: Good Discharge Details Clinical Impression: Acute hip pain, Fall, Hypertension Primary Care Provider: Eveline Linton V ED Provider: Taylor Cordero Home Meds and New Rx's Prescriptions: Continued pantoprazole 40 mg tablet,delayed release (DR/EC) 40 mg PO BID Qty: 60 12RF nitroglycerin [Nitrostat] 0.4 mg tablet, sublingual 0.4 mg sublingual Q5M PRN (Reason: chest pain) Qty: 30 3RF Rx Instructions: do not exceed 3 doses per episode (DME) miscellaneous medical supply Misc See Rx Instructions .Route Rx Instructions: As directed diazepam 2 mg tablet 2 mg PO DAILY PRN Rx Instructions: TAKE ONE TABLET BY MOUTH 1 HOUR PRIOR TO MRI. REPEAT BEFORE MRI IF NEEDED. losartan 50 mg tablet 50 mg PO DAILY potassium chloride 20 mEq tablet,ER particles/crystals 40 meq PO DAILY betamethasone dipropionate 0.05 % cream 1 applic topical DAILY PRN meclizine 12.5 mg tablet 12.5 mg PO TID PRN Zyrtec 10 MG capsule 10 mg PO PRN PRN Patient Comments: Pt states not taking 05/07/23 hydrochlorothiazide 25 mg tablet 25 mg PO DAILY Patient Comments: TK 1 T PO D aspirin 81 mg Tablet,Delayed Release (Dr/Ec) 81 mg PO DAILY Qty: 30 0RF omega 5-txv-vfb-fish oil 1,000 mg (120 mg-180 mg) Capsule 4,000 mg PO DAILY Qty: 30 0RF ferrous gluconate 324 mg (37.5 mg iron) tablet 1 tab PO DAILY Patient Comments: TAKE ONE TABLET BY MOUTH EVERY DAY levothyroxine 50 mcg tablet 50 mcg PO DAILY Patient Comments: TAKE ONE TABLET BY MOUTH EVERY DAY rosuvastatin 5 mg tablet 5 mg PO DAILY Patient Comments: TAKE ONE TABLET BY MOUTH AT BEDTIME Discharge Instructions Instructions: Managing acute pain at home, Preventing Falls ED Additional Instructions: Tylenol and ibuprofen over the counter for pain; follow the directions on the bottle. Call your primary care doctor to schedule an appointment for within one week to followup on your visit here. At that visit discuss your blood pressure which was high here today, as well as the lesion seen on your leg xray. Return to the emergency department for new or worsening symptoms including new/different/worse pain, inability to walk, or if you have any other concerns. Referrals: Eveline Linton MD [Primary Care Provider] - [facility] General Mode of arrival: ambulatory. Date/Time Provider Initiated Documentation: 11/01/24 22:39. Limitations to Documentation: no limitations. Information obtained by: patient and family. HPI Narrative: 84yo F with hx frequent falls presenting for left hip pain and difficultly walking after a fall. This afternoon around 3pm tripped, lost her balance and fell landing on her left side. No head strike or LOC. Has been able to walk since the event but it is very painful. Has not taken anything for pain. Pain is located primarily in her left hip but also her buttocks and her knee. No numbness or tingling to her LLE. Denies pain or injury elsewhere. Otherwise in her usual state of health with no fevers, chills, rash, nausea, vomiting, headache, vertigo, neck pain, chest pain, shortness of breath, urinary changes, or other concerns. Related Data Home Medications ?Medication ?Instructions ?Recorded ?Confirmed cetirizine 10 mg capsule (Zyrtec) 10 mg PO PRN PRN 01/28/15 11/01/24 hydrochlorothiazide 25 mg tablet 25 mg PO DAILY 04/22/20 11/01/24 aspirin 81 mg tablet,delayed 81 mg PO DAILY #30 tabs 10/01/20 11/01/24 release omega 7-lfe-obd-fish oil 1,000 mg 4,000 mg PO DAILY #30 caps 10/01/20 11/01/24 (120 mg-180 mg) capsule ferrous gluconate 324 mg (37.5 mg 1 tab PO DAILY 07/07/22 11/01/24 iron) tablet losartan 50 mg tablet 50 mg PO DAILY 11/01/22 11/01/24 levothyroxine 50 mcg tablet 50 mcg PO DAILY 08/29/23 11/01/24 rosuvastatin 5 mg tablet 5 mg PO DAILY 08/29/23 11/01/24 potassium chloride 20 mEq 40 meq PO DAILY 09/06/23 11/01/24 tablet,extended release(part/cryst) nitroglycerin 0.4 mg sublingual 0.4 mg sublingual Q5M PRN chest 09/08/23 11/01/24 tablet (Nitrostat) pain #30 tabs betamethasone dipropionate 0.05 % 1 applic topical DAILY PRN 11/16/23 11/01/24 topical cream meclizine 12.5 mg tablet 12.5 mg PO TID PRN 11/16/23 11/01/24 pantoprazole 40 mg tablet,delayed 40 mg PO BID #60 tabs 01/04/24 11/01/24 release diazepam 2 mg tablet 2 mg PO DAILY PRN 03/12/24 11/01/24 miscellaneous medical supply 03/12/24 06/05/24 Previous Rx's ?Medication ?Instructions ?Recorded aspirin 81 mg tablet,delayed 81 mg PO DAILY #30 tabs 10/01/20 release omega 9-kkk-lzs-fish oil 1,000 mg 4,000 mg PO DAILY #30 caps 10/01/20 (120 mg-180 mg) capsule nitroglycerin 0.4 mg sublingual 0.4 mg sublingual Q5M PRN chest 09/08/23 tablet (Nitrostat) pain #30 tabs pantoprazole 40 mg tablet,delayed 40 mg PO BID #60 tabs 01/04/24 release Allergies Allergy/AdvReac Type Severity Reaction Status Date / Time lisinopril AdvReac Intermediate cough Verified 11/01/24 22:52 metoprolol (From Toprol XL) AdvReac Unknown Other (See Verified 11/01/24 22:52 Comment) aspirin AdvReac NAUSEA Verified 11/01/24 22:52 codeine AdvReac vomiting Verified 11/01/24 22:52 morphine AdvReac NAUSEA Verified 11/01/24 22:52 Sulfa (Sulfonamide AdvReac NAUSEA Verified 11/01/24 22:52 Antibiotics) General Stated Complaint: Fall/Non TraumaCriteria ALBINO: 3 Review of Systems Narrative: see HPI Exam Narrative Exam Narrative: GENERAL: Alert, no acute distress. SKIN: Warm and well perfused. HEAD: Atraumatic, normocephalic without edema, discoloration or evidence of trauma. Facial bones without deformities or tenderness. EYES: PERRL. No scleral icterus or conjunctival injection. Extraocular muscles intact without nystagmus or diplopia. MOUTH: No malocclusion or trismus. Moist mucus membranes without blood. NECK: Trachea midline. No discolorations or edema. CV: Regular rate and rhythm, Normal s1 and s2. No murmurs, rubs, or gallops. PV: Radial pulses 2+ bilaterally and symmetric. Dorsalis pedis pulses 2+ bilaterally and symmetric. 2+ capillary refill. No extremity edema. CHEST: No abrasions or ecchymosis. Chest symmetric with respirations. No chest wall tenderness. Lungs are clear to auscultation bilaterally. ABDOMEN: No ecchymosis or abrasions. Soft, nondistended, nontender. BACK: No abrasions, skin openings, or ecchymosis. Spine without bony tenderness, no step offs. PELVIC: Pelvis stable, nontender to lateral compression. Left hip and proximal femur TTP. MSK: No gross deformities. Abrasion to left styles Pain with passive ROM at left hip, otherwise tolerates full range of motion of extremities without tenderness. No left knee tenderness, swelling, or pain with ROM. NEURO: Alert and oriented to person, place, and time. GCS 15. Sensation intact throughout LLE. Course Vital Signs Vital signs: Vital Signs Temperature 36.6 C 11/01/24 22:45 Pulse 82 11/01/24 22:45 Respiratory Rate 18 11/01/24 22:45 Blood Pressure 196/91 H 11/01/24 22:45 Pulse Oximetry 98 11/01/24 22:45 Temperature 36.6 C 11/01/24 22:45 Temperature Source Temporal Artery Scan 11/01/24 22:45 Pulse 82 11/01/24 22:45 Respiratory Rate 18 11/01/24 22:45 Blood Pressure 196/91 H 11/01/24 22:45 Blood Pressure Position Supine 11/01/24 22:45 Pulse Oximetry 98 11/01/24 22:45 Oxygen Delivery Method Room Air 11/01/24 22:45 Oxygen Flow Rate 0 11/01/24 22:45 Pain Level 10 11/01/24 22:49 Medical Decision Making 84yo F with hx frequent falls presenting for left hip pain and difficultly walking after a mechanical fall from standing at around 3pm. Able to walk since the event but very painful. Hypertensive on arrival, vital signs otherwise reassuring. On exam, left hip and proximal femur TTP. Left leg held in normal position. Will give tylenol and toradol here for pain and given age warrants imaging. With no head strike and reassuring physical and neurologic exam, no indication for head/neck imaging or labs. CT pelvis independently reviewed, no displaced fracture on my view, radiology read with no acute findings XR left femur independently reviewed, no displaced fracture or dislocation on my view, radiology read with no fracture (suggestion of lucent lesion as described below). On reassessment patient reports feeling much improved. Pain is still present but is tolerable. Ambulated in department steadily independently without severe pain. Repeat VS reassuring with improved BP (suspect initial 2/t pain). Advised symptomatic treatment at home and PCP followup; instructed to discuss her hypertension and the lucency on her XR with her PCP. Discharged home; discharge instructions and return precautions were reviewed with patient who verbalized understanding. All questions were answered and she is in full agreement with the plan. Imaging Data Radiologic Study: Imaging: X-Ray and CT Scan Radiologist's impression: CT: IMPRESSION: No acute findings XR: IMPRESSION: There is suggestion of smooth erosion versus lucent lesion along the inner cortex of the posterior aspect of the proximal diaphysis of the femur which is indeterminate and most likely benign; however, consider CT scan for more definitive characterization. No acute fracture. Quality:SDOH Health Related Social Needs: Health related social needs material hardship(utilities) (Z59.12), education (Z55.6) PFSH All Active Problems (Updated 11/02/24 @ 01:46 by Taylor Cordero MD) Hypertension (Chronic) Fall (Acute) Acute hip pain (Acute) Peroneal tendinitis, right leg (Acute) Anterior tibialis tendinitis of left leg (Acute) Hepatomegaly (Acute) Rheumatoid arthritis (Chronic) Anemia (Chronic) Senile osteoporosis (Acute) Hyperlipidemia (Acute) Essential hypertension (Acute) Angina of effort (Acute) Elevated blood pressure reading (Acute) 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) Hiatal hernia (Chronic) Acute chest wall pain (Acute) Systolic murmur (Acute) Ataxia (Acute) Cervical cancer (Acute) COVID-19 (Acute) Pituitary macroadenoma (Acute) Frequent falls (Acute) HTN (hypertension) (Chronic) Neoplasm of unspecified behavior of bone, soft tissue, and skin (Acute) Medical History Uterine cancer Lumbar radiculopathy Diabetes Proximal humerus fracture (10/16/19) Surgical History S/P selective transsphenoidal pituitary adenomectomy History of resection of rib History of hysterectomy Family History Sister Cerebral aneurysm Dementia Mother Diabetes Hypertension Heart disease Social History Smoking/Tobacco Use Status: Never Smoking risk assessment performed?: Yes Alcohol Intake: never Drug use: Never Substance use type: does not use Household members: spouse Housing: house Number of Children: 3 current occupation: Retired Current gender identity: female What is your relationship status?: Panel score (0-1 are the most socially isolated patients): 1 Do you feel safe at home: Yes Do you feel safe in your relationship?: Yes
--- NOTE | 2024-11-01 23:40 | DI.RAD_ITS ---
Exam(s) XR FEMUR LT EXAM: XR FEMUR LT CLINICAL HISTORY: fall, left hip pain, proximal femoral tenderness. TECHNIQUE: 2D digital imaging was performed. COMPARISON: CR XR FEMUR LT from 10/18/2019 FINDINGS: 3 views No evidence left hip fracture nor fracture lower down in the femur and there are minimal if any degen erative changes in the hip joint. Incidentally noted is a eccentric lucent bone lesion in the patternmaker plaster ior aspect of the proximal diaphysis of the femur, best seen on the lateral view. IMPRESSION: No hip nor femur fracture evident. Possible bone lesion in the femur as described above. DATA REPOSITORY: RADIATION DOSE DELIVERED:
--- NOTE | 2024-11-01 23:40 | DI.CT_ITS ---
Exam(s) CT PELVIC WO EXAM: CT PELVIC WO CLINICAL HISTORY: fall, left hip/pelvis pain, difficulty ambulating. TECHNIQUE: Imaging Protocol: Axial computed tomography images with coronal and sagittal reformatted images were created and reviewed CONTRAST MATERIAL: Intravenous: none COMPARISON: CR,XR XR FEMUR LT from 11/01/2024 FINDING: PELVIS: OSSEOUS: No pelvic nor hip fractures evident.No pubic rami fractures. No sacral fracture identified. SI joints unremarkable. Unfortunately, the images not extend caudally enough to include the area of incidental finding-possib le bone lesion seen in the femur on the femur x-ray done earlier same date. There are no significant bone lesions evident in the bones of the pelvis nor in the sacrum. There is mild degenerative anter olisthesis of L5 upon S1 noted, this related to facet arthropathy at this level. There are no pars d efects at L5 level. ANTERIOR ABDOMINAL WALL/GI:No evidence of significant anterior abdominal wall hernias evident.No obvi ous bowel obstruction. No evidence of appendicitis.No evidence of sigmoid diverticular disease.. LYMPH NODES: There is no intrapelvic adenopathy. Shoddy benign-appearing lymph nodes are noted in adela th inguinal regions. URINARY BLADDER: No calculi nor obvious masses evident REPRODUCTIVE: The uterus is surgically absent. There are no abnormal adnexal masses. No free fluid in the pelvis. IMPRESSION: 1. No acute osseous findings in the pelvis and hips. 2. Please note that the CT images do not extend caudally enough to cover the area at described in the diaphysis of the femur on femur x-ray performed earlier same date. There is possible bone lesion at this level seen on plain films. If clinically indicated follow-up CT and/or MRI of the femur can be performed 3. Prior hysterectomy. No abnormal adnexal masses and no free fluid evident in the pelvis. RADIATION DOSE DELIVERED: 189.56mGy.cm Total DLP DATA REPOSITORY: All CT scans at this facility are submitted to the National Radiology Data Registry (NRDR) Dose Index Registry (DIR) with the [employer] (ACR). RADIATION OPTIMIZATION: All CT scans at this facility use at least one of these dose optimization te chniques: automated exposure control; mA and/or kV adjustment per patient size (includes targeted exa ms where dose is matched to clinical indication); or iterative reconstruction.
[2024-11-02] VITALS (18 sets, daily range): BP systolic 131–156; BP diastolic 68–82; PULSE 57–66; RESP 19; O2SAT 92–97
--- NOTE | 2024-11-02 00:53 | DI.VRAD_ITS ---
PROCEDURE INFORMATION: Exam: XR Left Femur Exam date and time: 11/01/2024 11:18 PM Age: 84 years old Clinical indication: Injury or trauma; Blunt trauma; Injury date: 11/01/24; Fall, left hip pain, proximal femoral tenderness TECHNIQUE: Imaging protocol: Radiologic exam of the left femur. Views: 2 views. COMPARISON: CR XR FEMUR LT 10/18/2019 11:51 AM FINDINGS: Bones/joints: There is suggestion of smooth erosion versus lucent lesion along the inner cortex of the posterior aspect of the proximal diaphysis of the femur which is indeterminate and most likely benign; however, consider CT scan for more definitive characterization. No acute fracture. Soft tissues: Unremarkable. IMPRESSION: There is suggestion of smooth erosion versus lucent lesion along the inner cortex of the posterior aspect of the proximal diaphysis of the femur which is indeterminate and most likely benign; however, consider CT scan for more definitive characterization. No acute fracture. Dictated and Authenticated by: Ricardo Pitt MD. Orderin Gil Vazquez MD
--- NOTE | 2024-11-02 00:58 | DI.VRAD_ITS ---
PROCEDURE INFORMATION: Exam: CT Pelvis Without Contrast, Skeleton Exam date and time: 11/01/2024 11:30 PM Age: 84 years old Clinical indication: Injury or trauma; Blunt trauma (contusions or hematomas); Injury date: 11/01/24; Fall, left hip/pelvis pain, difficulty ambulating TECHNIQUE: Imaging protocol: Computed tomography of the pelvis without contrast. Exam focused on the skeleton. Radiation optimization: All CT scans at this facility use at least one of these dose optimization techniques: automated exposure control; mA and/or kV adjustment per patient size (includes targeted exams where dose is matched to clinical indication); or iterative reconstruction. COMPARISON: CT RENAL COLIC WO 04/22/2020 3:27 AM FINDINGS: Reproductive: Hysterectomy. Bones/joints: Unremarkable. No acute fracture. No dislocation. Soft tissues: Unremarkable. IMPRESSION: No acute findings. Dictated and Authenticated by: Ricardo Pitt MD. Orderin Gil Vazquez MD
== END 2024-11-02 02:14 | disposition home or self-care (01) ==
PROVIDERS: Emergency Provider Student in an Organized Health Care Education/Training Program; PCP Family Medicine
DX: M25.552 Pain in left hip (principal); E11.9 Type 2 diabetes mellitus without complications; I10 Essential (primary) hypertension; E78.5 Hyperlipidemia, unspecified; Z79.82 Long term (current) use of aspirin; Z79.899 Other long term (current) drug therapy; W01.0XXA Fall on same level from slipping, tripping and stumbling without subsequent striking against object, initial encounter; Y93.01 Activity, walking, marching and hiking; Y92.481 Parking lot as the place of occurrence of the external cause
CPT/HCPCS: 73552; 96372; 99284; 72192; J1885

== ENCOUNTER 2025-01-26 11:31 | Emergency (ER) | payer OTHER, SELFPAY ==
[2025-01-26 11:38] VITALS: BP 149/83; PULSE 67; RESP 18; TEMP 36.6; O2SAT 93
--- NOTE | 2025-01-26 12:15 | DI.CT_ITS ---
Exam(s) CT CHEST/ABD/PEL W EXAM: CT CHEST/ABD/PEL W CLINICAL HISTORY: fall, syncope, hit head and left flank TECHNIQUE: Imaging Protocol: Axial computed tomography images with coronal and sagittal reformatted images were created and reviewed. Lung Computer Aided Detection (CAD) was utilized. CONTRAST MATERIAL: Intravenous: Omnipaque 350 contrast volume:100 mL Oral: No COMPARISON: CT CT CHEST/ABD/PEL W from 12/27/2018 FINDINGS: CHEST: Tracheobronchial tree: Patent where visualized. No evidence of bronchiectasis. Pulmonary parenchyma: No consolidation or dominant measurable mass. There is a stable nodule in the medial aspect of the left lower lobe measuring 1 cm. There is atelectasis seen in the lung base. There is also scarring seen in the lung bases bilaterally. Visualized thyroid gland: There is a tiny less than 5 mm nodule in the right thyroid gland. No follow-up is recommended. Mediastinum and Halina: No dominant adenopathy or fluid collection. The esophagus is unremarkable. There is a large hiatal hernia. Pleura: No effusion or pneumothorax. Heart: The heart is not dilated. Coronary artery calcifications are present. No pericardial effusion. Pulmonary arteries: No pulmonary emboli are identified. Aorta: Thoracic aorta non-dilated. Atherosclerotic calcification is present. There is no evidence of dissection. Lymph nodes: Within normal limits. Soft tissues: Unremarkable. Bones:Within normal limits for the patient's age. ABDOMEN: Liver: Normal density. No measurable mass. There are simple hepatic cysts present. Portal, Superior Mesenteric, and Splenic Veins: Unremarkable. Gallbladder and Biliary Tract: No radiodense calculus or dilation. Pancreas: Normal density, no abnormal calcifications or inflammatory process. Spleen: Normal. Adrenals: No masses seen. Kidneys: Normal size, contour and axis. No radiodense stones or obstructive uropathy. There are bilateral simple renal cysts. No follow-up is recommended. Abdominal Aorta: Abdominal portion non-dilated. Atherosclerotic calcification is present. Bowel: There are few sigmoid diverticula but no evidence of acute diverticulitis. There is no evidence of bowel obstruction or bowel wall thickening. There is no evidence of appendicitis. Peritoneal Cavity: No ascites, collection or mesenteric inflammatory response. No free air. Lymph Nodes: Within normal limits. Bones: Within normal limits for the patient's age. No displaced rib fractures are identified. No definite acute thoracic or lumbar spine fractures are seen. Soft Tissues: Unremarkable. PELVIS: Bladder: Symmetric distention, no gross wall thickening. Reproductive Organs: Status post hysterectomy. Lymph Nodes: Within normal limits. Bones: Within normal limits. IMPRESSION: 1. No acute abdominal or pelvic process. 2. No acute pulmonary process. RADIATION DOSE DELIVERED: 367.9mGy.cm Total DLP DATA REPOSITORY: All CT scans at this facility are submitted to the National Radiology Data Registry (NRDR) Dose Index Registry (DIR) with the [employer] (ACR). RADIATION OPTIMIZATION: All CT scans at this facility use at least one of these dose optimization techniques: automated exposure control; mA and/or kV adjustment per patient size (includes targeted exams where dose is matched to clinical indication); or iterative reconstruction.
--- NOTE | 2025-01-26 12:15 | RT.EKG_ITS ---
APPROVED REPORT Exam: Resting ECG Reason for Exam: syncope Patient Location: E HR:72 bpm ECG Measurements Heart Rate 72 AXIS IN 222 P -31 QRSd 86 QRS -86 QT 413 T 27 QTc 453 Conclusion Sinus rhythm...normal P axis, V-rate 60- 99 Prolonged IN interval...IN >220, V-rate 50- 90 Low voltage, extremity leads...all extremity leads <0.5mV I have reviewed and interpreted ECG and agree with software generated interpretation.
--- NOTE | 2025-01-26 12:15 | DI.CT_ITS ---
Exam(s) CT HEAD CERVICAL SPINE WO EXAM: CT HEAD CERVICAL SPINE WO CLINICAL HISTORY: fall, syncope, hit head and left flank. TECHNIQUE: Imaging Protocol: Axial computed tomography images with coronal and sagittal reformatted images were created and reviewed COMPARISON: CT CT HEAD CERV SPINE FACIAL WO from 04/03/2024 FINDINGS: CT Head: Ventricles and Extra axial spaces: Normal in size and morphology for the patient's age. Hemorrhage: None. Cerebral parenchyma: There are areas of decreased attenuation in the white matter consistent with chronic microvascular ischemic disease. There is no evidence to suggest an acute territorial infarct is seen. Midline shift: None. Brainstem/Cerebellum: Normal. Calvarium: Normal. Visualized Paranasal sinuses/Mastoids: There is mild mucosal thickening in the maxillary sinuses bilaterally. The remaining visualized paranasal sinuses are clear. Soft Tissues: Unremarkable. CT Cervical Spine: Bones: No acute fracture or subluxation. Soft Tissues: Unremarkable. Lung Apices: Clear. IMPRESSION: 1. No acute intracranial process. 2. No acute fracture or subluxation in the cervical spine. RADIATION DOSE DELIVERED: 1,096.91mGy.cm Total DLP DATA REPOSITORY: All CT scans at this facility are submitted to the National Radiology Data Registry (NRDR) Dose Index Registry (DIR) with the [employer] (ACR). RADIATION OPTIMIZATION: All CT scans at this facility use at least one of these dose optimization techniques: automated exposure control; mA and/or kV adjustment per patient size (includes targeted exams where dose is matched to clinical indication); or iterative reconstruction.
[2025-01-26 12:38] VITALS: BP 165/93; PULSE 79; TEMP 35.9; O2SAT 97
[2025-01-26] MEDS: Normal Saline 500 ML IV (12:45)
[2025-01-26 12:55] LABS: Abs Immature Grans 0.02 10^3/uL (0.0-0.06); Absolute Basophil Count 0.03 10^3/uL (0.0-0.2); Absolute Eosinophil Count 0.23 10^3/uL (0.0-0.7); Absolute Lymphocyte Count 2.33 10^3/uL (1.2-3.4); Absolute Monocyte Count 0.53 10^3/uL (0.1-0.8); Absolute Neutrophil Count 2.27 10^3/uL (1.2-6.7); Basophils % 0.6 %; Eosinophils % 4.3 %; HCT 45.5 % (36.0-46.0); HGB 15.2 g/dL (11.2-15.7); Immature Grans % 0.4 %; Lymphocytes % 43.1 %; MCH 29.2 pg (27.0-33.0); MCHC 33.4 % (32.0-36.0); MCV 87 fL (80-95); MPV 9.8 fL (8.0-11.0); Monocytes % 9.8 %; Neutrophils % 41.8 %; Platelet Count 201 10^3/uL (130-400); RBC 5.21 10^6/uL (3.93-5.22); RDW 12.3 % (11.7-14.6); RDW-SD 39.1 fL; WBC 5.41 10^3/uL (4.4-10.8)
[2025-01-26 13:16] LABS: ALT 36 U/L (14-59); AST 30 U/L (15-37); Albumin 3.6 g/dL (3.4-5.0); Alkaline Phosphatase 96 U/L (46-116); Anion Gap 8.3 mmol/L (3-11); BUN 24 mg/dL (7-18); Bilirubin, Total 0.5 mg/dL (0.2-1.0); CO2 30.7 mmol/L (21.0-32.0); CREATININE 1.3 mg/dL (0.55-1.02); Calcium 9.4 mg/dL (8.5-10.1); Chloride 103 mmol/L (98-107); Estimated GFR 41.06 (mL/min/1.73m2); Glucose 147 mg/dL (74-106); Potassium 3.7 mmol/L (3.5-5.1); Sodium 142 mmol/L (136-145); Troponin I 5 ng/L (<or=51)
[2025-01-26 13:23] LABS: PTT Activated 25.2 sec (20.6-30.2); Prothrombin Time 10.1 sec (9.1-11.1)
[2025-01-26 14:28] VITALS: BP 181/71; PULSE 65; RESP 20; TEMP 36.9; O2SAT 98
[2025-01-26 14:58] LABS: Troponin I 6 ng/L (<or=51)
[2025-01-26] MEDS: Normal Saline - Diluent 50 ML VIAL IJ (15:02)
[2025-01-26] MEDS: Omnipaque 350 MG/ML 100 ML BTL IJ (15:04)
--- NOTE | 2025-01-26 15:09 | W.ED.GENAD ---
Discharge Plan Disposition Patient Disposition: Home Condition: Good Discharge Details Clinical Impression: Contusion of rib on left side Primary Care Provider: Eveline Linton V ED Provider: Chris Moore Home Meds and New Rx's Prescriptions: New lidocaine [Lidoderm] 5 % adhesive patch,medicated 1 patch Topical Q24H Qty: 15 0RF No Action pantoprazole 40 mg tablet,delayed release (DR/EC) 40 mg PO BID Qty: 60 12RF nitroglycerin [Nitrostat] 0.4 mg tablet, sublingual 0.4 mg sublingual Q5M PRN (Reason: chest pain) Qty: 30 3RF Rx Instructions: do not exceed 3 doses per episode (DME) miscellaneous medical supply Misc See Rx Instructions .Route Rx Instructions: As directed diazepam 2 mg tablet 2 mg PO DAILY PRN Rx Instructions: TAKE ONE TABLET BY MOUTH 1 HOUR PRIOR TO MRI. REPEAT BEFORE MRI IF NEEDED. losartan 50 mg tablet 50 mg PO DAILY potassium chloride 20 mEq tablet,ER particles/crystals 40 meq PO DAILY betamethasone dipropionate 0.05 % cream 1 applic topical DAILY PRN meclizine 12.5 mg tablet 12.5 mg PO TID PRN Zyrtec 10 MG capsule 10 mg PO PRN PRN Patient Comments: Pt states not taking 05/07/23 hydrochlorothiazide 25 mg tablet 25 mg PO DAILY Patient Comments: TK 1 T PO D aspirin 81 mg Tablet,Delayed Release (Dr/Ec) 81 mg PO DAILY Qty: 30 0RF omega 0-xhp-wtu-fish oil 1,000 mg (120 mg-180 mg) Capsule 4,000 mg PO DAILY Qty: 30 0RF ferrous gluconate 324 mg (37.5 mg iron) tablet 1 tab PO DAILY Patient Comments: TAKE ONE TABLET BY MOUTH EVERY DAY levothyroxine 50 mcg tablet 50 mcg PO DAILY Patient Comments: TAKE ONE TABLET BY MOUTH EVERY DAY rosuvastatin 5 mg tablet 5 mg PO DAILY Patient Comments: TAKE ONE TABLET BY MOUTH AT BEDTIME Discharge Instructions Instructions: How to Use an Incentive Spirometer, Bruised Rib Additional Instructions: At this time your CAT scan showed no evidence of bleed or fracture in your brain, or fracture or significant abnormality in your lungs or ribs. However I am concerned that you may have a small fracture and at the very least a notable bruise or contusion over your left ribs. Please take Tylenol as needed for pain, the maximum dose is 1000 mg every 6 hours. Please apply 1-2 Lidoderm patches to your left ribs every day to help mitigate the pain. The literature now suggest that a rib binder can still be helpful if you are using your incentive spirometer. Please use the insert sent to spirometer as directed to help mitigate the likelihood of pneumonia. Please use it for 15 minutes every 2-3 hours throughout the day. If your symptoms do not improve or worsen, you may be a candidate for an anesthetic rib block. Please not hesitate to return for further discussion of this or follow-up closely with your primary care provider for further discussion. If you notice any worsening of your symptoms, or any new symptoms such as vomiting, diarrhea, fever, chills, shortness of breath, chest pain, numbness, weakness, or fainting , please return immediately to the emergency department for reevaluation. Please follow up with your primary care provider as soon as possible for reassessment and reevaluation. As always, it was a pleasure participating in your medical care today. Referrals: Eveline Linton MD [Primary Care Provider, Medicine] HPI General Date/Time Provider Initiated Documentation: 01/26/25 12:15. HPI Narrative: This is an 84-year-old female with past medical history of hypertension, high cholesterol, pituitary macroadenoma, previous stroke, on aspirin but no other anticoagulant, who presents today after a fall. Patient states that 2 days ago she got up during the evening, was walking through her kitchen and then syncopized. She landed with her left ribs onto a knee wall. She had immediate pain when she hit the wall with the ribs in the left flank and left chest. She does not know how, but she eventually made it back to bed, and has been having pain ever since. Pain is present in the left ribs when she breathes. It is worse with movement or palpation. She denies any relieving factors in particular. She denies any vomiting or diarrhea. She does not have any headache or neck pain. She denies any fever or chills. She denies any vision changes. No other complaints at this time. No other modifying factors. Related Data Home Medications ?Medication ?Instructions ?Recorded ?Confirmed cetirizine 10 mg capsule (Zyrtec) 10 mg PO PRN PRN 01/28/15 01/26/25 hydrochlorothiazide 25 mg tablet 25 mg PO DAILY 04/22/20 01/26/25 aspirin 81 mg tablet,delayed 81 mg PO DAILY #30 tabs 10/01/20 01/26/25 release omega 2-nzx-uyo-fish oil 1,000 mg 4,000 mg PO DAILY #30 caps 10/01/20 01/26/25 (120 mg-180 mg) capsule ferrous gluconate 324 mg (37.5 mg 1 tab PO DAILY 07/07/22 01/26/25 iron) tablet losartan 50 mg tablet 50 mg PO DAILY 11/01/22 01/26/25 levothyroxine 50 mcg tablet 50 mcg PO DAILY 08/29/23 01/26/25 rosuvastatin 5 mg tablet 5 mg PO DAILY 08/29/23 01/26/25 potassium chloride 20 mEq 40 meq PO DAILY 09/06/23 01/26/25 tablet,extended release(part/cryst) nitroglycerin 0.4 mg sublingual 0.4 mg sublingual Q5M PRN chest 09/08/23 01/26/25 tablet (Nitrostat) pain #30 tabs betamethasone dipropionate 0.05 % 1 applic topical DAILY PRN 11/16/23 01/26/25 topical cream meclizine 12.5 mg tablet 12.5 mg PO TID PRN 11/16/23 01/26/25 pantoprazole 40 mg tablet,delayed 40 mg PO BID #60 tabs 01/04/24 01/26/25 release diazepam 2 mg tablet 2 mg PO DAILY PRN 03/12/24 01/26/25 miscellaneous medical supply 03/12/24 06/05/24 lidocaine 5 % topical patch 1 patch topical Q24H #15 ea 01/26/25 (Lidoderm) Previous Rx's ?Medication ?Instructions ?Recorded aspirin 81 mg tablet,delayed 81 mg PO DAILY #30 tabs 10/01/20 release omega 3-dvx-qbr-fish oil 1,000 mg 4,000 mg PO DAILY #30 caps 10/01/20 (120 mg-180 mg) capsule nitroglycerin 0.4 mg sublingual 0.4 mg sublingual Q5M PRN chest 09/08/23 tablet (Nitrostat) pain #30 tabs pantoprazole 40 mg tablet,delayed 40 mg PO BID #60 tabs 01/04/24 release lidocaine 5 % topical patch 1 patch topical Q24H #15 ea 01/26/25 (Lidoderm) Allergies Allergy/AdvReac Type Severity Reaction Status Date / Time lisinopril AdvReac Intermediate cough Verified 01/26/25 11:46 metoprolol (From Toprol XL) AdvReac Unknown Other (See Verified 01/26/25 11:46 Comment) aspirin AdvReac NAUSEA Verified 01/26/25 11:46 codeine AdvReac vomiting Verified 01/26/25 11:46 morphine AdvReac NAUSEA Verified 01/26/25 11:46 Sulfa (Sulfonamide AdvReac NAUSEA Verified 01/26/25 11:46 Antibiotics) General Stated Complaint: Fall/Non TraumaCriteria ALBINO: 3 Exam Narrative Exam Narrative: 1.Const: Well-nourished, Well-developed, appearing stated age 2.Eyes: PERRL, no conjunctival injection, and symmetrical lids. 3.ENT: Atraumatic external nose and ears. Moist MM. Neck: Symmetric, trachea midline, No thyromegaly. There is no evidence of raccoon eyes, lo sign, CSF rhinorrhea, mastoid tenderness, cranial crepitus, hemotympanum, exophthalmos, or hyphema. Patient demonstrates intact dentition with no signs of tooth avulsion or fracture, no signs of jaw deformity, no evidence of a LeFort's fracture, with an intact palate, nose and orbital region. There is no evidence of a nasal septal hematoma. No proptosis. Jaw closes symmetrically. Airway is clear. 4.CVS: +S1/S2, Peripheral pulses 2+ and equal in all extremities. Brisk capillary refill in all extremities. 5.RESP: Unlabored respiratory effort. Clear to auscultation bilaterally. No wheezes rales or rhonchi. Notable tenderness on the left lateral lower ribs. No tenderness on the right-hand side. 6.GI: Soft, Nontender/Nondistended, No hepatosplenomegaly. No guarding or rebound. 7.MSK: Normocephalic/Atraumatic, Extremities w/o deformity or ttp No cyanosis or clubbing, Normal movement of all extremities. No midline cervical thoracic or lumbar spine tenderness. 8.Skin: Warm, Dry. No rashes or lesions. 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 Sensation grossly intact, no focal neurologic deficits. 10.Psych: (AAO) x3. Appropriate mood and affect Course Vital Signs Vital signs: Vital Signs Temperature 36.6 C 01/26/25 11:38 Pulse 67 01/26/25 11:38 Respiratory Rate 18 01/26/25 11:38 Blood Pressure 149/83 H 01/26/25 11:38 Pulse Oximetry 93 01/26/25 11:38 Temperature 36.9 C 01/26/25 14:28 Temperature Source Oral 01/26/25 14:28 Pulse 65 01/26/25 14:28 Pulse Rhythm Regular 01/26/25 14:28 Pulse Strength Normal 01/26/25 14:28 Respiratory Rate 20 01/26/25 14:28 Respiratory Effort Normal 01/26/25 14:28 Respiratory Depth Normal 01/26/25 14:28 Respiratory Pattern Normal 01/26/25 14:28 Blood Pressure 181/71 H 01/26/25 14:28 Blood Pressure Mean 107 01/26/25 14:28 Blood Pressure Position Supine 01/26/25 14:28 Pulse Oximetry 98 01/26/25 14:28 Oxygen Delivery Method Room Air 01/26/25 14:28 Oxygen Flow Rate 0 01/26/25 14:28 Pain Level 10 01/26/25 14:28 Lab/Test Results Lab/Test Results: Laboratory Tests Range/Units 01/26/25 01/26/25 01/26/25 12:42 12:42 14:10 WBC (4.4-10.8) 10^3/uL 5.41 RBC (3.93-5.22) 10^6/uL 5.21 Hgb (11.2-15.7) g/dL 15.2 Hct (36.0-46.0) % 45.5 MCV (80-95) fL 87 MCH (27.0-33.0) pg 29.2 MCHC (32.0-36.0) % 33.4 RDW (11.7-14.6) % 12.3 Plt Count (130-400) 10^3/uL 201 MPV (8.0-11.0) fL 9.8 Immature Gran % % 0.4 Neutrophils % % 41.8 Lymphocytes % % 43.1 Monocytes % % 9.8 Eosinophils % % 4.3 Basophils % % 0.6 Nucleated RBC % (0.0-0.3) % 0.0 Absolute Neutrophils (1.2-6.7) 10^3/uL 2.27 Absolute Lymphocytes (1.2-3.4) 10^3/uL 2.33 Absolute Monocytes (0.1-0.8) 10^3/uL 0.53 Absolute Eosinophils (0.0-0.7) 10^3/uL 0.23 Absolute Basophils (0.0-0.2) 10^3/uL 0.03 PT (9.1-11.1) sec 10.1 INR (0.9-1.1) 1.0 APTT (20.6-30.2) sec 25.2 Sodium (136-145) mmol/L 142 Potassium (3.5-5.1) mmol/L 3.7 Chloride (98-107) mmol/L 103 Carbon Dioxide (21.0-32.0) mmol/L 30.7 Anion Gap (3-11) mmol/L 8.3 BUN (7-18) mg/dL 24 H Creatinine (0.55-1.02) mg/dL 1.3 H Est GFR (CKD-EPI 2020) (mL/min/1.73m2) 41.06 Glucose (74-106) mg/dL 147 H Calcium (8.5-10.1) mg/dL 9.4 Total Bilirubin (0.2-1.0) mg/dL 0.5 AST (15-37) U/L 30 ALT (14-59) U/L 36 Alkaline Phosphatase (46-116) U/L 96 Troponin I (<or=51) ng/L 5 Cancelled 6 Total Protein (6.4-8.2) g/dL 7.0 Albumin (3.4-5.0) g/dL 3.6 Medical Decision Making This is an 84-year-old female with past medical history of hypertension, high cholesterol, pituitary macroadenoma, previous stroke, on aspirin but no other anticoagulant, who presents today after a fall. Patient states that 2 days ago she got up during the evening, was walking through her kitchen and then syncopized. She landed with her left ribs onto a knee wall. She had immediate pain when she hit the wall with the ribs in the left flank and left chest. She does not know how, but she eventually made it back to bed, and has been having pain ever since. Pain is present in the left ribs when she breathes. It is worse with movement or palpation. She denies any relieving factors in particular. She denies any vomiting or diarrhea. She does not have any headache or neck pain. She denies any fever or chills. She denies any vision changes. No other complaints at this time. No other modifying factors. Exam demonstrates a well-appearing female, tenderness in the left lateral chest wall where she fell, no bruising. She does not have any abdominal tenderness. No guarding or rebound in the abdomen. Concern for rib fracture, less likely pneumothorax. She has no signs of cranial trauma, however because of her history we will get CT imaging of the head neck and chest. Will monitor closely and reassess. She declines anything for pain. Additionally will evaluate for electrolyte abnormality or cardiac abnormality secondary to the syncope event. 4:[address] scan of the head neck chest abdomen pelvis demonstrates no evidence of acute trauma, no rib fractures, no pneumothorax. EKG benign, electrolytes and troponin normal. Mild dehydration, patient was rehydrated with a 500 cc bolus. She tolerated this well. Platelets normal, white count normal. Symptoms consistent with small nonradiographic rib fracture versus rib contusion. Symptoms inconsistent with ACS. Lidoderm patches x 2 were applied, Tylenol was given, patient will be given an incentive spirometer for home use, recommend continued outpatient NSAID therapy, Lidoderm patches, and rib binder as needed. Discussed red flags for which to return, discussed the importance of incentive spirometry. I have extensively reviewed the treatment plan and discharge instructions with the patient and their family. I have addressed all patient concerns at this time. The patient and family was made aware of what symptoms to monitor for that would warrant a return to the emergency department. Discussed the plan with the patient and family, they demonstrate verbal understanding and agreement with our assessment and plan at this time. The documentation in this chart was dictated using [employer] dictation software. Please excuse any dictation errors. FINDINGS: CHEST: Tracheobronchial tree: Patent where visualized. No evidence of bronchiectasis. Pulmonary parenchyma: No consolidation or dominant measurable mass. There is a stable nodule in the medial aspect of the left lower lobe measuring 1 cm. There is atelectasis seen in the lung base. There is also scarring seen in the lung bases bilaterally. Visualized thyroid gland: There is a tiny less than 5 mm nodule in the right thyroid gland. No follow-up is recommended. Mediastinum and Halina: No dominant adenopathy or fluid collection. The esophagus is unremarkable. There is a large hiatal hernia. Pleura: No effusion or pneumothorax. Heart: The heart is not dilated. Coronary artery calcifications are present. No pericardial effusion. Pulmonary arteries: No pulmonary emboli are identified. Aorta: Thoracic aorta non-dilated. Atherosclerotic calcification is present. There is no evidence of dissection. Lymph nodes: Within normal limits. Soft tissues: Unremarkable. Bones:Within normal limits for the patient's age. ABDOMEN: Liver: Normal density. No measurable mass. There are simple hepatic cysts present. Portal, Superior Mesenteric, and Splenic Veins: Unremarkable. Gallbladder and Biliary Tract: No radiodense calculus or dilation. Pancreas: Normal density, no abnormal calcifications or inflammatory process. Spleen: Normal. Adrenals: No masses seen. Kidneys: Normal size, contour and axis. No radiodense stones or obstructive uropathy. There are bilateral simple renal cysts. No follow-up is recommended. Abdominal Aorta: Abdominal portion non-dilated. Atherosclerotic calcification is present. Bowel: There are few sigmoid diverticula but no evidence of acute diverticulitis. There is no evidence of bowel obstruction or bowel wall thickening. There is no evidence of appendicitis. Peritoneal Cavity: No ascites, collection or mesenteric inflammatory response. No free air. Lymph Nodes: Within normal limits. Bones: Within normal limits for the patient's age. No displaced rib fractures are identified. No definite acute thoracic or lumbar spine fractures are seen. Soft Tissues: Unremarkable. PELVIS: Bladder: Symmetric distention, no gross wall thickening. Reproductive Organs: Status post hysterectomy. Lymph Nodes: Within normal limits. Bones: Within normal limits. IMPRESSION: 1. No acute abdominal or pelvic process. 2. No acute pulmonary process. FINDINGS: CT Head: Ventricles and Extra axial spaces: Normal in size and morphology for the patient's age. Hemorrhage: None. Cerebral parenchyma: There are areas of decreased attenuation in the white matter consistent with chronic microvascular ischemic disease. There is no evidence to suggest an acute territorial infarct is seen. Midline shift: None. Brainstem/Cerebellum: Normal. Calvarium: Normal. Visualized Paranasal sinuses/Mastoids: There is mild mucosal thickening in the maxillary sinuses bilaterally. The remaining visualized paranasal sinuses are clear. Soft Tissues: Unremarkable. CT Cervical Spine: Bones: No acute fracture or subluxation. Soft Tissues: Unremarkable. Lung Apices: Clear. IMPRESSION: 1. No acute intracranial process. 2. No acute fracture or subluxation in the cervical spine. Quality:SDOH Health Related Social Needs: Health related social needs material hardship education PFSH All Active Problems (Updated 01/26/25 @ 16:11 by Chris Moore DO) Contusion of rib on left side (Acute) Peroneal tendinitis, right leg (Acute) Anterior tibialis tendinitis of left leg (Acute) Hepatomegaly (Acute) Rheumatoid arthritis (Chronic) Anemia (Chronic) Senile osteoporosis (Acute) Hyperlipidemia (Acute) Essential hypertension (Acute) Angina of effort (Acute) Elevated blood pressure reading (Acute) 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) Hiatal hernia (Chronic) Acute chest wall pain (Acute) Systolic murmur (Acute) Ataxia (Acute) Cervical cancer (Acute) COVID-19 (Acute) Pituitary macroadenoma (Acute) Frequent falls (Acute) HTN (hypertension) (Chronic) Neoplasm of unspecified behavior of bone, soft tissue, and skin (Acute) Medical History Uterine cancer Lumbar radiculopathy Diabetes Proximal humerus fracture (10/16/19) Surgical History S/P selective transsphenoidal pituitary adenomectomy History of resection of rib History of hysterectomy Family History Sister Cerebral aneurysm Dementia Mother Diabetes Hypertension Heart disease Social History Smoking/Tobacco Use Status: Never Smoking risk assessment performed?: Yes Alcohol Intake: never Drug use: Never Substance use type: does not use Household members: spouse Housing: house Number of Children: 3 current occupation: Retired Current gender identity: female What is your relationship status?: Panel score (0-1 are the most socially isolated patients): 1 Do you feel safe at home: Yes Do you feel safe in your relationship?: Yes
[2025-01-26 15:25] VITALS: BP 148/71; PULSE 68; RESP 20; TEMP 36.7; O2SAT 100
[2025-01-26] MEDS: Lidocaine 5% Patch 1 PATCH TP (16:04)
[2025-01-26] MEDS: Acetaminophen 500 MG TAB 1000 MG PO (16:04)
[2025-01-26] MEDS: Lidocaine 5% Patch 1 PATCH (16:10)
== END 2025-01-26 16:30 | disposition home or self-care (01) ==
PROVIDERS: Emergency Provider Student in an Organized Health Care Education/Training Program; PCP Family Medicine
DX: S20.212A Contusion of left front wall of thorax, initial encounter (principal); R55 Syncope and collapse; E11.9 Type 2 diabetes mellitus without complications; I10 Essential (primary) hypertension; E78.5 Hyperlipidemia, unspecified; Z79.82 Long term (current) use of aspirin; Z86.73 Personal history of transient ischemic attack (TIA), and cerebral infarction without residual deficits; W18.39XA Other fall on same level, initial encounter; Y93.89 Activity, other specified; Y92.018 Other place in single-family (private) house as the place of occurrence of the external cause
CPT/HCPCS: 36415; 74177; 80053; 93005; 96360; 99285; 70450; 71260; 72125; 84484; 85025; 85610; 85730; 93010; J3490

== ENCOUNTER 2025-03-28 01:17 | Outpatient (CLI) | payer OTHER, SELFPAY ==
--- NOTE | 2025-03-28 13:08 | DI.RAD_ITS ---
Exam(s) XR LUMBAR SPINE COMPLETE EXAM: XR LUMBAR SPINE COMPLETE CLINICAL HISTORY: LUMBAR BACK PAIN WITH RADICULOPATHY AFFECTING LT LOWER EXT, M54.16. TECHNIQUE: 2D digital imaging was performed. Five views. COMPARISON: CR XR LUMBAR SPINE COMPLETE from 08/26/2022 FINDINGS: BONES: No fracture or destructive lesion. Vertebral body heights are maintained. There are facet degenerative changes from L3-4 through L5-S1. There is mild degenerative spondylolisthesis at L5-S1. DISKS: There is marked narrowing of the L 2 3 disc space on the right causing degenerative levoscoliosis. There are small endplate osteophytes at this level. The remaining intervertebral disc spaces are maintained. ALIGNMENT: Lumbar spinal alignment is within normal limits. SOFT TISSUE: Calcified but normal in diameter. IMPRESSION: Degenerative changes, greatest at L2-3, roughly stable from the prior exam. DATA REPOSITORY: RADIATION DOSE DELIVERED:
== END 2025-03-28 01:37 ==
LOC: DI 01:17
PROVIDERS: PCP Family Medicine; Visit Provider Family Medicine
DX: M54.16 Radiculopathy, lumbar region (principal); M51.362 Other intervertebral disc degeneration, lumbar region with discogenic back pain and lower extremity pain
CPT/HCPCS: 72110

== ENCOUNTER 2025-04-01 18:33 | Emergency (ER) | payer OTHER, SELFPAY ==
[2025-04-01] VITALS (12 sets, daily range): BP systolic 130–187; BP diastolic 77–103; PULSE 72–88; RESP 17–24; TEMP 36.4; O2SAT 94–96
--- NOTE | 2025-04-01 18:45 | DI.CT_ITS ---
Exam(s) CT HEAD CERVICAL SPINE WO EXAM: CT HEAD CERVICAL SPINE WO CLINICAL HISTORY: pain s/p fall. TECHNIQUE: Imaging Protocol: Axial computed tomography images with coronal and sagittal reformatted images were created and reviewed COMPARISON: CT CT HEAD CERV SPINE FACIAL WO from 04/03/[address] HEAD CERVICAL SPINE WO from 01/26/2025 FINDINGS: CT Head: Ventricles and Extra axial spaces: Normal in size and morphology for the patient's age. Hemorrhage: None. Cerebral parenchyma: There are areas of decreased attenuation in the white matter consistent with chronic microvascular ischemic disease. There is no evidence of an acute territorial infarct or mass effect. Midline shift: None. Brainstem/Cerebellum: Normal. Calvarium: Normal. Visualized Paranasal sinuses/Mastoids: Clear. Soft Tissues: Unremarkable. CT Cervical Spine: Bones: No acute fracture or subluxation. Age-appropriate degenerative changes are seen in the cervical spine. There is mild anterolisthesis of C5 on C6. Soft Tissues: Unremarkable. Lung Apices: Clear. IMPRESSION: 1. No acute intracranial process. 2. No acute fracture or subluxation in the cervical spine. 3. The preliminary [facility] report was reviewed. RADIATION DOSE DELIVERED: 1,067.59mGy.cm Total DLP DATA REPOSITORY: All CT scans at this facility are submitted to the National Radiology Data Registry (NRDR) Dose Index Registry (DIR) with the [employer] ([employer]). RADIATION OPTIMIZATION: All CT scans at this facility use at least one of these dose optimization techniques: automated exposure control; mA and/or kV adjustment per patient size (includes targeted exams where dose is matched to clinical indication); or iterative reconstruction.
--- NOTE | 2025-04-01 18:55 | W.ED.GENAD ---
Discharge Plan Disposition Patient Disposition: Home Condition: Stable Discharge Details Clinical Impression: Blunt head trauma Primary Care Provider: Eveline Linton V ED Provider: Hemal Gomez Home Meds and New Rx's Prescriptions: Continued pantoprazole 40 mg tablet,delayed release (DR/EC) 40 mg PO BID Qty: 60 12RF nitroglycerin [Nitrostat] 0.4 mg tablet, sublingual 0.4 mg sublingual Q5M PRN (Reason: chest pain) Qty: 30 3RF Rx Instructions: do not exceed 3 doses per episode (DME) miscellaneous medical supply Misc See Rx Instructions .Route Rx Instructions: As directed diazepam 2 mg tablet 2 mg PO DAILY PRN Rx Instructions: TAKE ONE TABLET BY MOUTH 1 HOUR PRIOR TO MRI. REPEAT BEFORE MRI IF NEEDED. losartan 50 mg tablet 50 mg PO DAILY potassium chloride 20 mEq tablet,ER particles/crystals 40 meq PO DAILY betamethasone dipropionate 0.05 % cream 1 applic topical DAILY PRN meclizine 12.5 mg tablet 12.5 mg PO TID PRN Zyrtec 10 MG capsule 10 mg PO PRN PRN Patient Comments: Pt states not taking 05/07/23 hydrochlorothiazide 25 mg tablet 25 mg PO DAILY Patient Comments: TK 1 T PO D aspirin 81 mg Tablet,Delayed Release (Dr/Ec) 81 mg PO DAILY Qty: 30 0RF omega 8-bmg-qev-fish oil 1,000 mg (120 mg-180 mg) Capsule 4,000 mg PO DAILY Qty: 30 0RF ferrous gluconate 324 mg (37.5 mg iron) tablet 1 tab PO DAILY Patient Comments: TAKE ONE TABLET BY MOUTH EVERY DAY levothyroxine 50 mcg tablet 50 mcg PO DAILY Patient Comments: TAKE ONE TABLET BY MOUTH EVERY DAY rosuvastatin 5 mg tablet 5 mg PO DAILY Patient Comments: TAKE ONE TABLET BY MOUTH AT BEDTIME Discontinued lidocaine [Lidoderm] 5 % adhesive patch,medicated 1 patch Topical Q24H Qty: 15 0RF Discharge Instructions Additional Instructions: Your CAT scan was negative for any acute traumatic findings. Follow-up with your primary care provider if you are having symptoms such as headaches in a week. If you feel more ill or have new symptoms such as persistent vomiting return to the emergency department for reevaluation. HPI General Date/Time Provider Initiated Documentation: 04/01/25 18:41. Limitations to Documentation: no limitations. Information obtained by: patient. History of Present Illness 85 year old F presents to the emergency department with the chief complaint of fall, head pain, described as moderate, Quality is described as aching, Patient started experiencing this hour(s) (1) and it has been constant. No relieving factors improve symptom(s), No exacerbating factors reported . Patient notes no other symptoms.. Patient did receive the following treatments prior to arrival, none Related Data Home Medications ?Medication ?Instructions ?Recorded ?Confirmed cetirizine 10 mg capsule (Zyrtec) 10 mg PO PRN PRN 01/28/15 04/01/25 hydrochlorothiazide 25 mg tablet 25 mg PO DAILY 04/22/20 04/01/25 aspirin 81 mg tablet,delayed 81 mg PO DAILY #30 tabs 10/01/20 04/01/25 release omega 3-ugp-ldp-fish oil 1,000 mg 4,000 mg PO DAILY #30 caps 10/01/20 04/01/25 (120 mg-180 mg) capsule ferrous gluconate 324 mg (37.5 mg 1 tab PO DAILY 07/07/22 04/01/25 iron) tablet losartan 50 mg tablet 50 mg PO DAILY 11/01/22 04/01/25 levothyroxine 50 mcg tablet 50 mcg PO DAILY 08/29/23 04/01/25 rosuvastatin 5 mg tablet 5 mg PO DAILY 08/29/23 04/01/25 potassium chloride 20 mEq 40 meq PO DAILY 09/06/23 04/01/25 tablet,extended release(part/cryst) nitroglycerin 0.4 mg sublingual 0.4 mg sublingual Q5M PRN chest 09/08/23 04/01/25 tablet (Nitrostat) pain #30 tabs betamethasone dipropionate 0.05 % 1 applic topical DAILY PRN 11/16/23 04/01/25 topical cream meclizine 12.5 mg tablet 12.5 mg PO TID PRN 11/16/23 04/01/25 pantoprazole 40 mg tablet,delayed 40 mg PO BID #60 tabs 01/04/24 04/01/25 release diazepam 2 mg tablet 2 mg PO DAILY PRN 03/12/24 04/01/25 miscellaneous medical supply 03/12/24 04/01/25 Previous Rx's ?Medication ?Instructions ?Recorded aspirin 81 mg tablet,delayed 81 mg PO DAILY #30 tabs 10/01/20 release omega 3-ftz-nmz-fish oil 1,000 mg 4,000 mg PO DAILY #30 caps 10/01/20 (120 mg-180 mg) capsule nitroglycerin 0.4 mg sublingual 0.4 mg sublingual Q5M PRN chest 09/08/23 tablet (Nitrostat) pain #30 tabs pantoprazole 40 mg tablet,delayed 40 mg PO BID #60 tabs 01/04/24 release Allergies Allergy/AdvReac Type Severity Reaction Status Date / Time lisinopril AdvReac Intermediate cough Verified 04/01/25 18:42 metoprolol (From Toprol XL) AdvReac Unknown Other (See Verified 04/01/25 18:42 Comment) aspirin AdvReac NAUSEA Verified 04/01/25 18:42 codeine AdvReac vomiting Verified 04/01/25 18:42 morphine AdvReac NAUSEA Verified 04/01/25 18:42 Sulfa (Sulfonamide AdvReac NAUSEA Verified 04/01/25 18:42 Antibiotics) General Stated Complaint: Fall/Non TraumaCriteria ALBINO: 3 Review of Systems All systems reviewed & are unremarkable except as noted in HPI and below Constitutional Constitutional: Denies chills, Denies fever(s) and Denies weakness Cardiovascular Cardiovascular: Denies chest pain and Denies dyspnea Respiratory Respiratory: Denies dyspnea Gastrointestinal Gastrointestinal: Denies abdominal pain, Denies nausea and Denies vomiting Integumentary/Breasts Skin/Breast: Denies rash Neurologic Neurologic: Denies weakness Exam Const General: no acute distress Orientation: alert [facility] Head: no palpable skull fracture Ears: external ears normal General nose exam: external nose normal Mouth: moist mucous membranes Eyes General: appearance normal, both eyes and all related structures Neck Neck: normal visual inspection and tender Resp Effort & Inspection: normal respiratory effort and able to speak in complete sentences Cardio Rate: regular rate Skin General skin exam: no rashes or lesions noted Neuro General: patient alert and patient oriented x3 Extrem General: normal to inspection Psych Mental Status: mental status grossly normal Course Vital Signs Vital signs: Vital Signs Temperature 36.4 C L 04/01/25 18:38 Pulse 88 04/01/25 18:38 Respiratory Rate 20 04/01/25 18:38 Blood Pressure 187/103 H 04/01/25 18:38 Pulse Oximetry 94 04/01/25 18:38 Temperature 36.4 C L 04/01/25 18:38 Temperature Source Temporal Artery Scan 04/01/25 18:38 Pulse 88 04/01/25 18:38 Respiratory Rate 20 04/01/25 18:38 Blood Pressure 187/103 H 04/01/25 18:38 Blood Pressure Position Sitting 04/01/25 18:38 Pulse Oximetry 94 04/01/25 18:38 Oxygen Delivery Method Room Air 04/01/25 18:38 Oxygen Flow Rate 0 04/01/25 18:38 Pain Level 8 04/01/25 18:38 Medical Decision Making 85-year-old female with history of pituitary macroadenoma, prior CVA, who comes after a fall. She says she was standing in her mobile home when she went to turn and while doing so tripped and fell backwards hitting the back of her head on a wooden post on her couch. She had no loss of consciousness. She denies any preceding symptoms of the fall but since the fall she has felt head pain and left lateral neck pain and some intermittent dizziness. Denies any chest pain, difficulty breathing. She has oriented x 4 on arrival with a GCS of 15. She does have a scalp hematoma on the posterior part of her head. Pupils are equal and reactive to light. She has left lateral paraspinous neck tenderness. No midline tenderness. No T or L-spine tenderness, no chest or abdomen tenderness. Given her age and the fall will obtain CT head and C-spine to evaluate for traumatic injuries. She states that she had a mechanical trip and no preceding symptoms the fall so do not feel workup for presyncope/syncope is indicated. Imaging unremarkable. Patient stable. Given negative CT and no new pain I feel she is stable for discharge and can follow-up with her PCP if needed and return precautions given Differential Diagnosis Differential Diagnosis: Fracture, hematoma, TBI Quality:SDOH Health Related Social Needs: Health related social needs material hardship education PFSH All Active Problems (Updated 04/01/25 @ 20:21 by Hemal Gomez MD) Blunt head trauma (Acute) Peroneal tendinitis, right leg (Acute) Anterior tibialis tendinitis of left leg (Acute) Hepatomegaly (Acute) Rheumatoid arthritis (Chronic) Anemia (Chronic) Senile osteoporosis (Acute) Hyperlipidemia (Acute) Essential hypertension (Acute) Angina of effort (Acute) Elevated blood pressure reading (Acute) 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) Hiatal hernia (Chronic) Acute chest wall pain (Acute) Systolic murmur (Acute) Ataxia (Acute) Cervical cancer (Acute) COVID-19 (Acute) Pituitary macroadenoma (Acute) Frequent falls (Acute) HTN (hypertension) (Chronic) Neoplasm of unspecified behavior of bone, soft tissue, and skin (Acute) Medical History Uterine cancer Lumbar radiculopathy Diabetes Proximal humerus fracture (10/16/19) Surgical History S/P selective transsphenoidal pituitary adenomectomy History of resection of rib History of hysterectomy Family History Sister Cerebral aneurysm Dementia Mother Diabetes Hypertension Heart disease Social History Smoking/Tobacco Use Status: Never Smoking risk assessment performed?: Yes Alcohol Intake: never Drug use: Never Substance use type: does not use Household members: spouse Housing: house Number of Children: 3 current occupation: Retired Current gender identity: female What is your relationship status?: Panel score (0-1 are the most socially isolated patients): 1 Do you feel safe at home: Yes Do you feel safe in your relationship?: Yes
[2025-04-01] MEDS: Acetaminophen 325 MG TAB 650 MG PO (19:04)
--- NOTE | 2025-04-01 19:24 | DI.VRAD_ITS ---
PROCEDURE INFORMATION: Exam: CT Head Without Contrast Exam date and time: 04/01/2025 7:06 PM Age: 85 years old Clinical indication: Injury or trauma; Blunt trauma (contusions or hematomas); Consciousness not specified; Injury details: Pain S/P fall TECHNIQUE: Imaging protocol: Computed tomography of the head without contrast. COMPARISON: CT HEAD CERVICAL SPINE WO 01/26/2025 2:49 PM FINDINGS: Brain: There are moderate periventricular and subcortical lucencies consistent with chronic microvascular ischemic changes.The damian-white differentiation is maintained. No hemorrhage. No edema. Cerebral ventricles: No ventriculomegaly. Paranasal sinuses: Visualized sinuses are unremarkable. No fluid levels. Mastoid air cells: Visualized mastoid air cells are well aerated. Orbital cavities: Bilateral cataract surgery. Bones: Unremarkable. No acute fracture. Soft tissues: Unremarkable. IMPRESSION: No acute intracranial abnormality. PROCEDURE INFORMATION: Exam: CT Cervical Spine Without Contrast Exam date and time: 04/01/2025 7:06 PM Age: 85 years old Clinical indication: Injury or trauma; Blunt trauma (contusions or hematomas); Consciousness not specified; Injury details: Pain S/P fall TECHNIQUE: Imaging protocol: Computed tomography of the cervical spine without contrast. COMPARISON: CT HEAD CERVICAL SPINE WO 01/26/2025 2:49 PM FINDINGS: Bones: Grade 1 anterolisthesis of C5 over C6. Lungs: Lung apices are normal. Soft tissues: Unremarkable. IMPRESSION: No acute cervical spine fracture. Dictated and Authenticated by: Napoleon Chavarria MD. Orderin Jason Recio MD
== END 2025-04-01 20:52 | disposition home or self-care (01) ==
PROVIDERS: Emergency Provider Emergency Medicine; PCP Family Medicine
DX: S09.90XA Unspecified injury of head, initial encounter (principal); W19.XXXA Unspecified fall, initial encounter; Z59.87 Material hardship due to limited financial resources, not elsewhere classified; Z55.9 Problems related to education and literacy, unspecified
CPT/HCPCS: 99284; 99283; 70450; 72125

== ENCOUNTER 2025-05-08 04:25 | Outpatient (CLI) | payer OTHER, SELFPAY ==
--- NOTE | 2025-05-08 | DI.DEXA_ITS ---
Exam(s) XR DEXA BONE DENSITY W/WO CRESENCIO EXAM: XR DEXA BONE DENSITY W/WO CRESENCIO CLINICAL HISTORY: ASYMPTOMATIC MENOPAUSAL STATE Z78.0,screening for osteoporosis TECHNIQUE: [employer] Horizon C densitometer analysis of left hip, lumbar spine and left forearm. Lateral survey image of the thoracic and lumbar spine. COMPARISON: DX DEXA BONE DENSITY WITH CRESENCIO from 06/09/2010 CR XR LUMBAR SPINE COMPLETE from 03/28/2025 FINDINGS: Lateral view of the thoracic and lumbar spine shows no evidence of compression fractures. There is a mild to moderate levoscoliosis. Degenerative disc changes plate osteophytes. Bone mineral density measurements of the lumbar spine correspond to a total T- score of -2.0, in the osteopenic range. This represents a 7.8 percent decrease when compared with 2009. Bone mineral density measurements of the left hip correspond to a total T-score of -3.1. This represents a 29 7.9 percent decrease when compared with 2009. The femoral neck T-score is -3.1, in the osteoporotic range. Theleft forearm bone mineral density measurements correspond to a T-score of the distal 3rd of -3.8, in the osteoporotic range. This represents a 15.4 percent decrease compared with 2009.. IMPRESSION: Osteoporosis of the forearm and hip with significant decreases in bone density compared with 2010. Osteopenia of the lumbar spine.
== END 2025-05-08 04:45 ==
LOC: DI 04:26
PROVIDERS: PCP Family Medicine; Visit Provider Family Medicine
DX: Z78.0 Asymptomatic menopausal state (principal); Z13.820 Encounter for screening for osteoporosis
CPT/HCPCS: 77080

== ENCOUNTER 2025-06-04 16:26 | Emergency (ER) | payer OTHER, SELFPAY ==
[2025-06-04 16:40] VITALS: BP 120/90; PULSE 88; RESP 20; TEMP 36.7; O2SAT 95
--- NOTE | 2025-06-04 16:45 | DI.RAD_ITS ---
Exam(s) XR SHOULDER RT COMPLETE 2+V EXAM: XR SHOULDER RT COMPLETE 2+V CLINICAL HISTORY: fall 3 days ago, R knee/elbow/shoulder pain. TECHNIQUE: 2D digital imaging was performed of the right shoulder. Four images were obtained. AP, Grashey, Y-view and axillary views were obtained. COMPARISON: CR XR SHOULDER LT COMPLETE 2+V from 11/04/2022 FINDINGS: BONES: No acute fracture is present. No bony destructive lesion is seen. JOINTS: No dislocation present. There are degenerative changes seen in the shoulder particularly at the acromioclavicular joint. SOFT TISSUE: Normal. There is a well corticated osseous density adjacent to the greater tuberosity which is old. IMPRESSION: There is no acute fracture or dislocation. DATA REPOSITORY: RADIATION DOSE DELIVERED:
--- NOTE | 2025-06-04 16:45 | DI.RAD_ITS ---
Exam(s) XR KNEE RT 4V AP,LAT,CECY,PAT EXAM: XR KNEE RT 4V AP,LAT,CECY,PAT CLINICAL HISTORY: fall 3 days ago, R knee/elbow/shoulder pain. TECHNIQUE: 2D digital imaging was performed of the right knee. Four views obtained. Merchant, AP, lateral and PA tunnel views were obtained. COMPARISON: CR XR KNEE RT 3V AP,LAT,CECY from 04/03/2024 FINDINGS: BONES: No acute fracture is present. No bony destructive lesion is seen. JOINTS: There are mild degenerative changes present. No joint effusion is seen. SOFT TISSUE: Atherosclerotic calcification is present. IMPRESSION: There is no acute fracture or dislocation. DATA REPOSITORY: RADIATION DOSE DELIVERED:
--- NOTE | 2025-06-04 16:45 | DI.RAD_ITS ---
Exam(s) XR ELBOW RT COMPLETE EXAM: XR ELBOW RT COMPLETE CLINICAL HISTORY: fall 3 days ago, R knee/elbow/shoulder pain. TECHNIQUE: 2D digital imaging was performed of the left elbow. Three images were obtained. AP, lateral and oblique views were obtained. COMPARISON: CR,XR XR ELBOW LT COMPLETE from 10/16/2019 FINDINGS: BONES: No acute fracture is present. No bony destructive lesion is seen. JOINTS: The elbow is normally aligned. No joint effusion is seen. There is mild spurring of the coronoid process. SOFT TISSUE: Normal. There is a well corticated osseous density adjacent to the medial epicondyle which is old. IMPRESSION: There is no acute or healing fracture or dislocation. DATA REPOSITORY: RADIATION DOSE DELIVERED:
--- NOTE | 2025-06-04 16:49 | W.ED.GENAD ---
Discharge Plan Disposition Patient Disposition: Home Condition: Stable Discharge Details Clinical Impression: Fall Primary Care Provider: Eveline Linton V ED Provider: Chris Gallagher Home Meds and New Rx's Prescriptions: Continued nitroglycerin [Nitrostat] 0.4 mg tablet, sublingual 0.4 mg sublingual Q5M PRN (Reason: chest pain) Qty: 30 3RF Rx Instructions: do not exceed 3 doses per episode (DME) miscellaneous medical supply Misc See Rx Instructions .Route Rx Instructions: As directed diazepam 2 mg tablet 2 mg PO DAILY PRN Rx Instructions: TAKE ONE TABLET BY MOUTH 1 HOUR PRIOR TO MRI. REPEAT BEFORE MRI IF NEEDED. losartan 50 mg tablet 50 mg PO DAILY potassium chloride 20 mEq tablet,ER particles/crystals 40 meq PO DAILY betamethasone dipropionate 0.05 % cream 1 applic topical DAILY PRN meclizine 12.5 mg tablet 12.5 mg PO TID PRN Zyrtec 10 MG capsule 10 mg PO PRN PRN Patient Comments: Pt states not taking 05/07/23 hydrochlorothiazide 25 mg tablet 25 mg PO DAILY Patient Comments: TK 1 T PO D aspirin 81 mg Tablet,Delayed Release (Dr/Ec) 81 mg PO DAILY Qty: 30 0RF omega 0-pyq-ulh-fish oil 1,000 mg (120 mg-180 mg) Capsule 4,000 mg PO DAILY Qty: 30 0RF pantoprazole 40 mg tablet,delayed release (DR/EC) 40 mg PO BID PRN ferrous gluconate 324 mg (37.5 mg iron) tablet 1 tab PO DAILY Patient Comments: TAKE ONE TABLET BY MOUTH EVERY DAY levothyroxine 50 mcg tablet 50 mcg PO DAILY Patient Comments: TAKE ONE TABLET BY MOUTH EVERY DAY rosuvastatin 5 mg tablet 5 mg PO DAILY Patient Comments: TAKE ONE TABLET BY MOUTH AT BEDTIME Discharge Instructions Instructions: Preventing Falls ED Additional Instructions: You were seen in the emergency department for your mechanical fall, you have right shoulder right elbow and right knee pain as well as a black eye, there is no fracture seen on your x-rays, your skin tear to the right elbow is very minor just use Neosporin and bandages on this area, take Tylenol and ibuprofen as needed for pain and ice areas of pain, return for any acute emergent concerns. Referrals: Eveline Linton MD [Primary Care Provider, Medicine] Discharge Data Discharge Date/Time-TO BE ENTERED AT DEPARTURE: 06/04/25 18:37 HPI General Date/Time Provider Initiated Documentation: 06/04/25 16:49. HPI Narrative: 85 year-old female presents to ED today by POV/ambulating with a chief complaint of fall on Monday- hitting her head on a shoe rack, with R black eye, R shoulder pain, and R elbow skin tear, and R hip pain & knee pain. Quality described as just soreness, has been able to ambulate, no radiation to chest pain, shortness of breath, headache, painful cervical ROM, abdominal pain, nausea, vomiting. Severity is described as 9/10. Palliating factors include nothing taken for pain today. Provoking factors include nothing specific. Events leading up to the incident/Associated Symptoms: Patient is R-hand dominant. Patient not anticoagulated. Related Data Home Medications Medication Instructions Recorded Confirmed cetirizine 10 mg capsule (Zyrtec) 10 mg PO PRN PRN 01/28/15 06/04/25 hydrochlorothiazide 25 mg tablet 25 mg PO DAILY 04/22/20 06/04/25 aspirin 81 mg tablet,delayed 81 mg PO DAILY #30 tabs 10/01/20 06/04/25 release omega 8-hkq-mws-fish oil 1,000 mg 4,000 mg PO DAILY #30 caps 10/01/20 06/04/25 (120 mg-180 mg) capsule ferrous gluconate 324 mg (37.5 mg 1 tab PO DAILY 07/07/22 06/04/25 iron) tablet losartan 50 mg tablet 50 mg PO DAILY 11/01/22 06/04/25 levothyroxine 50 mcg tablet 50 mcg PO DAILY 08/29/23 06/04/25 rosuvastatin 5 mg tablet 5 mg PO DAILY 08/29/23 06/04/25 potassium chloride 20 mEq 40 meq PO DAILY 09/06/23 06/04/25 tablet,extended release(part/cryst) nitroglycerin 0.4 mg sublingual 0.4 mg sublingual Q5M PRN chest 09/08/23 06/04/25 tablet (Nitrostat) pain #30 tabs betamethasone dipropionate 0.05 % 1 applic topical DAILY PRN 11/16/23 06/04/25 topical cream meclizine 12.5 mg tablet 12.5 mg PO TID PRN 11/16/23 06/04/25 diazepam 2 mg tablet 2 mg PO DAILY PRN 03/12/24 06/04/25 miscellaneous medical supply 03/12/24 06/04/25 pantoprazole 40 mg tablet,delayed 40 mg PO BID PRN 06/04/25 06/04/25 release Previous Rx's Medication Instructions Recorded aspirin 81 mg tablet,delayed 81 mg PO DAILY #30 tabs 10/01/20 release omega 0-oua-nbn-fish oil 1,000 mg 4,000 mg PO DAILY #30 caps 10/01/20 (120 mg-180 mg) capsule nitroglycerin 0.4 mg sublingual 0.4 mg sublingual Q5M PRN chest 09/08/23 tablet (Nitrostat) pain #30 tabs Allergies Allergy/AdvReac Type Severity Reaction Status Date / Time lisinopril AdvReac Intermediate cough Verified 06/04/25 16:38 metoprolol (From Toprol XL) AdvReac Unknown Other (See Verified 06/04/25 16:38 Comment) aspirin AdvReac NAUSEA Verified 06/04/25 16:38 codeine AdvReac vomiting Verified 06/04/25 16:38 morphine AdvReac NAUSEA Verified 06/04/25 16:38 Sulfa (Sulfonamide AdvReac NAUSEA Verified 06/04/25 16:38 Antibiotics) General Stated Complaint: Fall/Non TraumaCriteria ALBINO: 3 Review of Systems All systems reviewed & are unremarkable except as noted in HPI and below Exam Narrative Exam Narrative: GENERAL APPEARANCE: Well-nourished, non-toxic, awake and alert, atraumatic, no acute distress. SKIN: Warm, pink, dry, intact, without rashes/lesions/ulcerations. HEAD: Normocephalic, atraumatic-no scalp hematoma, no Brink sign, normal hair distribution for gender/age. EYES: Normal conjunctiva, no exudates on lids/lashes, right periorbital ecchymosis with stable orbit ENT: Nares patent, no circumoral cyanosis, no facial swelling NECK: Supple, trachea midline, painless cervical ROM, no midline tenderness or crepitus or step-offs. LUNGS/CHEST: Lungs CTA bilaterally-no rhonchi/rales/wheeze diffusely, no rib tenderness or crepitus, non-labored respirations, normal A/P diameter, symmetrical expansion, no chest wall deformity HEART (CV/PV): Regular rate and rhythm without murmur, no peripheral edema, no JVD. ABDOMEN: Soft, non-distended, no guarding, no tenderness. MSK: Normal ROM, no swelling/deformity to bilateral UEs or LEs-tenderness to palpation of the right shoulder right elbow less so right hip and right knee without any crepitus, mild bruising to right knee, moving all extremities without weakness, no cyanosis, spine midline without tenderness, normal curvature. NEURO: Mental Status AAOx4 - alert to person, place, time, events No facial droop, no forehead involvement. Motor: No focal weakness - strength 5/5 in bilateral UEs and LEs, proximal and distal, symmetric. Sensory: sensation intact to light touch globally. Gait normal: patient ambulated without ataxia into ED room. PSYCH: euthymic, cooperative, pleasant, appropriate speech Course Vital Signs Vital signs: Vital Signs Temperature 36.7 C 06/04/25 16:40 Pulse 88 06/04/25 16:40 Respiratory Rate 20 06/04/25 16:40 Blood Pressure 120/90 06/04/25 16:40 Pulse Oximetry 95 06/04/25 16:40 Temperature 36.7 C 06/04/25 16:40 Temperature Source Tympanic 06/04/25 16:40 Pulse 88 06/04/25 16:40 Respiratory Rate 20 06/04/25 16:40 Blood Pressure 120/90 06/04/25 16:40 Blood Pressure Position Sitting 06/04/25 16:40 Pulse Oximetry 95 06/04/25 16:40 Oxygen Delivery Method Room Air 06/04/25 16:40 Oxygen Flow Rate 0 06/04/25 16:40 Pain Level 9 06/04/25 16:40 Medical Decision Making This dictation utilizes [id number] dictation software and may contain unedited grammatical errors. 85 year-old female presents to ED today by POV/ambulating with a chief complaint of fall on Monday- hitting her head on a shoe rack, with R black eye, R shoulder pain, and R elbow skin tear, and R hip pain & knee pain. Quality described as just soreness, has been able to ambulate, no radiation to chest pain, shortness of breath, headache, painful cervical ROM, abdominal pain, nausea, vomiting, or LOC. Severity is described as 9/10. Palliating factors include nothing taken for pain today. Provoking factors include nothing specific. Events leading up to the incident/Associated Symptoms: Patient is R-hand dominant. Patients' medical history: Uterine cancer, diabetes, lumbar radiculopathy, hypertension, angina, ataxia, frequent falls, history of CVA. Family and social history: Lives at home with , no alcohol or drug use, eats a normal diet. Pertinent exam findings / vital signs include right shoulder tenderness without crepitus or swelling or ecchymosis, tiny not open 0.3 cm skin tear to left elbow no active bleeding, able to range the distal right arm, has right knee tenderness with mild bruise, right periorbital ecchymosis with stable orbit, no midline cervical tenderness, neuro intact, very mild right hip tenderness without crepitus, able to SLR. Differential / pathologies of concern include fracture, contusions, sprain strain. Diagnostic studies of: -XR right shoulder, XR right elbow, XR right knee. - No acute fractures to any studies Interventions of: -None, no intervention needed beyond Band-Aid to her right elbow skin tear. ED Course/Assessment/Plan: 85-year-old female had a fall days ago bumping her head on a shoe rack having right shoulder and knee pain as well as an elbow skin tear she describes as soreness, there is no acute fracture seen on any x-rays and she is neuro intact with reliable onset to exclude ICH as a likely cause, she remembers the fall does not have any loss of consciousness and has been acting herself since the incident, counseled on Tylenol and ibuprofen use as needed, icing areas of pain and follow-up for any emergent concerns. Findings not consistent with fracture, lacerations, altered mental status. Disposition of Fall. Patient verbalized understanding of the plan and return to ED criteria and engaged in shared decision making. Medical Records Medical records reviewed: Yes I reviewed the patient's medical records. Imaging Data Radiologic Study: Attestation: I personally reviewed and interpreted this imaging study as follows: Radiologist's impression: EXAM: XR SHOULDER RT COMPLETE 2+V CLINICAL HISTORY: fall 3 days ago, R knee/elbow/shoulder pain. TECHNIQUE: 2D digital imaging was performed of the right shoulder. Four images were obtained. AP, Grashey, Y-view and axillary views were obtained. COMPARISON: CR XR SHOULDER LT COMPLETE 2+V from 11/04/2022 FINDINGS: BONES: No acute fracture is present. No bony destructive lesion is seen. JOINTS: No dislocation present. There are degenerative changes seen in the shoulder particularly at the acromioclavicular joint. SOFT TISSUE: Normal. There is a well corticated osseous density adjacent to the greater tuberosity which is old. IMPRESSION: There is no acute fracture or dislocation. Radiologic Study #2: Attestation: I personally reviewed and interpreted this imaging study as follows: Imaging: X-Ray Radiologist's impression: EXAM: XR ELBOW RT COMPLETE CLINICAL HISTORY: fall 3 days ago, R knee/elbow/shoulder pain. TECHNIQUE: 2D digital imaging was performed of the left elbow. Three images were obtained. AP, lateral and oblique views were obtained. COMPARISON: CR,XR XR ELBOW LT COMPLETE from 10/16/2019 FINDINGS: BONES: No acute fracture is present. No bony destructive lesion is seen. JOINTS: The elbow is normally aligned. No joint effusion is seen. There is mild spurring of the coronoid process. SOFT TISSUE: Normal. There is a well corticated osseous density adjacent to the medial epicondyle which is old. IMPRESSION: There is no acute or healing fracture or dislocation. Radiologic Study #3: Attestation: I personally reviewed and interpreted this imaging study as follows: Imaging: X-Ray Radiologist's impression: EXAM: XR KNEE RT 4V AP,LAT,CECY,PAT CLINICAL HISTORY: fall 3 days ago, R knee/elbow/shoulder pain. TECHNIQUE: 2D digital imaging was performed of the right knee. Four views obtained. Merchant, AP, lateral and PA tunnel views were obtained. COMPARISON: CR XR KNEE RT 3V AP,LAT,CECY from 04/03/2024 FINDINGS: BONES: No acute fracture is present. No bony destructive lesion is seen. JOINTS: There are mild degenerative changes present. No joint effusion is seen. SOFT TISSUE: Atherosclerotic calcification is present. IMPRESSION: There is no acute fracture or dislocation. Lab Data Lab results reviewed: Yes I reviewed the patient's lab results. Quality:SDOH Health Related Social Needs: Health related social needs material hardship education PFSH All Active Problems (Updated 06/04/25 @ 18:25 by NADEEM Velásquez) Fall (Acute) Peroneal tendinitis, right leg (Acute) Anterior tibialis tendinitis of left leg (Acute) Hepatomegaly (Acute) Rheumatoid arthritis (Chronic) Anemia (Chronic) Senile osteoporosis (Acute) Hyperlipidemia (Acute) Essential hypertension (Acute) Angina of effort (Acute) Elevated blood pressure reading (Acute) 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) Hiatal hernia (Chronic) Acute chest wall pain (Acute) Systolic murmur (Acute) Ataxia (Acute) Cervical cancer (Acute) COVID-19 (Acute) Pituitary macroadenoma (Acute) Frequent falls (Acute) HTN (hypertension) (Chronic) Neoplasm of unspecified behavior of bone, soft tissue, and skin (Acute) Medical History Uterine cancer Lumbar radiculopathy Diabetes Proximal humerus fracture (10/16/19) Surgical History S/P selective transsphenoidal pituitary adenomectomy History of resection of rib History of hysterectomy Family History Sister Cerebral aneurysm Dementia Mother Diabetes Hypertension Heart disease Social History Smoking/Tobacco Use Status: Never Smoking risk assessment performed?: Yes Alcohol Intake: never Drug use: Never Substance use type: does not use Household members: spouse Housing: house Number of Children: 3 current occupation: Retired Current gender identity: female What is your relationship status?: Panel score (0-1 are the most socially isolated patients): 1 Do you feel safe at home: Yes Do you feel safe in your relationship?: Yes
[2025-06-04 18:36] VITALS: BP 127/52; PULSE 72; RESP 16; O2SAT 96
== END 2025-06-04 18:37 | disposition home or self-care (01) ==
PROVIDERS: Emergency Provider Physician Assistant; PCP Family Medicine
DX: M25.511 Pain in right shoulder (principal); M25.521 Pain in right elbow; M25.561 Pain in right knee; W19.XXXA Unspecified fall, initial encounter
CPT/HCPCS: 99283; 99284; 73030; 73080; 73564

== ENCOUNTER 2025-06-13 14:02 | Outpatient (REF) | payer OTHER, SELFPAY ==
[2025-06-13 16:17] LABS: Anion Gap 10.0 mmol/L (3-11); BUN 15 mg/dL (7-18); CO2 27.0 mmol/L (21.0-32.0); Calcium 9.2 mg/dL (8.5-10.1); Chloride 105 mmol/L (98-107); Glucose 124 mg/dL (74-106); Potassium 4.1 mmol/L (3.5-5.1); Sodium 142 mmol/L (136-145)
[2025-06-13 17:01] LABS: Hemoglobin A1C 6.0 % (<5.7)
== END 2025-06-13 14:03 | disposition home or self-care (01) ==
LOC: NCHCN 14:02
PROVIDERS: PCP Family Medicine; Visit Provider Family Medicine
DX: E11.9 Type 2 diabetes mellitus without complications (principal); I10 Essential (primary) hypertension
CPT/HCPCS: 80048; 83036

== ENCOUNTER 2025-06-18 16:58 | Emergency (ER) | payer OTHER, SELFPAY ==
[2025-06-18 17:01] VITALS: BP 175/81; PULSE 68; RESP 20; TEMP 37.1; O2SAT 95
[2025-06-18 17:04] VITALS: BP 175/81; PULSE 68; RESP 20; TEMP 37.1; O2SAT 95
[2025-06-18 18:48] LABS: COVID-19 PCR Negative (Negative); RSV PCR Negative (Negative)
--- NOTE | 2025-06-18 19:15 | DI.RAD_ITS ---
Exam(s) XR CHEST 2V PA LATERAL EXAM: XR CHEST 2V PA LATERAL CLINICAL HISTORY: cough. TECHNIQUE: 2D digital imaging was performed. COMPARISON: CR XR CHEST 2V PA LATERAL from 09/24/2024 FINDINGS: 2 views: Heart size upper normal and the upper mediastinum is not widened. There is a prominent hiatal hernia in the retrocardiac region which has increased in size, presently measuring approximately 7 by 8 cm. Lungs are clear. No infiltrates nor pleural effusions. No pulmonary edema. IMPRESSION: No acute pulmonary findings.Moderate-large size retrocardiac hiatal hernia which contains air on today's study. DATA REPOSITORY: RADIATION DOSE DELIVERED:
--- NOTE | 2025-06-18 19:29 | W.ED.GENAD ---
Discharge Plan Disposition Patient Disposition: Home Condition: Stable Discharge Details Clinical Impression: Respiratory infection Primary Care Provider: Eveline Linton V ED Provider: Hemal Gomez Home Meds and New Rx's Prescriptions: New prednisone 20 mg tablet 60 mg PO DAILY 4 Days Qty: 12 0RF levofloxacin 750 mg tablet 750 mg PO DAILY Qty: 5 0RF Continued nitroglycerin [Nitrostat] 0.4 mg tablet, sublingual 0.4 mg sublingual Q5M PRN (Reason: chest pain) Qty: 30 3RF Rx Instructions: do not exceed 3 doses per episode (DME) miscellaneous medical supply Misc See Rx Instructions .Route Rx Instructions: As directed diazepam 2 mg tablet 2 mg PO DAILY PRN Rx Instructions: TAKE ONE TABLET BY MOUTH 1 HOUR PRIOR TO MRI. REPEAT BEFORE MRI IF NEEDED. losartan 50 mg tablet 50 mg PO DAILY potassium chloride 20 mEq tablet,ER particles/crystals 40 meq PO DAILY betamethasone dipropionate 0.05 % cream 1 applic topical DAILY PRN meclizine 12.5 mg tablet 12.5 mg PO TID PRN Zyrtec 10 MG capsule 10 mg PO PRN PRN Patient Comments: Pt states not taking 05/07/23 hydrochlorothiazide 25 mg tablet 25 mg PO DAILY Patient Comments: TK 1 T PO D aspirin 81 mg Tablet,Delayed Release (Dr/Ec) 81 mg PO DAILY Qty: 30 0RF omega 9-zal-xuu-fish oil 1,000 mg (120 mg-180 mg) Capsule 4,000 mg PO DAILY Qty: 30 0RF pantoprazole 40 mg tablet,delayed release (DR/EC) 40 mg PO BID PRN ferrous gluconate 324 mg (37.5 mg iron) tablet 1 tab PO DAILY Patient Comments: TAKE ONE TABLET BY MOUTH EVERY DAY levothyroxine 50 mcg tablet 50 mcg PO DAILY Patient Comments: TAKE ONE TABLET BY MOUTH EVERY DAY rosuvastatin 5 mg tablet 5 mg PO DAILY Patient Comments: TAKE ONE TABLET BY MOUTH AT BEDTIME Discharge Instructions Stand Alone Forms: Portal Information HPI General Mode of arrival: ambulatory. Date/Time Provider Initiated Documentation: 06/18/25 17:09. Limitations to Documentation: no limitations. Information obtained by: patient. History of Present Illness 85 year old F presents to the emergency department with the chief complaint of cough, described as moderate, Patient started experiencing this day(s) (5) and it has been constant. No relieving factors improve symptom(s), No exacerbating factors reported . Patient notes denies chest pain and shortness of breath. Patient did receive the following treatments prior to arrival, none Related Data Home Medications Medication Instructions Recorded Confirmed cetirizine 10 mg capsule (Zyrtec) 10 mg PO PRN PRN 01/28/15 06/18/25 hydrochlorothiazide 25 mg tablet 25 mg PO DAILY 04/22/20 06/18/25 aspirin 81 mg tablet,delayed 81 mg PO DAILY #30 tabs 10/01/20 06/18/25 release omega 4-tkg-cis-fish oil 1,000 mg 4,000 mg PO DAILY #30 caps 10/01/20 06/18/25 (120 mg-180 mg) capsule ferrous gluconate 324 mg (37.5 mg 1 tab PO DAILY 07/07/22 06/18/25 iron) tablet losartan 50 mg tablet 50 mg PO DAILY 11/01/22 06/18/25 levothyroxine 50 mcg tablet 50 mcg PO DAILY 08/29/23 06/18/25 rosuvastatin 5 mg tablet 5 mg PO DAILY 08/29/23 06/18/25 potassium chloride 20 mEq 40 meq PO DAILY 09/06/23 06/18/25 tablet,extended release(part/cryst) nitroglycerin 0.4 mg sublingual 0.4 mg sublingual Q5M PRN chest 09/08/23 06/18/25 tablet (Nitrostat) pain #30 tabs betamethasone dipropionate 0.05 % 1 applic topical DAILY PRN 11/16/23 06/18/25 topical cream meclizine 12.5 mg tablet 12.5 mg PO TID PRN 11/16/23 06/18/25 diazepam 2 mg tablet 2 mg PO DAILY PRN 03/12/24 06/18/25 miscellaneous medical supply 03/12/24 06/18/25 pantoprazole 40 mg tablet,delayed 40 mg PO BID PRN 06/04/25 06/18/25 release levofloxacin 750 mg tablet 750 mg PO DAILY #5 tabs 06/18/25 prednisone 20 mg tablet 60 mg (3 x 20 mg) PO DAILY 4 days 06/18/25 #12 tabs Previous Rx's Medication Instructions Recorded aspirin 81 mg tablet,delayed 81 mg PO DAILY #30 tabs 10/01/20 release omega 8-wua-tnf-fish oil 1,000 mg 4,000 mg PO DAILY #30 caps 10/01/20 (120 mg-180 mg) capsule nitroglycerin 0.4 mg sublingual 0.4 mg sublingual Q5M PRN chest 09/08/23 tablet (Nitrostat) pain #30 tabs levofloxacin 750 mg tablet 750 mg PO DAILY #5 tabs 06/18/25 prednisone 20 mg tablet 60 mg (3 x 20 mg) PO DAILY 4 days 06/18/25 #12 tabs Allergies Allergy/AdvReac Type Severity Reaction Status Date / Time lisinopril AdvReac Intermediate cough Verified 06/18/25 17:05 metoprolol (From Toprol XL) AdvReac Unknown Other (See Verified 06/18/25 17:05 Comment) aspirin AdvReac NAUSEA Verified 06/18/25 17:05 codeine AdvReac vomiting Verified 06/18/25 17:05 morphine AdvReac NAUSEA Verified 06/18/25 17:05 Sulfa (Sulfonamide AdvReac NAUSEA Verified 06/18/25 17:05 Antibiotics) General Stated Complaint: RespSymp ALBINO: 3 Review of Systems All systems reviewed & are unremarkable except as noted in HPI and below Constitutional Constitutional: Reports chills, Denies fever(s) and Denies weakness Cardiovascular Cardiovascular: Denies chest pain and Denies dyspnea Respiratory Respiratory: Reports cough and Denies dyspnea Gastrointestinal Gastrointestinal: Denies abdominal pain, Denies nausea and Denies vomiting Neurologic Neurologic: Denies weakness Exam Const General: no acute distress Orientation: alert [facility] Head: normal to inspection Ears: external ears normal General nose exam: external nose normal Mouth: moist mucous membranes Eyes General: appearance normal, both eyes and all related structures Neck Neck: normal visual inspection Resp Effort & Inspection: normal respiratory effort and able to speak in complete sentences Auscultation: wheezes Cardio Rate: regular rate Skin General skin exam: no rashes or lesions noted Neuro General: patient alert and patient oriented x3 Extrem General: normal to inspection Psych Mental Status: mental status grossly normal Course Vital Signs Vital signs: Vital Signs Temperature 37.1 C 06/18/25 17:01 Pulse 68 06/18/25 17:01 Respiratory Rate 20 06/18/25 17:01 Blood Pressure 175/81 H 06/18/25 17:01 Pulse Oximetry 95 06/18/25 17:01 Temperature 37.1 C 06/18/25 17:04 Pulse 68 06/18/25 17:04 Respiratory Rate 20 06/18/25 17:04 Blood Pressure 175/81 H 06/18/25 17:04 Blood Pressure Position Sitting 06/18/25 17:04 Pulse Oximetry 95 06/18/25 17:04 Oxygen Delivery Method Room Air 06/18/25 17:04 Oxygen Flow Rate 0 06/18/25 17:04 Lab/Test Results Lab/Test Results: Laboratory Tests Range/Units 06/18/25 18:05 COVID-19 Source Nasopharynx SARS-CoV-2 (PCR) (Negative) Negative Influenza Type A (PCR) (Negative) Negative Influenza Type B (PCR) (Negative) Negative RSV (PCR) (Negative) Negative Medical Decision Making 85-year-old female who denies smoking or having a smoking history comes in with 4 to 5 days of productive cough and chills. Denies any high fevers, chest pain, difficulty breathing. She is well-appearing speaking full sentences. She had a Fluvid done prior to my exam which was negative. She has mild apical wheezing otherwise clear lung sounds, no JVD, no leg swelling or calf tenderness. Given the wheezing I am going to give her an albuterol inhaler and a dose of prednisone and will obtain a chest x-ray to evaluate for possible infiltrate. I suspect this could be URI and or bronchitis. Given her well appearance and lack of fevers I do not feel blood work indicated at this time. Patient feels better and lungs are now completely clear and no apical wheezing. X-ray negative on radiology read. Given her productive cough I am going to initiate oral antibiotics. She is stable for discharge and will follow-up with PCP if not improving and return precautions given. Differential Diagnosis Differential Diagnosis: uri pneumonia Quality:SDOH Health Related Social Needs: Health related social needs material hardship education PFSH All Active Problems (Updated 06/18/25 @ 20:34 by Hemal Gomez MD) Respiratory infection (Acute) Fall (Acute) Peroneal tendinitis, right leg (Acute) Anterior tibialis tendinitis of left leg (Acute) Hepatomegaly (Acute) Rheumatoid arthritis (Chronic) Anemia (Chronic) Senile osteoporosis (Acute) Hyperlipidemia (Acute) Essential hypertension (Acute) Angina of effort (Acute) Elevated blood pressure reading (Acute) 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) Hiatal hernia (Chronic) Acute chest wall pain (Acute) Systolic murmur (Acute) Ataxia (Acute) Cervical cancer (Acute) COVID-19 (Acute) Pituitary macroadenoma (Acute) Frequent falls (Acute) HTN (hypertension) (Chronic) Neoplasm of unspecified behavior of bone, soft tissue, and skin (Acute) Medical History Uterine cancer Lumbar radiculopathy Diabetes Proximal humerus fracture (10/16/19) Surgical History S/P selective transsphenoidal pituitary adenomectomy History of resection of rib History of hysterectomy Family History Sister Cerebral aneurysm Dementia Mother Diabetes Hypertension Heart disease Social History Smoking/Tobacco Use Status: Never Smoking risk assessment performed?: Yes Alcohol Intake: never Drug use: Never Substance use type: does not use Household members: spouse Housing: house Number of Children: 3 current occupation: Retired Current gender identity: female What is your relationship status?: Panel score (0-1 are the most socially isolated patients): 1 Do you feel safe at home: Yes Do you feel safe in your relationship?: Yes
[2025-06-18] MEDS: Albuterol HFA 8 GM 60 PUFF INH IH (19:38)
[2025-06-18] MEDS: predniSONE 20 MG TAB 60 MG PO (19:38)
--- NOTE | 2025-06-18 20:09 | DI.VRAD_ITS ---
PROCEDURE INFORMATION: Exam: XR Chest Exam date and time: 06/18/2025 19:46 Age: 85 years old Clinical indication: Other: Cough TECHNIQUE: Imaging protocol: Radiologic exam of the chest. Views: 2 views. COMPARISON: CT CHEST/ABD/PEL W 01/26/2025 14:56 FINDINGS: Lungs: Mild hyperinflation without airspace consolidation. No significant interstitial disease for the degree of inflation. Pleural spaces: No pleural effusion. No pneumothorax. Heart/Mediastinum: Moderate hiatal hernia, similar to prior. No significant cardiomegaly. Vasculature: Tortuous aorta. Bones/joints: Exaggerated thoracic kyphosis. No displaced fracture. IMPRESSION: Mild hyperinflation without airspace consolidation. Dictated and Authenticated by: Amelia Lorenzo MD. Orderin Jason Recio MD
[2025-06-18] MEDS: levoFLOXacin 500 MG, levoFLOXacin 250 MG 750 MG PO (20:49)
== END 2025-06-18 20:55 | disposition home or self-care (01) ==
PROVIDERS: Emergency Provider Emergency Medicine; PCP Family Medicine
DX: J98.8 Other specified respiratory disorders (principal); Z59.87 Material hardship due to limited financial resources, not elsewhere classified; Z55.6 Problems related to health literacy
CPT/HCPCS: 99284 ×2; 87637; 71046; J7512

== ENCOUNTER 2025-06-23 03:13 | Emergency (ER) | payer OTHER, SELFPAY ==
[2025-06-23] VITALS (21 sets, daily range): BP systolic 135–197; BP diastolic 57–87; PULSE 55–90; RESP 13–24; TEMP 36.6; O2SAT 93–97
--- NOTE | 2025-06-23 03:15 | RT.EKG_ITS ---
APPROVED REPORT Exam: Resting ECG Reason for Exam: check QT Patient Location: E HR:64 bpm ECG Measurements Heart Rate 64 AXIS TX 219 P 26 QRSd 93 QRS -63 QT 413 T 19 QTc 428 Conclusion Sinus rhythm...normal P axis, V-rate 60- 99 Borderline prolonged TX interval...TX >212, V-rate 50- 90 Inferior infarct, old...Q >35mS, II III aVF NSR @ 64 Left Colony Borderline TX interval, normal Qtc Low voltage in limb leads. Nonspecific ST-T changes Artifact in V4-V5
--- NOTE | 2025-06-23 03:15 | W.ED.GENAD ---
Discharge Plan Disposition Patient Disposition: Home Condition: Good Discharge Details Clinical Impression: Vomiting and diarrhea Primary Care Provider: Eveline Linton V ED Provider: Lorenzo Fisher [facility] and New Rx's Prescriptions: New ondansetron 4 mg tablet,disintegrating 4 mg PO Q8H PRNQty: 10 0RF Continued nitroglycerin [Nitrostat] 0.4 mg tablet, sublingual 0.4 mg sublingual Q5M PRN (Reason: chest pain) Qty: 30 3RF Rx Instructions: do not exceed 3 doses per episode (DME) miscellaneous medical supply Misc See Rx Instructions .Route Rx Instructions: As directed diazepam 2 mg tablet 2 mg PO DAILY PRN Rx Instructions: TAKE ONE TABLET BY MOUTH 1 HOUR PRIOR TO MRI. REPEAT BEFORE MRI IF NEEDED. losartan 50 mg tablet 50 mg PO DAILY potassium chloride 20 mEq tablet,ER particles/crystals 40 meq PO DAILY betamethasone dipropionate 0.05 % cream 1 applic topical DAILY PRN meclizine 12.5 mg tablet 12.5 mg PO TID PRN tramadol 50 mg tablet See Rx Instructions PO TID PRN Rx Instructions: 1/2 to 1 tab orally three times a day PRN; cetirizine [Zyrtec] 10 mg tablet 10 mg PO DAILY PRN Zyrtec 10 MG capsule 10 mg PO PRN PRN Patient Comments: Pt states not taking 05/07/23 hydrochlorothiazide 25 mg tablet 25 mg PO DAILY Patient Comments: TK 1 T PO D aspirin 81 mg Tablet,Delayed Release (Dr/Ec) 81 mg PO DAILY Qty: 30 0RF omega 2-mkl-vtj-fish oil 1,000 mg (120 mg-180 mg) Capsule 4,000 mg PO DAILY Qty: 30 0RF pantoprazole 40 mg tablet,delayed release (DR/EC) 40 mg PO BID PRN ferrous gluconate 324 mg (37.5 mg iron) tablet 1 tab PO DAILY Patient Comments: TAKE ONE TABLET BY MOUTH EVERY DAY levothyroxine 50 mcg tablet 50 mcg PO DAILY Patient Comments: TAKE ONE TABLET BY MOUTH EVERY DAY rosuvastatin 5 mg tablet 5 mg PO DAILY Patient Comments: TAKE ONE TABLET BY MOUTH AT BEDTIME Discontinued levofloxacin 750 mg tablet 750 mg PO DAILY Qty: 5 0RF Discharge Instructions Instructions: Diarrhea, Adult ED, Nausea and Vomiting, Adult ED Additional Instructions: You were seen in the ED for vomiting and diarrhea that likely is related to your recent antibiotic usage. This would be considered an adverse effect not an allergic reaction but has been noted in your record here. A prescription for ondansetron to help with recurrent vomiting has been sent to your pharmacy. Recommend a clear liquid/bland diet over the next couple of days. Follow-up with your primary care physician towards the end of the week if not improving. Return to ED for any fever, abdominal pain, persistent vomiting, bloody diarrhea, syncope, other concerns. Stand Alone Forms: Portal Information HPI General Mode of arrival: ambulatory. Date/Time Provider Initiated Documentation: 06/23/25 03:15. Limitations to Documentation: no limitations. Information obtained by: patient, RN notes reviewed and old records reviewed. HPI Narrative: Patient presents to ED with vomiting and diarrhea since yesterday. She is unable to keep anything down including just liquids. She denies having any type of abdominal pain or back pain. There has been no fever. There has been no bloody diarrhea. She was placed on Levaquin last week for respiratory infection. She is taking 4 of the 5 pills. Last pill she was not able to tolerate. Reports that her respiratory symptoms are essentially gone. Denies any chest pain. Is making some urine. Related Data Home Medications Medication Instructions Recorded Confirmed cetirizine 10 mg capsule (Zyrtec) 10 mg PO PRN PRN 01/28/15 06/23/25 hydrochlorothiazide 25 mg tablet 25 mg PO DAILY 04/22/20 06/23/25 aspirin 81 mg tablet,delayed 81 mg PO DAILY #30 tabs 10/01/20 06/23/25 release omega 6-kaj-yny-fish oil 1,000 mg 4,000 mg PO DAILY #30 caps 10/01/20 06/23/25 (120 mg-180 mg) capsule ferrous gluconate 324 mg (37.5 mg 1 tab PO DAILY 07/07/22 06/23/25 iron) tablet losartan 50 mg tablet 50 mg PO DAILY 11/01/22 06/23/25 levothyroxine 50 mcg tablet 50 mcg PO DAILY 08/29/23 06/23/25 rosuvastatin 5 mg tablet 5 mg PO DAILY 08/29/23 06/23/25 potassium chloride 20 mEq 40 meq PO DAILY 09/06/23 06/23/25 tablet,extended release(part/cryst) nitroglycerin 0.4 mg sublingual 0.4 mg sublingual Q5M PRN chest 09/08/23 06/23/25 tablet (Nitrostat) pain #30 tabs betamethasone dipropionate 0.05 % 1 applic topical DAILY PRN 11/16/23 06/23/25 topical cream meclizine 12.5 mg tablet 12.5 mg PO TID PRN 11/16/23 06/23/25 diazepam 2 mg tablet 2 mg PO DAILY PRN 03/12/24 06/23/25 miscellaneous medical supply 03/12/24 06/18/25 pantoprazole 40 mg tablet,delayed 40 mg PO BID PRN 06/04/25 06/23/25 release cetirizine 10 mg tablet (Zyrtec) 10 mg PO DAILY PRN 06/20/25 06/23/25 tramadol 50 mg tablet See Rx Instructions PO TID PRN 06/20/25 06/23/25 ondansetron 4 mg disintegrating 4 mg PO Q8H PRN #10 tabs 06/23/25 tablet Previous Rx's Medication Instructions Recorded aspirin 81 mg tablet,delayed 81 mg PO DAILY #30 tabs 10/01/20 release omega 9-syo-plq-fish oil 1,000 mg 4,000 mg PO DAILY #30 caps 10/01/20 (120 mg-180 mg) capsule nitroglycerin 0.4 mg sublingual 0.4 mg sublingual Q5M PRN chest 09/08/23 tablet (Nitrostat) pain #30 tabs ondansetron 4 mg disintegrating 4 mg PO Q8H PRN #10 tabs 06/23/25 tablet Allergies Allergy/AdvReac Type Severity Reaction Status Date / Time levofloxacin AdvReac Severe Other (See Verified 06/23/25 05:31 Comment) lisinopril AdvReac Intermediate cough Verified 06/23/25 03:22 metoprolol (From Toprol XL) AdvReac Unknown Other (See Verified 06/23/25 03:22 Comment) aspirin AdvReac NAUSEA Verified 06/23/25 03:22 codeine AdvReac vomiting Verified 06/23/25 03:22 morphine AdvReac NAUSEA Verified 06/23/25 03:22 Sulfa (Sulfonamide AdvReac NAUSEA Verified 06/23/25 03:22 Antibiotics) General ALBINO: 3 Exam Narrative Exam Narrative: Const: WDWN elderly female in NAD. VS per triage. HEENT: NC/AT. Normal facial exam. Dry MM. Neck: Supple. Trachea midline. Lungs: Normal respiratory effort. Lungs are clear. Cor: RRR without murmur. Good radial pulses. GI: Soft/ND/NT. Neuro: A+O x 3. Normal speech, mentation, gait. Cranial nerves II - XII grossly intact. No gross motor or sensory deficit. Ext: No C/C/E. Medical Decision Making Patient presenting to ED with vomiting and diarrhea for the at least the last 24 hours. Vital signs are good though she is very dry with no saliva, dry mucous membranes. Suspect symptoms are related to the Levaquin she was placed on for respiratory infection. This is improved and she states no cough or difficulty breathing anymore. Denies any abdominal pain. Abdomen is benign. Will place IV and give fluids. Will check QT interval and if normal give ondansetron. Check laboratory studies and reevaluate. Does not require any imaging at this point. Patient's laboratories are remarkably good given the vomiting and diarrhea she reports having. Potassium is just a little low at 3.4. Kidney function is normal. White count is normal. She is feeling much better after the ondansetron. Tolerating kev monserrat at this point. Will be able to go home with prescription for ondansetron. Will discontinue levofloxacin and not give her her last dose. Follow-up with primary care later this week if not improving. Return precautions provided. Medical Records Medical records reviewed: Yes I reviewed the patient's medical records. Medical records narrative: VITLAccess for PCP records Lab Data Lab results reviewed: Yes I reviewed the patient's lab results. Lab results narrative: See [facility] ECG Data Attestation: I personally reviewed and interpreted this ECG (s) as follows: Prior ECG tracings: available for review Interpretation: See MDM/EKG Quality:SDOH Health Related Social Needs: Health related social needs material hardship education PFSH All Active Problems (Updated 06/23/25 @ 05:32 by Lorenzo Fisher MD) Vomiting and diarrhea (Acute) Respiratory infection (Acute) Fall (Acute) Peroneal tendinitis, right leg (Acute) Anterior tibialis tendinitis of left leg (Acute) Hepatomegaly (Acute) Anemia (Chronic) Senile osteoporosis (Acute) Essential hypertension (Acute) Angina of effort (Acute) Elevated blood pressure reading (Acute) 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) Hiatal hernia (Chronic) Acute chest wall pain (Acute) Systolic murmur (Acute) Ataxia (Acute) COVID-19 (Acute) Frequent falls (Acute) Neoplasm of unspecified behavior of bone, soft tissue, and skin (Acute) Medical History Pituitary macroadenoma Cervical cancer Rheumatoid arthritis Hyperlipidemia HTN (hypertension) Lumbar radiculopathy Diabetes Proximal humerus fracture (10/16/19) Surgical History S/P selective transsphenoidal pituitary adenomectomy History of resection of rib History of hysterectomy Family History Sister Cerebral aneurysm Dementia Mother Diabetes Hypertension Heart disease Social History Smoking/Tobacco Use Status: Never Smoking risk assessment performed?: Yes Alcohol Intake: never Drug use: Never Substance use type: does not use Household members: spouse Housing: house Number of Children: 3 current occupation: Retired Current gender identity: female What is your relationship status?: Panel score (0-1 are the most socially isolated patients): 1 Do you feel safe at home: Yes Do you feel safe in your relationship?: Yes
[2025-06-23 03:39] LABS: Abs Immature Grans 0.05 10^3/uL (0.0-0.06); HCT 45.6 % (36.0-46.0); HGB 15.7 g/dL (11.2-15.7); Immature Grans % 0.7 %; MCH 29.7 pg (27.0-33.0); MCHC 34.4 % (32.0-36.0); MCV 86 fL (80-95); MPV 9.5 fL (8.0-11.0); Platelet Count 241 10^3/uL (130-400); RBC 5.28 10^6/uL (3.93-5.22); RDW 12.2 % (11.7-14.6); RDW-SD 38.8 fL; WBC 7.58 10^3/uL (4.4-10.8)
[2025-06-23] MEDS: Normal Saline 1,000 ML 1000 ML IV (03:40)
[2025-06-23] MEDS: Ondansetron 4 MG/2 ML VIAL IVP (03:45)
[2025-06-23 04:13] LABS: Lipase 29 U/L (<53); Magnesium 1.8 mg/dL (1.6-2.6)
[2025-06-23 04:15] LABS: ALT 28 U/L (10-49); AST 39 U/L (<34); Albumin 3.8 g/dL (3.4-5.0); Alkaline Phosphatase 72 U/L (46-116); Anion Gap 9.1 mmol/L (3-11); BUN 21 mg/dL (9-23); Bilirubin, Total 0.80 mg/dL (0.2-1.2); CO2 26.9 mmol/L (20.0-31.0); Calcium 8.8 mg/dL (8.3-10.6); Chloride 106 mmol/L (98-107); Glucose 101 mg/dL (74-106); Potassium 3.4 mmol/L (3.5-5.1); Sodium 142 mmol/L (136-145); Total Protein 5.9 g/dL (5.7-8.2)
--- NOTE | 2025-06-24 19:12 | NUR.NOTE ---
Nursing Note: Accessed patients chart to obtain mailing address to send discharge paperwork.
== END 2025-06-23 05:57 | disposition home or self-care (01) ==
PROVIDERS: Emergency Provider Emergency Medicine; PCP Family Medicine
DX: R11.2 Nausea with vomiting, unspecified (principal); R19.7 Diarrhea, unspecified
CPT/HCPCS: 99283; 99284; 96374; 80053; 83690; 93005; 83735; 85025; 93010; J2405

== ENCOUNTER 2025-07-14 15:56 | Outpatient (CLI) | payer OTHER, SELFPAY ==
--- NOTE | 2025-07-14 14:30 | DI.RAD_ITS ---
Exam(s) XR HIP PELVIS ADULT BL EXAM: XR HIP PELVIS ADULT BL CLINICAL HISTORY: bilateral hip pain. TECHNIQUE: 2D digital imaging was performed. COMPARISON: No exams were available for comparison FINDINGS: 3 views No evidence of pelvic nor hip fractures. No significant hip joint space narrowing. On the left side there is a small corticated oval osteophytic density off the lateral acetabulum. This measures 3 x 2 mm and is corticated. There is a small degenerative subarticular cysts in the lateral aspect of the acetabulum of the left hip noted. No significant osseous lesion in either hip. Bone density appears satisfactory. Pubic rami are intact. IMPRESSION: No hip joint space narrowing nor osteophytes. 3 x 2 mm corticated calcification off the superolateral aspect of the left acetabulum, probably chronic. This does not have the appearance of a fracture fragment. DATA REPOSITORY: RADIATION DOSE DELIVERED:
== END 2025-07-14 15:57 | disposition home or self-care (01) ==
LOC: DIORS 15:57
PROVIDERS: PCP Family Medicine; Visit Provider Physician Assistant
DX: M25.551 Pain in right hip (principal); M25.752 Osteophyte, left hip; M25.552 Pain in left hip
CPT/HCPCS: 73521